=== PATIENT | female | born 1955 | race African-American/Black ===

== ENCOUNTER → 2016-11-26 | Emergency (ER) | payer MEDICARE, MEDICAID ==
[~2016-11-26] VITALS: Ht 154.9 cm; Wt 81.6 kg
[~2016-11-26] MED LIST: AMBIEN10 MG PO; AMLODIPINE BESY10 MG ORAL; BACTRIM DS TAB1 EAC1 ORAL; CARAFATE1 G1 ORAL; CIPRO500 MG PO; COLACE100 MG ORAL; CYCLOBENZAPRINE10 MG ORAL; DICYCLOMINE HCL10 MG PO; Dicyclomine HCl 10mg/5ml oral soln ORAL ONE; FAMOTIDINE20 MG ORAL; FLUOXETINE HCL20 M2 ORAL; FLUOXETINE HCL20 MG PO; FLUOXETINE HCL25 G1 PO; GABAPENTIN300 MG ORAL; HYDROCODON-ACE1 EA15 ORAL; KEFLEX500 MG ORAL; LEVAQUIN750 MG ORAL; LIDOCAINE VISCO20 ML PO; Lidocaine 2% Visc 15ml soln ORAL ONE; MAALOX MAXIMUM355 M1 PO; MIRALAX17 GM ORAL; Mylanta II UD 30ml ORAL ONE; NEXIUM40 MG ORAL; NORCO 10/3251 EA ORAL; NORCO 5-325 TA1 EACH ORAL; NORVASC10 MG PO; OMEPRAZOLE20 M3 PO; OMEPRAZOLE40 M1 ORAL; PEPCID40 MG PO; PERCOCET 5-3251 EACH ORAL; PROAIR HFA8.5 GM INH; RANITIDINE HCL150 MG ORAL; TRAMADOL HCL50 MG ORAL; TRAMADOL HCL50 MG PO; UNOBMED; VICODIN ES 7.51 EACH ORAL; ZANTAC150 MG ORAL; ZOFRAN ODT4 MG ORAL; ZOFRAN4 MG ORAL
[2016-11-26 12:15] LABS: APPEARANCE,URINE CLEAR; KETONES,URINE NEGATIVE (NEGATIVE); LEUKOCYTE ESTERASE ,URINE 1+ (NEGATIVE); NITRITE,URINE NEGATIVE (NEGATIVE); PH,URINE 7 (4.5-8.0); PROTEIN,URINE NEGATIVE (NEGATIVE); UROBILINOGEN,URINE NORMAL MG/DL (0.0-1.0)
[2016-11-26 12:21] VITALS: BP 149/90
[2016-11-26 12:31] LABS: BACTERIA,URINE FEW /HPF; RBC,URINE 0-2 /HPF (0 - 2); SQUAMOUS EPITHELIAL CELL,UR FEW /LPF (NONE/OCC)
[2016-11-26 12:48] LABS: EOSINOPHILS % (AUTO) 1.9 % (0.0-3.0); LYMPHOCYTES % (AUTO) 38.9 % (20.0-45.0); MEAN CORPUSCULAR HEMOGLOBIN 28.2 PG (27.0-31.0); MEAN CORPUSCULAR HGB CONC 31.4 G/DL (32.0-36.0); MEAN CORPUSCULAR VOLUME 90 FL (80-99); MEAN PLATELET VOLUME 6.4 FL (6.5-10.1); MONOCYTES % (AUTO) 5.3 % (1.0-10.0); NEUTROPHILS % (AUTO) 52.9 % (45.0-75.0); PLATELET COUNT 374 K/UL (150-450); RED BLOOD COUNT 4.25 M/UL (4.20-5.40); RED CELL DISTRIBUTION WIDTH 13.6 % (11.6-14.8); WHITE BLOOD COUNT 7.7 K/UL (4.8-10.8)
[2016-11-26 12:55] LABS: ALANINE AMINOTRANSFERASE 21 U/L (3-33); ALBUMIN/GLOBULIN RATIO 1.3 (1.0-2.7); ANION GAP 16 (5-15); ASPARTATE AMINO TRANSFERASE 26 U/L (5-40); CALCIUM 9.1 mg/dL (8.6-10.2); CARBON DIOXIDE 27 mEQ/L (20-30); CHLORIDE 98 mEQ/L (98-107); CREATININE 0.7 mg/dL (0.5-0.9); GLOMERULAR FILTRATION RATE > 60 mL/min (>60); HEMOLYSIS 8; LIPASE 15 U/L (< 60); POTASSIUM 3.7 mEQ/L (3.4-4.9); SODIUM 141 mEQ/L (135-145); TOTAL PROTEIN 7.4 g/dL (6.6-8.7)
[2016-11-26 14:22] VITALS: BP 141/84
[2016-11-26 14:34] VITALS: BP 141/84
--- NOTE | 2016-11-26 20:00 | Emergency Room Report ---
History of Present Illness General Chief Complaint: Abdominal Pain Source: Patient, Medical Record Present Illness HPI Patient presents with upper abdominal pain and vomiting. She states the pain is 8-9/10, burning pressure and constant. No vomit blood. She feels this is her ulcer that is acting up. Denies any melena or fever. She feels weak as she has been vomiting. She tried to get a GI cocktail over the counter but was unable to do so. She denies URI sy, chest pain, SOB, sore throat, headache, rash. extremity pain. This began when she coughed. She was admitted June last year for intractable abdominal pain. These are her discharge dx: 1. Possible cholecystitis. 2. Anemia. 3. Peptic ulcer disease. 4. Intractable abdominal pain. 5. Hiatal hernia. 6. Gastroesophageal reflux disease. 7. Diverticulitis. 8. Hepatitis C. Allergies: Coded Allergies: NO KNOWN DRUG ALLERGIES (Unverified Allergy, Unknown, 05/23/15) Uncoded Allergies: lactulose intolerance (Adverse Reaction, Intermediate, Itching, 08/16/13) upset stomach Patient History Past Medical History: see triage record Social History Narrative at home Reviewed Nursing Documentation: PMH: Agreed, PSxH: Agreed Nursing Documentation-PMH Past Medical History: No History, Except For Hx Cardiac Problems: No - Hiatal Hernia, Anemia, Osteoarthritis, Scoliosis Hx Hypertension: Yes Hx Asthma: Yes Hx Cancer: No Hx Gastrointestinal Problems: Yes - Diverticulitis, Hep C, Gastritis Hx Dialysis: No - Pyelonephritis Hx Neurological Problems: No - Rt hip replacement in 2011 Hx Cerebrovascular Accident: No - KNEE, HIP, SHOLDER SX Hx Weakness: Yes Hx Fatigue: Yes Review of Systems All Other Systems: negative except mentioned in HPI Physical Exam Vital Signs Date Time Temp Pulse Resp B/P Pulse Ox O2 Delivery O2 Flow Rate FiO2 11/26/16 11:17 98.4 100 16 149/90 95 Room Air Sp02 EP Interpretation: reviewed, normal General Appearance: well appearing, no apparent distress, GCS 15, obese Head: normocephalic, atraumatic Eyes: bilateral eye PERRL, bilateral eye normal inspection ENT: moist mucus membranes Neck: supple Respiratory: lungs clear, normal breath sounds Cardiovascular #1: regular rate, rhythm Cardiovascular #2: 2+ radial (R) Gastrointestinal: normal inspection, normal bowel sounds, no mass, non- distended, tenderness - LUQ, some muscle tenderness, overweight Musculoskeletal: back normal, gait/station normal, normal range of motion Neurologic: alert, oriented x3 Skin: normal inspection, warm/dry Medical Decision Making Diagnostic Impression: Primary Impression: Abdominal pain Qualified Codes: R10.12 - Left upper quadrant pain ER Course Patient presents with Dr. quadrant abdominal pain. Differential includes gastritis, GERD, peptic ulcer disease, diverticulitis, muscle strain, amongst others appeared she's on the plantar plate at the moment. Evaluation will be with labs. Will order for IV hydration and Zofran. The patient had a paucity of IV access sites. We elected to treat patient with sublingual Zofran. In addition she got GI cocktail as requested. Laboratory remarkable for normal white count and normal electrolytes. Patient improved and pain decreased. Tolerating PO well. She states she has tramadol at home. Patient stable for outpatient observation and treatment. Laboratory Tests Test 11/26/16 11:30 11/26/16 11:45 Urine Color Yellow Urine Appearance Clear Urine pH 7 (4.5-8.0) Urine Specific [place] 1.005 (1.005-1.035) Urine Protein Negative (NEGATIVE) Urine Glucose (UA) Negative (NEGATIVE) Urine Ketones Negative (NEGATIVE) Urine Occult Blood Negative (NEGATIVE) Urine Nitrite Negative (NEGATIVE) Urine Bilirubin Negative (NEGATIVE) Urine Urobilinogen Normal MG/DL (0.0-1.0) Urine Leukocyte Esterase 1+ (NEGATIVE) H Urine RBC 0-2 /HPF (0 - 2) Urine WBC 2-4 /HPF (0 - 2) Urine Squamous Epithelial Cells Few /LPF (NONE/OCC) Urine Bacteria Few /HPF (NONE) White Blood Count 7.7 K/UL (4.8-10.8) Red Blood Count 4.25 M/UL (4.20-5.40) Hemoglobin 12.0 G/DL (12.0-16.0) Hematocrit 38.1 % (37.0-47.0) Mean Corpuscular Volume 90 FL (80-99) Mean Corpuscular Hemoglobin 28.2 PG (27.0-31.0) Mean Corpuscular Hemoglobin Concent 31.4 G/DL (32.0-36.0) L Red Cell Distribution Width 13.6 % (11.6-14.8) Platelet Count 374 K/UL (150-450) Mean Platelet Volume 6.4 FL (6.5-10.1) L Neutrophils (%) (Auto) 52.9 % (45.0-75.0) Lymphocytes (%) (Auto) 38.9 % (20.0-45.0) Monocytes (%) (Auto) 5.3 % (1.0-10.0) Eosinophils (%) (Auto) 1.9 % (0.0-3.0) Basophils (%) (Auto) 1.0 % (0.0-2.0) Sodium Level 141 mEQ/L (135-145) Potassium Level 3.7 mEQ/L (3.4-4.9) Chloride Level 98 mEQ/L (98-107) Carbon Dioxide Level 27 mEQ/L (20-30) Anion Gap 16 (5-15) H Blood Urea Nitrogen 7 mg/dL (7-23) Creatinine 0.7 mg/dL (0.5-0.9) Estimate Glomerular Filtration Rate > 60 mL/min (>60) Glucose Level 84 mg/dL (74-106) Calcium Level 9.1 mg/dL (8.6-10.2) Total Bilirubin < 0.2 mg/dL (0.0-1.2) Aspartate Amino Transferase (AST) 26 U/L (5-40) Alanine Aminotransferase (ALT) 21 U/L (3-33) Alkaline Phosphatase 100 U/L (35-104) Total Protein 7.4 g/dL (6.6-8.7) Albumin 4.3 g/dL (3.5-5.2) Globulin 3.1 g/dL Albumin/Globulin Ratio 1.3 (1.0-2.7) Lipase 15 U/L (< 60) EKG Diagnostic Results Rate: normal Rhythm: NSR ST Segments: no acute changes Rhythm Strip Diag. Results EP Interpretation: yes Rhythm: NSR, no PVC's, no ectopy, other - from EKG Last Vital Signs Date Time Temp Pulse Resp B/P Pulse Ox O2 Delivery O2 Flow Rate FiO2 11/26/16 14:34 98.4 99 18 141/84 99 Room Air Status: improved Disposition: HOME, SELF-CARE Condition: Improved Scripts Lidocaine HCl (Lidocaine HCl Viscous) 100 Ml Solution 10 ML PO Q6HR Y for For Pain, #60 ML 1 Refill Prov: Yasir Ruff M.D. 11/26/16 Ondansetron Odt* (ZOFRAN ODT*) 4 Mg Tab.rapdis 4 MG ORAL Q8H Y for Nausea & Vomiting, #12 TAB 0 Refills Prov: Yasir Ruff M.D. 11/26/16 Mag Hydrox/Al Hydrox/Simeth (MAALOX MAXIMUM STRENGTH SUSP) 355 Ml Oral.susp 30 ML PO Q6HR Y for For Pain, #240 ML Prov: Yasir Ruff M.D. 11/26/16 Patient Instructions: Abdominal Pain, Adult Additional Instructions: No aspirin, advil, aleve, alkaselzer, peptobismol or alcohol. Tylenol and [place] OK. Your doctor needs to check you for H. pylori. Yasir Ruff M.D. Nov 26, 2016 20:00
--- NOTE | 2016-11-28 15:16 | Cardiology Report ---
APPROVED REPORT EKG Measurement Heart [id number] Normal sinus rhythm Septal infarct, age undetermined Abnormal ECG
== END | disposition home or self-care (01) ==
LOC: EMR 11:53
DX: R10.12 Left upper quadrant pain (principal); R11.10 Vomiting, unspecified; Z91.011 Allergy to milk products; I10 Essential (primary) hypertension; J45.909 Unspecified asthma, uncomplicated; Z96.641 Presence of right artificial hip joint; Z87.19 Personal history of other diseases of the digestive system; M19.90 Unspecified osteoarthritis, unspecified site; M41.9 Scoliosis, unspecified; Z87.11 Personal history of peptic ulcer disease
CPT/HCPCS: 36415; 80053; 81003; 83690; 85025; 93005; 99284; J2405

== ENCOUNTER 2016-12-28 10:52 | Emergency (ER) | payer MEDICARE, MEDICAID ==
[~2016-12-28] VITALS: Ht 154.9 cm; Wt 86.2 kg
[~2016-12-28 10:52] MED LIST changes: -Dicyclomine HCl 10mg/5ml oral soln ORAL ONE; -Lidocaine 2% Visc 15ml soln ORAL ONE; -Mylanta II UD 30ml ORAL ONE; -PEPCID40 MG PO
[2016-12-28 11:02] VITALS: BP 134/94
[2016-12-28] MEDS ORDERED: Morphine Sulfate 4mg/ml Inj IM ONE (11:15)
--- NOTE | 2016-12-28 11:24 | Emergency Room Report ---
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 Denies any vomiting but she felt nauseous patient was taking tramadol for this which was not helping And presents by paramedics Patient denies any diarrhea she feels that her duodenal ulcer could be acting up Denies any dysuria frequency denies any lower abdominal pain Denies any fevers chills Allergies: Coded Allergies: NO KNOWN DRUG ALLERGIES (Unverified Allergy, Unknown, 05/23/15) Uncoded Allergies: lactulose intolerance (Adverse Reaction, Intermediate, Itching, 08/16/13) upset stomach Patient History Past Medical History: see triage record Pertinent Family History: none Reviewed Nursing Documentation: PMH: Agreed, PSxH: Agreed Nursing Documentation-PMH Past Medical History: No History, Except For Hx Cardiac Problems: No - Hiatal Hernia, Anemia, Osteoarthritis, Scoliosis Hx Hypertension: Yes Hx Asthma: Yes Hx Cancer: No Hx Gastrointestinal Problems: Yes - Diverticulitis, Hep C, Gastritis Hx Dialysis: No - Pyelonephritis Hx Neurological Problems: No - Rt hip replacement in 2011 Hx Cerebrovascular Accident: No - KNEE, HIP, SHOLDER SX Hx Weakness: Yes Hx Fatigue: Yes Review of Systems All Other Systems: negative except mentioned in HPI Physical Exam Vital Signs Date Time Temp Pulse Resp B/P Pulse Ox O2 Delivery O2 Flow Rate FiO2 12/28/16 10:54 97.5 112 21 134/94 96 Room Air Sp02 EP Interpretation: reviewed, normal General Appearance: mild distress - Patient appears uncomfortable Head: normocephalic, atraumatic Eyes: bilateral eye EOMI, bilateral eye PERRL ENT: hearing grossly normal, normal pharynx, TMs + canals normal, uvula midline Neck: full range of motion, supple, no meningismus, no bony tend Respiratory: lungs clear, normal breath sounds, no rhonchi, no respiratory distress, no retraction, no accessory muscle use Cardiovascular #1: normal peripheral pulses, regular rate, rhythm, no edema, no gallop, no JVD, no murmur Gastrointestinal: normal bowel sounds, soft, no mass, no organomegaly, non- distended, no guarding, no hernia, no pulsatile mass, no rebound, tenderness - Patient subjectively holding her left upper abdomen, otherwise the exam is soft Genitourinary: no CVA tenderness Musculoskeletal: normal inspection Neurologic: oriented x3, responsive, mmi teacher III-XII nml as tested, motor strength/ tone normal, sensory intact Psychiatric: mood/affect normal Skin: normal color, no rash, warm/dry, palpation normal Lymphatic: normal inspection, no adenopathy Medical Decision Making Diagnostic Impression: Primary Impression: Abdominal pain ER Course With the history exam and presentation, multiple differentials considered, including but not limited to appendicitis, gastritis, cholecystitis, diverticulitis Patient has had multiple episodes of abdominal pain with multiple CAT scans in the system given the patient's abdomen is soft the did not want to expose her to further radiation patient's blood work is at baseline levels I recommended discussing with her physician if she has ulcers tramadol should be revisited and might not be the best medication Patient will have close outpatient followup and return with any changes Labs Test 12/28/16 11:25 12/28/16 12:05 Sodium Level 141 mEQ/L (135-145) Potassium Level 3.7 mEQ/L (3.4-4.9) Chloride Level 99 mEQ/L (98-107) Carbon Dioxide Level 23 mEQ/L (20-30) Anion Gap 19 (5-15) Blood Urea Nitrogen 7 mg/dL (7-23) Creatinine 0.6 mg/dL (0.5-0.9) Estimat Glomerular Filtration Rate > 60 mL/min (>60) Glucose Level 97 mg/dL (74-106) Calcium Level 9.6 mg/dL (8.6-10.2) Total Bilirubin 0.2 mg/dL (0.0-1.2) Aspartate Amino Transf (AST/SGOT) 22 U/L (5-40) Alanine Aminotransferase (ALT/SGPT) 17 U/L (3-33) Alkaline Phosphatase 106 U/L (35-104) Total Protein 7.5 g/dL (6.6-8.7) Albumin 4.1 g/dL (3.5-5.2) Globulin 3.4 g/dL Albumin/Globulin Ratio 1.2 (1.0-2.7) Lipase 18 U/L (< 60) White Blood Count 7.7 K/UL (4.8-10.8) Red Blood Count 4.16 M/UL (4.20-5.40) Hemoglobin 11.7 G/DL (12.0-16.0) Hematocrit 36.8 % (37.0-47.0) Mean Corpuscular Volume 88 FL (80-99) Mean Corpuscular Hemoglobin 28.1 PG (27.0-31.0) Mean Corpuscular Hemoglobin Concent 31.7 G/DL (32.0-36.0) Red Cell Distribution Width 13.9 % (11.6-14.8) Platelet Count 347 K/UL (150-450) Mean Platelet Volume 6.2 FL (6.5-10.1) Neutrophils (%) (Auto) 72.8 % (45.0-75.0) Lymphocytes (%) (Auto) 19.3 % (20.0-45.0) Monocytes (%) (Auto) 5.2 % (1.0-10.0) Eosinophils (%) (Auto) 1.8 % (0.0-3.0) Basophils (%) (Auto) 0.9 % (0.0-2.0) Rhythm Strip Diag. Results EP Interpretation: yes Rate: 77 Rhythm: NSR, no PVC's, no ectopy Last Vital Signs Date Time Temp Pulse Resp B/P Pulse Ox O2 Delivery O2 Flow Rate FiO2 12/28/16 11:02 97.5 107 21 134/94 96 Room Air Status: improved Disposition: HOME, SELF-CARE Condition: Improved Scripts Famotidine (PEPCID) 40 Mg Tablet 40 MG PO DAILY, #7 TAB 0 Refills Prov: BLAKE GARCIA D.O. 12/28/16 Referrals: NON PHYSICIAN (PCP) Additional Instructions: Patient is provided with the discharge instructions notified to follow up with primary doctor in the next 2-3 days otherwise return to the er with any worsening symptoms. Please note that this report is being documented using [employer] technology. This can lead to erroneous entry secondary to incorrect interpretation by the dictating instrument. BLAKE GARCIA D.O. Dec 28, 2016 11:23
[2016-12-28 11:52] LABS: ALANINE AMINOTRANSFERASE 17 U/L (3-33); ALBUMIN/GLOBULIN RATIO 1.2 (1.0-2.7); ANION GAP 19 (5-15); ASPARTATE AMINO TRANSFERASE 22 U/L (5-40); CALCIUM 9.6 mg/dL (8.6-10.2); CARBON DIOXIDE 23 mEQ/L (20-30); CHLORIDE 99 mEQ/L (98-107); CREATININE 0.6 mg/dL (0.5-0.9); GLOMERULAR FILTRATION RATE > 60 mL/min (>60); HEMOLYSIS 9; LIPASE 18 U/L (< 60); POTASSIUM 3.7 mEQ/L (3.4-4.9); SODIUM 141 mEQ/L (135-145); TOTAL PROTEIN 7.5 g/dL (6.6-8.7)
[2016-12-28 12:15] LABS: BASOPHILS % (AUTO) 0.9 % (0.0-2.0); EOSINOPHILS % (AUTO) 1.8 % (0.0-3.0); LYMPHOCYTES % (AUTO) 19.3 % (20.0-45.0); MEAN CORPUSCULAR HEMOGLOBIN 28.1 PG (27.0-31.0); MEAN CORPUSCULAR HGB CONC 31.7 G/DL (32.0-36.0); MEAN CORPUSCULAR VOLUME 88 FL (80-99); MEAN PLATELET VOLUME 6.2 FL (6.5-10.1); MONOCYTES % (AUTO) 5.2 % (1.0-10.0); NEUTROPHILS % (AUTO) 72.8 % (45.0-75.0); PLATELET COUNT 347 K/UL (150-450); RED BLOOD COUNT 4.16 M/UL (4.20-5.40); RED CELL DISTRIBUTION WIDTH 13.9 % (11.6-14.8); WHITE BLOOD COUNT 7.7 K/UL (4.8-10.8)
[2016-12-28] MEDS ORDERED: PEPCID40 MG PO (12:43)
[2016-12-28 13:10] VITALS: BP 141/81
[2016-12-28] MEDS ORDERED: Dicyclomine HCl 10mg/5ml oral soln ORAL ONE (13:15)
== END 2016-12-28 13:08 | disposition home or self-care (01) ==
LOC: EDBD 10:52 → EMR 11:11
DX: R10.12 Left upper quadrant pain (principal); E73.9 Lactose intolerance, unspecified; I10 Essential (primary) hypertension; J45.909 Unspecified asthma, uncomplicated; Z96.641 Presence of right artificial hip joint; M19.90 Unspecified osteoarthritis, unspecified site; M41.9 Scoliosis, unspecified
CPT/HCPCS: 36415; 80053; 83690; 85025; 96372; 99283; J2270

== ENCOUNTER 2017-02-08 10:47 | Emergency (ER) | payer MEDICARE, MEDICAID ==
[~2017-02-08] VITALS: Ht 154.9 cm; Wt 99.8 kg
[~2017-02-08 10:47] MED LIST changes: +ACETAMINOPHEN325 M1 ORAL; +AMLODIPINE BES2.5 MG ORAL; +DICLOFENAC SODI25 MG ORAL; +FLUOXETINE HCL10 MG ORAL; +PEPCID40 MG PO
[2017-02-08 10:50] VITALS: BP 154/91
[2017-02-08 11:00] VITALS: BP 137/94
[2017-02-08] MEDS ORDERED: HYDROmorphone 1 MG, DiphenhydrAMINE 25 MG in NS 55 ML IV ONE (11:00)
[2017-02-08 11:45] LABS: BASOPHILS % (AUTO) 1.1 % (0.0-2.0); EOSINOPHILS % (AUTO) 2.7 % (0.0-3.0); MEAN CORPUSCULAR HEMOGLOBIN 28.2 PG (27.0-31.0); MEAN CORPUSCULAR HGB CONC 31.2 G/DL (32.0-36.0); MEAN CORPUSCULAR VOLUME 90 FL (80-99); MEAN PLATELET VOLUME 6.3 FL (6.5-10.1); MONOCYTES % (AUTO) 5.1 % (1.0-10.0); PLATELET COUNT 332 K/UL (150-450); RED BLOOD COUNT 4.13 M/UL (4.20-5.40); RED CELL DISTRIBUTION WIDTH 14.2 % (11.6-14.8); WHITE BLOOD COUNT 6.5 K/UL (4.8-10.8)
[2017-02-08] MEDS ORDERED: Mylanta II UD 30ml ORAL ONE (11:45)
[2017-02-08] MEDS ORDERED: Lidocaine 2% Visc 15ml soln ORAL ONE (11:45)
[2017-02-08] MEDS ORDERED: Dicyclomine HCl 10mg/5ml oral soln ORAL ONE (11:45)
[2017-02-08 12:00] VITALS: BP 139/86
[2017-02-08 12:01] LABS: ALANINE AMINOTRANSFERASE 22 U/L (3-33); ALBUMIN/GLOBULIN RATIO 1.6 (1.0-2.7); ANION GAP 18 (5-15); ASPARTATE AMINO TRANSFERASE 30 U/L (5-40); CALCIUM 9.6 mg/dL (8.6-10.2); CARBON DIOXIDE 25 mEQ/L (20-30); CHLORIDE 100 mEQ/L (98-107); CREATININE 0.5 mg/dL (0.5-0.9); GLOMERULAR FILTRATION RATE > 60 mL/min (>60); HEMOLYSIS 26; LIPASE 14 U/L (< 60); POTASSIUM 3.8 mEQ/L (3.4-4.9); SODIUM 143 mEQ/L (135-145); TOTAL PROTEIN 6.7 g/dL (6.6-8.7)
[2017-02-08 13:20] VITALS: BP 129/87
[2017-02-08] MEDS ORDERED: MAALOX MAXIMUM355 M1 PO (13:27)
--- NOTE | 2017-02-09 09:27 | Emergency Room Report ---
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 and presents by paramedics Patient reports that she's not able to get the lidocaine aspect of the GI cocktail as an outpatient Which is what usually helps her pain Denies any fevers or chills denies any lower abdominal pain pain is a sharp and burning pain Allergies: Coded Allergies: NO KNOWN DRUG ALLERGIES (Unverified Allergy, Unknown, 05/23/15) Uncoded Allergies: lactulose intolerance (Adverse Reaction, Intermediate, Itching, 08/16/13) upset stomach Patient History Past Medical History: see triage record Pertinent Family History: none Reviewed Nursing Documentation: PMH: Agreed, PSxH: Agreed Nursing Documentation-PMH Hx Cardiac Problems: No - Hiatal Hernia, Anemia, Osteoarthritis, Scoliosis Hx Hypertension: Yes Hx Asthma: Yes Hx Cancer: No Hx Gastrointestinal Problems: Yes Hx Dialysis: No - Pyelonephritis Hx Neurological Problems: No - Rt hip replacement in 2011 Hx Weakness: Yes Hx Fatigue: Yes Review of Systems All Other Systems: negative except mentioned in HPI Physical Exam Vital Signs Date Time Temp Pulse Resp B/P Pulse Ox O2 Delivery O2 Flow Rate FiO2 02/08/17 10:33 98.6 106 20 114/86 97 Room Air Sp02 EP Interpretation: reviewed, normal General Appearance: mild distress - Appears in pain Head: normocephalic, atraumatic Eyes: bilateral eye EOMI, bilateral eye PERRL ENT: hearing grossly normal, normal pharynx, TMs + canals normal, uvula midline Neck: full range of motion, supple, no meningismus, no bony tend Respiratory: lungs clear, normal breath sounds, no rhonchi, no respiratory distress, no retraction, no accessory muscle use Cardiovascular #1: normal peripheral pulses, regular rate, rhythm, no edema, no gallop, no JVD, no murmur Gastrointestinal: normal bowel sounds, non tender, soft, no mass, no organomegaly, non-distended, no guarding, no hernia, no pulsatile mass, no rebound Genitourinary: no CVA tenderness Musculoskeletal: normal inspection Neurologic: oriented x3, responsive, mathematics academic chair III-XII nml as tested, motor strength/ tone normal, sensory intact Psychiatric: mood/affect normal Skin: normal color, no rash, warm/dry, palpation normal Lymphatic: normal inspection, no adenopathy Medical Decision Making Diagnostic Impression: Primary Impression: Abdominal pain ER Course With the history exam and presentation, multiple differentials considered, including but not limited to appendicitis, gastritis, cholecystitis, diverticulitis Patient's baseline blood work are appropriate including Lipase level Patient has had upper endoscopy and reports gastritis and duodenal ulcer Patient is encouraged to follow up closely with primary physician and will return with any changes Labs Test 02/08/17 11:25 White Blood Count 6.5 K/UL (4.8-10.8) Red Blood Count 4.13 M/UL (4.20-5.40) Hemoglobin 11.7 G/DL (12.0-16.0) Hematocrit 37.3 % (37.0-47.0) Mean Corpuscular Volume 90 FL (80-99) Mean Corpuscular Hemoglobin 28.2 PG (27.0-31.0) Mean Corpuscular Hemoglobin Concent 31.2 G/DL (32.0-36.0) Red Cell Distribution Width 14.2 % (11.6-14.8) Platelet Count 332 K/UL (150-450) Mean Platelet Volume 6.3 FL (6.5-10.1) Neutrophils (%) (Auto) 62.0 % (45.0-75.0) Lymphocytes (%) (Auto) 29.0 % (20.0-45.0) Monocytes (%) (Auto) 5.1 % (1.0-10.0) Eosinophils (%) (Auto) 2.7 % (0.0-3.0) Basophils (%) (Auto) 1.1 % (0.0-2.0) Sodium Level 143 mEQ/L (135-145) Potassium Level 3.8 mEQ/L (3.4-4.9) Chloride Level 100 mEQ/L (98-107) Carbon Dioxide Level 25 mEQ/L (20-30) Anion Gap 18 (5-15) Blood Urea Nitrogen 5 mg/dL (7-23) Creatinine 0.5 mg/dL (0.5-0.9) Estimat Glomerular Filtration Rate > 60 mL/min (>60) Glucose Level 105 mg/dL (74-106) Calcium Level 9.6 mg/dL (8.6-10.2) Total Bilirubin 0.2 mg/dL (0.0-1.2) Aspartate Amino Transf (AST/SGOT) 30 U/L (5-40) Alanine Aminotransferase (ALT/SGPT) 22 U/L (3-33) Alkaline Phosphatase 94 U/L (35-104) Total Protein 6.7 g/dL (6.6-8.7) Albumin 4.2 g/dL (3.5-5.2) Globulin 2.5 g/dL Albumin/Globulin Ratio 1.6 (1.0-2.7) Lipase 14 U/L (< 60) Rhythm Strip Diag. Results EP Interpretation: yes Rate: 67 Rhythm: NSR, no PVC's, no ectopy Last Vital Signs Date Time Temp Pulse Resp B/P Pulse Ox O2 Delivery O2 Flow Rate FiO2 02/08/17 13:20 96 16 129/87 99 Room Air 02/08/17 10:33 98.6 Status: improved Disposition: HOME, SELF-CARE Condition: Improved Scripts Mag Hydrox/Al Hydrox/Simeth (MAALOX MAXIMUM STRENGTH SUSP) 355 Ml Oral.susp 10 ML PO TID for 7 Days, ML Prov: BLAKE GARCIA D.O. 02/08/17 Referrals: NON PHYSICIAN (PCP) Patient Instructions: Abdominal Pain, Adult Additional Instructions: Patient is provided with the discharge instructions notified to follow up with primary doctor in the next 2-3 days otherwise return to the er with any worsening symptoms. Please note that this report is being documented using [employer] technology. This can lead to erroneous entry secondary to incorrect interpretation by the dictating instrument. BLAKE GARCIA D.O. February 09, 2017 09:27
--- NOTE | 2017-02-10 12:00 | Cardiology Report ---
APPROVED REPORT EKG Measurement Heart [id number] Sinus rhythm with occasional premature ventricular complexes Septal infarct, age undetermined Abnormal ECG
== END 2017-02-08 13:20 | disposition home or self-care (01) ==
LOC: EDBD 10:47 → EMR 11:30
DX: R10.10 Upper abdominal pain, unspecified (principal); I10 Essential (primary) hypertension; J45.909 Unspecified asthma, uncomplicated; Z96.641 Presence of right artificial hip joint; M19.90 Unspecified osteoarthritis, unspecified site; M41.9 Scoliosis, unspecified
CPT/HCPCS: 36415; 80053; 83690; 85025; 93005; 99283

== ENCOUNTER 2017-07-03 10:51 | Emergency (ER) | payer MEDICARE, MEDICAID ==
[~2017-07-03] VITALS: Ht 154.9 cm; Wt 79.4 kg
[2017-07-03 11:00] VITALS: BP 140/116
--- NOTE | 2017-07-03 11:03 | Emergency Room Report ---
History of Present Illness General Chief Complaint: Multiple Trauma/Fall Source: Patient Present Illness HPI The patient present with complaints of right hip pain Reports that she has had hip surgery there previously However her vertigo was acting up throughout the day today and last week patient stood up this morning to go to the restroom where she fell to her right side Pain is 7/10 worse with movement Denies any other chest pain or shortness of breath Denies any lightheadedness at this time Denies any abdominal pain Denies any recent fevers denies any focal weakness Allergies: Coded Allergies: NO KNOWN DRUG ALLERGIES (Unverified Allergy, Unknown, 05/23/15) Uncoded Allergies: lactulose intolerance (Adverse Reaction, Intermediate, Itching, 08/16/13) upset stomach Patient History Past Medical History: see triage record Pertinent Family History: none Reviewed Nursing Documentation: PMH: Agreed, PSxH: Agreed Nursing Documentation-PMH Past Medical History: No History, Except For Hx Hypertension: Yes Hx Asthma: Yes Hx Cancer: No Hx Dialysis: No - Pyelonephritis Hx Neurological Problems: No - Rt hip replacement in 2011 Hx Cerebrovascular Accident: No - KNEE, HIP, SHOLDER SX Hx Weakness: Yes Hx Fatigue: Yes Review of Systems All Other Systems: negative except mentioned in HPI Physical Exam Vital Signs Date Time Temp Pulse Resp B/P (MAP) Pulse Ox O2 Delivery O2 Flow Rate FiO2 07/03/17 10:38 97.7 88 16 125/84 98 Room Air Sp02 EP Interpretation: reviewed, normal General Appearance: mild distress - appears anxious Head: normocephalic, atraumatic Eyes: bilateral eye PERRL, bilateral eye EOMI ENT: hearing grossly normal, normal pharynx Neck: full range of motion, supple Respiratory: lungs clear Cardiovascular #1: regular rate, rhythm Gastrointestinal: non tender, soft Musculoskeletal: other - Patient is uncomfortable on palpation of the right anterior superior iliac crest patient was able to flex at the knee however have some mild discomfort at the right hip Neurologic: alert, oriented x3, responsive Skin: no rash Lymphatic: no adenopathy Medical Decision Making Diagnostic Impression: Primary Impression: Fall Additional Impression: Contusion of hip, right ER Course Given the patient's history and exam CAT scan imaging was obtained for further evaluation It is read as negative by radiology Patient has done better throughout her stay in stable for close outpatient follow CT/MRI/US Diagnostic Results CT/MRI/US Diagnostic Results : Impression CT pelvic:Impression: Postsurgical changes of the right hip. No unusual features or significant interim change since earlier study of 01/25/2016 Degenerative changes, as described Colonic diverticulosis Absence of the uterus, previously described, probably postsurgical Last Vital Signs Date Time Temp Pulse Resp B/P (MAP) Pulse Ox O2 Delivery O2 Flow Rate FiO2 07/03/17 10:38 97.7 88 16 125/84 98 Room Air Status: improved Disposition: HOME, SELF-CARE Condition: Improved Scripts Albuterol Sulfate* (ALBUTEROL SULFATE MDI*) 8.5 Gm Hfa.aer.ad 2 PUFF INH Q6H, #1 EA 0 Refills Prov: BLAKE GARCIA D.O. 07/03/17 Methocarbamol* (ROBAXIN-750*) 750 Mg Tablet 750 MG PO TID, #21 TAB 0 Refills Prov: BLAKE GARCIA D.O. 07/03/17 Additional Instructions: Patient is provided with the discharge instructions notified to follow up with primary doctor in the next 2-3 days otherwise return to the er with any worsening symptoms. Please note that this report is being documented using [employer] technology. This can lead to erroneous entry secondary to incorrect interpretation by the dictating instrument. BLAKE GARCIA D.O. Jul 03, 2017 11:03
[2017-07-03] MEDS ORDERED: Tylenol #3 tab (300mg/30mg) ORAL ONE (11:15)
[2017-07-03] MEDS ORDERED: Methocarbamol 750mg tab ORAL ONE (11:15)
[2017-07-03 12:00] VITALS: BP 136/84
--- NOTE | 2017-07-03 12:07 | Diagnostic Imaging Report ---
Indication: TRAUMA, right hip pain Technique: Noncontrast spiral acquisitions obtained through the pelvis. Multiplanar reconstructions generated. Total dose length product 753 mGycm. CTDIvol(s) 20 mGy. Dose reduction achieved using automated exposure control Comparison: Abdomen pelvis CT 01/25/2016 Findings: There is a right hip arthroplasty prosthesis in place. This is streak artifact from this which may obscure pathology. It appears to be well aligned. No evidence of acute fracture or dislocation. Chronic appearing changes of the pubic symphysis appear similar the earlier studies. The left hip appears intact. No evidence of acute pelvic fracture. Lucency through the anterolateral superior left sacral wing may reflect old injury, unchanged from prior study. No evidence of acute sacral or coccygeal fracture. There are degenerative changes of the bilateral sacroiliac joints and of the lumbosacral junction. The included pelvic viscera demonstrate colonic diverticulosis. No pelvic mass or adenopathy demonstrated. The uterus is absent, presumably postsurgically. No evidence of significant soft tissue contusion. No significant interim change Impression: Postsurgical changes of the right hip. No unusual features or significant interim change since earlier study of 01/25/2016 Degenerative changes, as described Colonic diverticulosis Absence of the uterus, previously described, probably postsurgical The CT scanner at [facility] is accredited by the [employer] and the scans are performed using protocols designed to limit radiation exposure to as low as reasonably achievable to attain images of sufficient resolution adequate for diagnostic evaluation.
[2017-07-03 13:00] VITALS: BP 138/82
[2017-07-03] MEDS ORDERED: ROBAXIN-750750 MG PO (13:34)
[2017-07-03] MEDS ORDERED: ALBUTEROL SULF8.5 GM INH (13:51)
[2017-07-03 14:00] VITALS: BP 151/82
== END 2017-07-03 14:00 | disposition home or self-care (01) ==
LOC: EDBD 10:51 → EMR 11:04
DX: M25.551 Pain in right hip (principal); W19.XXXA Unspecified fall, initial encounter; Y92.002 Bathroom of unspecified non-institutional (private) residence as the place of occurrence of the external cause; R42 Dizziness and giddiness; I10 Essential (primary) hypertension; J45.909 Unspecified asthma, uncomplicated
CPT/HCPCS: 72192; 99284

== ENCOUNTER 2017-08-19 17:59 | Inpatient (IN) | payer MEDICARE, MEDICAID ==
[~2017-08-19] VITALS: Ht 154.9 cm; Wt 74.8 kg
[~2017-08-19 17:59] MED LIST changes: +ALBUTEROL SULF8.5 GM INH; +ROBAXIN-750750 MG PO
[2017-08-19 18:03] VITALS: BP 174/93
--- NOTE | 2017-08-19 18:43 | Emergency Room Report ---
History of Present Illness General Chief Complaint: Abdominal Pain Source: Patient Present Illness HPI 62-year-old female history of hiatal hernia, duodenal ulcer, hypertension, one baby aspirin, p/w abdominal pain many months, 1 day of melanotic stool. Patient states pain startS gradually , localized to epigastric area, non radiating, burning in nature, intermittent. No relieving or exacerbating factors. Severity is 5/10. Complains of nausea no vomiting. No diarrhea States she had 4 black stools today, states that she does not currently take any iron Denies fever, chills. Last endoscopy was 2013 which showed a duodenal ulcer Allergies: Coded Allergies: NO KNOWN DRUG ALLERGIES (Unverified Allergy, Unknown, 05/23/15) Uncoded Allergies: lactulose intolerance (Adverse Reaction, Intermediate, Itching, 08/16/13) upset stomach Patient History Past Medical History: see triage record Past Surgical History: none Pertinent Family History: none Reviewed Nursing Documentation: PMH: Agreed, PSxH: Agreed Nursing Documentation-PMH Hx Hypertension: Yes Hx Asthma: Yes Hx Cancer: No Hx Dialysis: No - Pyelonephritis Hx Neurological Problems: No - Rt hip replacement in 2011 Hx Weakness: Yes Hx Fatigue: Yes Review of Systems All Other Systems: negative except mentioned in HPI Physical Exam Vital Signs Date Time Temp Pulse Resp B/P (MAP) Pulse Ox O2 Delivery O2 Flow Rate FiO2 08/19/17 18:03 98.2 105 20 174/93 100 Room Air Sp02 EP Interpretation: reviewed, normal General Appearance: alert, GCS 15, non-toxic, mild distress Head: normocephalic, atraumatic Eyes: bilateral eye normal inspection, bilateral eye PERRL, bilateral eye EOMI ENT: normal ENT inspection, normal pharynx, normal voice, moist mucus membranes Neck: normal inspection, full range of motion, supple Respiratory: normal inspection, lungs clear, normal breath sounds, no respiratory distress, no retraction, no wheezing, speaking full sentences, chest symmetrical Cardiovascular #1: normal inspection, regular rate, rhythm, no edema, normal capillary refill Cardiovascular #2: 2+ radial (R), 2+ radial (L) Gastrointestinal: soft, non-distended, no guarding, other - mild epigastric tenderness, no guarding or rebound Musculoskeletal: normal inspection, back normal, normal range of motion, non- tender Neurologic: normal inspection, alert, oriented x3, responsive, motor strength/ tone normal, sensory intact, normal gait, speech normal Psychiatric: normal inspection, judgement/insight normal, memory normal Skin: normal inspection, normal color, no rash, warm/dry, well hydrated, normal turgor Medical Decision Making Diagnostic Impression: Primary Impression: Abdominal pain Additional Impression: Duodenal ulcer disease ER Course 62-year-old female history of duodenal ulcer with abdominal pain and melanotic stool Differential Diagnosis: Upper GI bleed / ulcer disease versus Gastritis, gastroenteritis, cholecystitis , appendicitis, diverticulitis, UTI/pyelo At this time abdomen is soft nontender, will hold CT for now. Plan: Basic labs, ua, ekg Pepcid, Protonix, pain control, IVF ER course: Patient has been monitored during ED stay, HD stable given gi cocktail, protonix abd exam continues to be tender only in epigastric area Disposition: Patient is to be admitted to telemetry unit D/W hospitalist Dr Oliva Please note that this Emergency Department Report was dictated using [employer] technology software, occasionally this can lead to erroneous entry secondary to interpretation by the dictation equipment. EKG Diagnostic Results EP Interpretation: Yes Rate: normal Rhythm: NSR ST Segments: No acute changes ASA given to patient: No Rhythm Strip EP Interpretation: Yes Rate: 91 Rhythm: NSR, no PVCs, no ectopy Chest X-ray CXR: Ordered: Yes 1 view Indication: pain EP interpretation: Yes Interpretation: No consolidation, no effusion, no PTX, no acute cardiopulmonary disease, no free air Impression: No acute disease Electronically signed by Nathalie Garcia MD Laboratory Tests Test 08/19/17 19:15 White Blood Count 7.2 K/UL (4.8-10.8) Red Blood Count 3.48 M/UL (4.20-5.40) L Hemoglobin 9.5 G/DL (12.0-16.0) L Hematocrit 31.4 % (37.0-47.0) L Mean Corpuscular Volume 90 FL (80-99) Mean Corpuscular Hemoglobin 27.4 PG (27.0-31.0) Mean Corpuscular Hemoglobin Concent 30.4 G/DL (32.0-36.0) L Red Cell Distribution Width 14.5 % (11.6-14.8) Platelet Count 335 K/UL (150-450) Mean Platelet Volume 5.9 FL (6.5-10.1) L Neutrophils (%) (Auto) 55.5 % (45.0-75.0) Lymphocytes (%) (Auto) 35.6 % (20.0-45.0) Monocytes (%) (Auto) 6.6 % (1.0-10.0) Eosinophils (%) (Auto) 1.3 % (0.0-3.0) Basophils (%) (Auto) 1.0 % (0.0-2.0) Prothrombin Time 10.3 SEC (9.30-11.50) Prothrombin Time INR 1.0 (0.9-1.1) PTT 27 SEC (23-33) Sodium Level 142 MMOL/L (136-145) Potassium Level 3.0 MMOL/L (3.5-5.1) L Chloride Level 103 MMOL/L (98-107) Carbon Dioxide Level 32 MMOL/L (21-32) Anion Gap 7 mmol/L (5-15) Blood Urea Nitrogen 8 mg/dL (7-18) Creatinine 0.8 MG/DL (0.55-1.30) Estimate Glomerular Filtration Rate > 60 mL/min (>60) Glucose Level 107 MG/DL (74-106) H Calcium Level 9.2 MG/DL (8.5-10.1) Total Bilirubin 0.2 MG/DL (0.2-1.0) Aspartate Amino Transferase (AST) 25 U/L (15-37) Alanine Aminotransferase (ALT) 26 U/L (12-78) Alkaline Phosphatase 97 U/L (46-116) Total Protein 7.2 G/DL (6.4-8.2) Albumin 3.5 G/DL (3.4-5.0) Globulin 3.7 g/dL Albumin/Globulin Ratio 0.9 (1.0-2.7) L Lipase 81 U/L (73-393) Last Vital Signs Date Time Temp Pulse Resp B/P (MAP) Pulse Ox O2 Delivery O2 Flow Rate FiO2 08/19/17 18:03 98.2 105 20 174/93 100 Room Air Disposition: ADMITTED INPATIENT Condition: Serious Nathalie Garcia M.D. Aug 19, 2017 18:43
[2017-08-19] MEDS ORDERED: Pantoprazole Inj IVP ONE (19:30)
[2017-08-19] MEDS ORDERED: Lidocaine 2% Visc 15ml soln ORAL ONE (19:30)
[2017-08-19] MEDS ORDERED: Dicyclomine HCl 10mg/5ml oral soln ORAL ONE (19:30)
[2017-08-19] MEDS ORDERED: Mylanta II UD 30ml ORAL ONE (19:30)
[2017-08-19 19:44] LABS: EOSINOPHILS % (AUTO) 1.3 % (0.0-3.0); LYMPHOCYTES % (AUTO) 35.6 % (20.0-45.0); MEAN CORPUSCULAR HEMOGLOBIN 27.4 PG (27.0-31.0); MEAN CORPUSCULAR HGB CONC 30.4 G/DL (32.0-36.0); MEAN CORPUSCULAR VOLUME 90 FL (80-99); MEAN PLATELET VOLUME 5.9 FL (6.5-10.1); MONOCYTES % (AUTO) 6.6 % (1.0-10.0); NEUTROPHILS % (AUTO) 55.5 % (45.0-75.0); PLATELET COUNT 335 K/UL (150-450); RED BLOOD COUNT 3.48 M/UL (4.20-5.40); RED CELL DISTRIBUTION WIDTH 14.5 % (11.6-14.8); WHITE BLOOD COUNT 7.2 K/UL (4.8-10.8)
[2017-08-19] MEDS ORDERED: DICYCLOMINE HCL10 MG PO (19:47)
[2017-08-19 19:56] LABS: ANION GAP 7 mmol/L (5-15); CALCIUM 9.2 MG/DL (8.5-10.1); CARBON DIOXIDE 32 MMOL/L (21-32); CHLORIDE 103 MMOL/L (98-107); CREATININE 0.8 MG/DL (0.55-1.30); GLOMERULAR FILTRATION RATE > 60 mL/min (>60); PROTHROMBIN TIME 10.3 SEC (9.30-11.50); SODIUM 142 MMOL/L (136-145)
[2017-08-19 20:00] LABS: ALANINE AMINOTRANSFERASE 26 U/L (12-78); ALBUMIN/GLOBULIN RATIO 0.9 (1.0-2.7); ASPARTATE AMINO TRANSFERASE 25 U/L (15-37); LIPASE 81 U/L (73-393); TOTAL PROTEIN 7.2 G/DL (6.4-8.2)
[2017-08-19 20:03] VITALS: BP 147/101
[2017-08-19] MEDS ORDERED: TRAMADOL HCL50 MG ORAL (20:27)
[2017-08-19] MEDS ORDERED: LIDOCAINE VISC100 ML ORAL (20:29)
[2017-08-19] MEDS ORDERED: TYLENOL EXTRA500 MG ORAL (20:34)
[2017-08-19] MEDS ORDERED: ASPIRIN325 MG ORAL (20:35)
[2017-08-19] MEDS ORDERED: IBUPROFEN600 MG ORAL (20:37)
[2017-08-19] MEDS ORDERED: OMEPRAZOLE20 M2 ORAL (20:42)
[2017-08-19] MEDS ORDERED: MELATONIN1 MG PO (20:44)
[2017-08-19] MEDS ORDERED: Nitroglycerin Subl 0.4mg tab SL PRN (20:45)
[2017-08-19] MEDS ORDERED: Miralax 17gm pkt ORAL PRN (20:45)
[2017-08-19] MEDS ORDERED: Mylanta II UD 30ml ORAL PRN (20:45)
[2017-08-19] MEDS ORDERED: TUMS200 M1 PO (20:46)
[2017-08-19] MEDS ORDERED: VOLTAREN100 G1 TP (20:53)
[2017-08-19 21:24] LABS: APPEARANCE,URINE CLEAR; KETONES,URINE NEGATIVE (NEGATIVE); LEUKOCYTE ESTERASE ,URINE 1+ (NEGATIVE); NITRITE,URINE NEGATIVE (NEGATIVE); PH,URINE 8 (4.5-8.0); PROTEIN,URINE NEGATIVE (NEGATIVE); UROBILINOGEN,URINE NORMAL MG/DL (0.0-1.0)
[2017-08-19 21:47] LABS: BACTERIA,URINE FEW /HPF; RBC,URINE 0-2 /HPF (0 - 2); SQUAMOUS EPITHELIAL CELL,UR FEW /LPF (NONE/OCC)
[2017-08-19 22:03] VITALS: BP 122/91
[2017-08-19] MEDS: D5NS 1,000 ML IV SCH (23:42)
[2017-08-20] VITALS (10 sets, daily range): BP systolic 110–136; BP diastolic 71–88
[2017-08-20] MEDS ORDERED: Potassium Chloride 10 MEQ in NS 110 ML IVPB SCH (03:15)
[2017-08-20] MEDS: Morphine Sulfate 2mg/ml Inj IVP PRN ×4 (05:24→22:15)
[2017-08-20 06:37] LABS: BASOPHILS % (AUTO) 1.2 % (0.0-2.0); LYMPHOCYTES % (AUTO) 35.2 % (20.0-45.0); MEAN CORPUSCULAR HEMOGLOBIN 28.2 PG (27.0-31.0); MEAN CORPUSCULAR HGB CONC 31.8 G/DL (32.0-36.0); MEAN CORPUSCULAR VOLUME 89 FL (80-99); MEAN PLATELET VOLUME 6.3 FL (6.5-10.1); MONOCYTES % (AUTO) 8.5 % (1.0-10.0); NEUTROPHILS % (AUTO) 54.1 % (45.0-75.0); PLATELET COUNT 262 K/UL (150-450); RED BLOOD COUNT 3.51 M/UL (4.20-5.40); WHITE BLOOD COUNT 6.2 K/UL (4.8-10.8)
[2017-08-20 06:49] LABS: PROTHROMBIN TIME 10.1 SEC (9.30-11.50)
[2017-08-20] MEDS: D5NS 1,000 ML IV SCH ×3 (08:00→20:01)
[2017-08-20] MEDS: Cyclobenzaprine 10mg Tab ORAL SCH ×4 (08:09→20:00)
[2017-08-20 10:12] LABS: ALANINE AMINOTRANSFERASE 30 U/L (12-78); AMYLASE 68 U/L (25-115); ANION GAP 9 mmol/L (5-15); ASPARTATE AMINO TRANSFERASE 30 U/L (15-37); CALCIUM 8.7 MG/DL (8.5-10.1); CARBON DIOXIDE 31 MMOL/L (21-32); CHLORIDE 104 MMOL/L (98-107); CREATININE 0.6 MG/DL (0.55-1.30); GLOMERULAR FILTRATION RATE > 60 mL/min (>60); LIPASE 73 U/L (73-393); POTASSIUM 3.5 MMOL/L (3.5-5.1); SODIUM 144 MMOL/L (136-145)
--- NOTE | 2017-08-20 10:34 | Pre-Procedure Note/Attestation ---
Pre-Procedure Note/Attestation Complete Prior to Procedure Planned Procedure: not applicable Procedure Narrative: egd Indications for Procedure Pre-Operative Diagnosis: GIB Attestation I attest that I discussed the nature of the procedure; its benefits; risks and complications; and alternatives (and the risks and benefits of such alternatives ), prior to the procedure, with the patient (or the patient's legal security representative). I attest that, if there was a reasonable possibility of needing a blood transfusion, the patient (or the patient's legal security representative) was given the [facility] standardized written summary, pursuant to the Delbert Ivelisse Blood Safety Act ([place] Health and Safety Code # 1645, as amended). I attest that I re-evaluated the patient just prior to the surgery and that there has been no change in the patient's H&P, except as documented below: JOHNATHAN OMER Aug 20, 2017 10:34
--- NOTE | 2017-08-20 11:38 | Diagnostic Imaging Report ---
Indication: PAIN Technique: One view of the chest Comparison: 04/13/2015 Findings: Lungs and pleural spaces are clear. Heart size is normal. No significant change Impression: No acute process
--- NOTE | 2017-08-20 12:13 | Anethesia Preoperative Eval ---
Anesthesia Pre-op PMH/ROS General Date of Evaluation: Aug 20, 2017 Time of Evaluation: 12:10 Anesthesiologist: agatha ASA Score: ASA 4 Mallampati Score Class I : Soft palate, uvula, fauces, pillars visible Class II: Soft palate, uvula, fauces visible Class III: Soft palate, base of uvula visible Class IV: Only hard plate visible Mallampati Classification: Class II Surgeon: beata Diagnosis: gi bleed Surgical Procedure: egd Anesthesia History: none Social History: smoking - former smoker Family History: no anesthesia problems Allergies: Coded Allergies: NO KNOWN DRUG ALLERGIES (Unverified Allergy, Unknown, 05/23/15) Uncoded Allergies: lactulose intolerance (Adverse Reaction, Intermediate, Itching, 08/16/13) upset stomach Medications: see eMAR Past Medical History Cardiovascular: Reports: HTN, other - pacemaker Pulmonary: Reports: asthma, COPD Gastrointestinal/Genitourinary: Reports: GERD, ESRD - dialysis, other - uti, hep c, Neurologic/Psychiatric: Reports: CVA Hematology/Immune: Reports: anemia Musculoskeletal/Integumentary: Reports: OA Other: obesity Anesthesia Pre-op Phys. Exam Physician Exam Last Vital Signs Date Time Temp Pulse Resp B/P (MAP) Pulse Ox O2 Delivery O2 Flow Rate FiO2 08/20/17 11:35 98.2 83 18 125/75 98 Room Air Constitutional: NAD Neurologic: CN 2-12 intact Cardiovascular: RRR Respiratory: CTA Gastrointestinal: S/NT/ND Airway Exam Mallampati Score: Class II MO: full Neck: supple TMD: 2fb ROM: full Anesthesia Pre-op A/P Labs Hematology Test 08/19/17 19:15 08/20/17 04:55 White Blood Count 7.2 K/UL (4.8-10.8) 6.2 K/UL (4.8-10.8) Red Blood Count 3.48 M/UL (4.20-5.40) L 3.51 M/UL (4.20-5.40) L Hemoglobin 9.5 G/DL (12.0-16.0) L 9.9 G/DL (12.0-16.0) L Hematocrit 31.4 % (37.0-47.0) L 31.1 % (37.0-47.0) L Mean Corpuscular Volume 90 FL (80-99) 89 FL (80-99) Mean Corpuscular Hemoglobin 27.4 PG (27.0-31.0) 28.2 PG (27.0-31.0) Mean Corpuscular Hemoglobin Concent 30.4 G/DL (32.0-36.0) L 31.8 G/DL (32.0-36.0) L Red Cell Distribution Width 14.5 % (11.6-14.8) 15.0 % (11.6-14.8) H Platelet Count 335 K/UL (150-450) 262 K/UL (150-450) Mean Platelet Volume 5.9 FL (6.5-10.1) L 6.3 FL (6.5-10.1) L Neutrophils (%) (Auto) 55.5 % (45.0-75.0) 54.1 % (45.0-75.0) Lymphocytes (%) (Auto) 35.6 % (20.0-45.0) 35.2 % (20.0-45.0) Monocytes (%) (Auto) 6.6 % (1.0-10.0) 8.5 % (1.0-10.0) Eosinophils (%) (Auto) 1.3 % (0.0-3.0) 1.0 % (0.0-3.0) Basophils (%) (Auto) 1.0 % (0.0-2.0) 1.2 % (0.0-2.0) Coagulation Test 08/19/17 19:08/20/17 04:55 Prothrombin Time 10.3 SEC (9.30-11.50) 10.1 SEC (9.30-11.50) Prothromb Time International Ratio 1.0 (0.9-1.1) 1.0 (0.9-1.1) Activated Partial Thromboplast Time 27 SEC (23-33) 24 SEC (23-33) Chemistry Test 08/19/17 19:15 08/20/17 09:50 Sodium Level 142 MMOL/L (136-145) 144 MMOL/L (136-145) Potassium Level 3.0 MMOL/L (3.5-5.1) L 3.5 MMOL/L (3.5-5.1) Chloride Level 103 MMOL/L (98-107) 104 MMOL/L (98-107) Carbon Dioxide Level 32 MMOL/L (21-32) 31 MMOL/L (21-32) Anion Gap 7 mmol/L (5-15) 9 mmol/L (5-15) Blood Urea Nitrogen 8 mg/dL (7-18) 6 mg/dL (7-18) L Creatinine 0.8 MG/DL (0.55-1.30) 0.6 MG/DL (0.55-1.30) Estimat Glomerular Filtration Rate > 60 mL/min (>60) > 60 mL/min (>60) Glucose Level 107 MG/DL (74-106) H 97 MG/DL (74-106) Calcium Level 9.2 MG/DL (8.5-10.1) 8.7 MG/DL (8.5-10.1) Total Bilirubin 0.2 MG/DL (0.2-1.0) 0.3 MG/DL (0.2-1.0) Aspartate Amino Transf (AST/SGOT) 25 U/L (15-37) 30 U/L (15-37) Alanine Aminotransferase (ALT/SGPT) 26 U/L (12-78) 30 U/L (12-78) Alkaline Phosphatase 97 U/L (46-116) 91 U/L (46-116) Total Protein 7.2 G/DL (6.4-8.2) 7.0 G/DL (6.4-8.2) Albumin 3.5 G/DL (3.4-5.0) 3.5 G/DL (3.4-5.0) Globulin 3.7 g/dL 3.5 g/dL Albumin/Globulin Ratio 0.9 (1.0-2.7) L 1.0 (1.0-2.7) Lipase 81 U/L (73-393) 73 U/L (73-393) Amylase Level 68 U/L (25-115) Risk Assessment & Plan Assessment: [email or web address] Plan: mac Status Change Before Surgery: No Pre-Antibiotics Drug: CHALO Rosario Aug 20, 2017 12:13
[2017-08-20] MEDS ORDERED: Propofol 200mg/20ml IV ONE (12:30)
[2017-08-20] MEDS ORDERED: Lidocaine 1% MPF 10mg/ml 5ml ONE (12:30)
[2017-08-20] MEDS ORDERED: NS 500ML IV ONE (12:36)
--- NOTE | 2017-08-20 12:43 | Short Stay Surgery H&P ---
History of Present Illness History of Present Illness Chief Complaint GIB HPI Meche Gutierrez is a 62 year old female who was admitted on Aug 19, 2017 at 18: 51 for Gastrointestinal Bleed, Duodenal Ulcer Patient History Allergies: Coded Allergies: NO KNOWN DRUG ALLERGIES (Unverified Allergy, Unknown, 05/23/15) Uncoded Allergies: lactulose intolerance (Adverse Reaction, Intermediate, Itching, 08/16/13) upset stomach PAST MEDICAL HISTORY: (1) Hepatitis C (2) Gastritis (3) Diverticulitis (4) Duodenal ulcer disease (5) Abdominal pain Past Surgeries: Social History: Medication History Scheduled Albuterol Sulfate* (Albuterol Sulfate Mdi*), 2 PUFF INH Q6H Amlodipine Besylate* (Amlodipine Besylate*), 10 MG ORAL HS, (Reported) Cyclobenzaprine Hcl* (Flexeril*), 10 MG ORAL THREE TIMES A DAY, (Reported) Fluoxetine Hcl* (Fluoxetine Hcl*), 20 MG PO DAILY, (Reported) Lidocaine HCl 2% Viscous (Lidocaine HCl 2% Viscous), 10 ML ORAL Q8HR, (Reported) Omeprazole (Omeprazole), 20 MG ORAL DAILY, (Reported) Scheduled PRN Acetaminophen* (Tylenol Extra Strength*), 500 MG ORAL Q8H PRN for For Pain, ( Reported) Aspirin* (Aspirin*), 325 MG ORAL DAILY PRN for For Pain, (Reported) Calcium Carbonate (Tums), Unknown Dose PO for STOMACH PAIN , (Reported) Dicyclomine Hcl* (Dicyclomine Hcl*), 20 MG PO QID PRN for COLITIS, (Reported) Ibuprofen* (Motrin*), 200 MG ORAL DAILY PRN for For Pain, (Reported) Mag Hydrox/Al Hydrox/Simeth (Maalox Maximum Strength Susp), 30 ML PO Q6HR PRN for For Pain Melatonin (Melatonin), Unknown Dose PO BEDTIME PRN for Insomnia, (Reported) Tramadol Hcl* (Ultram*), 50 MG ORAL Q6H PRN for For Pain, (Reported) Miscellaneous Medications Diclofenac Sodium (Voltaren), Unknown Dose TP, (Reported) Discontinued Medications Acetaminophen* (Acetaminophen 325MG Tablet*), 325 MG ORAL Q6H PRN for For Pain, (Reported) Discontinued Reason: Medication dose changed Ciprofloxacin* (Cipro*), 500 MG PO BID Discontinued Reason: Therapy completed Dicyclomine Hcl* (Dicyclomine Hcl*), 20 MG PO DAILY, (Reported) Discontinued Reason: Medication dose changed Esomeprazole Magnesium (Nexium), 40 MG ORAL DAILY Discontinued Reason: Pt stopped taking med Famotidine (Pepcid), 40 MG PO DAILY Discontinued Reason: Pt stopped taking med Gabapentin* (Gabapentin*), 300 MG ORAL THREE TIMES A DAY, (Reported) Discontinued Reason: Pt stopped taking med Methocarbamol* (Robaxin-750*), 750 MG PO TID Discontinued Reason: Pt stopped taking med Omeprazole (Omeprazole), 40 MG ORAL DAILY, (Reported) Discontinued Reason: Medication dose changed Ondansetron Odt* (Zofran Odt*), 4 MG ORAL Q8H PRN for Nausea & Vomiting Discontinued Reason: Pt stopped taking med Tramadol Hcl* (Ultram*), 50 MG PO Q6H PRN, (Reported) Discontinued Reason: Medication dose changed Tramadol Hcl* (Ultram*), 50 MG ORAL Q6H PRN for For Pain, (Reported) Discontinued Reason: Medication dose changed Zolpidem Tartrate* (Ambien*), 10 MG PO HS PRN, (Reported) Discontinued Reason: Pt stopped taking med Review of Systems Cardiovascular: Reports: no symptoms Respiratory: Reports: no symptoms Skeletal: Reports: no symptoms Gastrointestinal: Reports: no symptoms Genitourinary: Reports: no symptoms Neurologic: Reports: no symptoms Endocrine: Reports: no symptoms Hematologic: Reports: no symptoms Physical Exam Vital Signs Last Vital Signs Date Time Temp Pulse Resp B/P (MAP) Pulse Ox O2 Delivery O2 Flow Rate FiO2 08/20/17 11:35 98.2 83 18 125/75 98 Room Air Labs Laboratory Tests Test 08/19/17 19:15 08/19/17 20:42 08/20/17 04:55 08/20/17 09:50 White Blood Count 7.2 K/UL (4.8-10.8) 6.2 K/UL (4.8-10.8) Red Blood Count 3.48 M/UL (4.20-5.40) L 3.51 M/UL (4.20-5.40) L Hemoglobin 9.5 G/DL (12.0-16.0) L 9.9 G/DL (12.0-16.0) L Hematocrit 31.4 % (37.0-47.0) L 31.1 % (37.0-47.0) L Mean Corpuscular Volume 90 FL (80-99) 89 FL (80-99) Mean Corpuscular Hemoglobin 27.4 PG (27.0-31.0) 28.2 PG (27.0-31.0) Mean Corpuscular Hemoglobin Concent 30.4 G/DL (32.0-36.0) L 31.8 G/DL (32.0-36.0) L Red Cell Distribution Width 14.5 % (11.6-14.8) 15.0 % (11.6-14.8) H Platelet Count 335 K/UL (150-450) 262 K/UL (150-450) Mean Platelet Volume 5.9 FL (6.5-10.1) L 6.3 FL (6.5-10.1) L Neutrophils (%) (Auto) 55.5 % (45.0-75.0) 54.1 % (45.0-75.0) Lymphocytes (%) (Auto) 35.6 % (20.0-45.0) 35.2 % (20.0-45.0) Monocytes (%) (Auto) 6.6 % (1.0-10.0) 8.5 % (1.0-10.0) Eosinophils (%) (Auto) 1.3 % (0.0-3.0) 1.0 % (0.0-3.0) Basophils (%) (Auto) 1.0 % (0.0-2.0) 1.2 % (0.0-2.0) Prothrombin Time 10.3 SEC (9.30-11.50) 10.1 SEC (9.30-11.50) Prothromb Time International Ratio 1.0 (0.9-1.1) 1.0 (0.9-1.1) Activated Partial Thromboplast Time 27 SEC (23-33) 24 SEC (23-33) Sodium Level 142 MMOL/L (136-145) 144 MMOL/L (136-145) Potassium Level 3.0 MMOL/L (3.5-5.1) L 3.5 MMOL/L (3.5-5.1) Chloride Level 103 MMOL/L (98-107) 104 MMOL/L (98-107) Carbon Dioxide Level 32 MMOL/L (21-32) 31 MMOL/L (21-32) Anion Gap 7 mmol/L (5-15) 9 mmol/L (5-15) Blood Urea Nitrogen 8 mg/dL (7-18) 6 mg/dL (7-18) L Creatinine 0.8 MG/DL (0.55-1.30) 0.6 MG/DL (0.55-1.30) Estimat Glomerular Filtration Rate > 60 mL/min (>60) > 60 mL/min (>60) Glucose Level 107 MG/DL (74-106) H 97 MG/DL (74-106) Calcium Level 9.2 MG/DL (8.5-10.1) 8.7 MG/DL (8.5-10.1) Total Bilirubin 0.2 MG/DL (0.2-1.0) 0.3 MG/DL (0.2-1.0) Aspartate Amino Transf (AST/SGOT) 25 U/L (15-37) 30 U/L (15-37) Alanine Aminotransferase (ALT/SGPT) 26 U/L (12-78) 30 U/L (12-78) Alkaline Phosphatase 97 U/L (46-116) 91 U/L (46-116) Total Protein 7.2 G/DL (6.4-8.2) 7.0 G/DL (6.4-8.2) Albumin 3.5 G/DL (3.4-5.0) 3.5 G/DL (3.4-5.0) Globulin 3.7 g/dL 3.5 g/dL Albumin/Globulin Ratio 0.9 (1.0-2.7) L 1.0 (1.0-2.7) Lipase 81 U/L (73-393) 73 U/L (73-393) Urine Color Pale yellow Urine Appearance Clear Urine pH 8 (4.5-8.0) Urine Specific [place] 1.015 (1.005-1.035) Urine Protein Negative (NEGATIVE) Urine Glucose (UA) Negative (NEGATIVE) Urine Ketones Negative (NEGATIVE) Urine Occult Blood Negative (NEGATIVE) Urine Nitrite Negative (NEGATIVE) Urine Bilirubin Negative (NEGATIVE) Urine Urobilinogen Normal MG/DL (0.0-1.0) Urine Leukocyte Esterase 1+ (NEGATIVE) H Urine RBC 0-2 /HPF (0 - 2) Urine WBC 2-4 /HPF (0 - 2) Urine Squamous Epithelial Cells Few /LPF (NONE/OCC) Urine Bacteria Few /HPF (NONE) Amylase Level 68 U/L (25-115) Skin: normal HENT: normal Heart: normal Lungs: normal Abdomen: normal Extremities: normal Plan Plan of Care egd Final Diagnosis: Attestation Are the patient's medical conditions optimized for surgery? Attestation Response: yes JOHNATHAN OMER Aug 20, 2017 12:43
[2017-08-20] MEDS ORDERED: Midazolam 2mg/2ml Inj IVP PRN (12:45)
[2017-08-20] MEDS ORDERED: DiphenhydrAMINE 50mg/ml Inj IVP PRN (12:45)
[2017-08-20] MEDS ORDERED: fentaNYL 100 mcg/2 mL IV PRN (12:45)
[2017-08-20] MEDS ORDERED: Atropine Inj 1mg/10ml Syr IV PRN (12:45)
--- NOTE | 2017-08-20 12:45 | Endoscopy Procedure Note ---
Endoscopy Procedure Note Indication for Procedure: gib Procedures Performed: EGD Operative Findings/Diagnosis: gastritis Specimen: yes Pt Tolerated Procedure Well: Yes Estimated Blood Loss: none Anesthesiologist: kodi Anesthesia: MAC Implant(s) used?: No 50 yrs or older w/o bx or poly: Not Applicable 10yrs. F/U not recommended: Not Applicable JOHNATHAN OMER Aug 20, 2017 12:45
--- NOTE | 2017-08-20 13:12 | Immediate Post-Op Evaluation ---
Immediate Post-Op Evalulation Immediate Post-Op Evalulation Procedure: egd Date of Evaluation: Aug 20, 2017 Time of Evaluation: 13:11 IV Fluids: 150ml 0.9ns Blood Products: none Estimated Blood Loss: negligible Blood Pressure Systolic: 110 Blood Pressure Diastolic: 86 Pulse Rate: 83 Respiratory Rate: 18 O2 Sat by Pulse Oximetry: 100 Temperature (Fahrenheit): 97.0 Pain Score (1-10): 0 Nausea: No Vomiting: No Complications none Patient Status: awake, reacts, patent Hydration Status: adequate Drug: CHALO Rosario Aug 20, 2017 13:12
--- NOTE | 2017-08-20 13:14 | 48 Hour Post Anesthesia Eval ---
Post Anesthesia Evaluation Procedure: egd Date of Evaluation: Aug 20, 2017 Time of Evaluation: 13:13 Blood Pressure Systolic: 133 0: 79 Pulse Rate: 80 Respiratory Rate: 18 Temperature (Fahrenheit): 97.0 O2 Sat by Pulse Oximetry: 99 Airway: patent Nausea: No Vomiting: No Pain Intensity: 0 Hydration Status: adequate Cardiopulmonary Status: stable Mental Status/LOC: patient returned to baseline Post-Anesthesia Complications: none Follow-up care needed: N/A CHALO CHIRINOS Aug 20, 2017 13:14
[2017-08-20] MEDS ORDERED: Haloperidol Decanoate 50mg Inj IM ONE (14:30)
--- NOTE | 2017-08-20 15:01 | Consultation ---
History of Present Illness General Date patient seen: Aug 19, 2017 Chief Complaint: Abdominal Pain Present Illness HPI 62-year-old female with PMHx of history of hiatal hernia, duodenal ulcer, hypertension presented to ER with CC of abdominal pain for many months, 1 day of melanotic stool. Pain is localized to epigastric area, non radiating, burning in nature, intermittent. Complains of nausea no vomiting. No diarrhea States she had 4 black stools today, Denies fever, chills. She is admitted for acute GI bleeding Allergies: Coded Allergies: NO KNOWN DRUG ALLERGIES (Unverified Allergy, Unknown, 05/23/15) Uncoded Allergies: lactulose intolerance (Adverse Reaction, Intermediate, Itching, 08/16/13) upset stomach Medication History Scheduled Albuterol Sulfate* (Albuterol Sulfate Mdi*), 2 PUFF INH Q6H Amlodipine Besylate* (Amlodipine Besylate*), 10 MG ORAL HS, (Reported) Cyclobenzaprine Hcl* (Flexeril*), 10 MG ORAL THREE TIMES A DAY, (Reported) Fluoxetine Hcl* (Fluoxetine Hcl*), 20 MG PO DAILY, (Reported) Lidocaine HCl 2% Viscous (Lidocaine HCl 2% Viscous), 10 ML ORAL Q8HR, (Reported) Omeprazole (Omeprazole), 20 MG ORAL DAILY, (Reported) Scheduled PRN Acetaminophen* (Tylenol Extra Strength*), 500 MG ORAL Q8H PRN for For Pain, ( Reported) Aspirin* (Aspirin*), 325 MG ORAL DAILY PRN for For Pain, (Reported) Calcium Carbonate (Tums), Unknown Dose PO for STOMACH PAIN , (Reported) Dicyclomine Hcl* (Dicyclomine Hcl*), 20 MG PO QID PRN for COLITIS, (Reported) Ibuprofen* (Motrin*), 200 MG ORAL DAILY PRN for For Pain, (Reported) Mag Hydrox/Al Hydrox/Simeth (Maalox Maximum Strength Susp), 30 ML PO Q6HR PRN for For Pain Melatonin (Melatonin), Unknown Dose PO BEDTIME PRN for Insomnia, (Reported) Tramadol Hcl* (Ultram*), 50 MG ORAL Q6H PRN for For Pain, (Reported) Miscellaneous Medications Diclofenac Sodium (Voltaren), Unknown Dose TP, (Reported) Discontinued Medications Acetaminophen* (Acetaminophen 325MG Tablet*), 325 MG ORAL Q6H PRN for For Pain, (Reported) Discontinued Reason: Medication dose changed Ciprofloxacin* (Cipro*), 500 MG PO BID Discontinued Reason: Therapy completed Dicyclomine Hcl* (Dicyclomine Hcl*), 20 MG PO DAILY, (Reported) Discontinued Reason: Medication dose changed Esomeprazole Magnesium (Nexium), 40 MG ORAL DAILY Discontinued Reason: Pt stopped taking med Famotidine (Pepcid), 40 MG PO DAILY Discontinued Reason: Pt stopped taking med Gabapentin* (Gabapentin*), 300 MG ORAL THREE TIMES A DAY, (Reported) Discontinued Reason: Pt stopped taking med Methocarbamol* (Robaxin-750*), 750 MG PO TID Discontinued Reason: Pt stopped taking med Omeprazole (Omeprazole), 40 MG ORAL DAILY, (Reported) Discontinued Reason: Medication dose changed Ondansetron Odt* (Zofran Odt*), 4 MG ORAL Q8H PRN for Nausea & Vomiting Discontinued Reason: Pt stopped taking med Tramadol Hcl* (Ultram*), 50 MG PO Q6H PRN, (Reported) Discontinued Reason: Medication dose changed Tramadol Hcl* (Ultram*), 50 MG ORAL Q6H PRN for For Pain, (Reported) Discontinued Reason: Medication dose changed Zolpidem Tartrate* (Ambien*), 10 MG PO HS PRN, (Reported) Discontinued Reason: Pt stopped taking med Patient History Healthcare decision maker Resuscitation status Full Code Advanced Directive on File Past Medical/Surgical History Past Medical/Surgical History: (1) gastritis (2) Opioid dependence with withdrawal (3) Hiatal hernia with GERD (4) Hepatitis C (5) Duodenal ulcer disease Review of Systems Gastrointestinal: Reports: abdominal pain, melena Physical Exam General Appearance: WD/WN Lines, tubes and drains: peripheral HEENT: normocephalic, atraumatic Neck: non-tender, normal alignment Respiratory/Chest: chest wall non-tender, normal breath sounds Cardiovascular/Chest: normal peripheral pulses, normal rate, no JVD Abdomen: non tender Genitourinary/Rectal: normal genital exam, heme negative stool Extremities: normal range of motion, non-tender Neurologic: 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 grossly normal, no motor/sensory deficits Last 24 Hour Vital Signs Date Time Temp Pulse Resp B/P (MAP) Pulse Ox O2 Delivery O2 Flow Rate FiO2 08/20/17 13:18 97.0 69 20 125/84 99 Room Air 08/20/17 13:14 80 18 99 08/20/17 13:12 83 18 100 08/20/17 13:10 75 20 133/79 99 Room Air 08/20/17 13:05 78 20 125/86 99 Nasal Cannula 2.0 08/20/17 12:59 97.0 81 20 110/86 99 Nasal Cannula 2.0 08/20/17 12:00 70 08/20/17 11:35 98.2 83 18 125/75 98 Room Air 08/20/17 08:19 97.0 75 18 126/88 100 Room Air 08/20/17 08:10 75 126/88 08/20/17 08:00 74 08/20/17 04:43 97.6 74 18 119/73 97 Room Air 08/20/17 04:00 83 08/20/17 00:37 98.2 79 18 136/83 93 Room Air 08/20/17 00:00 73 08/19/17 22:55 98.2 90 21 122/91 100 Room Air 08/19/17 22:03 98.2 90 21 122/91 100 Room Air 08/19/17 20:03 98.2 80 19 147/101 97 Room Air 08/19/17 18:03 98.2 105 20 174/93 100 Room Air 08/19/17 18:03 98.2 105 20 174/93 100 Room Air Intake and Output 08/20/17 08/21/17 19:00 07:00 Intake Total 350 ml Balance 350 ml IV Total 350 ml # Bowel Movements 1 Laboratory Tests Test 08/19/17 19:15 08/19/17 20:42 08/20/17 04:55 08/20/17 09:50 White Blood Count 7.2 K/UL (4.8-10.8) 6.2 K/UL (4.8-10.8) Red Blood Count 3.48 M/UL (4.20-5.40) L 3.51 M/UL (4.20-5.40) L Hemoglobin 9.5 G/DL (12.0-16.0) L 9.9 G/DL (12.0-16.0) L Hematocrit 31.4 % (37.0-47.0) L 31.1 % (37.0-47.0) L Mean Corpuscular Volume 90 FL (80-99) 89 FL (80-99) Mean Corpuscular Hemoglobin 27.4 PG (27.0-31.0) 28.2 PG (27.0-31.0) Mean Corpuscular Hemoglobin Concent 30.4 G/DL (32.0-36.0) L 31.8 G/DL (32.0-36.0) L Red Cell Distribution Width 14.5 % (11.6-14.8) 15.0 % (11.6-14.8) H Platelet Count 335 K/UL (150-450) 262 K/UL (150-450) Mean Platelet Volume 5.9 FL (6.5-10.1) L 6.3 FL (6.5-10.1) L Neutrophils (%) (Auto) 55.5 % (45.0-75.0) 54.1 % (45.0-75.0) Lymphocytes (%) (Auto) 35.6 % (20.0-45.0) 35.2 % (20.0-45.0) Monocytes (%) (Auto) 6.6 % (1.0-10.0) 8.5 % (1.0-10.0) Eosinophils (%) (Auto) 1.3 % (0.0-3.0) 1.0 % (0.0-3.0) Basophils (%) (Auto) 1.0 % (0.0-2.0) 1.2 % (0.0-2.0) Prothrombin Time 10.3 SEC (9.30-11.50) 10.1 SEC (9.30-11.50) Prothromb Time International Ratio 1.0 (0.9-1.1) 1.0 (0.9-1.1) Activated Partial Thromboplast Time 27 SEC (23-33) 24 SEC (23-33) Sodium Level 142 MMOL/L (136-145) 144 MMOL/L (136-145) Potassium Level 3.0 MMOL/L (3.5-5.1) L 3.5 MMOL/L (3.5-5.1) Chloride Level 103 MMOL/L (98-107) 104 MMOL/L (98-107) Carbon Dioxide Level 32 MMOL/L (21-32) 31 MMOL/L (21-32) Anion Gap 7 mmol/L (5-15) 9 mmol/L (5-15) Blood Urea Nitrogen 8 mg/dL (7-18) 6 mg/dL (7-18) L Creatinine 0.8 MG/DL (0.55-1.30) 0.6 MG/DL (0.55-1.30) Estimat Glomerular Filtration Rate > 60 mL/min (>60) > 60 mL/min (>60) Glucose Level 107 MG/DL (74-106) H 97 MG/DL (74-106) Calcium Level 9.2 MG/DL (8.5-10.1) 8.7 MG/DL (8.5-10.1) Total Bilirubin 0.2 MG/DL (0.2-1.0) 0.3 MG/DL (0.2-1.0) Aspartate Amino Transf (AST/SGOT) 25 U/L (15-37) 30 U/L (15-37) Alanine Aminotransferase (ALT/SGPT) 26 U/L (12-78) 30 U/L (12-78) Alkaline Phosphatase 97 U/L (46-116) 91 U/L (46-116) Total Protein 7.2 G/DL (6.4-8.2) 7.0 G/DL (6.4-8.2) Albumin 3.5 G/DL (3.4-5.0) 3.5 G/DL (3.4-5.0) Globulin 3.7 g/dL 3.5 g/dL Albumin/Globulin Ratio 0.9 (1.0-2.7) L 1.0 (1.0-2.7) Lipase 81 U/L (73-393) 73 U/L (73-393) Urine Color Pale yellow Urine Appearance Clear Urine pH 8 (4.5-8.0) Urine Specific [place] 1.015 (1.005-1.035) Urine Protein Negative (NEGATIVE) Urine Glucose (UA) Negative (NEGATIVE) Urine Ketones Negative (NEGATIVE) Urine Occult Blood Negative (NEGATIVE) Urine Nitrite Negative (NEGATIVE) Urine Bilirubin Negative (NEGATIVE) Urine Urobilinogen Normal MG/DL (0.0-1.0) Urine Leukocyte Esterase 1+ (NEGATIVE) H Urine RBC 0-2 /HPF (0 - 2) Urine WBC 2-4 /HPF (0 - 2) Urine Squamous Epithelial Cells Few /LPF (NONE/OCC) Urine Bacteria Few /HPF (NONE) Amylase Level 68 U/L (25-115) Height (Feet): 5 Height (Inches): 1.00 Weight (Pounds): 165 Medications Current Medications Medications (Trade) Dose Ordered Sig/Primo Route PRN Reason Start Time Stop Time Status Last Admin Dose Admin Acetaminophen (Tylenol) 650 mg Q4H PRN ORAL fever 08/19/17 20:45 09/18/17 20:44 Al Hydroxide/Mg Hydroxide (Mylanta II) 30 ml Q6H PRN ORAL dyspepsia 08/19/17 20:45 09/18/17 20:44 Al Hydroxide/Mg Hydroxide (Mylanta) 15 ml Q1H PRN ORAL gi upset 08/20/17 12:45 08/20/17 17:00 Amlodipine Besylate (Norvasc) 10 mg DAILY ORAL 08/20/17 09:00 09/19/17 08:59 08/20/17 08:10 Atropine Sulfate (Atropine) 0.5 mg Q5M PRN IV bpm less than45 08/20/17 12:45 08/20/17 17:00 Cyclobenzaprine HCl (Flexeril) 10 mg THREE TIMES A DAY ORAL 08/20/17 09:00 09/19/17 08:59 08/20/17 14:12 Dextrose (Dextrose 50%) STAT PRN IV Hypoglycemia 08/19/17 20:45 09/18/17 20:44 Dextrose/Sodium Chloride 1,000 ml @ 100 mls/hr Q10H IV 08/19/17 22:00 09/18/17 21:59 08/19/17 23:42 Diphenhydramine HCl (Benadryl) 25 mg Q15M PRN IVP Itching 08/20/17 12:45 08/20/17 17:00 Diphenhydramine HCl (Benadryl) 25 mg Q6H PRN ORAL Itching/Pruritis 08/19/17 20:45 09/18/17 20:44 Fentanyl Citrate (Sublimaze 100 mcg/2 mL) 25 mcg Q10M PRN IV Moderate Pain (Pain Scale 4-6) 08/20/17 12:45 08/20/17 17:00 Hydralazine HCl (Apresoline) 5 mg Q30M PRN IV SBP>160 OR___/DBP>90 OR___ 08/20/17 12:45 08/20/17 17:00 Midazolam HCl (Versed 2mg/2ml vial) 1 mg Q15M PRN IVP For Anxiety 08/20/17 12:45 08/20/17 17:00 Morphine Sulfate (Morphine Sulfate) 2 mg Q4H PRN IVP Severe Pain (Pain Scale 7-10) 08/19/17 20:45 08/26/17 20:44 08/20/17 11:22 Nitroglycerin (Ntg) 0.4 mg Q5M X 3 DOSES PRN SL Prn Chest Pain 08/19/17 20:45 09/18/17 20:44 Ondansetron HCl (Zofran) 4 mg Q1H PRN IVP Nausea & Vomiting 08/20/17 12:45 08/20/17 17:00 Ondansetron HCl (Zofran) 4 mg Q6H PRN IVP Nausea & Vomiting 08/19/17 20:45 09/18/17 20:44 Polyethylene Glycol (Miralax) 17 gm HSPRN PRN ORAL Constipation 08/19/17 20:45 09/18/17 20:44 Temazepam (Restoril) 15 mg HSPRN PRN ORAL Insomnia 08/19/17 20:45 08/26/17 20:44 Assessment/Plan Problem List: (1) Lower GI bleed ICD Codes: K92.2 - Gastrointestinal hemorrhage, unspecified SNOMED: 70757938 (2) Duodenal ulcer disease ICD Codes: K26.9 - Duodenal ulcer, unsp as acute or chronic, w/o hemor or perf SNOMED: 50827963 (3) Hiatal hernia with GERD ICD Codes: K21.9 - Gastro-esophageal reflux disease without esophagitis; K44.9 - Diaphragmatic hernia without obstruction or gangrene SNOMED: 641276108 (4) PUD (peptic ulcer disease) ICD Codes: K27.9 - Peptic ulcer, site unspecified, unspecified as acute or chronic, without hemorrhage or perforation SNOMED: 66832770 (5) Anemia ICD Codes: D64.9 - Anemia, unspecified SNOMED: 626073724 (6) Hepatitis C ICD Codes: B19.20 - Unspecified viral hepatitis C without hepatic coma SNOMED: 92842016 Assessment/Plan NPO GI consult called possible endoscopy transfuse PRBC prn H2 blockers symptomatic treatment. CHIDI CATHERINE Aug 20, 2017 15:01
--- NOTE | 2017-08-20 15:03 | Pulmonology Progress Note ---
Assessment/Plan Problems: (1) Lower GI bleed (2) Duodenal ulcer disease (3) Hiatal hernia with GERD (4) PUD (peptic ulcer disease) (5) Anemia (6) Hepatitis C Assessment/Plan EGD showed gastritis advance diet as tolerated symptomatic treatment GI f/u check h/h med/surg. Subjective ROS Limited/Unobtainable: No Interval Events: EGD done Allergies: Coded Allergies: NO KNOWN DRUG ALLERGIES (Unverified Allergy, Unknown, 05/23/15) Uncoded Allergies: lactulose intolerance (Adverse Reaction, Intermediate, Itching, 08/16/13) upset stomach Objective Last 24 Hour Vital Signs Date Time Temp Pulse Resp B/P (MAP) Pulse Ox O2 Delivery O2 Flow Rate FiO2 08/20/17 13:18 97.0 69 20 125/84 99 Room Air 08/20/17 13:14 80 18 99 08/20/17 13:12 83 18 100 08/20/17 13:10 75 20 133/79 99 Room Air 08/20/17 13:05 78 20 125/86 99 Nasal Cannula 2.0 08/20/17 12:59 97.0 81 20 110/86 99 Nasal Cannula 2.0 08/20/17 12:00 70 08/20/17 11:35 98.2 83 18 125/75 98 Room Air 08/20/17 08:19 97.0 75 18 126/88 100 Room Air 08/20/17 08:10 75 126/88 08/20/17 08:00 74 08/20/17 04:43 97.6 74 18 119/73 97 Room Air 08/20/17 04:00 83 08/20/17 00:37 98.2 79 18 136/83 93 Room Air 08/20/17 00:00 73 08/19/17 22:55 98.2 90 21 122/91 100 Room Air 08/19/17 22:03 98.2 90 21 122/91 100 Room Air 08/19/17 20:03 98.2 80 19 147/101 97 Room Air 08/19/17 18:03 98.2 105 20 174/93 100 Room Air 08/19/17 18:03 98.2 105 20 174/93 100 Room Air Intake and Output 08/20/17 08/21/17 19:00 07:00 Intake Total 350 ml Balance 350 ml IV Total 350 ml # Bowel Movements 1 General Appearance: WD/WN HEENT: normocephalic, anicteric Respiratory/Chest: chest wall non-tender, lungs clear Breasts: no masses Cardiovascular: normal rate Abdomen: normal bowel sounds, soft, non tender Genitourinary: normal external genitalia Extremities: no cyanosis, no clubbing Skin: no rash Neurologic/Psychiatric: diet clerk II-XII grossly normal Laboratory Tests 08/19/17 19:15: White Blood Count 7.2, Red Blood Count 3.48L, Hemoglobin 9.5L, Hematocrit 31.4L , Mean Corpuscular Volume 90, Mean Corpuscular Hemoglobin 27.4, Mean Corpuscular Hemoglobin Concent 30.4L, Red Cell Distribution Width 14.5, Platelet Count 335, Mean Platelet Volume 5.9L, Neutrophils (%) (Auto) 55.5, Lymphocytes (%) (Auto) 35.6, Monocytes (%) (Auto) 6.6, Eosinophils (%) (Auto) 1.3, Basophils (%) (Auto) 1.0, Prothrombin Time 10.3, Prothromb Time International Ratio 1.0, Activated Partial Thromboplast Time 27, Sodium Level 142, Potassium Level 3.0L, Chloride Level 103, Carbon Dioxide Level 32, Anion Gap 7, Blood Urea Nitrogen 8, Creatinine 0.8, Estimat Glomerular Filtration Rate > 60, Glucose Level 107H, Calcium Level 9.2, Total Bilirubin 0.2, Aspartate Amino Transf (AST/SGOT) 25, Alanine Aminotransferase (ALT/SGPT) 26, Alkaline Phosphatase 97, Total Protein 7.2, Albumin 3.5, Globulin 3.7, Albumin/ Globulin Ratio 0.9L, Lipase 81 08/19/17 20:42: Urine Color Pale yellow, Urine Appearance Clear, Urine pH 8, Urine Specific [place] 1.015, Urine Protein Negative, Urine Glucose (UA) Negative, Urine Ketones Negative, Urine Occult Blood Negative, Urine Nitrite Negative, Urine Bilirubin Negative, Urine Urobilinogen Normal, Urine Leukocyte Esterase 1+H, Urine RBC 0-2, Urine WBC 2-4, Urine Squamous Epithelial Cells Few, Urine Bacteria Few 08/20/17 04:55: White Blood Count 6.2, Red Blood Count 3.51L, Hemoglobin 9.9L, Hematocrit 31.1L , Mean Corpuscular Volume 89, Mean Corpuscular Hemoglobin 28.2, Mean Corpuscular Hemoglobin Concent 31.8L, Red Cell Distribution Width 15.0H, Platelet Count 262, Mean Platelet Volume 6.3L, Neutrophils (%) (Auto) 54.1, Lymphocytes (%) (Auto) 35.2, Monocytes (%) (Auto) 8.5, Eosinophils (%) (Auto) 1.0, Basophils (%) (Auto) 1.2, Prothrombin Time 10.1, Prothromb Time International Ratio 1.0, Activated Partial Thromboplast Time 24 08/20/17 09:50: Sodium Level 144, Potassium Level 3.5, Chloride Level 104, Carbon Dioxide Level 31, Anion Gap 9, Blood Urea Nitrogen 6L, Creatinine 0.6, Estimat Glomerular Filtration Rate > 60, Glucose Level 97, Calcium Level 8.7, Total Bilirubin 0.3, Aspartate Amino Transf (AST/SGOT) 30, Alanine Aminotransferase (ALT/SGPT) 30, Alkaline Phosphatase 91, Total Protein 7.0, Albumin 3.5, Globulin 3.5, Albumin/ Globulin Ratio 1.0, Lipase 73, Amylase Level 68 Current Medications Medications (Trade) Dose Ordered Sig/Primo Route PRN Reason Start Time Stop Time Status Last Admin Dose Admin Acetaminophen (Tylenol) 650 mg Q4H PRN ORAL fever 08/19/17 20:45 09/18/17 20:44 Al Hydroxide/Mg Hydroxide (Mylanta II) 30 ml Q6H PRN ORAL dyspepsia 08/19/17 20:45 09/18/17 20:44 Al Hydroxide/Mg Hydroxide (Mylanta) 15 ml Q1H PRN ORAL gi upset 08/20/17 12:45 08/20/17 17:00 Amlodipine Besylate (Norvasc) 10 mg DAILY ORAL 08/20/17 09:00 09/19/17 08:59 08/20/17 08:10 Atropine Sulfate (Atropine) 0.5 mg Q5M PRN IV bpm less than45 08/20/17 12:45 08/20/17 17:00 Cyclobenzaprine HCl (Flexeril) 10 mg THREE TIMES A DAY ORAL 08/20/17 09:00 09/19/17 08:59 08/20/17 14:12 Dextrose (Dextrose 50%) STAT PRN IV Hypoglycemia 08/19/17 20:45 09/18/17 20:44 Dextrose/Sodium Chloride 1,000 ml @ 100 mls/hr Q10H IV 08/19/17 22:00 09/18/17 21:59 08/19/17 23:42 Diphenhydramine HCl (Benadryl) 25 mg Q15M PRN IVP Itching 08/20/17 12:45 08/20/17 17:00 Diphenhydramine HCl (Benadryl) 25 mg Q6H PRN ORAL Itching/Pruritis 08/19/17 20:45 09/18/17 20:44 Fentanyl Citrate (Sublimaze 100 mcg/2 mL) 25 mcg Q10M PRN IV Moderate Pain (Pain Scale 4-6) 08/20/17 12:45 08/20/17 17:00 Hydralazine HCl (Apresoline) 5 mg Q30M PRN IV SBP>160 OR___/DBP>90 OR___ 08/20/17 12:45 08/20/17 17:00 Midazolam HCl (Versed 2mg/2ml vial) 1 mg Q15M PRN IVP For Anxiety 08/20/17 12:45 08/20/17 17:00 Morphine Sulfate (Morphine Sulfate) 2 mg Q4H PRN IVP Severe Pain (Pain Scale 7-10) 08/19/17 20:45 08/26/17 20:44 08/20/17 11:22 Nitroglycerin (Ntg) 0.4 mg Q5M X 3 DOSES PRN SL Prn Chest Pain 08/19/17 20:45 09/18/17 20:44 Ondansetron HCl (Zofran) 4 mg Q1H PRN IVP Nausea & Vomiting 08/20/17 12:45 08/20/17 17:00 Ondansetron HCl (Zofran) 4 mg Q6H PRN IVP Nausea & Vomiting 08/19/17 20:45 09/18/17 20:44 Polyethylene Glycol (Miralax) 17 gm HSPRN PRN ORAL Constipation 08/19/17 20:45 09/18/17 20:44 Temazepam (Restoril) 15 mg HSPRN PRN ORAL Insomnia 08/19/17 20:45 08/26/17 20:44 CHIDI CATHERINE Aug 20, 2017 15:03
--- NOTE | 2017-08-20 16:26 | Cardiology Report ---
APPROVED REPORT EKG Measurement Heart [id number] Normal sinus rhythm Normal ECG
[2017-08-20] MEDS ORDERED: Nitroglycerin Subl 0.4mg tab SL PRN (18:00)
[2017-08-20] MEDS ORDERED: Miralax 17gm pkt ORAL PRN (18:30)
[2017-08-20] MEDS ORDERED: Mylanta II UD 30ml ORAL PRN (18:30)
[2017-08-21] VITALS: BP 120/70
--- NOTE | 2017-08-21 00:45 | Procedure Note ---
DATE OF PROCEDURE: 08/20/2017 SURGEON: Darrin Mcgraw M.D. REFERRING PHYSICIAN: Srikanth Oliva D.O. PROCEDURE: Upper endoscopy with biopsy. ANESTHESIA: Per Dr. Peterson. INSTRUMENTS: Olympus adult flexible upper endoscope. INDICATION: History of duodenal ulcer and present with upper GI bleeding. The procedure, risks, benefits, and possible consequences, including hemorrhage, aspiration, perforation and infection, and alternative treatments, were explained to the patient/legal guardian by Dr. Darrin Mcgraw and the patient/legal guardian understood and accepted these risks. DESCRIPTION OF PROCEDURE: After informed consent was obtained and the patient was adequately sedated, Olympus upper endoscope was advanced from mouth into the second portion of the duodenum and retroflexion was performed in the stomach. The patient has evidence of minimum peeling off of the mucosa at the GE junction, maybe suggesting resolving esophagitis. In the stomach, there was diffuse gastritis. Random biopsies from antrum and body was obtained to rule out H. pylori infection. In the second portion of the duodenum was 1 small AVM not actively bleeding. The patient tolerated the procedure very well without complication. SUMMARY FINDINGS: 1. Peeling off of the mucosa at the GE junction suggestive of healing esophagitis. 2. Gastritis, status post biopsy. 3. One small duodenal AVM. RECOMMENDATIONS: Follow up biopsy results and treat accordingly. Advance diet. Follow labs. I want to thank Dr. Srikanth Oliva for this kind referral. Darrin Mcgraw M.D. DR: JOSE LUIS JOB#: [id number] CC: Srikanth Oliva D.O.
--- NOTE | 2017-08-21 01:45 | Consultation ---
DATE OF CONSULTATION: 08/20/2017 ORTHOPEDIC CONSULTATION CONSULTING PHYSICIAN: Domenic Gimenez M.D. REQUESTING PHYSICIAN: Srikanth Oliva D.O. CHIEF COMPLAINT: Bilateral shoulder and right hip and right knee pain. HISTORY OF PRESENT ILLNESS: The patient has a somewhat complicated orthopedic history. 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 She also had right knee arthritis, for which she underwent total knee arthroplasty, ultimately requiring a revision total knee arthroplasty. She had done well after the revision of right total knee arthroplasty as well as the right hip replacement, but she is having bilateral shoulder pain. She was diagnosed with possible left shoulder rotator cuff tear, which has been symptomatic even prior to her hip issues since 2009. Recently, she has a grandchild, whom she has been caring and has been noticing more right shoulder pain. Orthopedic consultation obtained for further care and recommendation. PAST MEDICAL HISTORY: Reviewed from the intake chart. PAST SURGICAL HISTORY: Reviewed from the intake chart. MEDICATIONS: Reviewed from the intake chart. PHYSICAL EXAMINATION: GENERAL: The patient is alert and oriented. She is resting comfortably in bed. She is relatively comfortable in bed, but she has a BMI of over 35. EXTREMITIES: Right shoulder examination shows mild pain along the anterolateral aspect of the acromion, pain with forward elevation as well as abduction. There is pain with supraspinatus testing, mild crepitus. Left shoulder examination showed moderate crepitus and weakness on supraspinatus testing. Right hip incision is clean, dry, and intact. Right knee incision is clean, dry, and intact. ASSESSMENT: 1. 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 2. Status post revision right total knee arthroplasty. 3. Left shoulder chronic rotator cuff tear, possible rotator cuff arthropathy. 4. Right shoulder overuse syndrome, possible rotator cuff tear. DISCUSSION: At this point, in terms of her left shoulder, I discussed with her that she has had a chronic rotator cuff tear, then ultimately if there is evidence of a high-riding humeral head, she will require shoulder replacement. In terms of right shoulder, she is probably overusing it and may have some inflammation. She reportedly had an MRI as an outpatient; however, she is not sure what the findings were. At this point, she is clearly admitted for GI bleed issues, which need to be medically managed first. What I recommend is for her to follow up with her orthopedic surgeon as an outpatient for further care and recommendation including the possibility of cortisone injection when she has gotten medically stable. Domenic Gimenez M.D. DR: SHANIA JOB#: [id number] CC:
--- NOTE | 2017-08-21 02:46 | History and Physical Report ---
DATE OF ADMISSION: 08/19/2017 TIME SEEN: 3 p.m. CONSULTANTS: 1. Darrin Mcgraw M.D. 2. Sharron Belle M.D. 3. Dr. Gimenez. 4. Saroj Fernandez M.D. 5. Dr. Gamboa. 6. Jose G Jose M.D. 7. Preet Wallace M.D. CHIEF COMPLAINT: Abdominal pain, duodenal ulcer, shoulder pain, anxiety, low back pain, and hepatitis C. BRIEF HISTORY: This is a 62-year-old female from my office presented with above-mentioned diagnoses and admitted for further care status post EGD. Currently, slightly anxious in bed, oriented x3. PAST MEDICAL HISTORY: Abdominal pain, low back pain, bilateral shoulder pain, anxiety, GERD, PUD, obesity, COPD, and hepatitis C. PAST SURGICAL HISTORY: Knee, hip and hernia. MEDICATIONS: Sublimaze, , Zofran, Apresoline, Mylanta, Benadryl, Atropine, Norvasc, Flexeril, morphine, Tylenol, MiraLAX, and nitroglycerin. ALLERGIES: Denies. SOCIAL HISTORY: No smoking. No alcohol. No intravenous drug use. FAMILY HISTORY: Noncontributory. PHYSICAL EXAMINATION: GENERAL: Slightly anxious in bed, oriented x3. No acute distress. VITAL SIGNS: Temperature is 97 degrees, pulse 59, respiratory rate 20, and blood pressure 125/84. CARDIOVASCULAR: No murmur. LUNGS: Distant and clear. ABDOMEN: Bowel sounds are positive. Nontender and nondistended. EXTREMITIES: No cyanosis, clubbing, or edema. NEUROLOGIC: The patient moves all extremities, slightly weak. LABORATORY AND DIAGNOSTIC DATA: Hemoglobin 9.9, otherwise CBC is normal. BMP is normal. INR is 1.0 and PTT is 24. Urinalysis 1+ leukocyte esterase. ASSESSMENT: 1. Duodenal ulcer. 2. Melena. 3. Anemia. 4. Abdominal pain. 5. Low back pain. 6. Urinary tract infection. 7. Hypertension. 8. Bilateral shoulder pain. 9. Anxiety. 10. Gastroesophageal reflux disease. 11. Peptic ulcer disease. 12. Obesity. 13. Chronic obstructive pulmonary disease. 14. Hepatitis C. PLAN: Continue pre-medications. Pain control. Blood pressure control. Anxiolytic. OT/PT. Dietary evaluation. CBC and BMP in the morning. Dr. Mcgraw, Dr. Belle, Dr. Gimenez, Dr. Fernandez, Dr. Gamboa, Dr. Jose and Dr. Wallace to consult. Srikanth Oliva D.O. DR: ADITYA JOB#: [id number] CC:
[2017-08-21 04:00] VITALS: BP 122/75
[2017-08-21] MEDS: Morphine Sulfate 2mg/ml Inj IVP PRN ×2 (04:16→11:05)
[2017-08-21] MEDS: D5NS 1,000 ML IV SCH (04:45)
[2017-08-21 07:44] LABS: BASOPHILS % (AUTO) 0.9 % (0.0-2.0); EOSINOPHILS % (AUTO) 1.4 % (0.0-3.0); LYMPHOCYTES % (AUTO) 43.5 % (20.0-45.0); MEAN CORPUSCULAR HEMOGLOBIN 28.7 PG (27.0-31.0); MEAN CORPUSCULAR VOLUME 90 FL (80-99); MEAN PLATELET VOLUME 6.3 FL (6.5-10.1); MONOCYTES % (AUTO) 6.1 % (1.0-10.0); NEUTROPHILS % (AUTO) 48.2 % (45.0-75.0); PLATELET COUNT 314 K/UL (150-450); RED BLOOD COUNT 3.51 M/UL (4.20-5.40); WHITE BLOOD COUNT 5.9 K/UL (4.8-10.8)
[2017-08-21 08:02] LABS: INR 0.9 (0.9-1.1); PROTHROMBIN TIME 9.9 SEC (9.30-11.50)
[2017-08-21 08:15] VITALS: BP 103/72
[2017-08-21 08:22] LABS: ALANINE AMINOTRANSFERASE 31 U/L (12-78); ALBUMIN/GLOBULIN RATIO 0.9 (1.0-2.7); ANION GAP 9 mmol/L (5-15); ASPARTATE AMINO TRANSFERASE 28 U/L (15-37); CALCIUM 8.6 MG/DL (8.5-10.1); CARBON DIOXIDE 27 MMOL/L (21-32); CHLORIDE 106 MMOL/L (98-107); CREATININE 0.7 MG/DL (0.55-1.30); GLOMERULAR FILTRATION RATE > 60 mL/min (>60); POTASSIUM 3.5 MMOL/L (3.5-5.1); SODIUM 142 MMOL/L (136-145); TOTAL PROTEIN 6.9 G/DL (6.4-8.2)
--- NOTE | 2017-08-21 08:37 | Consultation ---
History of Present Illness General Date patient seen: Aug 21, 2017 Chief Complaint: Abdominal Pain Present Illness Allergies: Coded Allergies: NO KNOWN DRUG ALLERGIES (Unverified Allergy, Unknown, 05/23/15) Uncoded Allergies: lactulose intolerance (Adverse Reaction, Intermediate, Itching, 08/16/13) upset stomach Medication History Scheduled Albuterol Sulfate* (Albuterol Sulfate Mdi*), 2 PUFF INH Q6H Amlodipine Besylate* (Amlodipine Besylate*), 10 MG ORAL HS, (Reported) Cyclobenzaprine Hcl* (Flexeril*), 10 MG ORAL THREE TIMES A DAY, (Reported) Fluoxetine Hcl* (Fluoxetine Hcl*), 20 MG PO DAILY, (Reported) Lidocaine HCl 2% Viscous (Lidocaine HCl 2% Viscous), 10 ML ORAL Q8HR, (Reported) Omeprazole (Omeprazole), 20 MG ORAL DAILY, (Reported) Scheduled PRN Acetaminophen* (Tylenol Extra Strength*), 500 MG ORAL Q8H PRN for For Pain, ( Reported) Aspirin* (Aspirin*), 325 MG ORAL DAILY PRN for For Pain, (Reported) Calcium Carbonate (Tums), Unknown Dose PO for STOMACH PAIN , (Reported) Dicyclomine Hcl* (Dicyclomine Hcl*), 20 MG PO QID PRN for COLITIS, (Reported) Ibuprofen* (Motrin*), 200 MG ORAL DAILY PRN for For Pain, (Reported) Mag Hydrox/Al Hydrox/Simeth (Maalox Maximum Strength Susp), 30 ML PO Q6HR PRN for For Pain Melatonin (Melatonin), Unknown Dose PO BEDTIME PRN for Insomnia, (Reported) Tramadol Hcl* (Ultram*), 50 MG ORAL Q6H PRN for For Pain, (Reported) Miscellaneous Medications Diclofenac Sodium (Voltaren), Unknown Dose TP, (Reported) Discontinued Medications Acetaminophen* (Acetaminophen 325MG Tablet*), 325 MG ORAL Q6H PRN for For Pain, (Reported) Discontinued Reason: Medication dose changed Ciprofloxacin* (Cipro*), 500 MG PO BID Discontinued Reason: Therapy completed Dicyclomine Hcl* (Dicyclomine Hcl*), 20 MG PO DAILY, (Reported) Discontinued Reason: Medication dose changed Esomeprazole Magnesium (Nexium), 40 MG ORAL DAILY Discontinued Reason: Pt stopped taking med Famotidine (Pepcid), 40 MG PO DAILY Discontinued Reason: Pt stopped taking med Gabapentin* (Gabapentin*), 300 MG ORAL THREE TIMES A DAY, (Reported) Discontinued Reason: Pt stopped taking med Methocarbamol* (Robaxin-750*), 750 MG PO TID Discontinued Reason: Pt stopped taking med Omeprazole (Omeprazole), 40 MG ORAL DAILY, (Reported) Discontinued Reason: Medication dose changed Ondansetron Odt* (Zofran Odt*), 4 MG ORAL Q8H PRN for Nausea & Vomiting Discontinued Reason: Pt stopped taking med Tramadol Hcl* (Ultram*), 50 MG PO Q6H PRN, (Reported) Discontinued Reason: Medication dose changed Tramadol Hcl* (Ultram*), 50 MG ORAL Q6H PRN for For Pain, (Reported) Discontinued Reason: Medication dose changed Zolpidem Tartrate* (Ambien*), 10 MG PO HS PRN, (Reported) Discontinued Reason: Pt stopped taking med Patient History Healthcare decision maker Resuscitation status Full Code Advanced Directive on File Physical Exam Last 24 Hour Vital Signs Date Time Temp Pulse Resp B/P (MAP) Pulse Ox O2 Delivery O2 Flow Rate FiO2 08/21/17 08:15 98.2 90 22 103/72 97 Room Air 08/21/17 04:00 97.5 88 18 122/75 95 Room Air 08/21/17 00:00 97.2 80 18 120/70 98 Room Air 08/20/17 20:24 96.3 85 19 111/71 100 Room Air 08/20/17 16:00 75 08/20/17 15:50 97.7 76 18 136/81 96 Room Air 08/20/17 13:18 97.0 69 20 125/84 99 Room Air 08/20/17 13:14 80 18 99 08/20/17 13:12 83 18 100 08/20/17 13:10 75 20 133/79 99 Room Air 08/20/17 13:05 78 20 125/86 99 Nasal Cannula 2.0 08/20/17 12:59 97.0 81 20 110/86 99 Nasal Cannula 2.0 08/20/17 12:00 70 08/20/17 11:35 98.2 83 18 125/75 98 Room Air Laboratory Tests Test 08/20/17 09:50 08/21/17 07:20 Sodium Level 144 MMOL/L (136-145) 142 MMOL/L (136-145) Potassium Level 3.5 MMOL/L (3.5-5.1) 3.5 MMOL/L (3.5-5.1) Chloride Level 104 MMOL/L (98-107) 106 MMOL/L (98-107) Carbon Dioxide Level 31 MMOL/L (21-32) 27 MMOL/L (21-32) Anion Gap 9 mmol/L (5-15) 9 mmol/L (5-15) Blood Urea Nitrogen 6 mg/dL (7-18) L 9 mg/dL (7-18) Creatinine 0.6 MG/DL (0.55-1.30) 0.7 MG/DL (0.55-1.30) Estimat Glomerular Filtration Rate > 60 mL/min (>60) > 60 mL/min (>60) Glucose Level 97 MG/DL (74-106) 131 MG/DL (74-106) H Calcium Level 8.7 MG/DL (8.5-10.1) 8.6 MG/DL (8.5-10.1) Total Bilirubin 0.3 MG/DL (0.2-1.0) 0.2 MG/DL (0.2-1.0) Aspartate Amino Transf (AST/SGOT) 30 U/L (15-37) 28 U/L (15-37) Alanine Aminotransferase (ALT/SGPT) 30 U/L (12-78) 31 U/L (12-78) Alkaline Phosphatase 91 U/L (46-116) 92 U/L (46-116) Total Protein 7.0 G/DL (6.4-8.2) 6.9 G/DL (6.4-8.2) Albumin 3.5 G/DL (3.4-5.0) 3.3 G/DL (3.4-5.0) L Globulin 3.5 g/dL 3.6 g/dL Albumin/Globulin Ratio 1.0 (1.0-2.7) 0.9 (1.0-2.7) L Amylase Level 68 U/L (25-115) Lipase 73 U/L (73-393) White Blood Count 5.9 K/UL (4.8-10.8) Red Blood Count 3.51 M/UL (4.20-5.40) L Hemoglobin 10.1 G/DL (12.0-16.0) L Hematocrit 31.5 % (37.0-47.0) L Mean Corpuscular Volume 90 FL (80-99) Mean Corpuscular Hemoglobin 28.7 PG (27.0-31.0) Mean Corpuscular Hemoglobin Concent 32.0 G/DL (32.0-36.0) Red Cell Distribution Width 15.0 % (11.6-14.8) H Platelet Count 314 K/UL (150-450) Mean Platelet Volume 6.3 FL (6.5-10.1) L Neutrophils (%) (Auto) 48.2 % (45.0-75.0) Lymphocytes (%) (Auto) 43.5 % (20.0-45.0) Monocytes (%) (Auto) 6.1 % (1.0-10.0) Eosinophils (%) (Auto) 1.4 % (0.0-3.0) Basophils (%) (Auto) 0.9 % (0.0-2.0) Prothrombin Time 9.9 SEC (9.30-11.50) Prothromb Time International Ratio 0.9 (0.9-1.1) Activated Partial Thromboplast Time 28 SEC (23-33) Phosphorus Level Pending Magnesium Level Pending Helicobacter pylori IgG Antibody Pending Height (Feet): 5 Height (Inches): 1.00 Weight (Pounds): 165 Medications Current Medications Medications (Trade) Dose Ordered Sig/Primo Route PRN Reason Start Time Stop Time Status Last Admin Dose Admin Acetaminophen (Tylenol) 650 mg Q4H PRN ORAL fever 08/20/17 18:30 09/18/17 18:29 Al Hydroxide/Mg Hydroxide (Mylanta II) 30 ml Q6H PRN ORAL dyspepsia 08/20/17 18:30 09/18/17 18:29 Amlodipine Besylate (Norvasc) 10 mg DAILY ORAL 08/21/17 09:00 09/19/17 08:59 Cyclobenzaprine HCl (Flexeril) 10 mg THREE TIMES A DAY ORAL 08/20/17 18:30 09/19/17 18:29 08/20/17 20:00 Dextrose (Dextrose 50%) STAT PRN IV Hypoglycemia 08/20/17 18:30 12/14/17 18:29 Dextrose/Sodium Chloride 1,000 ml @ 100 mls/hr Q10H IV 08/20/17 18:30 09/18/17 18:29 08/21/17 04:45 Diphenhydramine HCl (Benadryl) 25 mg Q6H PRN ORAL Itching/Pruritis 08/20/17 18:30 09/18/17 18:29 Morphine Sulfate (Morphine Sulfate) 2 mg Q4H PRN IVP Severe Pain (Pain Scale 7-10) 08/20/17 20:45 08/26/17 20:44 08/21/17 04:16 Nitroglycerin (Ntg) 0.4 mg Q5M X 3 DOSES PRN SL Prn Chest Pain 08/20/17 18:00 09/18/17 20:44 Ondansetron HCl (Zofran) 4 mg Q6H PRN IVP Nausea & Vomiting 08/20/17 18:30 09/18/17 18:29 Polyethylene Glycol (Miralax) 17 gm HSPRN PRN ORAL Constipation 08/20/17 18:30 09/18/17 18:29 Temazepam (Restoril) 15 mg HSPRN PRN ORAL Insomnia 08/20/17 18:30 08/26/17 18:29 08/20/17 23:07 Assessment/Plan Assessment/Plan (1) Abdominal pain (2) Duodenal ulcer (3) Lumbar radiculopathy (4) Lumbar DDD (5) Lumbar spondylosis Seen dictated NELLY LUCERO Aug 21, 2017 08:37
[2017-08-21] MEDS: Cyclobenzaprine 10mg Tab ORAL SCH ×2 (08:43→13:01)
[2017-08-21 09:27] LABS: PHOSPHORUS 3.3 MG/DL (2.5-4.9)
--- NOTE | 2017-08-21 11:09 | GI Progress Note ---
Assessment/Plan Problems: (1) Lower GI bleed ICD Codes: K92.2 - Gastrointestinal hemorrhage, unspecified SNOMED: 18760446 (2) Anemia ICD Codes: D64.9 - Anemia, unspecified SNOMED: 348502239 (3) gastritis (4) Hepatitis C ICD Codes: B19.20 - Unspecified viral hepatitis C without hepatic coma SNOMED: 85708664 (5) Hiatal hernia with GERD ICD Codes: K21.9 - Gastro-esophageal reflux disease without esophagitis; K44.9 - Diaphragmatic hernia without obstruction or gangrene SNOMED: 161508540 (6) Abdominal pain ICD Codes: R10.9 - Unspecified abdominal pain SNOMED: 64381143 Status: stable Status Narrative Discussed with Dr. Mcgraw. Assessment/Plan SUMMARY FINDINGS: 1. Peeling off of the mucosa at the GE junction suggestive of healing esophagitis. 2. Gastritis, status post biopsy. 3. One small duodenal AVM. RECOMMENDATIONS: resume diet ppi prn transfusions pain mgmt fu labs outpatient follow up for colonoscopy and Hep C treatment Subjective Gastrointestinal/Abdominal: Reports: abdominal pain Objective Last 24 Hour Vital Signs Date Time Temp Pulse Resp B/P (MAP) Pulse Ox O2 Delivery O2 Flow Rate FiO2 08/21/17 09:42 98.2 08/21/17 09:00 90 103/72 08/21/17 08:15 98.2 90 22 103/72 97 Room Air 08/21/17 04:00 97.5 88 18 122/75 95 Room Air 08/21/17 00:00 97.2 80 18 120/70 98 Room Air 08/20/17 20:24 96.3 85 19 111/71 100 Room Air 08/20/17 16:00 75 08/20/17 15:50 97.7 76 18 136/81 96 Room Air 08/20/17 13:18 97.0 69 20 125/84 99 Room Air 08/20/17 13:14 80 18 99 08/20/17 13:12 83 18 100 08/20/17 13:10 75 20 133/79 99 Room Air 08/20/17 13:05 78 20 125/86 99 Nasal Cannula 2.0 08/20/17 12:59 97.0 81 20 110/86 99 Nasal Cannula 2.0 08/20/17 12:00 70 08/20/17 11:35 98.2 83 18 125/75 98 Room Air Intake and Output 08/21/17 08/22/17 19:00 07:00 Intake Total 240 ml Balance 240 ml Intake Oral 240 ml Laboratory Tests Test 08/21/17 07:20 White Blood Count 5.9 K/UL (4.8-10.8) Red Blood Count 3.51 M/UL (4.20-5.40) L Hemoglobin 10.1 G/DL (12.0-16.0) L Hematocrit 31.5 % (37.0-47.0) L Mean Corpuscular Volume 90 FL (80-99) Mean Corpuscular Hemoglobin 28.7 PG (27.0-31.0) Mean Corpuscular Hemoglobin Concent 32.0 G/DL (32.0-36.0) Red Cell Distribution Width 15.0 % (11.6-14.8) H Platelet Count 314 K/UL (150-450) Mean Platelet Volume 6.3 FL (6.5-10.1) L Neutrophils (%) (Auto) 48.2 % (45.0-75.0) Lymphocytes (%) (Auto) 43.5 % (20.0-45.0) Monocytes (%) (Auto) 6.1 % (1.0-10.0) Eosinophils (%) (Auto) 1.4 % (0.0-3.0) Basophils (%) (Auto) 0.9 % (0.0-2.0) Prothrombin Time 9.9 SEC (9.30-11.50) Prothromb Time International Ratio 0.9 (0.9-1.1) Activated Partial Thromboplast Time 28 SEC (23-33) Sodium Level 142 MMOL/L (136-145) Potassium Level 3.5 MMOL/L (3.5-5.1) Chloride Level 106 MMOL/L (98-107) Carbon Dioxide Level 27 MMOL/L (21-32) Anion Gap 9 mmol/L (5-15) Blood Urea Nitrogen 9 mg/dL (7-18) Creatinine 0.7 MG/DL (0.55-1.30) Estimat Glomerular Filtration Rate > 60 mL/min (>60) Glucose Level 131 MG/DL (74-106) H Calcium Level 8.6 MG/DL (8.5-10.1) Phosphorus Level 3.3 MG/DL (2.5-4.9) Magnesium Level 2.0 MG/DL (1.8-2.4) Total Bilirubin 0.2 MG/DL (0.2-1.0) Aspartate Amino Transf (AST/SGOT) 28 U/L (15-37) Alanine Aminotransferase (ALT/SGPT) 31 U/L (12-78) Alkaline Phosphatase 92 U/L (46-116) Total Protein 6.9 G/DL (6.4-8.2) Albumin 3.3 G/DL (3.4-5.0) L Globulin 3.6 g/dL Albumin/Globulin Ratio 0.9 (1.0-2.7) L Helicobacter pylori IgG Antibody Pending Height (Feet): 5 Height (Inches): 1.00 Weight (Pounds): 165 General Appearance: WD/WN, no apparent distress, alert, obese Cardiovascular: normal rate Respiratory/Chest: normal breath sounds, no respiratory distress Abdominal Exam: normal bowel sounds, non tender, soft Extremities: non-tender, other - generalized weakness Fiorella Sheppard N.PSamuel Aug 21, 2017 11:09
--- NOTE | 2017-08-21 11:36 | Diagnostic Imaging Report ---
Indication: PAIN lower back pain Technique: 4 views of the lumbar spine Comparison: None Findings: There is grade 1 spondylolisthesis of L5 on S1. It is unclear on the oblique views whether there are pars defects or not. There is mild secondary degenerative change of the L5-S1 disc. There is minimal anterior offset of L4 on L5. There is minimal degenerative disc narrowing at L4-5. The remainder of the bony alignment is normal. The vertebral body heights are preserved. The remaining disc spaces are preserved. There is a right hip hemiarthroplasty prosthesis. The surrounding soft tissues are unremarkable except for numerous buttock injection granulomata and some pravin calcifications Impression: No acute bony trauma L5 on S1 spondylolisthesis. It is uncertain whether there is spondylolysis on either side. L5-S1 mild disc degeneration, presumed related to the above Other findings as noted
[2017-08-21 12:15] VITALS: BP 126/78
--- NOTE | 2017-08-21 14:14 | General Progress Note ---
Assessment/Plan Problem List: (1) Shoulder pain ICD Codes: M25.519 - Pain in unspecified shoulder SNOMED: 97327124 (2) GERD (gastroesophageal reflux disease) ICD Codes: K21.9 - Gastro-esophageal reflux disease without esophagitis SNOMED: 732057384 (3) COPD (chronic obstructive pulmonary disease) ICD Codes: J44.9 - Chronic obstructive pulmonary disease, unspecified SNOMED: 01925383 (4) Acute abdominal pain ICD Codes: R10.0 - Acute abdomen SNOMED: 001731636 (5) Duodenal ulcer disease ICD Codes: K26.9 - Duodenal ulcer, unsp as acute or chronic, w/o hemor or perf SNOMED: 06322880 (6) Anemia ICD Codes: D64.9 - Anemia SNOMED: 948681970 (7) UTI (urinary tract infection) ICD Codes: N39.0 - Urinary tract infection, site not specified SNOMED: 63090187 (8) Hepatitis C ICD Codes: B19.20 - Hepatitis C SNOMED: 42415253 (9) PUD (peptic ulcer disease) ICD Codes: K27.9 - Peptic ulcer, site unspecified, unspecified as acute or chronic, without hemorrhage or perforation SNOMED: 35051683 Status: stable, progressing, tolerating diet Assessment/Plan ot pt diet pain control abx cbc bmp am dc plan Subjective Constitutional: Reports: weakness Allergies: Coded Allergies: NO KNOWN DRUG ALLERGIES (Unverified Allergy, Unknown, 05/23/15) Uncoded Allergies: lactulose intolerance (Adverse Reaction, Intermediate, Itching, 08/16/13) upset stomach All Systems: reviewed and negative except above Subjective sl anxious Objective Last 24 Hour Vital Signs Date Time Temp Pulse Resp B/P (MAP) Pulse Ox O2 Delivery O2 Flow Rate FiO2 08/21/17 12:15 97.5 88 20 126/78 95 Room Air 08/21/17 11:35 98.2 08/21/17 09:42 98.2 08/21/17 09:00 90 103/72 08/21/17 08:15 98.2 90 22 103/72 97 Room Air 08/21/17 04:00 97.5 88 18 122/75 95 Room Air 08/21/17 00:00 97.2 80 18 120/70 98 Room Air 08/20/17 20:24 96.3 85 19 111/71 100 Room Air 08/20/17 16:00 75 08/20/17 15:50 97.7 76 18 136/81 96 Room Air Intake and Output 08/21/17 08/22/17 19:00 07:00 Intake Total 240 ml Balance 240 ml Intake Oral 240 ml Laboratory Tests 08/21/17 07:20: White Blood Count 5.9, Red Blood Count 3.51L, Hemoglobin 10.1L, Hematocrit 31.5L , Mean Corpuscular Volume 90, Mean Corpuscular Hemoglobin 28.7, Mean Corpuscular Hemoglobin Concent 32.0, Red Cell Distribution Width 15.0H, Platelet Count 314, Mean Platelet Volume 6.3L, Neutrophils (%) (Auto) 48.2, Lymphocytes (%) (Auto) 43.5, Monocytes (%) (Auto) 6.1, Eosinophils (%) (Auto) 1.4, Basophils (%) (Auto) 0.9, Prothrombin Time 9.9, Prothromb Time International Ratio 0.9, Activated Partial Thromboplast Time 28, Sodium Level 142, Potassium Level 3.5, Chloride Level 106, Carbon Dioxide Level 27, Anion Gap 9, Blood Urea Nitrogen 9, Creatinine 0.7, Estimat Glomerular Filtration Rate > 60, Glucose Level 131H, Calcium Level 8.6, Phosphorus Level 3.3, Magnesium Level 2.0, Total Bilirubin 0.2, Aspartate Amino Transf (AST/SGOT) 28, Alanine Aminotransferase (ALT/SGPT) 31, Alkaline Phosphatase 92, Total Protein 6.9, Albumin 3.3L, Globulin 3.6, Albumin/Globulin Ratio 0.9L, Helicobacter pylori IgG Antibody [Pending] Height (Feet): 5 Height (Inches): 1.00 Weight (Pounds): 165 General Appearance: alert EENT: normal ENT inspection Neck: normal alignment Cardiovascular: normal peripheral pulses, normal rate, regular rhythm Respiratory/Chest: chest wall non-tender, lungs clear, normal breath sounds Abdomen: normal bowel sounds, non tender, soft Extremities: normal inspection Edema: no edema noted Arm (L), no edema noted Arm (R), no edema noted Leg (L), no edema noted Leg (R), no edema noted Pedal (L), no edema noted Pedal (R), no edema noted Generalized Neurologic: responsive, motor weakness Skin: normal pigmentation, warm/dry TREVOR OBANDO Aug 21, 2017 14:14
--- NOTE | 2017-08-21 14:16 | Neurology Progress Note ---
Interim History Interim History ROS Limited/Unobtainable: No Objective Physical Exam Last Vital Signs Date Time Temp Pulse Resp B/P (MAP) Pulse Ox O2 Delivery O2 Flow Rate FiO2 08/21/17 12:15 97.5 88 20 126/78 95 Room Air 08/20/17 13:05 2.0 Laboratory Tests Test 08/21/17 07:20 White Blood Count 5.9 K/UL (4.8-10.8) Red Blood Count 3.51 M/UL (4.20-5.40) L Hemoglobin 10.1 G/DL (12.0-16.0) L Hematocrit 31.5 % (37.0-47.0) L Mean Corpuscular Volume 90 FL (80-99) Mean Corpuscular Hemoglobin 28.7 PG (27.0-31.0) Mean Corpuscular Hemoglobin Concent 32.0 G/DL (32.0-36.0) Red Cell Distribution Width 15.0 % (11.6-14.8) H Platelet Count 314 K/UL (150-450) Mean Platelet Volume 6.3 FL (6.5-10.1) L Neutrophils (%) (Auto) 48.2 % (45.0-75.0) Lymphocytes (%) (Auto) 43.5 % (20.0-45.0) Monocytes (%) (Auto) 6.1 % (1.0-10.0) Eosinophils (%) (Auto) 1.4 % (0.0-3.0) Basophils (%) (Auto) 0.9 % (0.0-2.0) Prothrombin Time 9.9 SEC (9.30-11.50) Prothromb Time International Ratio 0.9 (0.9-1.1) Activated Partial Thromboplast Time 28 SEC (23-33) Sodium Level 142 MMOL/L (136-145) Potassium Level 3.5 MMOL/L (3.5-5.1) Chloride Level 106 MMOL/L (98-107) Carbon Dioxide Level 27 MMOL/L (21-32) Anion Gap 9 mmol/L (5-15) Blood Urea Nitrogen 9 mg/dL (7-18) Creatinine 0.7 MG/DL (0.55-1.30) Estimat Glomerular Filtration Rate > 60 mL/min (>60) Glucose Level 131 MG/DL (74-106) H Calcium Level 8.6 MG/DL (8.5-10.1) Phosphorus Level 3.3 MG/DL (2.5-4.9) Magnesium Level 2.0 MG/DL (1.8-2.4) Total Bilirubin 0.2 MG/DL (0.2-1.0) Aspartate Amino Transf (AST/SGOT) 28 U/L (15-37) Alanine Aminotransferase (ALT/SGPT) 31 U/L (12-78) Alkaline Phosphatase 92 U/L (46-116) Total Protein 6.9 G/DL (6.4-8.2) Albumin 3.3 G/DL (3.4-5.0) L Globulin 3.6 g/dL Albumin/Globulin Ratio 0.9 (1.0-2.7) L Helicobacter pylori IgG Antibody Pending Impression/Recommendations Status: stable, progressing, tolerating diet Recommendations # [id number] LEENA RBOWNE Aug 21, 2017 14:16
--- NOTE | 2017-08-21 15:15 | Consultation ---
DATE OF CONSULTATION: 08/21/2017 PAIN MANAGEMENT CONSULTATION CONSULTING PHYSICIAN: Jose G Jose M.D. PHYSICIAN HOME CHILD CARE PROVIDER: Ozzie Ibarra REFERRING PHYSICIAN: Srikanth Oliva D.O. CHIEF COMPLAINT: Abdominal pain and low back pain. HISTORY OF PRESENT ILLNESS: This is 62-year-old female, who is being seen on the Med/Surg floor of [facility] [place] for initial comprehensive pain management consultation. The patient is reporting that she has been having abdominal pain and is status post EGD complaining of abdominal pain, found to have a duodenal ulcer. The patient also have low back pain, which she says is sharp, aching, and throbbing radiating down into her bilateral lower extremities, increased with movement and nothing helping to relieve the pain. Reporting that she had an MRI in the past which is showing herniated disk. At this time, the patient is on morphine 2 mg IV every four hours as needed for severe pain, which has been helping to tolerate her pain reducing the pain from 8 to a 6/10. As an outpatient, the patient receives tramadol 50 mg tablet four times a day. PAST MEDICAL HISTORY: Abdominal pain, low back pain, bilateral shoulder pain, anxiety, GERD, PUD, obesity, COPD, and hepatitis C. PAST SURGICAL HISTORY: Knee, hip, and hernia. ALLERGIES: No known drug allergies. MEDICATIONS: Sublimaze, Zofran, Apresoline, Mylanta, Benadryl, Atropine, Norvasc, Flexeril, morphine, Tylenol, MiraLAX, nitroglycerin, and tramadol. SOCIAL HISTORY: Denies smoking tobacco, drinking alcohol, or IV drug abuse. REVIEW OF SYSTEMS: Denies rash, fever, chills, sweating, dizziness, drowsiness, blurred vision, sore throat, or change in weight. No shortness of breath or chest pain. No nausea, vomiting, diarrhea, or blood in the stool or urine. No bowel or bladder incontinence. No dysuria. She is complaining of abdominal pain. PHYSICAL EXAMINATION: GENERAL: Alert, awake, and oriented x3. VITAL SIGNS: Blood pressure 103/72, oxygen saturation is 97%, respiratory rate 22, temperature 98.2 degrees Fahrenheit. HEENT: PERRLA. NECK: Range of motion is full in all directions. No tenderness to paracervical muscles. No adenopathy. LUNGS: Decreased breath sounds bilaterally. HEART: Regular. ABDOMEN: Tenderness to palpation. BACK: Range of motion is decreased in flexion and extension with tenderness to paraspinal muscles, trapezius, and rhomboid muscles. EXTREMITIES: Upper extremity range of motion reduced due to the patient's pain and condition. Motor is intact. No cyanosis. No clubbing. No edema. Sensory is intact. Reflexes are unobtainable. No adenopathy. Lower extremity range of motion is reduced due to the patient's pain and condition. Motor is intact. No cyanosis. No clubbing. No edema. Sensory is intact. Reflexes are unobtainable. No adenopathy. ASSESSMENT AND PLAN: This is a 62-year-old female with lumbar degenerative disease, lumbar spondylosis, lumbar radiculopathy, abdominal pain, and duodenal ulcer. The patient will be continued on morphine at 2 mg IV every four hours as needed for severe pain. Order an x-ray of lumbar spine at this time to further assess for pathology in the lower back. The patient was discussed with Dr. Jose and Dr. Jose concurred. We will follow the patient. Thank you very much for the courtesy of this consultation. Jose G Jose M.D. CRYSTAL Ibarra DR: PASQUALE JOB#: [id number] CC: MARIANA
--- NOTE | 2017-08-21 15:21 | Pulmonology Progress Note ---
Assessment/Plan Problems: (1) Lower GI bleed (2) Duodenal ulcer disease (3) Hiatal hernia with GERD (4) PUD (peptic ulcer disease) (5) Anemia (6) Hepatitis C Assessment/Plan EGD showed gastritis advance diet as tolerated symptomatic treatment GI f/u appreciated needs outpatient f/u for Hep C treatment, referred to Dr. frank dc home with Subjective ROS Limited/Unobtainable: No Constitutional: Reports: no symptoms HEENT: Repors: no symptoms Respiratory: Reports: no symptoms Allergies: Coded Allergies: NO KNOWN DRUG ALLERGIES (Unverified Allergy, Unknown, 05/23/15) Uncoded Allergies: lactulose intolerance (Adverse Reaction, Intermediate, Itching, 08/16/13) upset stomach Objective Last 24 Hour Vital Signs Date Time Temp Pulse Resp B/P (MAP) Pulse Ox O2 Delivery O2 Flow Rate FiO2 08/21/17 14:26 97.5 08/21/17 12:15 97.5 88 20 126/78 95 Room Air 08/21/17 11:35 98.2 08/21/17 09:00 90 103/72 08/21/17 08:15 98.2 90 22 103/72 97 Room Air 08/21/17 04:00 97.5 88 18 122/75 95 Room Air 08/21/17 00:00 97.2 80 18 120/70 98 Room Air 08/20/17 20:24 96.3 85 19 111/71 100 Room Air 08/20/17 16:00 75 08/20/17 15:50 97.7 76 18 136/81 96 Room Air Intake and Output 08/21/17 08/22/17 19:00 07:00 Intake Total 240 ml Balance 240 ml Intake Oral 240 ml General Appearance: WD/WN Respiratory/Chest: chest wall non-tender, lungs clear Cardiovascular: normal peripheral pulses, normal rate Abdomen: normal bowel sounds, soft, non tender Genitourinary: normal external genitalia Extremities: no clubbing Skin: no lesions Neurologic/Psychiatric: 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 grossly normal Lymphatic: no neck adenopathy Laboratory Tests 08/21/17 07:20: White Blood Count 5.9, Red Blood Count 3.51L, Hemoglobin 10.1L, Hematocrit 31.5L , Mean Corpuscular Volume 90, Mean Corpuscular Hemoglobin 28.7, Mean Corpuscular Hemoglobin Concent 32.0, Red Cell Distribution Width 15.0H, Platelet Count 314, Mean Platelet Volume 6.3L, Neutrophils (%) (Auto) 48.2, Lymphocytes (%) (Auto) 43.5, Monocytes (%) (Auto) 6.1, Eosinophils (%) (Auto) 1.4, Basophils (%) (Auto) 0.9, Prothrombin Time 9.9, Prothromb Time International Ratio 0.9, Activated Partial Thromboplast Time 28, Sodium Level 142, Potassium Level 3.5, Chloride Level 106, Carbon Dioxide Level 27, Anion Gap 9, Blood Urea Nitrogen 9, Creatinine 0.7, Estimat Glomerular Filtration Rate > 60, Glucose Level 131H, Calcium Level 8.6, Phosphorus Level 3.3, Magnesium Level 2.0, Total Bilirubin 0.2, Aspartate Amino Transf (AST/SGOT) 28, Alanine Aminotransferase (ALT/SGPT) 31, Alkaline Phosphatase 92, Total Protein 6.9, Albumin 3.3L, Globulin 3.6, Albumin/Globulin Ratio 0.9L, Helicobacter pylori IgG Antibody [Pending] Current Medications Medications (Trade) Dose Ordered Sig/Primo Route PRN Reason Start Time Stop Time Status Last Admin Dose Admin Acetaminophen (Tylenol) 650 mg Q4H PRN ORAL fever 08/20/17 18:30 09/18/17 18:29 Al Hydroxide/Mg Hydroxide (Mylanta II) 30 ml Q6H PRN ORAL dyspepsia 08/20/17 18:30 09/18/17 18:29 Amlodipine Besylate (Norvasc) 10 mg DAILY ORAL 08/21/17 09:00 09/19/17 08:59 Cyclobenzaprine HCl (Flexeril) 10 mg THREE TIMES A DAY ORAL 08/20/17 18:30 09/19/17 18:29 08/21/17 13:01 Dextrose (Dextrose 50%) STAT PRN IV Hypoglycemia 08/20/17 18:30 09/18/17 18:29 Dextrose/Sodium Chloride 1,000 ml @ 100 mls/hr Q10H IV 08/20/17 18:30 09/18/17 18:29 08/21/17 04:45 Diphenhydramine HCl (Benadryl) 25 mg Q6H PRN ORAL Itching/Pruritis 08/20/17 18:30 09/18/17 18:29 Morphine Sulfate (Morphine Sulfate) 2 mg Q4H PRN IVP Severe Pain (Pain Scale 7-10) 08/20/17 20:45 08/26/17 20:44 08/21/17 11:05 Nitroglycerin (Ntg) 0.4 mg Q5M X 3 DOSES PRN SL Prn Chest Pain 08/20/17 18:00 09/18/17 20:44 Ondansetron HCl (Zofran) 4 mg Q6H PRN IVP Nausea & Vomiting 08/20/17 18:30 09/18/17 18:29 Pantoprazole (Protonix) 40 mg ACBREAKFAST ORAL 08/21/17 11:00 09/20/17 10:59 08/21/17 11:05 Polyethylene Glycol (Miralax) 17 gm HSPRN PRN ORAL Constipation 08/20/17 18:30 09/18/17 18:29 Temazepam (Restoril) 15 mg HSPRN PRN ORAL Insomnia 08/20/17 18:30 08/26/17 18:29 08/20/17 23:07 CHIDI CATHERINE Aug 21, 2017 15:21
--- NOTE | 2017-08-21 16:48 | Diagnostic Imaging Report ---
APPROVED REPORT CPT Code: 87325 Present Symptoms Comments: R/O DVT RIGHT LEG: Venous imaging reveals a patent deep venous system. There is no evidence of thrombus within the femoral, popliteal or tibial segments. The greater saphenous vein is also within normal limits. Doppler indicates normal spontaneous flow within these segments. LEFT LEG: Venous imaging reveals a patent deep venous system. There is no evidence of thrombus within the femoral, popliteal or tibial segments. The greater saphenous vein is also within normal limits. Doppler indicates normal spontaneous flow within these segments.
[2017-08-21] MEDS ORDERED: D5NS 1000ml IV ONE ×2 (17:02)
[2017-08-21] MEDS ORDERED: Tubing IV Secondary IV ONE (17:02)
--- NOTE | 2017-08-21 21:00 | Consultation ---
DATE OF CONSULTATION: 08/21/2017 NEUROLOGICAL CONSULTATION. CONSULTING PHYSICIAN: Preet Wallace M.D. REQUESTING PHYSICIAN: Srikanth Oliva D.O. HISTORY OF PRESENT ILLNESS: This is a 62-year-old female, seen in neurological consultation, presenting with the multiple site pain, but admitted for abdominal pain. The patient is now complaining of intermittent vertigo, unsteady gait, causing her falls. She continued to have pain in her both shoulders right hip and both knees, severe pain in her low back region. The patient indicates that since 2006 to 2011 she had orthopedic surgeries, at younger age, she underwent seven C-sections. Following current admission, gastrointestinal workup was obtained, this include upper gastrointestinal assessment revealing a healing esophagitis, gastritis, and small AVM. Laboratory work included mild anemia, hemoglobin 9.5 and hematocrit 31.4. Chemistry panel with potassium 3.0, glucose 107 otherwise normal study. Normal coagulation panel. Urinalysis 1+ leukocyte esterase. X-ray of lumbar spine was obtained, this revealed L5-S1 spondylolisthesis, L5-S1 mild degeneration, right hip prosthesis, but no evidence of acute bony trauma. Her chest x-ray with no acute process. Venous duplex of both lower extremities, no DVT noted. Since admission till present, there was no further changes in her status. PAST MEDICAL HISTORY: History of bronchial asthma, hepatitis C, hiatal hernia, gastritis, partial hysterectomy, multiple orthopedic surgeries including ligament reconstruction, arthroscopic surgery of right knee, as well as joint replacement in the right hip, left rotator cuff tear surgery, suspected right shoulder rotator cuff tear. MEDICATIONS: Treatment prior to admission included Tylenol, albuterol, amlodipine, aspirin, Flexeril, diclofenac gel, dicyclomine, fluoxetine 20 mg, ibuprofen, melatonin, tramadol 50 mg q.6 h. as needed, and omeprazole. ALLERGIES: None reported. SOCIAL HISTORY: Lives with her daughter, who is a caregiver. No alcohol. No drug abuse. Nonsmoker. FAMILY HISTORY: Noncontributory. Daughter suffered from seizure disorder. REVIEW OF SYMPTOMS: Include pain in the left shoulder, right shoulder, right hip, both knee and lumbar spine, intermittent vertigo sensation, several falls in the last few months, shortness of breath, bronchial asthma, left epigastric and upper gastrointestinal pain lasting few months. No urine or bowel incontinence. Ambulating with cane or walker and has electrical wheelchair. PHYSICAL EXAMINATION: GENERAL: This is a well-developed, morbidly obese female, not in acute distress, lying comfortably in bed. VITAL SIGNS: Stable. Blood pressure 126/78 and temperature 97.5 degrees. HEENT: Head, normocephalic. There is no evidence of trauma. Eyes, ears, and throat are clear. There is a slight left eye esotropia. MOTOR EXAMINATION: Revealed tenderness on palpation in both shoulders. Limited range of motion left shoulder. Postoperative scarring and tenderness on palpation in right hip region as well as right knee region. Peripheral pulses 1+ symmetric. MENTAL STATUS EXAMINATION: She is full alert and oriented x3 with no evidence of aphasia or apraxia. Cognitive function normal. CRANIAL NERVE II: Pupils both responding to light and accommodation. Extraocular movements full range. CRANIAL NERVE V: Normal corneal responses. CRANIAL NERVE VII: No facial asymmetry. CRANIAL NERVE VIII: Normal hearing. CRANIAL NERVES IX THROUGH XII: Within normal limits. MOTOR EXAMINATION: Revealed normal muscle tone and strength in all extremities. No involuntary movement. Deep reflexes 1+, but symmetric. SENSORY EXAMINATION: Normal to pinprick and light touch. Gait is slow. Slightly limping to the right. IMPRESSION: 1. Chronic pain syndrome. 2. Intermittent vertigo, rule out labyrinthitis, rule out orthostatic hypotension. 3. Hypertension. 4. Status post multiple orthopedic procedures. 5. History of hepatitis C. DISCUSSION: The patient has no evidence of focal or lateralizing neurological deficit. She has a history of lumbar diskogenic disease with chronic pain, but no evidence of nerve root abnormalities. Vertigo episodes are intermittent, currently with no evidence of imbalance or positional dizziness or nystagmus. The patient will continue her current treatment. May use meclizine as necessary for episodes of dizziness. Pain management include tramadol 50 mg t.i.d. as necessary. Continue with antidepressants. The patient will continue with pain management as well. She will need treatment for hepatitis C. Thank you for allowing me to see this interesting patient in neurological consultation. Preet Wallace M.D. DR: Sarai JOB#: [id number] CC:
--- NOTE | 2017-08-22 08:14 | Discharge Summary ---
Discharge Summary Hospital Course Date of Admission Aug 19, 2017 at 18:51 Date of Discharge Aug 21, 2017 at 17:03 Admitting Diagnosis GI BLEED, DUODENAL ULCER HPI Meche Gutierrez is a 62 year old female who was admitted on Aug 19, 2017 at 18: 51 for Gastrointestinal Bleed, Duodenal Ulcer Hospital Course [id number] Discharge Discharge Disposition Patient was discharged to Home with Home Health(06) Discharge Diagnoses: Tavia Bain NP Aug 22, 2017 08:14
--- NOTE | 2017-08-23 00:02 | Discharge Summary 2 SIG ---
DATE OF ADMISSION: 08/19/2017 DATE OF DISCHARGE: 08/21/2017 CONSULTANTS: 1. Darrin Mcgraw M.D. 2. Domenic Gimenez M.D. 3. Jose G Jose M.D. 4. Sharron Belle M.D. 5. Preet Wallace M.D. BRIEF HOSPITAL COURSE: The patient is a 62-year-old female, who resides at home, presented to ED complaining of abdominal pain. She has a history of hiatal hernia, duodenal ulcer, and hypertension, and she presented with one day episode of melanotic stools. She had abdominal pain localized to the epigastric area described to be nonradiating and burning in nature, severity 5/10. She has nausea, however, no vomiting. She had four episodes of black stools and denies any iron intake. She did take one baby aspirin. She had a prior endoscopy in 2013 that showed duodenal ulcer. On evaluation at ED, she was slightly tachycardic. Hemoglobin was 9.5 and hematocrit was 31. She had an EKG that showed normal sinus rhythm and a chest x-ray with no consolidation, effusion, or no pneumothorax. There was no cardiopulmonary disease. She was admitted to telemetry for evaluation of lower gastrointestinal bleed. She was initially placed on NPO and was started on IV hydration. She was given Protonix. On 08/20/2017, she underwent esophagogastroduodenoscopy by Dr. Mcgraw with findings of peeling of the mucosa at the gastroesophageal junction suggestive of healing esophagitis. There was gastritis and one small duodenal arteriovenous malformation. Hemoglobin was monitored. She was eventually started on a diet. Potassium was 3.0 and was given KCl supplement intravenous. She complained of bilateral shoulder, right hip, and right knee pain. She was seen by orthopedic surgeon. 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 She also had a right knee arthritis for which she underwent total knee arthroplasty ultimately requiring a revision total knee arthroplasty. She had done well after the revision of right total knee arthroplasty as well as right hip replacement, but was complaining of bilateral shoulder pain. She was diagnosed with possible left shoulder rotator cuff tear and recently, she had a grandchild whom she has been caring for and noticing more pain on the right shoulder. The patient was advised right shoulder pain probably from overuse and may have some inflammation. She was recommended to follow up with her orthopedic surgeon as outpatient for possibility of cortisone injection. Pain management consult was done. She was given morphine 2 mg IV every four hours for severe pain. She also underwent neurological evaluation. The patient was complaining of intermittent vertigo and unsteady gait causing her to fall. On neuro exam, there was no evidence of focal or lateralizing neurological deficits. She has a history of lumbar discogenic disease with chronic pain, but no evidence of nerve root abnormalities. Lumbar x-ray showed no acute bony trauma with the findings of spondylolisthesis. Vertigo episodes were intermittent and there was no evidence of imbalance or positional dizziness or nystagmus. She was recommended the use of meclizine p.r.n. She was tolerating diet well. Hemoglobin and hematocrit were stable. She was discharged home with home health. FINAL DIAGNOSES: 1. Lower gastrointestinal bleed. 2. Duodenal ulcer. 3. Peptic ulcer disease. 4. Gastritis. 5. Esophagitis. 6. Hepatitis C. 7. Hiatal hernia with gastroesophageal reflux disease. 8. Intermittent vertigo. 9. Hypertension. 10. Lumbar spondylosis. 11. 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 12. Status post revision right total knee arthroplasty. 13. Left shoulder chronic rotator cuff tear, possible rotator cuff arthropathy. 14. Right shoulder overuse syndrome, possible rotator cuff tear. DISPOSITION: The patient was discharged home with home health. DISCHARGE MEDICATIONS: Refer to medication list. FOLLOWUP: The patient was advised would need outpatient colonoscopy and hepatitis C treatment. Also advised to follow up with orthopedic surgeon for possible cortisone injection. Srikanth Oliva D.O. I have been assigned to dictate discharge summary on this account and I was not involved in the patient's management. Tavia Bain N.P. DR: YARI JOB#: [id number] CC: MARIANA
--- NOTE | 2017-09-02 01:41 | Physician Query ---
PLEASE COMPLETE FORM BEFORE SIGNING Dear Dr. 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 Questions asked do not imply particular answer is desired or expected. We greatly appreciate your clarification on this issue. Clinical Documentation States: She was admitted to telemetry for evaluation of lower gastrointestinal bleed. Anemia, unspecified in the setting of GI hemorrhage. She presented with one day episode of melanotic stools. 08/20/2017, she underwent esophagogastroduodenoscopy by Dr. Mcgraw with findings of peeling of the mucosa at the gastroesophageal junction suggestive of healing esophagitis. There was gastritis and one small duodenal arteriovenous malformation. Clinical Findings Show: In ED - Hemoglobin was 9.5 and hematocrit was 31. Please clarify the specific type of anemia below: Acuity: []Acute []Acute on Chronic []Chronic Etiology: [] Blood loss [] ESRD [] Neoplastic disease [] Iron deficiency [] GI Bleed from [] Anemia of chronic disease, [] Unable to determine [] Other: Condition Present on Admission: [] Yes [] No [ ] Clinically Undeterminable Please also document in your Progress Notes and/or Discharge Summary and indicate if the condition was present on admission. Ida Patel
--- NOTE | 2017-09-02 01:49 | Physician Query ---
PLEASE COMPLETE DOCUMENT BEFORE SIGNING Dear Dr. 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 Questions asked do not imply a particular answer is desired or expected. We greatly appreciate your clarification on this issue. CLINICAL DOCUMENTATION STATES: She was admitted to telemetry for evaluation of lower gastrointestinal bleed. Anemia, unspecified in the setting of GI hemorrhage. She had abdominal pain localized to the epigastric area described to be nonradiating and burning in nature, severity 5/10. She has nausea, however, no vomiting. She had four episodes of black stools and denies any iron intake. She did take one baby aspirin. She had a prior endoscopy in 2013 that showed duodenal ulcer. She presented with one day episode of melanotic stools. 08/20/2017, she underwent esophagogastroduodenoscopy by Dr. Mcgraw with findings of peeling of the mucosa at the gastroesophageal junction suggestive of healing esophagitis. There was gastritis and one small duodenal arteriovenous malformation. FINAL DIAGNOSES: 1. Lower gastrointestinal bleed. 2. Duodenal ulcer. 3. Peptic ulcer disease. 4. Gastritis. 5. Esophagitis. 6. Hepatitis C. 7. Hiatal hernia with gastroesophageal reflux disease. 8. Intermittent vertigo. 9. Hypertension. 10. Lumbar spondylosis. Please respond to the following question: Is there a diagnosis specific to the origin of the GI hemorrhage? If so please state below. PHYSICIAN RESPONSE: Please also document in your Progress Notes and/or Discharge Summary and indicate if the condition was present on admission. Srikanth Oliva D.O. Date & Time [facility]
== END 2017-08-21 17:03 | disposition home health service (06) | DRG 392 ==
LOC: EDBEDREQ 18:36 → EMR 18:47 → 2E 18:51 → EDBEDREQ 20:38 → 2E 08-20 08:48 → 4E 08-20 17:58
PROC: 0DD68ZX Extraction of Stomach, Via Natural or Artificial Opening Endoscopic, Diagnostic (ICD-10-PCS; principal; 2017-08-20 12:46)
DX: K20.9 Esophagitis, unspecified (principal); K26.9 Duodenal ulcer, unspecified as acute or chronic, without hemorrhage or perforation; K22.8 Other specified diseases of esophagus; N39.0 Urinary tract infection, site not specified; D62 Acute posthemorrhagic anemia; I10 Essential (primary) hypertension; K31.819 Angiodysplasia of stomach and duodenum without bleeding; R42 Dizziness and giddiness; B19.20 Unspecified viral hepatitis C without hepatic coma; K21.9 Gastro-esophageal reflux disease without esophagitis; K44.9 Diaphragmatic hernia without obstruction or gangrene; E66.9 Obesity, unspecified; M70.811 Other soft tissue disorders related to use, overuse and pressure, right shoulder; F41.9 Anxiety disorder, unspecified; M75.102 Unspecified rotator cuff tear or rupture of left shoulder, not specified as traumatic; J44.9 Chronic obstructive pulmonary disease, unspecified; M51.16 Intervertebral disc disorders with radiculopathy, lumbar region; K29.70 Gastritis, unspecified, without bleeding; G89.4 Chronic pain syndrome; R26.81 Unsteadiness on feet; Z96.641 Presence of right artificial hip joint; Z96.651 Presence of right artificial knee joint; Z68.31 Body mass index [BMI] 31.0-31.9, adult
CPT/HCPCS: 36415; 71010; 72110; 80053; 81003; 82150; 82962; 83690; 83735; 84100; 85025; 85610; 85730; 86677; 86850; 86900; 86901; 93005; 93970; 94003; 94150; 97803; 99285; J2405

== ENCOUNTER 2017-11-16 08:50 | Emergency (ER) | payer MEDICARE, MEDICAID ==
[~2017-11-16] VITALS: Ht 154.9 cm; Wt 76.2 kg
[~2017-11-16 08:50] MED LIST changes: +ASPIRIN325 MG ORAL; +IBUPROFEN600 MG ORAL; +LIDOCAINE VISC100 ML ORAL; +MELATONIN1 MG PO; +OMEPRAZOLE20 M2 ORAL; +TUMS200 M1 PO; +TYLENOL EXTRA500 MG ORAL; +VOLTAREN100 G1 TP
[2017-11-16 09:14] VITALS: BP 101/80
[2017-11-16] MEDS ORDERED: POTASSIUM20 MEQ/15 PO (10:01)
[2017-11-16] MEDS ORDERED: ACETAMINOPHEN-1 EAC1 ORAL (10:01)
[2017-11-16] MEDS ORDERED: VENTOLIN HFA18 GM INH (10:01)
[2017-11-16] MEDS ORDERED: AMLODIPINE BESY10 MG ORAL (10:01)
[2017-11-16] MEDS ORDERED: ALBUTEROL SULF8.5 GM INH (10:10)
[2017-11-16] MEDS ORDERED: ROBITUSSIN COU237 M1 PO (10:10)
--- NOTE | 2017-11-16 10:23 | Diagnostic Imaging Report ---
Indication: Shortness of Technique: XRAY Chest 1v Comparison: 08/19/2017 Findings: Borderline cardiomegaly.. Mediastinal contours are sharp. Linear opacities in the bilateral lower lungs, right greater than left. No pleural effusion. No pneumothorax. No acute osseous abnormality seen. Impression: Linear opacity in the bilateral lower lungs is likely related to subsegmental atelectasis. Clinical correlation recommended. Borderline cardiomegaly.
[2017-11-16 10:24] VITALS: BP 121/77
--- NOTE | 2017-11-16 13:36 | Emergency Room Report ---
History of Present Illness General Chief Complaint: Upper Respiratory Illness Source: Patient Present Illness HPI Patient present with complaints of cough she reports that she was recently in the hospital and had done better However again past to 3 days she began having a mild cough Denies any vomiting denies any diarrhea denies any fevers or chills denies any chest pain or shortness of breath Patient reports that she has a birthday constitution party to go to today and want to make sure she was okay Allergies: Coded Allergies: NO KNOWN DRUG ALLERGIES (Unverified Allergy, Unknown, 05/23/15) Uncoded Allergies: lactulose intolerance (Adverse Reaction, Intermediate, Itching, 08/16/13) upset stomach Patient History Past Medical History: see triage record Pertinent Family History: none Reviewed Nursing Documentation: PMH: Agreed, PSxH: Agreed Nursing Documentation-PMH Hx Cardiac Problems: Yes Hx Hypertension: Yes Hx Asthma: Yes Hx COPD: Yes - Pnuemonia Hx Cancer: No Hx Gastrointestinal Problems: Yes - Diverticulosis Hx Dialysis: No - Pyelonephritis Hx Neurological Problems: No Hx Weakness: Yes Hx Fatigue: Yes Review of Systems All Other Systems: negative except mentioned in HPI Physical Exam Vital Signs Date Time Temp Pulse Resp B/P (MAP) Pulse Ox O2 Delivery O2 Flow Rate FiO2 11/16/17 08:54 98.2 99 18 128/83 99 Room Air Sp02 EP Interpretation: reviewed, normal General Appearance: well appearing, no apparent distress Head: normocephalic, atraumatic Eyes: bilateral eye PERRL, bilateral eye EOMI ENT: hearing grossly normal, normal pharynx, TMs + canals normal, uvula midline Neck: full range of motion, supple, no meningismus, no bony tend Respiratory: lungs clear, normal breath sounds, no rhonchi, no respiratory distress, no retraction, no accessory muscle use Cardiovascular #1: normal peripheral pulses, regular rate, rhythm, no edema, no gallop, no JVD, no murmur Gastrointestinal: normal bowel sounds, non tender, soft, no mass, no organomegaly, non-distended, no guarding, no hernia, no pulsatile mass, no rebound Genitourinary: no CVA tenderness Musculoskeletal: normal inspection Neurologic: oriented x3, responsive, 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 nml as tested, motor strength/ tone normal, sensory intact Psychiatric: mood/affect normal Skin: normal color, no rash, warm/dry, palpation normal Lymphatic: normal inspection, no adenopathy Medical Decision Making Diagnostic Impression: Primary Impression: Upper respiratory infection ER Course Patient had x-ray imaging obtained no obvious acute disease I saw the patient's primary physician he does report that the patient was at [facility] with bronchitis recently At this time patient remains hemodynamically stable She did asking several times regarding safety going to a birthday constitution party I did explain to her that she has symptoms of a cold/flu that it is contagious Patient had a difficult time understanding my explanation. i did try my best however after several attempts patient reports that she was still unclear and will have close follow up with her primary physician Chest X-Ray Diagnostic Results Chest X-Ray Diagnostic Results : Chest X-Ray Ordered: Yes # of Views/Limited/Complete: 1 View Indication: Shortness of Breath EP Interpretation: Yes Interpretation: no consolidation, no effusion, no pneumothorax, no acute cardiopulmonary disease Impression: No acute disease Electronically Signed by: Kadie Garcia DO Last Vital Signs Date Time Temp Pulse Resp B/P (MAP) Pulse Ox O2 Delivery O2 Flow Rate FiO2 11/16/17 10:24 80 20 121/77 100 Room Air 11/16/17 09:14 99.4 Status: improved Disposition: HOME, SELF-CARE Condition: Stable Scripts Albuterol Sulfate* (ALBUTEROL SULFATE MDI*) 8.5 Gm Hfa.aer.ad 2 PUFF INH Q6H, #1 EA 0 Refills Prov: KADIE GARCIA D.O. 11/16/17 Guaifenesin/Dextromethorphan (ROBITUSSIN COUGH-CHEST DM LIQ) 237 Ml Liquid 10 ML PO QHS for 5 Days, ML Prov: KADIE GARCIA D.O. 11/16/17 Referrals: TREVOR OBANDO (PCP) Patient Instructions: Upper Respiratory Infection, Adult Additional Instructions: Patient is provided with the discharge instructions notified to follow up with primary doctor in the next 2-3 days otherwise return to the er with any worsening symptoms. Please note that this report is being documented using [employer] technology. This can lead to erroneous entry secondary to incorrect interpretation by the dictating instrument. KADIE GARCIA D.O. Nov 16, 2017 13:36
== END 2017-11-16 10:27 | disposition home or self-care (01) ==
LOC: EMR 09:30
DX: J06.9 Acute upper respiratory infection, unspecified (principal); I10 Essential (primary) hypertension; J44.9 Chronic obstructive pulmonary disease, unspecified
CPT/HCPCS: 71045; 99283

== ENCOUNTER 2018-04-21 09:47 | Outpatient (CLI) | payer MEDICARE, MEDICAID ==
[~2018-04-21 09:47] MED LIST changes: +ACETAMINOPHEN-1 EAC1 ORAL; +POTASSIUM20 MEQ/15 PO; +ROBITUSSIN COU237 M1 PO; +VENTOLIN HFA18 GM INH
--- NOTE | 2018-04-21 10:54 | GI Progress Note ---
Assessment/Plan Problems: (1) Hepatitis C ICD Codes: B19.20 - Hepatitis C SNOMED: 16024137 (2) Opioid dependence with withdrawal ICD Codes: F11.23 - Opioid dependence with withdrawal SNOMED: 78100073 (3) Acute abdominal pain ICD Codes: R10.0 - Acute abdomen SNOMED: 239119065 (4) Anemia ICD Codes: D64.9 - Anemia SNOMED: 482837927 (5) Duodenal ulcer disease ICD Codes: K26.9 - Duodenal ulcer, unsp as acute or chronic, w/o hemor or perf SNOMED: 24226365 (6) Anemia ICD Codes: D64.9 - Anemia, unspecified SNOMED: 530114341 (7) gastritis Status: stable Status Narrative Seen with Dr. Mcgraw. Assessment/Plan 2012 EGD/colonoscopy >> duodenal AVMs 2014 EGD >> DU Hx of Hep C without treatment >> genotype 1b on lomotil per pain MD EGD/colonoscopy scheduled for 04/29/18. - CLD & (Nulytely/Suprep/Movi-Prep) prep instructions given and acknowledged by patient. - NPO @ [place] day prior procedure explained. Begin Tx for Hep C, will contact patient regarding PA for harvoni. The patient was seen and examined at bedside and all new and available data was reviewed in the patients chart. I agree with the above findings, impression and plan. (Patient seen earlier today. Signature stamp does not reflect patient encounter time.). - Darrin Mcgraw MD Subjective Subjective LUQ abdominal pain diarrhea x 10 days rectal bleeding has pain mgmt service Objective T 98.3 BP 124/78 P 81 97 RA Weight (Pounds): 157 General Appearance: WD/WN, no apparent distress, alert Cardiovascular: normal rate Respiratory/Chest: normal breath sounds, no respiratory distress Abdominal Exam: normal bowel sounds, non tender, soft Extremities: normal range of motion, non-tender Ciara Sheppard BUSINESS CONTINUITY SPECIALIST Apr 21, 2018 10:54
[2018-04-21 13:37] VITALS: BP 124/78
== END 2018-04-21 10:22 | disposition home or self-care (01) ==
LOC: PAN 09:47
DX: R10.9 Unspecified abdominal pain (principal); B19.20 Unspecified viral hepatitis C without hepatic coma; F11.23 Opioid dependence with withdrawal; D64.9 Anemia, unspecified; K26.9 Duodenal ulcer, unspecified as acute or chronic, without hemorrhage or perforation; K29.70 Gastritis, unspecified, without bleeding
CPT/HCPCS: 99212

== ENCOUNTER 2018-04-29 07:02 | Day surgery (SDC) | payer MEDICARE, MEDICAID ==
[~2018-04-29] VITALS: Ht 154.9 cm; Wt 68.0 kg
[2018-04-29] VITALS (8 sets, daily range): BP systolic 104–140; BP diastolic 65–82
--- NOTE | 2018-04-29 06:54 | Anethesia Preoperative Eval ---
Anesthesia Pre-op PMH/ROS General Date of Evaluation: Apr 29, 2018 Time of Evaluation: 06:49 Anesthesiologist: agatha ASA Score: ASA 4 Mallampati Score Class I : Soft palate, uvula, fauces, pillars visible Class II: Soft palate, uvula, fauces visible Class III: Soft palate, base of uvula visible Class IV: Only hard plate visible Mallampati Classification: Class II Surgeon: beata Diagnosis: anemis, abdominal pain Surgical Procedure: egd/colonoscopy Anesthesia History: none Social History: smoking - fromer smoker Family History: no anesthesia problems Allergies: Coded Allergies: No Known Allergies (Unverified , 04/29/18) Medications: see eMAR Past Medical History Cardiovascular: Reports: HTN, other - pacemaker Pulmonary: Reports: COPD, other - pneumonia Gastrointestinal/Genitourinary: Reports: GERD, ESRD, other - dialysis, partial hysterectomy, pyelonephritis, hiatal hernia, abdominal pain, hemmorhoids, dysuria, uti, diverticulosis, cholecystitis, pud, hep c Neurologic/Psychiatric: Reports: CVA, depression/anxiety Hematology/Immune: Reports: anemia Musculoskeletal/Integumentary: Reports: OA Other: obesity Anesthesia Pre-op Phys. Exam Physician Exam Last Vital Signs Date Time Temp Pulse Resp B/P (MAP) Pulse Ox O2 Delivery O2 Flow Rate FiO2 04/29/18 07:37 Room Air 04/29/18 07:37 97.1 81 18 126/82 (97) 99 97.1 Constitutional: NAD Neurologic: CN 2-12 intact Cardiovascular: RRR Respiratory: CTA Gastrointestinal: S/NT/ND Airway Exam Mallampati Score: Class II MO: limited Neck: short TMD: 2fb ROM: limited Anesthesia Pre-op A/P Studies Pre-op Studies: EKG - nsr, cannot r/o anterior infarct Risk Assessment & Plan Assessment: asa4 Plan: mac Status Change Before Surgery: No Pre-Antibiotics Drug: Samantha Dey MD Apr 29, 2018 06:53
[~2018-04-29 07:02] MED LIST changes: +Atropine Inj 1mg/10ml Syr IV PRN; +DiphenhydrAMINE 50mg/ml Inj IVP PRN; +Labetalol 5mg/ml 20ml vial IV PRN; +Midazolam 2mg/2ml Inj IVP PRN; +fentaNYL 100 mcg/2 mL IV PRN
[2018-04-29] MEDS ORDERED: Lidocaine 1% MPF 10mg/ml 5ml ONE (08:00)
[2018-04-29] MEDS ORDERED: Propofol 200mg/20ml IV ONE (08:00)
--- NOTE | 2018-04-29 08:32 | Pre-Procedure Note/Attestation ---
Pre-Procedure Note/Attestation Complete Prior to Procedure Planned Procedure: not applicable Procedure Narrative: esophagogastroduodenoscopy and colonoscopy Indications for Procedure Pre-Operative Diagnosis: screening colon, GERD Attestation I attest that I discussed the nature of the procedure; its benefits; risks and complications; and alternatives (and the risks and benefits of such alternatives ), prior to the procedure, with the patient (or the patient's legal b2b sales representative). I attest that, if there was a reasonable possibility of needing a blood transfusion, the patient (or the patient's legal b2b sales representative) was given the [facility] standardized written summary, pursuant to the [place] Blood Safety Act ([place] Health and Safety Code # 1645, as amended). I attest that I re-evaluated the patient just prior to the surgery and that there has been no change in the patient's H&P, except as documented below: Darrin Mcgraw MD Apr 29, 2018 08:32
--- NOTE | 2018-04-29 08:32 | Short Stay Surgery H&P ---
History of Present Illness History of Present Illness Chief Complaint see recent office note HPI Meche Gutierrez is a 62 year old female who was admitted on for Anemia, Abdominal Pain Patient History Allergies: Coded Allergies: No Known Allergies (Unverified , 04/29/18) Medication History Scheduled Albuterol Sulfate* (Albuterol Sulfate Mdi*), 2 PUFF INH Q6H Amlodipine Besylate* (Amlodipine Besylate*), 10 MG ORAL HS, (Reported) Fluoxetine Hcl* (Fluoxetine Hcl*), 20 MG PO DAILY, (Reported) Omeprazole (Omeprazole), 20 MG ORAL DAILY, (Reported) Potassium Chloride (Potassium Chloride), 20 MEQ PO DAILY, (Reported) Scheduled PRN Acetaminophen* (Tylenol Extra Strength*), 500 MG ORAL Q8H PRN for For Pain, ( Reported) Aspirin* (Aspirin*), 81 MG ORAL DAILY PRN for For Pain, (Reported) Calcium Carbonate (Tums), Unknown Dose PO for STOMACH PAIN , (Reported) Dicyclomine Hcl* (Dicyclomine Hcl*), 20 MG PO QID PRN for COLITIS, (Reported) Lidocaine HCl 2% Viscous (Lidocaine HCl 2% Viscous), 10 ML ORAL Q8HR PRN for Abdominal cramps, (Reported) Mag Hydrox/Al Hydrox/Simeth (Maalox Maximum Strength Susp), 30 ML PO Q6HR PRN for For Pain Tramadol Hcl* (Ultram*), 50 MG ORAL Q6H PRN for For Pain, (Reported) Miscellaneous Medications Diclofenac Sodium (Voltaren), Unknown Dose TP, (Reported) Discontinued Medications Acetaminophen With Codeine (T#3) (Tylenol #3 Tab*), 1 TAB ORAL Q4H PRN for For Pain, (Reported) Discontinued Reason: Pt stopped taking med Cyclobenzaprine Hcl* (Flexeril*), 10 MG ORAL THREE TIMES A DAY, (Reported) Discontinued Reason: Pt stopped taking med Guaifenesin/Dextromethorphan (Robitussin Cough-Chest Dm Liq), 10 ML PO QHS Discontinued Reason: Pt stopped taking med Ibuprofen* (Motrin*), 200 MG ORAL DAILY PRN for For Pain, (Reported) Discontinued Reason: Pt stopped taking med Melatonin (Melatonin), Unknown Dose PO BEDTIME PRN for Insomnia, (Reported) Discontinued Reason: Pt stopped taking med Physical Exam Vital Signs Last Vital Signs Date Time Temp Pulse Resp B/P (MAP) Pulse Ox O2 Delivery O2 Flow Rate FiO2 04/29/18 07:37 Room Air 04/29/18 07:37 97.1 81 18 126/82 (97) 99 97.1 Plan Attestation Are the patient's medical conditions optimized for surgery? Darrin Mcgraw MD Apr 29, 2018 08:32
--- NOTE | 2018-04-29 09:02 | Endoscopy Procedure Note ---
Endoscopy Procedure Note General Indication for Procedure: screening colon, GERD Procedures Performed: EGD, colonoscopy Operative Findings/Diagnosis: diverticulosis Specimen: yes Pt Tolerated Procedure Well: Yes Estimated Blood Loss: none Anesthesia Anesthesiologist: kodi Anesthesia: MAC Inserted Devices Implant(s) used?: No Quality Quality of Bowel Preparation: Fair Did scope reach the cecum?: Yes Was there any complications?: No GI Core Measures 50 yrs or older w/o bx or poly: No 10yrs. F/U not recommended: Yes If not recommended, why?: Above average risk 10 yrs. F/U needed: Yes 18 years or older w/prev. colo: Yes <3yrs. since last colonoscopy: No Darrin Mcgraw MD Apr 29, 2018 09:02
--- NOTE | 2018-04-29 09:51 | 48 Hour Post Anesthesia Eval ---
Post Anesthesia Evaluation Procedure: egd/colonoscopy/bx Date of Evaluation: Apr 29, 2018 Time of Evaluation: 09:16 Blood Pressure Systolic: 114 0: 65 Pulse Rate: 69 Respiratory Rate: 18 Temperature (Fahrenheit): 98.0 O2 Sat by Pulse Oximetry: 100 Airway: patent Nausea: No Vomiting: No Pain Intensity: 0 Hydration Status: adequate Cardiopulmonary Status: stable Mental Status/LOC: patient returned to baseline Post-Anesthesia Complications: none Follow-up care needed: N/A Samantha Perez MD Apr 29, 2018 09:52
--- NOTE | 2018-04-29 09:51 | Immediate Post-Op Evaluation ---
Immediate Post-Op Evalulation Immediate Post-Op Evalulation Procedure: egd/colonoscopy/bx Date of Evaluation: Apr 29, 2018 Time of Evaluation: 09:14 IV Fluids: 375ml 0.9ns Blood Products: none Estimated Blood Loss: negligible Blood Pressure Systolic: 104 Blood Pressure Diastolic: 75 Pulse Rate: 84 Respiratory Rate: 18 O2 Sat by Pulse Oximetry: 100 Temperature (Fahrenheit): 98.0 Pain Score (1-10): 0 Nausea: No Vomiting: No Complications none Patient Status: awake, reacts, patent Hydration Status: adequate Drug: none Samantha Perez MD Apr 29, 2018 09:51
[2018-04-29 10:15] LABS: BASOPHILS % (AUTO) 1.3 % (0.0-2.0); EOSINOPHILS % (AUTO) 1.4 % (0.0-3.0); HEMATOCRIT 31.7 % (37.0-47.0); HEMOGLOBIN 9.7 G/DL (12.0-16.0); LYMPHOCYTES % (AUTO) 36.8 % (20.0-45.0); MEAN CORPUSCULAR VOLUME 79 FL (80-99); MONOCYTES % (AUTO) 6.2 % (1.0-10.0); NEUTROPHILS % (AUTO) 54.3 % (45.0-75.0); PLATELET COUNT 377 K/UL (150-450); RED CELL DISTRIBUTION WIDTH 16.7 % (11.6-14.8); WHITE BLOOD COUNT 6.7 K/UL (4.8-10.8)
[2018-04-29 10:40] LABS: ALANINE AMINOTRANSFERASE 49 U/L (12-78); ALBUMIN 3.7 G/DL (3.4-5.0); ALKALINE PHOSPHATASE 66 U/L (46-116); ANION GAP 12 mmol/L (5-15); ASPARTATE AMINO TRANSFERASE 40 U/L (15-37); BILIRUBIN,TOTAL 0.3 MG/DL (0.2-1.0); BLOOD UREA NITROGEN 6 mg/dL (7-18); CALCIUM 8.7 MG/DL (8.5-10.1); CARBON DIOXIDE 24 MMOL/L (21-32); CHLORIDE 106 MMOL/L (98-107); CREATININE 0.5 MG/DL (0.55-1.30); POTASSIUM 3.4 MMOL/L (3.5-5.1); SODIUM 142 MMOL/L (136-145)
--- NOTE | 2018-04-29 11:00 | Procedure Note ---
DATE OF PROCEDURE: 04/29/2018 SURGEON: Darrin Mcgraw M.D. ANESTHESIOLOGIST: Dr. Peterson. PROCEDURE: Upper endoscopy with biopsy and colonoscopy. ANESTHESIA: Per Dr. Peterson. INSTRUMENT: Olympus adult flexible upper endoscope and colonoscope. INDICATION: History of peptic ulcer disease, screening colonoscopy evaluation. The procedure, risks, benefits, and possible consequences, including hemorrhage, aspiration, perforation and infection, and alternative treatments, were explained to the patient/legal guardian by Dr. Darrin Mcgraw and the patient/legal guardian understood and accepted these risks. DESCRIPTION OF PROCEDURE: After informed consent was obtained and the patient was adequately sedated, Olympus upper endoscope was advanced from the mouth into the second portion of the duodenum and retroflexion was performed in the stomach. She had diffuse gastritis. Random biopsy from antrum was obtained to rule out H. pylori infection. Otherwise, the rest of upper endoscopic examination was grossly within normal limit. No ulcer was seen in this examination. At this time, the upper endoscope was retrieved. The patient was turned over for colonoscopy. First, rectal exam was performed which showed positive for large external hemorrhoids. Then, the scope was advanced from the rectum into the cecum. Quality of prep was good except for the cecum. We could not see the appendiceal orifice nor ileocecal valve. It was covered with solid stool. There was no obvious mass or polyp that was seen in this colonoscopy examination. The patient had scattered diverticulosis on the right and some more prominent diverticula in the left colon. Retroflexion of rectum showed evidence of no large internal hemorrhoid. SUMMARY OF FINDINGS: 1. Gastritis, status post biopsy. 2. Diverticulosis. 3. Large external hemorrhoids. RECOMMENDATIONS: 1. Follow up biopsy results. 2. The patient would need to be treated for hepatitis C. Workup in progress. 3. The patient has large external hemorrhoids that need to be most probably treated surgically given the size of these hemorrhoids. We will discuss with the patient and refer her accordingly. Darrin Mcgraw M.D. DR: Gabriel JOB#: [id number] CC:
--- NOTE | 2018-05-15 13:53 | Cardiology Report ---
APPROVED REPORT EKG Measurement Heart [id number] [id number] Normal sinus rhythm Cannot rule out Anterior infarct, age undetermined Abnormal ECG
== END 2018-04-29 10:40 | disposition home or self-care (01) ==
LOC: GAS 07:02
DX: Z12.11 Encounter for screening for malignant neoplasm of colon (principal); K64.4 Residual hemorrhoidal skin tags; K57.30 Diverticulosis of large intestine without perforation or abscess without bleeding; K29.70 Gastritis, unspecified, without bleeding; Z87.11 Personal history of peptic ulcer disease; K21.9 Gastro-esophageal reflux disease without esophagitis; I12.0 Hypertensive chronic kidney disease with stage 5 chronic kidney disease or end stage renal disease; N18.6 End stage renal disease; Z99.2 Dependence on renal dialysis; J44.9 Chronic obstructive pulmonary disease, unspecified; M19.90 Unspecified osteoarthritis, unspecified site; F32.9 Major depressive disorder, single episode, unspecified; F41.9 Anxiety disorder, unspecified; E66.9 Obesity, unspecified; Z95.0 Presence of cardiac pacemaker; Z90.49 Acquired absence of other specified parts of digestive tract; Z86.73 Personal history of transient ischemic attack (TIA), and cerebral infarction without residual deficits; Z79.82 Long term (current) use of aspirin
CPT/HCPCS: 36415; 43239; 80053; 85025; 86703; 86704; 86705; 87340; 87517; 87522; 87902; 93005; G0121; J2704; 94003; 94150

== ENCOUNTER 2018-05-03 10:04 | Emergency (ER) | payer MEDICARE, MEDICAID ==
[~2018-05-03] VITALS: Ht 152.4 cm; Wt 68.0 kg
[~2018-05-03 10:04] MED LIST changes: -Atropine Inj 1mg/10ml Syr IV PRN; -DiphenhydrAMINE 50mg/ml Inj IVP PRN; -Labetalol 5mg/ml 20ml vial IV PRN; -Midazolam 2mg/2ml Inj IVP PRN; -fentaNYL 100 mcg/2 mL IV PRN
[2018-05-03 10:12] VITALS: BP 167/98
[2018-05-03] MEDS ORDERED: Pantoprazole Inj IVP ONE (10:15)
[2018-05-03] MEDS ORDERED: Lidocaine 2% Visc 15ml soln ORAL ONE (10:30)
[2018-05-03] MEDS ORDERED: Pantoprazole Inj ONE (10:39)
[2018-05-03 10:41] LABS: BASOPHILS % (AUTO) 1.3 % (0.0-2.0); HEMATOCRIT 32.4 % (37.0-47.0); LYMPHOCYTES % (AUTO) 32.3 % (20.0-45.0); MEAN CORPUSCULAR VOLUME 78 FL (80-99); NEUTROPHILS % (AUTO) 57.4 % (45.0-75.0); PLATELET COUNT 324 K/UL (150-450); RED BLOOD COUNT 4.16 M/UL (4.20-5.40); RED CELL DISTRIBUTION WIDTH 16.9 % (11.6-14.8); WHITE BLOOD COUNT 6.3 K/UL (4.8-10.8)
[2018-05-03] MEDS: LR 1000ml 1,000 ML IV SCH ×2 (10:41→15:01)
[2018-05-03 10:53] LABS: APPEARANCE,URINE CLEAR; BILIRUBIN, URINE NEGATIVE (NEGATIVE); GLUCOSE, URINE (UA) NEGATIVE (NEGATIVE); KETONES,URINE NEGATIVE (NEGATIVE); LEUKOCYTE ESTERASE ,URINE NEGATIVE (NEGATIVE); NITRITE,URINE NEGATIVE (NEGATIVE); PH,URINE 8 (4.5-8.0); PROTEIN,URINE NEGATIVE (NEGATIVE); UROBILINOGEN,URINE NORMAL MG/DL (0.0-1.0)
[2018-05-03 11:04] LABS: COLOR,URINE YELLOW
[2018-05-03 11:12] LABS: ALANINE AMINOTRANSFERASE 40 U/L (12-78); ALBUMIN 3.9 G/DL (3.4-5.0); ALKALINE PHOSPHATASE 70 U/L (46-116); ANION GAP 12 mmol/L (5-15); ASPARTATE AMINO TRANSFERASE 41 U/L (15-37); BILIRUBIN,TOTAL 0.3 MG/DL (0.2-1.0); BLOOD UREA NITROGEN 5 mg/dL (7-18); CALCIUM 9.4 MG/DL (8.5-10.1); CARBON DIOXIDE 23 MMOL/L (21-32); CHLORIDE 104 MMOL/L (98-107); CREATININE 0.5 MG/DL (0.55-1.30); POTASSIUM 3.8 MMOL/L (3.5-5.1); SODIUM 139 MMOL/L (136-145)
[2018-05-03 11:17] VITALS: BP 148/92
[2018-05-03 13:22] VITALS: BP 144/92
[2018-05-03] MEDS ORDERED: OMEPRAZOLE20 M2 ORAL (13:31)
--- NOTE | 2018-05-03 13:51 | Emergency Room Report ---
History of Present Illness General Chief Complaint: Dizziness Source: Patient, EMS Present Illness HPI Patient is a 62-year-old female who presented after increased generalized abdominal discomfort. The patient was having recent endoscopy. She states that she had so had a lower GI performed. Patient prior history of ulcer disease. She is chronically wheelchair-bound. Patient has history of chronic pain. The patient denies any hematemesis or bloody stools. She reports feeling generalized weakness. Allergies: Coded Allergies: No Known Allergies (Unverified , 04/29/18) Patient History Past Medical History: see triage record Past Surgical History: other - egd Now: No Reviewed Nursing Documentation: PMH: Agreed; PSxH: Agreed Nursing Documentation-PMH Past Medical History: No History, Except For Hx Hypertension: Yes Hx Asthma: Yes Hx COPD: Yes - Pnuemonia Hx Cancer: No Hx Gastrointestinal Problems: Yes - Diverticulitis, Colitis Hx Dialysis: No - Pyelonephritis Hx Neurological Problems: No Hx Weakness: Yes Hx Fatigue: Yes Review of Systems All Other Systems: negative except mentioned in HPI Physical Exam Vital Signs Date Time Temp Pulse Resp B/P (MAP) Pulse Ox O2 Delivery O2 Flow Rate FiO2 05/03/18 09:58 98.8 98 18 145/90 98 Room Air 98.8 Sp02 EP Interpretation: reviewed, normal General Appearance: normal inspection, well appearing, no apparent distress, alert, GCS 15 Head: atraumatic ENT: normal ENT inspection, hearing grossly normal, normal voice Neck: normal inspection, full range of motion, supple, no bony tend Respiratory: normal inspection, lungs clear, normal breath sounds, no respiratory distress, no retraction, no wheezing Cardiovascular #1: regular rate, rhythm, no edema Gastrointestinal: normal inspection, normal bowel sounds, non tender, soft, no guarding, no hernia Genitourinary: no CVA tenderness Musculoskeletal: normal inspection, back normal, normal range of motion Neurologic: normal inspection, alert, responsive, speech normal Psychiatric: normal inspection, judgement/insight normal, mood/affect normal Skin: normal inspection, normal color, no rash Medical Decision Making Diagnostic Impression: Primary Impression: Abdominal pain Additional Impression: Gastritis ER Course Patient presented for abdominal pain. Differential diagnoses included ischemic bowel, appendicitis, perforated viscus, abdominal aortic aneurysm, inferior myocardial infarction, viral gastroenteritis Because of complexity of patient's case laboratory testing and imaging studies were ordered.The laboratory testing was unremarkable. The patient was given the medications for pain. The patient is advised to follow-up with Dr. Mcgraw. The patient was discharged home with a basic ambulance to the patient's chronically being bed and wheelchair bound. Labs Test 05/03/18 10:20 05/03/18 10:30 White Blood Count 6.3 K/UL (4.8-10.8) Red Blood Count 4.16 M/UL (4.20-5.40) Hemoglobin 10.0 G/DL (12.0-16.0) Hematocrit 32.4 % (37.0-47.0) Mean Corpuscular Volume 78 FL (80-99) Mean Corpuscular Hemoglobin 24.1 PG (27.0-31.0) Mean Corpuscular Hemoglobin Concent 30.9 G/DL (32.0-36.0) Red Cell Distribution Width 16.9 % (11.6-14.8) Platelet Count 324 K/UL (150-450) Mean Platelet Volume 6.0 FL (6.5-10.1) Neutrophils (%) (Auto) 57.4 % (45.0-75.0) Lymphocytes (%) (Auto) 32.3 % (20.0-45.0) Monocytes (%) (Auto) 7.0 % (1.0-10.0) Eosinophils (%) (Auto) 2.0 % (0.0-3.0) Basophils (%) (Auto) 1.3 % (0.0-2.0) Prothrombin Time 10.7 SEC (9.30-11.50) Prothromb Time International Ratio 1.0 (0.9-1.1) Activated Partial Thromboplast Time 28 SEC (23-33) Sodium Level 139 MMOL/L (136-145) Potassium Level 3.8 MMOL/L (3.5-5.1) Chloride Level 104 MMOL/L (98-107) Carbon Dioxide Level 23 MMOL/L (21-32) Anion Gap 12 mmol/L (5-15) Blood Urea Nitrogen 5 mg/dL (7-18) Creatinine 0.5 MG/DL (0.55-1.30) Estimat Glomerular Filtration Rate > 60 mL/min (>60) Glucose Level 110 MG/DL (74-106) Calcium Level 9.4 MG/DL (8.5-10.1) Total Bilirubin 0.3 MG/DL (0.2-1.0) Aspartate Amino Transf (AST/SGOT) 41 U/L (15-37) Alanine Aminotransferase (ALT/SGPT) 40 U/L (12-78) Alkaline Phosphatase 70 U/L (46-116) Troponin I 0.000 ng/mL (0.000-0.056) Total Protein 7.8 G/DL (6.4-8.2) Albumin 3.9 G/DL (3.4-5.0) Globulin 3.9 g/dL Albumin/Globulin Ratio 1.0 (1.0-2.7) Lipase 135 U/L (73-393) Urine Color Yellow Urine Appearance Clear Urine pH 8 (4.5-8.0) Urine Specific Conifer 1.010 (1.005-1.035) Urine Protein Negative (NEGATIVE) Urine Glucose (UA) Negative (NEGATIVE) Urine Ketones Negative (NEGATIVE) Urine Occult Blood 3+ (NEGATIVE) Urine Nitrite Negative (NEGATIVE) Urine Bilirubin Negative (NEGATIVE) Urine Urobilinogen Normal MG/DL (0.0-1.0) Urine Leukocyte Esterase Negative (NEGATIVE) Urine RBC 2-4 /HPF (0 - 2) Urine WBC 0-2 /HPF (0 - 2) Urine Squamous Epithelial Cells Occasional /LPF Urine Bacteria Occasional /HPF (NONE) Last Vital Signs Date Time Temp Pulse Resp B/P (MAP) Pulse Ox O2 Delivery O2 Flow Rate FiO2 05/03/18 13:22 98.8 74 16 144/92 99 Room Air 98.8 Status: improved Disposition: HOME, SELF-CARE Condition: Stable Scripts Omeprazole (OMEPRAZOLE) 20 Mg Capsule. 20 MG ORAL DAILY, #30 CAP Prov: Cameron Llanos MD 05/03/18 Referrals: NON PHYSICIAN (PCP) NOT CHOSEN IPA/MD,REFERRING Patient Instructions: Abdominal Pain, Adult Cameron Llanos MD May 03, 2018 13:51
[2018-05-03 15:00] VITALS: BP 138/84
[2018-05-03 15:04] VITALS: BP 138/84
--- NOTE | 2018-05-04 19:33 | Cardiology Report ---
APPROVED REPORT EKG Measurement Heart [id number] Normal sinus rhythm Normal ECG
== END 2018-05-03 15:05 | disposition home or self-care (01) ==
LOC: EDBD 10:04 → EMR 10:35
DX: K29.70 Gastritis, unspecified, without bleeding (principal); J45.909 Unspecified asthma, uncomplicated; I10 Essential (primary) hypertension
CPT/HCPCS: 36415; 80053; 81003; 83690; 84484; 85025; 85610; 85730; 93005; 96374; 99284; C9113; J7120

== ENCOUNTER 2018-05-30 08:02 | Emergency (ER) | payer MEDICARE, MEDICAID ==
[~2018-05-30] VITALS: Ht 154.9 cm; Wt 68.0 kg
[2018-05-30 08:27] VITALS: BP 144/93
--- NOTE | 2018-05-30 08:42 | Emergency Room Report ---
History of Present Illness General Chief Complaint: Neck Pain Source: Patient Present Illness HPI Patient present with complaints of paraspinal neck pain Patient reports that she is seeing a computer system specialist She has been reported to have two 'blown' disks Denies any focal weakness in the upper extremities denies any shooting or radiculopathy type pain Denies any chest pain or shortness of breath Denies any fall or trauma Patient reports that her Tylenol PM did not control the pain very well and presents for follow-up Allergies: Coded Allergies: No Known Allergies (Unverified , 04/29/18) Patient History Past Medical History: see triage record Pertinent Family History: none Reviewed Nursing Documentation: PMH: Agreed; PSxH: Agreed Nursing Documentation-PMH Past Medical History: No History, Except For Hx Cardiac Problems: Yes Hx Hypertension: Yes Hx Asthma: Yes Hx COPD: Yes - Pnuemonia Hx Cancer: No Hx Gastrointestinal Problems: Yes - Diverticulosis, gastritis Hx Dialysis: No - Pyelonephritis Hx Neurological Problems: No Hx Weakness: Yes Hx Fatigue: Yes Review of Systems All Other Systems: negative except mentioned in HPI Physical Exam Vital Signs Date Time Temp Pulse Resp B/P (MAP) Pulse Ox O2 Delivery O2 Flow Rate FiO2 05/30/18 08:15 98.5 77 18 144/93 100 Room Air 98.4 Sp02 EP Interpretation: reviewed, normal General Appearance: well appearing Head: normocephalic, atraumatic Eyes: bilateral eye PERRL, bilateral eye EOMI ENT: normal ENT inspection, hearing grossly normal Neck: supple - There is mild discomfort on palpation C3-4 paraspinal, no midline step-off or tenderness Respiratory: lungs clear Cardiovascular #1: regular rate, rhythm Gastrointestinal: non tender, soft Musculoskeletal: back normal - No focal finding, sensory intact, 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 Neurologic: alert, oriented x3, responsive Skin: no rash Lymphatic: no adenopathy Medical Decision Making Diagnostic Impression: Primary Impression: Neck pain ER Course Patient has acute discomfort on a fairly chronic pathology No obvious focal weakness in the upper extremity patient has done better with acute intervention and pain control And requires close outpatient follow-up Multiple differentials were considered patient again has a benign neurological exam acutely and stable for follow-up Last Vital Signs Date Time Temp Pulse Resp B/P (MAP) Pulse Ox O2 Delivery O2 Flow Rate FiO2 05/30/18 08:27 98.4 18 144/93 100 Room Air 98.4 05/30/18 08:15 77 Status: improved Disposition: HOME, SELF-CARE Condition: Improved Scripts Prednisone* (PREDNISONE*) 20 Mg Tablet 20 MG ORAL DAILY, #3 TAB Prov: Kadie Gallegos DO 05/30/18 Methocarbamol* (ROBAXIN-750*) 750 Mg Tablet 750 MG PO TID, #21 TAB 0 Refills Prov: Kadie Gallegos DO 05/30/18 Referrals: NON PHYSICIAN (PCP) Additional Instructions: Patient is provided with the discharge instructions notified to follow up with primary doctor in the next 2-3 days otherwise return to the er with any worsening symptoms. Please note that this report is being documented using [employer] technology. This can lead to erroneous entry secondary to incorrect interpretation by the dictating instrument. Kadie Gallegos DO May 30, 2018 08:42
[2018-05-30] MEDS ORDERED: Ketorolac 60mg Inj IM ONE (08:45)
[2018-05-30] MEDS ORDERED: Methocarbamol 750mg tab ORAL ONE (08:45)
[2018-05-30] MEDS ORDERED: HYDROcodone/Acetamin 10/325 tab ORAL ONE (08:45)
[2018-05-30] MEDS ORDERED: ROBAXIN-750750 MG PO (09:03)
[2018-05-30] MEDS ORDERED: PREDNISONE20 MG ORAL (09:03)
[2018-05-30 09:25] VITALS: BP 138/88
== END 2018-05-30 09:32 | disposition home or self-care (01) ==
LOC: EMR 08:20
DX: M54.2 Cervicalgia (principal); I10 Essential (primary) hypertension; J44.9 Chronic obstructive pulmonary disease, unspecified; Z87.01 Personal history of pneumonia (recurrent)
CPT/HCPCS: 96372; 99283

== ENCOUNTER 2018-07-27 11:29 | Inpatient (IN) | payer MEDICARE, MEDICAID ==
[~2018-07-27] VITALS: Ht 154.9 cm; Wt 79.4 kg
[~2018-07-27 11:29] MED LIST changes: +PREDNISONE20 MG ORAL
--- NOTE | 2018-07-27 12:20 | Diagnostic Imaging Report ---
Indication: Headache. Epistaxis Technique: Contiguous 5 mm thick transaxial imaging of the head obtained in a Siemens Sensation [address] scanner. Soft tissue and bone windows generated. Automatic Exposure Control was utilized. Total Dose length Product (DLP): 1368.[address] Dose Index Volume (CTDIvol): 70.38 mGy Comparison: 08/02/2010 Findings: Small cystic foci are again demonstrated in the right putamen unchanged from last examination. These are probably old lacunar infarcts. Minimal, nonspecific, white matter hypoattenuation is noted throughout the brain consistent with chronic small vessel disease. There is no midline shift, edema, acute hemorrhage, mass effect, or abnormal extra-axial fluid collections. Bones and extra osseous soft tissues are unremarkable. Impression: No acute intracranial bleed, mass effect or edema. Old lacunar infarcts suspected in the right basal ganglia region unchanged from 2009. Minimal white matter hypoattenuation probably due to chronic small vessel disease. The CT scanner at [facility] is accredited by the [employer] [place] [employer] and the scans are performed using dose optimization techniques as appropriate to a performed exam including Automatic Exposure control.
[2018-07-27 14:02] VITALS: BP 130/84
[2018-07-27 14:25] LABS: HEMATOCRIT 25.2 % (37.0-47.0); HEMOGLOBIN 7.7 G/DL (12.0-16.0); MEAN CORPUSCULAR VOLUME 80 FL (80-99); PLATELET COUNT 382 K/UL (150-450); RED BLOOD COUNT 3.16 M/UL (4.20-5.40); RED CELL DISTRIBUTION WIDTH 15.6 % (11.6-14.8); WHITE BLOOD COUNT 8.2 K/UL (4.8-10.8)
[2018-07-27 14:33] LABS: ANION GAP 12 mmol/L (5-15); BLOOD UREA NITROGEN 13 mg/dL (7-18); CALCIUM 8.9 MG/DL (8.5-10.1); CARBON DIOXIDE 26 MMOL/L (21-32); CHLORIDE 104 MMOL/L (98-107); CREATININE 0.6 MG/DL (0.55-1.30); INR 1.1 (0.9-1.1); POTASSIUM 3.3 MMOL/L (3.5-5.1); SODIUM 142 MMOL/L (136-145)
[2018-07-27 14:38] LABS: ALANINE AMINOTRANSFERASE 18 U/L (12-78); ALBUMIN 3.5 G/DL (3.4-5.0); ALBUMIN/GLOBULIN RATIO 0.9 (1.0-2.7); ALKALINE PHOSPHATASE 72 U/L (46-116); ASPARTATE AMINO TRANSFERASE 15 U/L (15-37); BILIRUBIN,TOTAL 0.2 MG/DL (0.2-1.0)
[2018-07-27] MEDS ORDERED: Pantoprazole 80 MG in NS 250 ML IV ONE (15:00)
[2018-07-27] MEDS ORDERED: Pantoprazole Inj IVP ONE (15:00)
[2018-07-27] MEDS ORDERED: NORCO 10-325 T1 EACH ORAL (15:45)
[2018-07-27] MEDS ORDERED: Lidocaine 1% Plain 30 ml INJ ONE (15:45)
[2018-07-27] MEDS ORDERED: OXTELLAR XR300 MG ORAL (15:45)
[2018-07-27] MEDS ORDERED: ZOLPIDEM TARTRA10 MG ORAL (15:45)
[2018-07-27] MEDS ORDERED: Heparin 2000 units/Ns 1000ml INJ ONE (15:45)
[2018-07-27] MEDS ORDERED: TIZANIDINE HCL4 MG ORAL (15:45)
[2018-07-27 15:52] VITALS: BP 157/97
--- NOTE | 2018-07-27 16:09 | Emergency Room Report ---
History of Present Illness General Chief Complaint: General Complaint Source: Patient, Family Member Present Illness Allergies: Coded Allergies: No Known Allergies (Unverified , 07/27/18) Nursing Documentation-[facility] Past Medical History: No History, Except For Hx Hypertension: Yes Hx Asthma: Yes Hx COPD: Yes - Pnuemonia Hx Cancer: No Hx Gastrointestinal Problems: Yes - Diverticulitis, Colitis Hx Dialysis: No - Pyelonephritis Hx Neurological Problems: Yes - ruptured disk Hx Weakness: Yes Hx Fatigue: Yes Physical Exam Vital Signs Date Time Temp Pulse Resp B/P (MAP) Pulse Ox O2 Delivery O2 Flow Rate FiO2 07/27/18 11:39 99.5 93 15 128/83 95 Room Air 99.5 Medical Decision Making Diagnostic Impression: Primary Impression: Anemia Additional Impression: Recurrent epistaxis Laboratory Tests Test 07/27/18 14:00 White Blood Count 8.2 K/UL (4.8-10.8) Red Blood Count 3.16 M/UL (4.20-5.40) L Hemoglobin 7.7 G/DL (12.0-16.0) L Hematocrit 25.2 % (37.0-47.0) L Mean Corpuscular Volume 80 FL (80-99) Mean Corpuscular Hemoglobin 24.5 PG (27.0-31.0) L Mean Corpuscular Hemoglobin Concent 30.7 G/DL (32.0-36.0) L Red Cell Distribution Width 15.6 % (11.6-14.8) H Platelet Count 382 K/UL (150-450) Mean Platelet Volume 5.7 FL (6.5-10.1) L Neutrophils (%) (Auto) % (45.0-75.0) Lymphocytes (%) (Auto) % (20.0-45.0) Monocytes (%) (Auto) % (1.0-10.0) Eosinophils (%) (Auto) % (0.0-3.0) Basophils (%) (Auto) % (0.0-2.0) Differential Total Cells Counted 100 Neutrophils % (Manual) 58 % (45-75) Lymphocytes % (Manual) 36 % (20-45) Monocytes % (Manual) 3 % (1-10) Eosinophils % (Manual) 3 % (0-3) Basophils % (Manual) 0 % (0-2) Band Neutrophils 0 % (0-8) Platelet Estimate Adequate Platelet Morphology Normal Hypochromasia 3+ Anisocytosis 1+ Prothrombin Time 11.4 SEC (9.30-11.50) Prothrombin Time INR 1.1 (0.9-1.1) PTT 31 SEC (23-33) Sodium Level 142 MMOL/L (136-145) Potassium Level 3.3 MMOL/L (3.5-5.1) L Chloride Level 104 MMOL/L (98-107) Carbon Dioxide Level 26 MMOL/L (21-32) Anion Gap 12 mmol/L (5-15) Blood Urea Nitrogen 13 mg/dL (7-18) Creatinine 0.6 MG/DL (0.55-1.30) Estimate Glomerular Filtration Rate > 60 mL/min (>60) Glucose Level 85 MG/DL (74-106) Calcium Level 8.9 MG/DL (8.5-10.1) Total Bilirubin 0.2 MG/DL (0.2-1.0) Aspartate Amino Transferase (AST) 15 U/L (15-37) Alanine Aminotransferase (ALT) 18 U/L (12-78) Alkaline Phosphatase 72 U/L (46-116) Total Protein 7.4 G/DL (6.4-8.2) Albumin 3.5 G/DL (3.4-5.0) Globulin 3.9 g/dL Albumin/Globulin Ratio 0.9 (1.0-2.7) L Last Vital Signs Date Time Temp Pulse Resp B/P (MAP) Pulse Ox O2 Delivery O2 Flow Rate FiO2 07/27/18 15:52 80 20 157/97 95 Room Air 07/27/18 14:02 99.5 99.5 Referrals: NON PHYSICIAN (PCP) Anai Dawson DO Jul 27, 2018 16:09
[2018-07-27] MEDS ORDERED: Mylanta II UD 30ml ORAL PRN (17:28)
[2018-07-27] MEDS ORDERED: LORazepam Inj 2mg/ml 1ml IV PRN (17:28)
[2018-07-27 17:30] VITALS: BP 117/77
[2018-07-27] MEDS ORDERED: traMADol 50mg tab ORAL PRN (17:31)
[2018-07-27] MEDS: HYDROcodone/Acetamin 10/325 tab ORAL PRN (18:58)
[2018-07-27 20:00] VITALS: BP 116/82
[2018-07-27] MEDS ORDERED: Miralax 17gm pkt ORAL PRN (21:00)
[2018-07-27] MEDS: Dyna-Hex 2% Top Sol 2oz TOPIC SCH (21:13)
[2018-07-27] MEDS: Zolpidem 5mg tab ORAL PRN (22:56)
[2018-07-28] VITALS: BP 121/74
[2018-07-28 04:00] VITALS: BP 117/73
[2018-07-28] MEDS: HYDROcodone/Acetamin 10/325 tab ORAL PRN ×2 (04:53→11:12)
[2018-07-28 07:34] LABS: HEMATOCRIT 24.2 % (37.0-47.0); HEMOGLOBIN 7.6 G/DL (12.0-16.0); MEAN CORPUSCULAR VOLUME 80 FL (80-99); PLATELET COUNT 369 K/UL (150-450); RED BLOOD COUNT 3.03 M/UL (4.20-5.40); RED CELL DISTRIBUTION WIDTH 15.4 % (11.6-14.8); WHITE BLOOD COUNT 6.7 K/UL (4.8-10.8)
[2018-07-28 08:00] VITALS: BP 125/85
[2018-07-28 08:06] LABS: ALANINE AMINOTRANSFERASE 12 U/L (12-78); ALBUMIN 3.3 G/DL (3.4-5.0); ALBUMIN/GLOBULIN RATIO 0.8 (1.0-2.7); ALKALINE PHOSPHATASE 70 U/L (46-116); ANION GAP 11 mmol/L (5-15); ASPARTATE AMINO TRANSFERASE 13 U/L (15-37); BILIRUBIN,TOTAL 0.2 MG/DL (0.2-1.0); BLOOD UREA NITROGEN 7 mg/dL (7-18); CARBON DIOXIDE 25 MMOL/L (21-32); CHLORIDE 104 MMOL/L (98-107); CHOLESTEROL 171 MG/DL (< 200); CREATININE 0.7 MG/DL (0.55-1.30); HDL CHOLESTEROL 59 MG/DL (40-60); POTASSIUM 4.1 MMOL/L (3.5-5.1); SODIUM 140 MMOL/L (136-145); TRIGLYCERIDES 77 MG/DL (30-150)
[2018-07-28] MEDS ORDERED: Lidocaine 1% Plain 30 ml INJ PRN (09:45)
[2018-07-28] MEDS ORDERED: Heparin 2000 units/Ns 1000ml IV PRN (09:45)
--- NOTE | 2018-07-28 10:43 | Consultation ---
History of Present Illness General Date patient seen: Jul 28, 2018 Chief Complaint: General Complaint Present Illness HPI 63-year-old female with PMHx of Hep C, COPD, history of hiatal hernia, duodenal ulcer, hypertension presented to ER with CC of nose bleeding. She was found to be severely anemic and admitted for further work up. Allergies: Coded Allergies: No Known Allergies (Unverified , 07/27/18) Medication History Scheduled Albuterol Sulfate* (Albuterol Sulfate Mdi*), 2 PUFF INH Q6H Amlodipine Besylate* (Amlodipine Besylate*), 10 MG ORAL HS, (Reported) Fluoxetine Hcl* (Fluoxetine Hcl*), 20 MG PO DAILY, (Reported) Methocarbamol* (Robaxin-750*), 750 MG PO TID Omeprazole (Omeprazole), 20 MG ORAL DAILY, (Reported) Omeprazole (Omeprazole), 20 MG ORAL DAILY Oxcarbazepine (Oxtellar Xr), 300 MG ORAL DAILY, (Reported) Potassium Chloride (Potassium Chloride), 20 MEQ PO DAILY, (Reported) Prednisone* (Prednisone*), 20 MG ORAL DAILY Tizanidine Hcl* (Zanaflex*), 4 MG ORAL THREE TIMES A DAY, (Reported) Scheduled PRN Acetaminophen* (Tylenol Extra Strength*), 500 MG ORAL Q8H PRN for For Pain, ( Reported) Aspirin* (Aspirin*), 81 MG ORAL DAILY PRN for For Pain, (Reported) Calcium Carbonate (Tums), Unknown Dose PO for STOMACH PAIN , (Reported) Dicyclomine Hcl* (Dicyclomine Hcl*), 20 MG PO QID PRN for COLITIS, (Reported) Hydrocodone Bit/Acetaminophen 10-325* ([place]anna 10-325*), 1 TAB ORAL Q6H PRN for For Pain, (Reported) Lidocaine HCl 2% Viscous (Lidocaine HCl 2% Viscous), 10 ML ORAL Q8HR PRN for Abdominal cramps, (Reported) Mag Hydrox/Al Hydrox/Simeth (Maalox Maximum Strength Susp), 30 ML PO Q6HR PRN for For Pain Tramadol Hcl* (Ultram*), 50 MG ORAL Q6H PRN for For Pain, (Reported) Zolpidem Tartrate* (Zolpidem Tartrate*), 10 MG ORAL BEDTIME PRN for Insomnia, ( Reported) Miscellaneous Medications Diclofenac Sodium (Voltaren), Unknown Dose TP, (Reported) Patient History Healthcare decision maker Resuscitation status Full Code Advanced Directive on File Review of Systems All Other Systems: negative except mentioned in HPI Physical Exam General Appearance: WD/WN Lines, tubes and drains: peripheral HEENT: normocephalic, atraumatic Neck: non-tender, normal alignment Respiratory/Chest: chest wall non-tender, lungs clear Cardiovascular/Chest: normal peripheral pulses, normal rate Abdomen: normal bowel sounds, non tender Genitourinary/Rectal: normal genital exam, normal rectal exam Extremities: normal range of motion, non-tender Skin Exam: normal pigmentation 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 Last 24 Hour Vital Signs Date Time Temp Pulse Resp B/P (MAP) Pulse Ox O2 Delivery O2 Flow Rate FiO2 07/28/18 08:35 79 128/85 07/28/18 08:15 Room Air 07/28/18 08:00 98.3 79 20 125/85 (98) 98 98.3 07/28/18 04:00 98.2 90 20 117/73 (88) 100 98.2 07/28/18 00:00 98.1 87 18 121/74 (90) 99 98.1 07/27/18 21:00 Room Air 07/27/18 20:00 98.3 87 20 116/82 (93) 99 98.3 07/27/18 18:58 97.7 07/27/18 18:31 Room Air 07/27/18 17:30 97.7 73 21 117/77 (90) 96 97.7 07/27/18 17:29 99.5 80 20 157/97 95 Room Air 99.5 07/27/18 15:52 80 20 157/97 95 Room Air 07/27/18 14:02 99.5 76 15 130/84 95 Room Air 99.5 07/27/18 11:39 99.5 93 15 128/83 95 Room Air 99.5 Intake and Output 07/27/18 07/28/18 19:00 07:00 # Voids 1 2 # Bowel Movements 1 Laboratory Tests Test 07/27/18 14:00 07/28/18 06:45 White Blood Count 8.2 K/UL (4.8-10.8) 6.7 K/UL (4.8-10.8) Red Blood Count 3.16 M/UL (4.20-5.40) L 3.03 M/UL (4.20-5.40) L Hemoglobin 7.7 G/DL (12.0-16.0) L 7.6 G/DL (12.0-16.0) L Hematocrit 25.2 % (37.0-47.0) L 24.2 % (37.0-47.0) L Mean Corpuscular Volume 80 FL (80-99) 80 FL (80-99) Mean Corpuscular Hemoglobin 24.5 PG (27.0-31.0) L 25.1 PG (27.0-31.0) L Mean Corpuscular Hemoglobin Concent 30.7 G/DL (32.0-36.0) L 31.5 G/DL (32.0-36.0) L Red Cell Distribution Width 15.6 % (11.6-14.8) H 15.4 % (11.6-14.8) H Platelet Count 382 K/UL (150-450) 369 K/UL (150-450) Mean Platelet Volume 5.7 FL (6.5-10.1) L 5.6 FL (6.5-10.1) L Neutrophils (%) (Auto) % (45.0-75.0) % (45.0-75.0) Lymphocytes (%) (Auto) % (20.0-45.0) % (20.0-45.0) Monocytes (%) (Auto) % (1.0-10.0) % (1.0-10.0) Eosinophils (%) (Auto) % (0.0-3.0) % (0.0-3.0) Basophils (%) (Auto) % (0.0-2.0) % (0.0-2.0) Differential Total Cells Counted 100 100 Neutrophils % (Manual) 58 % (45-75) 52 % (45-75) Lymphocytes % (Manual) 36 % (20-45) 41 % (20-45) Monocytes % (Manual) 3 % (1-10) 6 % (1-10) Eosinophils % (Manual) 3 % (0-3) 1 % (0-3) Basophils % (Manual) 0 % (0-2) 0 % (0-2) Band Neutrophils 0 % (0-8) 0 % (0-8) Platelet Estimate Adequate Adequate Platelet Morphology Normal Normal Hypochromasia 3+ 3+ Anisocytosis 1+ 1+ Prothrombin Time 11.4 SEC (9.30-11.50) Prothromb Time International Ratio 1.1 (0.9-1.1) Activated Partial Thromboplast Time 31 SEC (23-33) Sodium Level 142 MMOL/L (136-145) 140 MMOL/L (136-145) Potassium Level 3.3 MMOL/L (3.5-5.1) L 4.1 MMOL/L (3.5-5.1) Chloride Level 104 MMOL/L (98-107) 104 MMOL/L (98-107) Carbon Dioxide Level 26 MMOL/L (21-32) 25 MMOL/L (21-32) Anion Gap 12 mmol/L (5-15) 11 mmol/L (5-15) Blood Urea Nitrogen 13 mg/dL (7-18) 7 mg/dL (7-18) Creatinine 0.6 MG/DL (0.55-1.30) 0.7 MG/DL (0.55-1.30) Estimat Glomerular Filtration Rate > 60 mL/min (>60) > 60 mL/min (>60) Glucose Level 85 MG/DL (74-106) 94 MG/DL (74-106) Calcium Level 8.9 MG/DL (8.5-10.1) 9.0 MG/DL (8.5-10.1) Total Bilirubin 0.2 MG/DL (0.2-1.0) 0.2 MG/DL (0.2-1.0) Aspartate Amino Transf (AST/SGOT) 15 U/L (15-37) 13 U/L (15-37) L Alanine Aminotransferase (ALT/SGPT) 18 U/L (12-78) 12 U/L (12-78) Alkaline Phosphatase 72 U/L (46-116) 70 U/L (46-116) Total Protein 7.4 G/DL (6.4-8.2) 7.2 G/DL (6.4-8.2) Albumin 3.5 G/DL (3.4-5.0) 3.3 G/DL (3.4-5.0) L Globulin 3.9 g/dL 3.9 g/dL Albumin/Globulin Ratio 0.9 (1.0-2.7) L 0.8 (1.0-2.7) L Triglycerides Level 77 MG/DL (30-150) Cholesterol Level 171 MG/DL (< 200) LDL Cholesterol 95 mg/dL (<100) HDL Cholesterol 59 MG/DL (40-60) Cholesterol/HDL Ratio 2.9 (3.3-4.4) L Thyroid Stimulating Hormone (TSH) 0.601 uiU/mL (0.358-3.740) Height (Feet): 5 Height (Inches): 1.00 Weight (Pounds): 150 Medications Current Medications Medications (Trade) Dose Ordered Sig/Primo Route PRN Reason Start Time Stop Time Status Last Admin Dose Admin Acetaminophen (Tylenol) 650 mg Q4H PRN ORAL fever 07/27/18 17:25 08/26/18 17:24 Acetaminophen/ Hydrocodone Bitart (Hanna 10) 1 tab Q6H PRN ORAL For Moderate Pain (4-6) 07/27/18 17:31 08/03/18 17:30 07/28/18 04:53 Al Hydroxide/Mg Hydroxide (Mylanta II) 30 ml Q6H PRN ORAL dyspepsia 07/27/18 17:28 08/26/18 17:27 Amlodipine Besylate (Norvasc) 10 mg DAILY ORAL 07/28/18 09:00 08/27/18 08:59 07/28/18 08:35 Chlorhexidine Gluconate (Lorraine-Hex 2%) 1 applic DAILY@2000 TOPIC 07/27/18 20:00 08/26/18 19:59 07/27/18 21:13 Dextrose (Dextrose 50%) 25 ml Q30M PRN IV Hypoglycemia 07/27/18 17:30 08/26/18 17:15 Dextrose (Dextrose 50%) 50 ml Q30M PRN IV hypoglycemia 07/27/18 17:30 08/26/18 17:29 Fluoxetine HCl (PROzac) 20 mg DAILY ORAL 07/28/18 09:00 08/27/18 08:59 07/28/18 08:35 Heparin Sodium/ Sodium Chloride (Heparin 2000 units/Ns 1000ml premix) 2,000 unit ONCE PRN IV picc line placement 07/28/18 09:45 07/29/18 09:44 Lidocaine HCl (Xylocaine 1% 30ml) 30 ml ONCE PRN INJ picc line placement 07/28/18 09:45 07/29/18 09:44 Lorazepam (Ativan 2mg/ml 1ml) 0.5 mg Q4H PRN IV For Anxiety 07/27/18 17:28 08/03/18 17:27 Morphine Sulfate (Morphine Sulfate) 1 mg Q4H PRN IVP For Severe Pain(7-10) 07/27/18 17:30 08/03/18 17:29 Ondansetron HCl (Zofran) 4 mg Q6H PRN IVP Nausea & Vomiting 07/27/18 17:28 08/26/18 17:27 Polyethylene Glycol (Miralax) 17 gm HSPRN PRN ORAL Constipation 07/27/18 21:00 08/26/18 20:59 Tramadol HCl (Ultram) 50 mg Q6H PRN ORAL For Mild Pain(1-3) 07/27/18 17:31 08/03/18 17:30 Zolpidem Tartrate (Ambien) 5 mg HSPRN PRN ORAL Insomnia 07/27/18 21:00 08/03/18 20:59 07/27/18 22:56 Assessment/Plan Problem List: (1) Recurrent epistaxis ICD Codes: R04.0 - Epistaxis SNOMED: 563899008 (2) Anemia ICD Codes: D64.9 - Anemia SNOMED: 273560688 (3) COPD (chronic obstructive pulmonary disease) ICD Codes: J44.9 - Chronic obstructive pulmonary disease, unspecified SNOMED: 51266524 (4) Hepatitis C ICD Codes: B19.20 - Hepatitis C SNOMED: 06391556 (5) Hiatal hernia with GERD ICD Codes: K21.9 - Gastro-esophageal reflux disease without esophagitis; K44.9 - Diaphragmatic hernia without obstruction or gangrene SNOMED: 643322280 (6) Back pain ICD Codes: M54.9 - Dorsalgia, unspecified SNOMED: 322685073 Assessment/Plan anemia w/u iron studies, stool for OB symptomatic treatment respiratory treatment check electrolytes dvt prophylaxis hold Aspirin Sharron Belle MD Jul 28, 2018 10:43
[2018-07-28 12:00] VITALS: BP 142/88
--- NOTE | 2018-07-28 13:06 | GI Initial Consult Note ---
History of Present Illness General Date patient seen: Jul 28, 2018 Time patient seen: 14:42 Reason for Hospitalization: General Complaint Referring physician: TREVOR OBANDO Reason for Consultation: ANEMIA Present Illness HPI 63 year old female patient presents for evaluation of possible GI bleed. She presents with anemia, low Hgb of 7.6. She had recent EGD/colonoscopy performed earlier this year noted to have gastritis, diverticulosis and large external hemorrhoids. She current is on Harvoni, approximately 2 months into her treatment for Hepatitis C. Patient also has history of duodenal AVMs and DU. PAST MEDICAL HISTORY: Abdominal pain, low back pain, bilateral shoulder pain, anxiety, GERD, PUD, obesity, COPD, and hepatitis C, currently on Harvoni treatment. PAST SURGICAL HISTORY: Knee, hip and hernia. Home Meds Active Scripts Prednisone* (PREDNISONE*) 20 Mg Tablet, 20 MG ORAL DAILY, #3 TAB Prov:Kadie Gallegos DO 05/30/18 Methocarbamol* (ROBAXIN-750*) 750 Mg Tablet, 750 MG PO TID, #21 TAB 0 Refills Prov:Kadie Gallegos DO 05/30/18 Omeprazole (OMEPRAZOLE) 20 Mg Capsule.dr, 20 MG ORAL DAILY, #30 CAP Prov:Cameron Llanos MD 05/03/18 Albuterol Sulfate* (ALBUTEROL SULFATE MDI*) 8.5 Gm Hfa.aer.ad, 2 PUFF INH Q6H, # 1 EA 0 Refills Prov:Kadie Gallegos DO 07/03/17 Mag Hydrox/Al Hydrox/Simeth (MAALOX MAXIMUM STRENGTH SUSP) 355 Ml Oral.susp, 30 ML PO Q6HR PRN for For Pain, #240 ML Prov:Yasir Ruff MD 11/26/16 Reported Medications Hydrocodone Bit/Acetaminophen 10-325* (NORCO 10-325*) 1 Each Tablet, 1 TAB ORAL Q6H PRN for For Pain, #10 TAB 0 Refills PRN PAIN 07/27/18 Zolpidem Tartrate* (ZOLPIDEM TARTRATE*) 10 Mg Tablet, 10 MG ORAL BEDTIME PRN for Insomnia, TAB 0 Refills 07/27/18 Tizanidine Hcl* (ZANAFLEX*) 4 Mg Tablet, 4 MG ORAL THREE TIMES A DAY, #90 TAB 0 Refills 07/27/18 Oxcarbazepine (OXTELLAR XR) 300 Mg Tab.er.24h, 300 MG ORAL DAILY, TAB 07/27/18 Potassium Chloride (Potassium Chloride) 20 Meq/15 Ml Liquid, 20 MEQ PO DAILY, ML 11/16/17 Diclofenac Sodium (VOLTAREN) Unknown Strength Gel..gram., TP, GM 08/19/17 Calcium Carbonate (TUMS) Unknown Strength Tab.chew, PO PRN for STOMACH PAIN , TAB 08/19/17 Omeprazole (OMEPRAZOLE) 20 Mg Capsule.dr, 20 MG ORAL DAILY, CAP 08/19/17 Aspirin* (ASPIRIN*) 325 Mg Tablet, 81 MG ORAL DAILY PRN for For Pain, TAB 08/19/17 Acetaminophen* (TYLENOL EXTRA STRENGTH*) 500 Mg Tablet, 500 MG ORAL Q8H PRN for For Pain, #30 TAB 0 Refills 08/19/17 Lidocaine HCl 2% Viscous (Lidocaine HCl 2% Viscous) 100 Ml Solution, 10 ML ORAL Q8HR PRN for Abdominal cramps, ML 08/19/17 Tramadol Hcl* (ULTRAM*) 50 Mg Tablet, 50 MG ORAL Q6H PRN for For Pain, #30 TAB 0 Refills 08/19/17 Dicyclomine Hcl* (DICYCLOMINE HCL*) 10 Mg Capsule, 20 MG PO QID PRN for COLITIS , CAP 08/19/17 Amlodipine Besylate* (AMLODIPINE BESYLATE*) 10 Mg Tablet, 10 MG ORAL HS, TAB 08/23/15 Fluoxetine Hcl* (FLUOXETINE HCL*) 20 Mg Capsule, 20 MG PO DAILY 12/28/12 Med list reviewed/reconciled: Yes Allergies: Coded Allergies: No Known Allergies (Unverified , 07/27/18) Patient History History Provided By: Patient, Medical Record Social History: Denies: smoking, alcohol use, drug use, other Review of Systems All Other Systems: negative except mentioned in HPI Physical Exam Vital Signs Date Time Temp Pulse Resp B/P (MAP) Pulse Ox O2 Delivery O2 Flow Rate FiO2 07/27/18 11:39 99.5 93 15 128/83 95 Room Air 99.5 Sp02 EP Interpretation: reviewed, normal Labs Laboratory Tests Test 07/27/18 14:00 07/28/18 06:45 White Blood Count 8.2 K/UL (4.8-10.8) 6.7 K/UL (4.8-10.8) Red Blood Count 3.16 M/UL (4.20-5.40) L 3.03 M/UL (4.20-5.40) L Hemoglobin 7.7 G/DL (12.0-16.0) L 7.6 G/DL (12.0-16.0) L Hematocrit 25.2 % (37.0-47.0) L 24.2 % (37.0-47.0) L Mean Corpuscular Volume 80 FL (80-99) 80 FL (80-99) Mean Corpuscular Hemoglobin 24.5 PG (27.0-31.0) L 25.1 PG (27.0-31.0) L Mean Corpuscular Hemoglobin Concent 30.7 G/DL (32.0-36.0) L 31.5 G/DL (32.0-36.0) L Red Cell Distribution Width 15.6 % (11.6-14.8) H 15.4 % (11.6-14.8) H Platelet Count 382 K/UL (150-450) 369 K/UL (150-450) Mean Platelet Volume 5.7 FL (6.5-10.1) L 5.6 FL (6.5-10.1) L Neutrophils (%) (Auto) % (45.0-75.0) % (45.0-75.0) Lymphocytes (%) (Auto) % (20.0-45.0) % (20.0-45.0) Monocytes (%) (Auto) % (1.0-10.0) % (1.0-10.0) Eosinophils (%) (Auto) % (0.0-3.0) % (0.0-3.0) Basophils (%) (Auto) % (0.0-2.0) % (0.0-2.0) Differential Total Cells Counted 100 100 Neutrophils % (Manual) 58 % (45-75) 52 % (45-75) Lymphocytes % (Manual) 36 % (20-45) 41 % (20-45) Monocytes % (Manual) 3 % (1-10) 6 % (1-10) Eosinophils % (Manual) 3 % (0-3) 1 % (0-3) Basophils % (Manual) 0 % (0-2) 0 % (0-2) Band Neutrophils 0 % (0-8) 0 % (0-8) Platelet Estimate Adequate Adequate Platelet Morphology Normal Normal Hypochromasia 3+ 3+ Anisocytosis 1+ 1+ Prothrombin Time 11.4 SEC (9.30-11.50) Prothromb Time International Ratio 1.1 (0.9-1.1) Activated Partial Thromboplast Time 31 SEC (23-33) Sodium Level 142 MMOL/L (136-145) 140 MMOL/L (136-145) Potassium Level 3.3 MMOL/L (3.5-5.1) L 4.1 MMOL/L (3.5-5.1) Chloride Level 104 MMOL/L (98-107) 104 MMOL/L (98-107) Carbon Dioxide Level 26 MMOL/L (21-32) 25 MMOL/L (21-32) Anion Gap 12 mmol/L (5-15) 11 mmol/L (5-15) Blood Urea Nitrogen 13 mg/dL (7-18) 7 mg/dL (7-18) Creatinine 0.6 MG/DL (0.55-1.30) 0.7 MG/DL (0.55-1.30) Estimat Glomerular Filtration Rate > 60 mL/min (>60) > 60 mL/min (>60) Glucose Level 85 MG/DL (74-106) 94 MG/DL (74-106) Calcium Level 8.9 MG/DL (8.5-10.1) 9.0 MG/DL (8.5-10.1) Total Bilirubin 0.2 MG/DL (0.2-1.0) 0.2 MG/DL (0.2-1.0) Aspartate Amino Transf (AST/SGOT) 15 U/L (15-37) 13 U/L (15-37) L Alanine Aminotransferase (ALT/SGPT) 18 U/L (12-78) 12 U/L (12-78) Alkaline Phosphatase 72 U/L (46-116) 70 U/L (46-116) Total Protein 7.4 G/DL (6.4-8.2) 7.2 G/DL (6.4-8.2) Albumin 3.5 G/DL (3.4-5.0) 3.3 G/DL (3.4-5.0) L Globulin 3.9 g/dL 3.9 g/dL Albumin/Globulin Ratio 0.9 (1.0-2.7) L 0.8 (1.0-2.7) L Triglycerides Level 77 MG/DL (30-150) Cholesterol Level 171 MG/DL (< 200) LDL Cholesterol 95 mg/dL (<100) HDL Cholesterol 59 MG/DL (40-60) Cholesterol/HDL Ratio 2.9 (3.3-4.4) L Thyroid Stimulating Hormone (TSH) 0.601 uiU/mL (0.358-3.740) General Appearance: well appearing, no apparent distress, alert Head: normocephalic EENT: PERRL/EOMI, normal ENT inspection Neck: supple Respiratory: normal breath sounds, no respiratory distress Cardiovascular: normal rate Gastrointestinal: normal inspection, non tender, soft, normal bowel sounds, non -distended Rectal: deferred Genitourinary: no CVA tenderness Musculoskeletal: normal inspection, back normal Neurologic: normal inspection, alert, oriented x3, responsive Psychiatric: normal inspection, judgement/insight normal, memory normal Skin: normal inspection, normal color, no rash, warm/dry, palpation normal, well hydrated Lymphatic: normal inspection, no adenopathy Current Medications Current Medications Medications (Trade) Dose Ordered Sig/Primo Route PRN Reason Start Time Stop Time Status Last Admin Dose Admin Acetaminophen (Tylenol) 650 mg Q4H PRN ORAL fever 07/27/18 17:25 08/26/18 17:24 Acetaminophen/ Hydrocodone Bitart ([place] 10/325) 1 tab Q6H PRN ORAL For Moderate Pain (4-6) 07/27/18 17:31 08/03/18 17:30 07/28/18 11:12 Al Hydroxide/Mg Hydroxide (Mylanta II) 30 ml Q6H PRN ORAL dyspepsia 07/27/18 17:28 08/26/18 17:27 Amlodipine Besylate (Norvasc) 10 mg DAILY ORAL 07/28/18 09:00 08/27/18 08:59 07/28/18 08:35 Chlorhexidine Gluconate (Lorraine-Hex 2%) 1 applic DAILY@2000 TOPIC 07/27/18 20:00 08/26/18 19:59 07/27/18 21:13 Dextrose (Dextrose 50%) 25 ml Q30M PRN IV Hypoglycemia 07/27/18 17:30 08/26/18 17:15 Dextrose (Dextrose 50%) 50 ml Q30M PRN IV hypoglycemia 07/27/18 17:30 08/26/18 17:29 Fluoxetine HCl (PROzac) 20 mg DAILY ORAL 07/28/18 09:00 08/27/18 08:59 07/28/18 08:35 Heparin Sodium/ Sodium Chloride (Heparin 2000 units/Ns 1000ml premix) 2,000 unit ONCE PRN IV picc line placement 07/28/18 09:45 07/29/18 09:44 Lidocaine HCl (Xylocaine 1% 30ml) 30 ml ONCE PRN INJ picc line placement 07/28/18 09:45 07/29/18 09:44 Lorazepam (Ativan 2mg/ml 1ml) 0.5 mg Q4H PRN IV For Anxiety 07/27/18 17:28 08/03/18 17:27 Morphine Sulfate (Morphine Sulfate) 1 mg Q4H PRN IVP For Severe Pain(7-10) 07/27/18 17:30 08/03/18 17:29 Ondansetron HCl (Zofran) 4 mg Q6H PRN IVP Nausea & Vomiting 07/27/18 17:28 08/26/18 17:27 Polyethylene Glycol (Miralax) 17 gm HSPRN PRN ORAL Constipation 07/27/18 21:00 08/26/18 20:59 Tramadol HCl (Ultram) 50 mg Q6H PRN ORAL For Mild Pain(1-3) 07/27/18 17:31 08/03/18 17:30 Zolpidem Tartrate (Ambien) 5 mg HSPRN PRN ORAL Insomnia 07/27/18 21:00 08/03/18 20:59 07/27/18 22:56 GI: Plan Problems: (1) Bleeding hemorrhoid (2) Lower GI bleed (3) Hiatal hernia with GERD (4) Hepatitis C (5) Bleeding external hemorrhoids Plan 2012 EGD/colonoscopy >> duodenal AVMs 2014 EGD >> DU s/p EGD/colonoscopy 04/29/2018 SUMMARY OF FINDINGS: 1. Gastritis, status post biopsy. 2. Diverticulosis. 3. Large external hemorrhoids. Currently on Harvoni for Hep C treatment Anemia most likely hemorrhoidal. start patient on Anusol HC BID anemia work up OB stool r/o GI bleed monitor H&H, prn transfusions bowel regime ppi fu labs simethicone prn Discussed with Dr. Mcgraw. Thank you for this patient referral, we will follow. The patient was seen and examined at bedside and all new and available data was reviewed in the patients chart. I agree with the above findings, impression and plan. (Patient seen earlier today. Signature stamp does not reflect patient encounter time.). - MD [facility] Jul 28, 2018 13:06
[2018-07-28] MEDS ORDERED: Simethicone 80mg tab ORAL PRN (14:53)
--- NOTE | 2018-07-28 15:40 | Diagnostic Imaging Report ---
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 The left upper extremity was prepped with alcohol. All elements of maximal sterile barrier technique were followed including usage of a cap, mask, sterile gown, sterile gloves, hand hygiene and a large sterile sheet. Sonographic evaluation of the upper extremity was performed demonstrating a patent and compressible brachial vein. Access was obtained under real-time ultrasound guidance (with utilization of sterile gel and sterile probe cover) and digital image was saved and archived. An .018 wire was introduced. Needle exchanged for a 5 [place] peel-away sheath. Measurements were obtained. A 5 [place] dual-lumen Power PICC line catheter was cut to 10 cm and introduced over the wire. Peel-away sheath and wire were removed.Catheter was secured to the skin using 2-0 Prolene suture. Both ports aspirate and flush easily. Fluoroscopic images show distal tip in the proximal brachial vein. Multiple attempts at placing the PICC line more centrally were unsuccessful in different veins such as the basilic and another brachial vein. 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 Total fluoroscopic time 1.2 minutes Impression: Unsuccessful placement of an upper extremity PICC line catheter. A 10 cm catheter was placed for peripheral use.
[2018-07-28 16:00] VITALS: BP 119/77
--- NOTE | 2018-07-28 16:33 | Consultation ---
Consult Note Consult Note HEMATOLOGY-ONCOLOGY CONSULTATION REFERRING PHYSICIAN: Srikanth Oliva DATE OF CONSULTATION: 07/28/2018 REASON FOR CONSULTATION: Evaluation of anemia Present Illness HPI 63 year old female patient presents for evaluation of possible GI bleed. She presents with anemia, low Hgb of 7.6. She had recent EGD/colonoscopy performed earlier this year noted to have gastritis, diverticulosis and large external hemorrhoids. She is currently on Harvoni, approximately 2 months into her treatment for Hepatitis C. Patient also has history of duodenal AVMs and DU. Anemia w/u has been ordered. PAST MEDICAL HISTORY: Abdominal pain, low back pain, bilateral shoulder pain, anxiety, GERD, PUD, obesity, COPD, and hepatitis C, currently on Harvoni treatment. PAST SURGICAL HISTORY: Knee, hip and hernia. Home Meds Active Scripts Prednisone* (PREDNISONE*) 20 Mg Tablet, 20 MG ORAL DAILY, #3 TAB Prov:Kadie Gallegos DO 05/30/18 Methocarbamol* (ROBAXIN-750*) 750 Mg Tablet, 750 MG PO TID, #21 TAB 0 Refills Prov:Kadie Gallegos DO 05/30/18 Omeprazole (OMEPRAZOLE) 20 Mg Capsule.dr, 20 MG ORAL DAILY, #30 CAP Prov:Cameron Llanos MD 05/03/18 Albuterol Sulfate* (ALBUTEROL SULFATE MDI*) 8.5 Gm Hfa.aer.ad, 2 PUFF INH Q6H, # 1 EA 0 Refills Prov:Kadie Gallegos DO 07/03/17 Mag Hydrox/Al Hydrox/Simeth (MAALOX MAXIMUM STRENGTH SUSP) 355 Ml Oral.susp, 30 ML PO Q6HR PRN for For Pain, #240 ML Prov:Yasir Ruff MD 11/26/16 Reported Medications Hydrocodone Bit/Acetaminophen 10-325* (NORCO 10-325*) 1 Each Tablet, 1 TAB ORAL Q6H PRN for For Pain, #10 TAB 0 Refills PRN PAIN 07/27/18 Zolpidem Tartrate* (ZOLPIDEM TARTRATE*) 10 Mg Tablet, 10 MG ORAL BEDTIME PRN for Insomnia, TAB 0 Refills 07/27/18 Tizanidine Hcl* (ZANAFLEX*) 4 Mg Tablet, 4 MG ORAL THREE TIMES A DAY, #90 TAB 0 Refills 07/27/18 Oxcarbazepine (OXTELLAR XR) 300 Mg Tab.er.24h, 300 MG ORAL DAILY, TAB 07/27/18 Potassium Chloride (Potassium Chloride) 20 Meq/15 Ml Liquid, 20 MEQ PO DAILY, ML 11/16/17 Diclofenac Sodium (VOLTAREN) Unknown Strength Gel..gram., TP, GM 08/19/17 Calcium Carbonate (TUMS) Unknown Strength Tab.chew, PO PRN for STOMACH PAIN , TAB 08/19/17 Omeprazole (OMEPRAZOLE) 20 Mg Capsule.dr, 20 MG ORAL DAILY, CAP 08/19/17 Aspirin* (ASPIRIN*) 325 Mg Tablet, 81 MG ORAL DAILY PRN for For Pain, TAB 08/19/17 Acetaminophen* (TYLENOL EXTRA STRENGTH*) 500 Mg Tablet, 500 MG ORAL Q8H PRN for For Pain, #30 TAB 0 Refills 08/19/17 Lidocaine HCl 2% Viscous (Lidocaine HCl 2% Viscous) 100 Ml Solution, 10 ML ORAL Q8HR PRN for Abdominal cramps, ML 08/19/17 Tramadol Hcl* (ULTRAM*) 50 Mg Tablet, 50 MG ORAL Q6H PRN for For Pain, #30 TAB 0 Refills 08/19/17 Dicyclomine Hcl* (DICYCLOMINE HCL*) 10 Mg Capsule, 20 MG PO QID PRN for COLITIS , CAP 08/19/17 Amlodipine Besylate* (AMLODIPINE BESYLATE*) 10 Mg Tablet, 10 MG ORAL HS, TAB 08/23/15 Fluoxetine Hcl* (FLUOXETINE HCL*) 20 Mg Capsule, 20 MG PO DAILY 12/28/12 Med list reviewed/reconciled: Yes Allergies: Coded Allergies: No Known Allergies (Unverified , 07/27/18) Patient History History Provided By: Patient, Medical Record Social History: Denies: smoking, alcohol use, drug use, other GI ROS Review of Systems All Other Systems: negative except mentioned in HPI GI Physical Exam Physical Exam Vital Signs Date Time Temp Pulse Resp B/P (MAP) Pulse Ox O2 Delivery O2 Flow Rate FiO2 07/27/18 11:39 99.5 93 15 128/83 95 Room Air 99.5 Sp02 EP Interpretation: reviewed, normal Labs Laboratory Tests Test 07/27/18 14:00 07/28/18 06:45 White Blood Count 8.2 K/UL (4.8-10.8) 6.7 K/UL (4.8-10.8) Red Blood Count 3.16 M/UL (4.20-5.40) L 3.03 M/UL (4.20-5.40) L Hemoglobin 7.7 G/DL (12.0-16.0) L 7.6 G/DL (12.0-16.0) L Hematocrit 25.2 % (37.0-47.0) L 24.2 % (37.0-47.0) L Mean Corpuscular Volume 80 FL (80-99) 80 FL (80-99) Mean Corpuscular Hemoglobin 24.5 PG (27.0-31.0) L 25.1 PG (27.0-31.0) L Mean Corpuscular Hemoglobin Concent 30.7 G/DL (32.0-36.0) L 31.5 G/DL (32.0-36.0) L Red Cell Distribution Width 15.6 % (11.6-14.8) H 15.4 % (11.6-14.8) H Platelet Count 382 K/UL (150-450) 369 K/UL (150-450) Mean Platelet Volume 5.7 FL (6.5-10.1) L 5.6 FL (6.5-10.1) L Neutrophils (%) (Auto) % (45.0-75.0) % (45.0-75.0) Lymphocytes (%) (Auto) % (20.0-45.0) % (20.0-45.0) Monocytes (%) (Auto) % (1.0-10.0) % (1.0-10.0) Eosinophils (%) (Auto) % (0.0-3.0) % (0.0-3.0) Basophils (%) (Auto) % (0.0-2.0) % (0.0-2.0) Differential Total Cells Counted 100 100 Neutrophils % (Manual) 58 % (45-75) 52 % (45-75) Lymphocytes % (Manual) 36 % (20-45) 41 % (20-45) Monocytes % (Manual) 3 % (1-10) 6 % (1-10) Eosinophils % (Manual) 3 % (0-3) 1 % (0-3) Basophils % (Manual) 0 % (0-2) 0 % (0-2) Band Neutrophils 0 % (0-8) 0 % (0-8) Platelet Estimate Adequate Adequate Platelet Morphology Normal Normal Hypochromasia 3+ 3+ Anisocytosis 1+ 1+ Prothrombin Time 11.4 SEC (9.30-11.50) Prothromb Time International Ratio 1.1 (0.9-1.1) Activated Partial Thromboplast Time 31 SEC (23-33) Sodium Level 142 MMOL/L (136-145) 140 MMOL/L (136-145) Potassium Level 3.3 MMOL/L (3.5-5.1) L 4.1 MMOL/L (3.5-5.1) Chloride Level 104 MMOL/L (98-107) 104 MMOL/L (98-107) Carbon Dioxide Level 26 MMOL/L (21-32) 25 MMOL/L (21-32) Anion Gap 12 mmol/L (5-15) 11 mmol/L (5-15) Blood Urea Nitrogen 13 mg/dL (7-18) 7 mg/dL (7-18) Creatinine 0.6 MG/DL (0.55-1.30) 0.7 MG/DL (0.55-1.30) Estimat Glomerular Filtration Rate > 60 mL/min (>60) > 60 mL/min (>60) Glucose Level 85 MG/DL (74-106) 94 MG/DL (74-106) Calcium Level 8.9 MG/DL (8.5-10.1) 9.0 MG/DL (8.5-10.1) Total Bilirubin 0.2 MG/DL (0.2-1.0) 0.2 MG/DL (0.2-1.0) Aspartate Amino Transf (AST/SGOT) 15 U/L (15-37) 13 U/L (15-37) L Alanine Aminotransferase (ALT/SGPT) 18 U/L (12-78) 12 U/L (12-78) Alkaline Phosphatase 72 U/L (46-116) 70 U/L (46-116) Total Protein 7.4 G/DL (6.4-8.2) 7.2 G/DL (6.4-8.2) Albumin 3.5 G/DL (3.4-5.0) 3.3 G/DL (3.4-5.0) L Globulin 3.9 g/dL 3.9 g/dL Albumin/Globulin Ratio 0.9 (1.0-2.7) L 0.8 (1.0-2.7) L Triglycerides Level 77 MG/DL (30-150) Cholesterol Level 171 MG/DL (< 200) LDL Cholesterol 95 mg/dL (<100) HDL Cholesterol 59 MG/DL (40-60) Cholesterol/HDL Ratio 2.9 (3.3-4.4) L Thyroid Stimulating Hormone (TSH) 0.601 uiU/mL (0.358-3.740) General Appearance: well appearing, no apparent distress, alert Head: normocephalic EENT: PERRL/EOMI, normal ENT inspection Neck: supple Respiratory: normal breath sounds, no respiratory distress Cardiovascular: normal rate Gastrointestinal: normal inspection, non tender, soft, normal bowel sounds, non -distended Rectal: deferred Genitourinary: no CVA tenderness Musculoskeletal: normal inspection, back normal Neurologic: normal inspection, alert, oriented x3, responsive Psychiatric: normal inspection, judgement/insight normal, memory normal Skin: normal inspection, normal color, no rash, warm/dry, palpation normal, well hydrated Lymphatic: normal inspection, no adenopathy Current Medications Current Medications Medications (Trade) Dose Ordered Sig/Primo Route PRN Reason Start Time Stop Time Status Last Admin Dose Admin Acetaminophen (Tylenol) 650 mg Q4H PRN ORAL fever 07/27/18 17:25 08/26/18 17:24 Acetaminophen/ Hydrocodone Bitart ([place] 10/325) 1 tab Q6H PRN ORAL For Moderate Pain (4-6) 07/27/18 17:31 08/03/18 17:30 07/28/18 11:12 Al Hydroxide/Mg Hydroxide (Mylanta II) 30 ml Q6H PRN ORAL dyspepsia 07/27/18 17:28 08/26/18 17:27 Amlodipine Besylate (Norvasc) 10 mg DAILY ORAL 07/28/18 09:00 08/27/18 08:59 07/28/18 08:35 Chlorhexidine Gluconate ([place]-Hex 2%) 1 applic DAILY@1999 TOPIC 07/27/18 20:00 08/26/18 19:59 07/27/18 21:13 Dextrose (Dextrose 50%) 25 ml Q30M PRN IV Hypoglycemia 07/27/18 17:30 08/26/18 17:15 Dextrose (Dextrose 50%) 50 ml Q30M PRN IV hypoglycemia 07/27/18 17:30 08/26/18 17:29 Fluoxetine HCl (PROzac) 20 mg DAILY ORAL 07/28/18 09:00 08/27/18 08:59 07/28/18 08:35 Heparin Sodium/ Sodium Chloride (Heparin 2000 units/Ns 1000ml premix) 2,000 unit ONCE PRN IV picc line placement 07/28/18 09:45 07/29/18 09:44 Lidocaine HCl (Xylocaine 1% 30ml) 30 ml ONCE PRN INJ picc line placement 07/28/18 09:45 07/29/18 09:44 Lorazepam (Ativan 2mg/ml 1ml) 0.5 mg Q4H PRN IV For Anxiety 07/27/18 17:28 08/03/18 17:27 Morphine Sulfate (Morphine Sulfate) 1 mg Q4H PRN IVP For Severe Pain(7-10) 07/27/18 17:30 08/03/18 17:29 Ondansetron HCl (Zofran) 4 mg Q6H PRN IVP Nausea & Vomiting 07/27/18 17:28 08/26/18 17:27 Polyethylene Glycol (Miralax) 17 gm HSPRN PRN ORAL Constipation 07/27/18 21:00 08/26/18 20:59 Tramadol HCl (Ultram) 50 mg Q6H PRN ORAL For Mild Pain(1-3) 07/27/18 17:31 08/03/18 17:30 Zolpidem Tartrate (Ambien) 5 mg HSPRN PRN ORAL Insomnia 07/27/18 21:00 08/03/18 20:59 07/27/18 22:56 ASSESSMENT AND RECOMMENDATIONS # Anemia of iron deficiency. Ferritin 8! potentially related to GI bleed. recent EGD/colonoscopy performed earlier this year noted to have gastritis, diverticulosis and large external hemorrhoids. --> Anemia w/u has been ordered. --> Peripheral smear has been reviewed, no evidence of hemolysis --> Hgb goal >7. Transfuse prn basis --> iron x 5 days IV has been ordered --> hemorrhoidal treatment outpatient # Hep C. Needs to be evaluated by coding compliance specialist. --> Viral load of Hep C has been ordered. --> US Abd has been ordered. --> Transfuse to plt goal > 20k if febrile, >10k if afebrile --> Currently on Harvoni for Hep C treatment # Lower GI bleed. GI is following, appreciate recs. --> OB stool r/o GI bleed --> simethicone prn # Bleeding hemorrhoid. --> patient on Anusol HC BID --> bowel regime GREATLY APPRECIATE CONSULTATION. Sarath Golden MD Jul 28, 2018 16:33
[2018-07-28] MEDS ORDERED: HydrOXYzine tab 25mg tab ORAL PRN (17:15)
[2018-07-28] MEDS: Morphine Sulfate 2mg/ml Inj IVP PRN ×2 (19:47→23:45)
[2018-07-28 20:00] VITALS: BP 124/68
[2018-07-28] MEDS: Dyna-Hex 2% Top Sol 2oz TOPIC SCH (20:02)
--- NOTE | 2018-07-28 21:30 | History and Physical Report ---
DATE OF ADMISSION: 07/27/2018 CONSULTANTS: 1. Darrin Mcgraw M.D. 2. Sharron Belle M.D. 3. Vignesh Peralta M.D. 4. Saroj Fernandez M.D. CHIEF COMPLAINT: GI bleed versus nosebleed, anemia, weakness, and history of depression and anxiety. BRIEF HISTORY: This is a 63-year-old female, who comes to my office and lives at home, presented to [facility] last night with history of possible gastrointestinal bleed with nosebleed. She had a few nosebleeds and started coughing up blood, diagnosed with the above, and admitted to medical floor for further treatment. Currently, slightly anxious in bed, slight nosebleed. No complaint. PAST MEDICAL HISTORY: Anemia, nosebleed, hemorrhoids, hypertension, depression, and anxiety. PAST SURGICAL HISTORY: , right knee, right hip, and hernia. MEDICATIONS: Iinclude Anusol, Xylocaine, heparin, Norvasc, Prozac, MiraLAX, Ambien, [place], morphine, Ativan, Mylanta, and Tylenol. ALLERGIES: Denies. SOCIAL HISTORY: No smoking. No alcohol. No intravenous drug use. FAMILY HISTORY: Noncontributory. REVIEW OF SYSTEMS: No chest pain. No shortness of breath. No nausea, vomiting, or diarrhea. The patient has slight dizziness and weakness, but no loss of consciousness. PHYSICAL EXAMINATION: GENERAL: Slightly anxious in bed, oriented x3, and in no acute distress. VITAL SIGNS: Temperature 98 degrees, pulse 86, respirations 19, and blood pressure 142/88. CARDIOVASCULAR: No murmurs. LUNGS: Distant and clear. ABDOMEN: Bowel sounds positive. Nontender, nondistended. EXTREMITIES: Showed no cyanosis, clubbing, or edema. NEUROLOGIC: The patient moves all extremities. Slightly weak. LABORATORY AND DIAGNOSTIC DATA: Labs, at this time, show hemoglobin 7.6, otherwise CBC is normal. BMP show AST 13, albumin 3.3, otherwise normal. INR is 1.1. PTT is 31. ASSESSMENT: Gastrointestinal bleed versus nosebleed, anemia, slight weakness, and dizziness. No loss of consciousness. Hypertension, depression, and anxiety. PLAN: 1. GI followup. 2. Transfuse p.r.n. 3. OT, PT, and dietary evaluation. 4. CBC and BMP in the morning. 5. We will Dr. Golden, Hematology evaluation. 6. ENT evaluation. Srikanth Oliva D.O. DR: CANDELARIO JOB#: [id number] CC:
[2018-07-28] MEDS: Iron Sucrose 100 MG in NS 55 ML IV SCH (21:43)
[2018-07-29] VITALS: BP 98/57
--- NOTE | 2018-07-29 02:15 | Consultation ---
DATE OF CONSULTATION: 07/28/2018 CONSULTING PHYSICIAN: Saroj Fernandez M.D. HISTORY OF PRESENT ILLNESS: The patient is a 63-year-old female patient with anemia. The patient has some confusion and disorganized thought process, but basically this is a female patient who was admitted to the hospital secondary to anemia and possible GI bleed, but she says that she has been having some problems with nose bleeding as well and she says she has been struggling with anxiety and lot of mood lability due to life stressors, so she is on Prozac 20 mg a day, which did not seem to be helping her stabilize her anxiety and that is the main problem that she is undergoing right now as far as her psychiatric condition. That is why her attending has requested daily psychiatric consultation for this patient. MEDICAL HISTORY: The patient has a history of anemia and possible GI bleed. The patient also has a number of other medical problems, chronic pain as well and she also has COPD, acute abdominal pain, status post duodenal ulcer, cholecystitis, chronic renal disease, and right hip pain. ALLERGIES: She has no known drug allergies. PSYCHOTROPIC MEDICATIONS: On admission, she is on Prozac 20 mg daily. SUBSTANCE ABUSE HISTORY: Denies drug or alcohol use. FAMILY PSYCHIATRIC HISTORY: Denies. PAIN ASSESSMENT: 12/13 pain. DEVELOPMENTAL PROBLEMS: Denies. SOCIAL HISTORY: She lives in a private residence in financially supported by [employer] and Medicare. PSYCHIATRIC HISTORY: Major depression, seen by outpatient physician. She states she has seen a psychiatrist at [facility]. MENTAL STATUS EXAMINATION: This is a 63-year-old female. Appearance is disheveled. Attitude, irritable and agitated. Affect, guarded and restricted. Intellect poor. Mood depressed and anxious. Motor activity, psychomotor agitation. Affect is labile. Intellect poor because she does not know last four presidents or current events. Attention span is poor because she cannot spell world backwards or do serial 7's. Orientation x2. As far as her speech, it is low volume and slurred. Thought process is slightly disorganized. Thought content, denies auditory or visual hallucinations or delusions. Insight is poor. She has no current events. She does not recognize her psychiatric mood disorder. Judgment is fair. She is able to make good life decisions overall. As far as her short-term memory, 3/3 word recall after 5 minutes delay with good short-term memory. Long-term memory is intact based on the knowledge of long-term events in her life such as high school that she went to. DIAGNOSES: Major depressive disorder, mild, recurrent without psychotic features. Medical, hypertension, bleeding hemorrhoids, possible GI bleeding, diverticulitis, hepatitis C, hiatal hernia with GERD, renal disease. Psychosocial stressors, financial. PLAN: My plan for this patient, I am going to continue her on Prozac; however, going to titrate up on this patient's Prozac to a dose of 40 mg p.o. daily to help treat her depression and anxiety and I am also going to treat this patient with Neurontin at a dose of 300 mg three times a day and I am also going to treat her with a medication regimen of Neurontin and then I am also going to treat her with a medication regimen of Vistaril at a dose of 25 mg p.o. q.6 h. p.r.n. anxiety. I encouraged to interact appropriately with staff and other patients and she will continue to be followed by Psychiatry throughout the hospital course. Twenty minutes of cognitive behavior therapy was provided. During that 20 minutes of cognitive behavior therapy session, I helped the patient identify automatic negative thoughts and helped to convert her automatic negative thoughts to more positive thinking in order to reduce depression and anxiety and mood lability. Chart reviewed and discussed with staff. 20 minutes of cognitive behavior therapy provided. Chart reviewed and discussed. The patient seen and assessed in her room. Saroj Fernandez M.D. DR: DEVIKA JOB#: [id number] CC:
[2018-07-29 04:00] VITALS: BP 102/66
[2018-07-29] MEDS: Morphine Sulfate 2mg/ml Inj IVP PRN ×3 (04:27→20:50)
[2018-07-29 06:41] LABS: HEMOGLOBIN 7.2 G/DL (12.0-16.0); MEAN CORPUSCULAR VOLUME 80 FL (80-99); PLATELET COUNT 335 K/UL (150-450); RED BLOOD COUNT 2.87 M/UL (4.20-5.40); RED CELL DISTRIBUTION WIDTH 15.6 % (11.6-14.8); WHITE BLOOD COUNT 5.6 K/UL (4.8-10.8)
[2018-07-29 07:11] LABS: ANION GAP 9 mmol/L (5-15); BLOOD UREA NITROGEN 12 mg/dL (7-18); CALCIUM 8.8 MG/DL (8.5-10.1); CARBON DIOXIDE 27 MMOL/L (21-32); CHLORIDE 106 MMOL/L (98-107); CREATININE 0.6 MG/DL (0.55-1.30); POTASSIUM 3.8 MMOL/L (3.5-5.1); SODIUM 142 MMOL/L (136-145)
[2018-07-29 07:34] LABS: % IRON SATURATION 39 % (15-50); IRON 171 ug/dL (50-175); TOTAL IRON BINDING CAPACITY 441 ug/dL (250-450)
[2018-07-29 07:51] LABS: LACTATE DEHYDROGENASE 152 U/L (81-234)
[2018-07-29 08:00] VITALS: BP 90/67
--- NOTE | 2018-07-29 10:54 | GI Progress Note ---
Assessment/Plan Problems: (1) Hepatitis C ICD Codes: B19.20 - Hepatitis C SNOMED: 55053783 (2) Duodenal ulcer disease ICD Codes: K26.9 - Duodenal ulcer, unsp as acute or chronic, w/o hemor or perf SNOMED: 95670209 (3) Anemia ICD Codes: D64.9 - Anemia SNOMED: 415574090 (4) Acute abdominal pain ICD Codes: R10.0 - Acute abdomen SNOMED: 041007485 (5) Lower GI bleed ICD Codes: K92.2 - Gastrointestinal hemorrhage, unspecified SNOMED: 09869312 (6) Hepatitis C ICD Codes: B19.20 - Unspecified viral hepatitis C without hepatic coma SNOMED: 12378235 (7) Bleeding hemorrhoid ICD Codes: K64.9 - Unspecified hemorrhoids SNOMED: 72211974 Status: stable Status Narrative Discussed with Dr. Mcgraw. Assessment/Plan 2012 EGD/colonoscopy >> duodenal AVMs 2014 EGD >> DU s/p EGD/colonoscopy 04/29/2018 SUMMARY OF FINDINGS: 1. Gastritis, status post biopsy. 2. Diverticulosis. 3. Large external hemorrhoids. Currently on Harvoni for Hep C treatment OB stool r/o GI bleed, positive >> will send for additional Anemia most likely hemorrhoidal. Anusol HC BID monitor H&H, prn transfusions bowel regime ppi fu labs simethicone prn The patient was seen and examined at bedside and all new and available data was reviewed in the patients chart. I agree with the above findings, impression and plan. (Patient seen earlier today. Signature stamp does not reflect patient encounter time.). - Darrin Mcgraw MD Subjective Gastrointestinal/Abdominal: Reports: no symptoms Objective Last 24 Hour Vital Signs Date Time Temp Pulse Resp B/P (MAP) Pulse Ox O2 Delivery O2 Flow Rate FiO2 07/29/18 09:00 80 90/67 07/29/18 08:00 99.4 80 20 90/67 (75) 100 99.4 07/29/18 04:00 98.5 73 18 102/66 (78) 100 98.5 07/29/18 00:00 99.0 70 18 98/57 (71) 100 99.0 07/28/18 21:00 Room Air 07/28/18 20:00 98.4 65 20 124/68 (86) 94 98.4 07/28/18 16:00 83 20 119/77 (91) 99 07/28/18 12:00 98.4 86 19 142/88 (106) 100 98.4 07/28/18 11:42 98.3 07/28/18 11:12 98.3 Intake and Output 07/28/18 07/29/18 19:00 07:00 Intake Total 1080 ml 300 ml Balance 1080 ml 300 ml Intake Oral 1080 ml 240 ml IV Total 60 ml # Voids 1 # Bowel Movements 1 Laboratory Tests Test 07/29/18 03:42 07/29/18 05:40 Stool Occult Blood Positive (NEGATIVE) White Blood Count 5.6 K/UL (4.8-10.8) Red Blood Count 2.87 M/UL (4.20-5.40) L Hemoglobin 7.2 G/DL (12.0-16.0) L Hematocrit 23.0 % (37.0-47.0) L Mean Corpuscular Volume 80 FL (80-99) Mean Corpuscular Hemoglobin 25.1 PG (27.0-31.0) L Mean Corpuscular Hemoglobin Concent 31.4 G/DL (32.0-36.0) L Red Cell Distribution Width 15.6 % (11.6-14.8) H Platelet Count 335 K/UL (150-450) Mean Platelet Volume 5.8 FL (6.5-10.1) L Neutrophils (%) (Auto) % (45.0-75.0) Lymphocytes (%) (Auto) % (20.0-45.0) Monocytes (%) (Auto) % (1.0-10.0) Eosinophils (%) (Auto) % (0.0-3.0) Basophils (%) (Auto) % (0.0-2.0) Differential Total Cells Counted 100 Neutrophils % (Manual) 65 % (45-75) Lymphocytes % (Manual) 28 % (20-45) Monocytes % (Manual) 5 % (1-10) Eosinophils % (Manual) 1 % (0-3) Basophils % (Manual) 1 % (0-2) Band Neutrophils 0 % (0-8) Nucleated Red Blood Cells 1 /100 WBC Platelet Estimate Adequate Platelet Morphology Normal Hypochromasia 3+ Anisocytosis 1+ Erythrocyte Sedimentation Rate 75 MM/HR (0-30) H Reticulocyte Count 2.0 % (0.0-2.0) Prothrombin Time 10.7 SEC (9.30-11.50) Prothromb Time International Ratio 1.0 (0.9-1.1) Activated Partial Thromboplast Time 28 SEC (23-33) Sodium Level 142 MMOL/L (136-145) Potassium Level 3.8 MMOL/L (3.5-5.1) Chloride Level 106 MMOL/L (98-107) Carbon Dioxide Level 27 MMOL/L (21-32) Anion Gap 9 mmol/L (5-15) Blood Urea Nitrogen 12 mg/dL (7-18) Creatinine 0.6 MG/DL (0.55-1.30) Estimat Glomerular Filtration Rate > 60 mL/min (>60) Glucose Level 80 MG/DL (74-106) Calcium Level 8.8 MG/DL (8.5-10.1) Iron Level 171 ug/dL (50-175) Total Iron Binding Capacity 441 ug/dL (250-450) Percent Iron Saturation 39 % (15-50) Unsaturated Iron Binding 270 ug/dL (112-346) Lactate Dehydrogenase 152 U/L (81-234) Carcinoembryonic Antigen Pending Vitamin B12 Level 555 PG/ML (193-986) Folate 16.5 NG/ML (8.6-58.9) Height (Feet): 5 Height (Inches): 1.00 Weight (Pounds): 156 General Appearance: WD/WN, no apparent distress, alert Cardiovascular: normal rate Respiratory/Chest: normal breath sounds, no respiratory distress Abdominal Exam: normal bowel sounds, non tender, soft Extremities: normal range of motion, non-tender Ciara Sheppard NP Jul 29, 2018 10:54
[2018-07-29 12:00] VITALS: BP 132/83
--- NOTE | 2018-07-29 12:39 | Pulmonology Progress Note ---
Assessment/Plan Problems: (1) Recurrent epistaxis (2) Anemia (3) COPD (chronic obstructive pulmonary disease) (4) Hepatitis C (5) Hiatal hernia with GERD (6) Back pain Assessment/Plan doing better awaiting ENT anemia w/u in progress symptomatic treatment on IV venofer dvt prophylaxis. Subjective ROS Limited/Unobtainable: No Constitutional: Reports: no symptoms HEENT: Repors: no symptoms Allergies: Coded Allergies: No Known Allergies (Unverified , 07/27/18) Objective Last 24 Hour Vital Signs Date Time Temp Pulse Resp B/P (MAP) Pulse Ox O2 Delivery O2 Flow Rate FiO2 07/29/18 09:00 Room Air 07/29/18 09:00 80 90/67 07/29/18 08:00 99.4 80 20 90/67 (75) 100 99.4 07/29/18 04:00 98.5 73 18 102/66 (78) 100 98.5 07/29/18 00:00 99.0 70 18 98/57 (71) 100 99.0 07/28/18 21:00 Room Air 07/28/18 20:00 98.4 65 20 124/68 (86) 94 98.4 07/28/18 16:00 83 20 119/77 (91) 99 Intake and Output 07/28/18 07/29/18 19:00 07:00 Intake Total 1080 ml 300 ml Balance 1080 ml 300 ml Intake Oral 1080 ml 240 ml IV Total 60 ml # Voids 1 # Bowel Movements 1 General Appearance: WD/WN HEENT: normocephalic, atraumatic Respiratory/Chest: chest wall non-tender, normal breath sounds Breasts: no masses Cardiovascular: normal peripheral pulses, normal rate Abdomen: normal bowel sounds, soft, non tender Genitourinary: normal external genitalia Extremities: no clubbing Skin: no rash Laboratory Tests 07/29/18 03:42: Stool Occult Blood Positive 07/29/18 05:40: White Blood Count 5.6, Red Blood Count 2.87L, Hemoglobin 7.2L, Hematocrit 23.0L , Mean Corpuscular Volume 80, Mean Corpuscular Hemoglobin 25.1L, Mean Corpuscular Hemoglobin Concent 31.4L, Red Cell Distribution Width 15.6H, Platelet Count 335, Mean Platelet Volume 5.8L, Neutrophils (%) (Auto) , Lymphocytes (%) (Auto) , Monocytes (%) (Auto) , Eosinophils (%) (Auto) , Basophils (%) (Auto) , Differential Total Cells Counted 100, Neutrophils % ( Manual) 65, Lymphocytes % (Manual) 28, Monocytes % (Manual) 5, Eosinophils % ( Manual) 1, Basophils % (Manual) 1, Band Neutrophils 0, Nucleated Red Blood Cells 1, Platelet Estimate Adequate, Platelet Morphology Normal, Hypochromasia 3 +, Anisocytosis 1+, Erythrocyte Sedimentation Rate 75H, Reticulocyte Count 2.0, Prothrombin Time 10.7, Prothromb Time International Ratio 1.0, Activated Partial Thromboplast Time 28, Sodium Level 142, Potassium Level 3.8, Chloride Level 106, Carbon Dioxide Level 27, Anion Gap 9, Blood Urea Nitrogen 12, Creatinine 0.6, Estimat Glomerular Filtration Rate > 60, Glucose Level 80, Calcium Level 8.8, Iron Level 171, Total Iron Binding Capacity 441, Percent Iron Saturation 39, Unsaturated Iron Binding 270, Lactate Dehydrogenase 152, Carcinoembryonic Antigen [Pending], Vitamin B12 Level 555, Folate 16.5 Current Medications Medications (Trade) Dose Ordered Sig/Primo Route PRN Reason Start Time Stop Time Status Last Admin Dose Admin Acetaminophen (Tylenol) 650 mg Q4H PRN ORAL fever 07/27/18 17:25 08/26/18 17:24 Acetaminophen/ Hydrocodone Bitart ([place] 10/325) 1 tab Q6H PRN ORAL For Moderate Pain (4-6) 07/27/18 17:31 08/03/18 17:30 07/28/18 11:12 Al Hydroxide/Mg Hydroxide (Mylanta II) 30 ml Q6H PRN ORAL dyspepsia 07/27/18 17:28 08/26/18 17:27 Amlodipine Besylate (Norvasc) 10 mg DAILY ORAL 07/28/18 09:00 08/27/18 08:59 07/28/18 08:35 Chlorhexidine Gluconate (Lorraine-Hex 2%) 1 applic DAILY@1999 TOPIC 07/27/18 20:00 08/26/18 19:59 07/28/18 20:02 Dextrose (Dextrose 50%) 25 ml Q30M PRN IV Hypoglycemia 07/27/18 17:30 08/26/18 17:15 Dextrose (Dextrose 50%) 50 ml Q30M PRN IV hypoglycemia 07/27/18 17:30 08/26/18 17:29 Fluoxetine HCl (PROzac) 40 mg DAILY ORAL 07/29/18 09:00 08/27/18 08:59 07/29/18 08:42 Gabapentin (Neurontin) 300 mg THREE TIMES A DAY ORAL 07/28/18 18:00 08/27/18 17:59 07/29/18 08:42 Hydrocortisone (Anusol HC) 1 applic TWICE A DAY RECTAL 07/28/18 18:00 08/27/18 17:59 Hydroxyzine HCl (Atarax) 25 mg Q6H PRN ORAL For Anxiety 07/28/18 17:15 08/27/18 17:14 Iron Sucrose 100 mg/Sodium Chloride 60 ml @ 240 mls/hr BEDTIME IV 07/28/18 21:00 08/01/18 21:14 07/28/18 21:43 Lorazepam (Ativan 2mg/ml 1ml) 0.5 mg Q4H PRN IV For Anxiety 07/28/18 17:13 08/03/18 17:27 Morphine Sulfate (Morphine Sulfate) 1 mg Q4H PRN IVP For Severe Pain(7-10) 07/27/18 17:30 08/03/18 17:29 07/29/18 08:41 Ondansetron HCl (Zofran) 4 mg Q6H PRN IVP Nausea & Vomiting 07/27/18 17:28 08/26/18 17:27 Patient Own Medication (Patient's Own Med) 1 ea DAILY ORAL 07/29/18 09:15 08/28/18 09:14 UNV Polyethylene Glycol (Miralax) 17 gm HSPRN PRN ORAL Constipation 07/27/18 21:00 08/26/18 20:59 Simethicone (Mylicon) 80 mg QIDPRN PRN ORAL GAS PAIN 07/28/18 14:53 08/27/18 14:52 Tramadol HCl (Ultram) 50 mg Q6H PRN ORAL For Mild Pain(1-3) 07/27/18 17:31 08/03/18 17:30 Zolpidem Tartrate (Ambien) 5 mg HSPRN PRN ORAL Insomnia 07/27/18 21:00 08/03/18 20:59 07/27/18 22:56 Sharron Belle MD Jul 29, 2018 12:39
--- NOTE | 2018-07-29 13:33 | General Progress Note ---
Assessment/Plan Problem List: (1) Epistaxis ICD Codes: R04.0 - Epistaxis SNOMED: 822110340 (2) Dizzy ICD Codes: R42 - Dizziness and giddiness SNOMED: 028134307, 130368072 (3) HTN (hypertension) ICD Codes: I10 - Essential (primary) hypertension SNOMED: 71579713 (4) Anxiety ICD Codes: F41.9 - Anxiety disorder, unspecified SNOMED: 89850355 (5) Bleeding hemorrhoid ICD Codes: K64.9 - Unspecified hemorrhoids SNOMED: 95942978 (6) Anemia ICD Codes: D64.9 - Anemia SNOMED: 608353718 Status: unchanged Assessment/Plan ot pt diet eval gi heme f/u transfuse cbc bmp am Subjective Constitutional: Reports: weakness Allergies: Coded Allergies: No Known Allergies (Unverified , 07/27/18) All Systems: reviewed and negative except above Subjective sl anxious in bed Objective Last 24 Hour Vital Signs Date Time Temp Pulse Resp B/P (MAP) Pulse Ox O2 Delivery O2 Flow Rate FiO2 07/29/18 12:00 99.1 91 18 132/83 (99) 99 99.1 07/29/18 09:00 Room Air 07/29/18 09:00 80 90/67 07/29/18 08:00 99.4 80 20 90/67 (75) 100 99.4 07/29/18 04:00 98.5 73 18 102/66 (78) 100 98.5 07/29/18 00:00 99.0 70 18 98/57 (71) 100 99.0 07/28/18 21:00 Room Air 07/28/18 20:00 98.4 65 20 124/68 (86) 94 98.4 07/28/18 16:00 83 20 119/77 (91) 99 Intake and Output 07/28/18 07/29/18 19:00 07:00 Intake Total 1080 ml 300 ml Balance 1080 ml 300 ml Intake Oral 1080 ml 240 ml IV Total 60 ml # Voids 1 # Bowel Movements 1 Laboratory Tests 07/29/18 03:42: Stool Occult Blood Positive 07/29/18 05:40: White Blood Count 5.6, Red Blood Count 2.87L, Hemoglobin 7.2L, Hematocrit 23.0L , Mean Corpuscular Volume 80, Mean Corpuscular Hemoglobin 25.1L, Mean Corpuscular Hemoglobin Concent 31.4L, Red Cell Distribution Width 15.6H, Platelet Count 335, Mean Platelet Volume 5.8L, Neutrophils (%) (Auto) , Lymphocytes (%) (Auto) , Monocytes (%) (Auto) , Eosinophils (%) (Auto) , Basophils (%) (Auto) , Differential Total Cells Counted 100, Neutrophils % ( Manual) 65, Lymphocytes % (Manual) 28, Monocytes % (Manual) 5, Eosinophils % ( Manual) 1, Basophils % (Manual) 1, Band Neutrophils 0, Nucleated Red Blood Cells 1, Platelet Estimate Adequate, Platelet Morphology Normal, Hypochromasia 3 +, Anisocytosis 1+, Erythrocyte Sedimentation Rate 75H, Reticulocyte Count 2.0, Prothrombin Time 10.7, Prothromb Time International Ratio 1.0, Activated Partial Thromboplast Time 28, Sodium Level 142, Potassium Level 3.8, Chloride Level 106, Carbon Dioxide Level 27, Anion Gap 9, Blood Urea Nitrogen 12, Creatinine 0.6, Estimat Glomerular Filtration Rate > 60, Glucose Level 80, Calcium Level 8.8, Iron Level 171, Total Iron Binding Capacity 441, Percent Iron Saturation 39, Unsaturated Iron Binding 270, Lactate Dehydrogenase 152, Carcinoembryonic Antigen [Pending], Vitamin B12 Level 555, Folate 16.5 Height (Feet): 5 Height (Inches): 1.00 Weight (Pounds): 156 General Appearance: lethargic EENT: normal ENT inspection Neck: normal alignment Cardiovascular: normal peripheral pulses, normal rate, regular rhythm Respiratory/Chest: chest wall non-tender, lungs clear, normal breath sounds Abdomen: normal bowel sounds, non tender, soft Extremities: normal inspection Edema: no edema noted Arm (L), no edema noted Arm (R), no edema noted Leg (L), no edema noted Leg (R), no edema noted Pedal (L), no edema noted Pedal (R), no edema noted Generalized Neurologic: responsive, motor weakness Skin: normal pigmentation, warm/dry Srikanth Oliva DO Jul 29, 2018 13:33
[2018-07-29] MEDS ORDERED: Tubing IV Secondary IV ONE (13:37)
[2018-07-29] MEDS ORDERED: NS 275ml ONE (13:37)
--- NOTE | 2018-07-29 14:55 | General Progress Note ---
Assessment/Plan Problem List: (1) Epistaxis ICD Codes: R04.0 - Epistaxis SNOMED: 574614266 (2) Chronic renal disease ICD Codes: N18.9 - Chronic kidney disease, unspecified SNOMED: 539826984 (3) Hepatitis C ICD Codes: B19.20 - Unspecified viral hepatitis C without hepatic coma SNOMED: 98358577 (4) Anemia ICD Codes: D64.9 - Anemia SNOMED: 048686557 Status: stable Subjective Date patient seen: Jul 29, 2018 Time patient seen: 14:30 ROS Limited/Unobtainable: No Constitutional: Reports: other - pt sttes nose bleeds prior to comming to ER 2 days ago. No nosebleeds since then per pt. HEENT: Reports: other - Epistatxis by history and anemia Hematologic/Lymphatic: Reports: anemia, easy bleeding; Denies: other Allergies: Coded Allergies: No Known Allergies (Unverified , 07/27/18) Subjective ENT-Initial Consult Epistaxis and anemia per history. Objective Last 24 Hour Vital Signs Date Time Temp Pulse Resp B/P (MAP) Pulse Ox O2 Delivery O2 Flow Rate FiO2 07/29/18 12:00 99.1 91 18 132/83 (99) 99 99.1 07/29/18 09:00 Room Air 07/29/18 09:00 80 90/67 07/29/18 08:00 99.4 80 20 90/67 (75) 100 99.4 07/29/18 04:00 98.5 73 18 102/66 (78) 100 98.5 07/29/18 00:00 99.0 70 18 98/57 (71) 100 99.0 07/28/18 21:00 Room Air 07/28/18 20:00 98.4 65 20 124/68 (86) 94 98.4 07/28/18 16:00 83 20 119/77 (91) 99 Intake and Output 07/28/18 07/29/18 19:00 07:00 Intake Total 1080 ml 300 ml Balance 1080 ml 300 ml Intake Oral 1080 ml 240 ml IV Total 60 ml # Voids 1 # Bowel Movements 1 Laboratory Tests 07/29/18 03:42: Stool Occult Blood Positive 07/29/18 05:40: White Blood Count 5.6, Red Blood Count 2.87L, Hemoglobin 7.2L, Hematocrit 23.0L , Mean Corpuscular Volume 80, Mean Corpuscular Hemoglobin 25.1L, Mean Corpuscular Hemoglobin Concent 31.4L, Red Cell Distribution Width 15.6H, Platelet Count 335, Mean Platelet Volume 5.8L, Neutrophils (%) (Auto) , Lymphocytes (%) (Auto) , Monocytes (%) (Auto) , Eosinophils (%) (Auto) , Basophils (%) (Auto) , Differential Total Cells Counted 100, Neutrophils % ( Manual) 65, Lymphocytes % (Manual) 28, Monocytes % (Manual) 5, Eosinophils % ( Manual) 1, Basophils % (Manual) 1, Band Neutrophils 0, Nucleated Red Blood Cells 1, Platelet Estimate Adequate, Platelet Morphology Normal, Hypochromasia 3 +, Anisocytosis 1+, Erythrocyte Sedimentation Rate 75H, Reticulocyte Count 2.0, Prothrombin Time 10.7, Prothromb Time International Ratio 1.0, Activated Partial Thromboplast Time 28, Sodium Level 142, Potassium Level 3.8, Chloride Level 106, Carbon Dioxide Level 27, Anion Gap 9, Blood Urea Nitrogen 12, Creatinine 0.6, Estimat Glomerular Filtration Rate > 60, Glucose Level 80, Calcium Level 8.8, Iron Level 171, Total Iron Binding Capacity 441, Percent Iron Saturation 39, Unsaturated Iron Binding 270, Lactate Dehydrogenase 152, Carcinoembryonic Antigen [Pending], Vitamin B12 Level 555, Folate 16.5 Height (Feet): 5 Height (Inches): 1.00 Weight (Pounds): 156 General Appearance: WD/WN, mild distress EENT: normal ENT inspection Neck: non-tender, normal alignment, supple, normal inspection Edema: no edema noted Arm (L), no edema noted Arm (R) 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 Vignesh Peralta MD Jul 29, 2018 14:55
[2018-07-29 16:00] VITALS: BP 145/82
[2018-07-29] MEDS: HARVONI ORAL SCH (16:46)
[2018-07-29 20:00] VITALS: BP 137/73
[2018-07-29] MEDS: Dyna-Hex 2% Top Sol 2oz TOPIC SCH (20:17)
--- NOTE | 2018-07-29 20:45 | Progress Note ---
DATE: 07/29/2018 SUBJECTIVE: This is a 63-year-old female with anemia. She has increased mood lability, confusion, disorganized, and anxiety. That is why, she does require daily psychiatric consultation. MENTAL STATUS EXAMINATION: A 63-year-old female. Appearance is disheveled. Attitude, irritable and agitated. Affect, guarded and restricted. depressed and confused. Denies suicidal or homicidal ideation. Insight and judgment is poor. DIAGNOSIS: Major depressive disorder, mild, recurrent without psychotic features. PLAN: Treat her with Prozac 40 mg a day, Ativan 0.5 mg q.6 hours. 20 minutes of cognitive behavioral therapy to help this patient identify automatic negative thoughts and help her to convert the automatic negative thoughts to more positive thoughts to reduce depression, agitation, and suicidality. Saroj Fernandez M.D. DR: RUBÉN JOB#: [id number] CC:
[2018-07-29] MEDS: Iron Sucrose 100 MG in NS 55 ML IV SCH (20:58)
[2018-07-30] VITALS (10 sets, daily range): BP systolic 107–144; BP diastolic 70–86
[2018-07-30] MEDS: Zolpidem 5mg tab ORAL PRN (00:02)
[2018-07-30] MEDS: Morphine Sulfate 2mg/ml Inj IVP PRN ×3 (04:28→20:42)
[2018-07-30 06:38] LABS: BASOPHILS % (AUTO) 0.5 % (0.0-2.0); HEMATOCRIT 28.6 % (37.0-47.0); LYMPHOCYTES % (AUTO) 28.3 % (20.0-45.0); MEAN CORPUSCULAR VOLUME 81 FL (80-99); MONOCYTES % (AUTO) 7.8 % (1.0-10.0); NEUTROPHILS % (AUTO) 61.4 % (45.0-75.0); PLATELET COUNT 350 K/UL (150-450); RED BLOOD COUNT 3.52 M/UL (4.20-5.40); RED CELL DISTRIBUTION WIDTH 15.3 % (11.6-14.8); WHITE BLOOD COUNT 7.1 K/UL (4.8-10.8)
[2018-07-30 06:41] LABS: ANION GAP 9 mmol/L (5-15); BLOOD UREA NITROGEN 11 mg/dL (7-18); CALCIUM 9.2 MG/DL (8.5-10.1); CARBON DIOXIDE 28 MMOL/L (21-32); CHLORIDE 106 MMOL/L (98-107); CREATININE 0.7 MG/DL (0.55-1.30); POTASSIUM 3.9 MMOL/L (3.5-5.1); SODIUM 143 MMOL/L (136-145)
[2018-07-30 06:56] LABS: HEMOGLOBIN 9.2 G/DL (12.0-16.0)
[2018-07-30] MEDS: HARVONI ORAL SCH (09:16)
--- NOTE | 2018-07-30 11:19 | GI Progress Note ---
Assessment/Plan Problems: (1) Hepatitis C ICD Codes: B19.20 - Hepatitis C SNOMED: 32117821 (2) Duodenal ulcer disease ICD Codes: K26.9 - Duodenal ulcer, unsp as acute or chronic, w/o hemor or perf SNOMED: 48819083 (3) Anemia ICD Codes: D64.9 - Anemia SNOMED: 271195732 (4) Acute abdominal pain ICD Codes: R10.0 - Acute abdomen SNOMED: 625924371 (5) Lower GI bleed ICD Codes: K92.2 - Gastrointestinal hemorrhage, unspecified SNOMED: 40840874 (6) Hepatitis C ICD Codes: B19.20 - Unspecified viral hepatitis C without hepatic coma SNOMED: 84100888 (7) Bleeding hemorrhoid ICD Codes: K64.9 - Unspecified hemorrhoids SNOMED: 07353634 Status: stable Status Narrative Discussed with Dr. Mcgraw. Assessment/Plan 2012 EGD/colonoscopy >> duodenal AVMs 2014 EGD >> DU s/p EGD/colonoscopy 04/29/2018 SUMMARY OF FINDINGS: 1. Gastritis, status post biopsy. 2. Diverticulosis. 3. Large external hemorrhoids. Currently on Harvoni for Hep C treatment OB stool r/o GI bleed, positive Anusol HC BID monitor H&H, prn transfusions bowel regime ppi fu labs simethicone prn dc planning The patient was seen and examined at bedside and all new and available data was reviewed in the patients chart. I agree with the above findings, impression and plan. (Patient seen earlier today. Signature stamp does not reflect patient encounter time.). - Darrin Mcgraw MD Subjective Gastrointestinal/Abdominal: Reports: no symptoms Objective Last 24 Hour Vital Signs Date Time Temp Pulse Resp B/P (MAP) Pulse Ox O2 Delivery O2 Flow Rate FiO2 07/30/18 09:15 84 127/70 07/30/18 09:00 Room Air 07/30/18 08:00 98.4 80 18 127/70 (89) 97 07/30/18 04:00 98.2 84 20 137/86 (103) 97 07/30/18 00:00 97.7 70 17 128/71 (90) 97 07/29/18 21:00 Room Air 07/29/18 20:00 98.4 65 18 137/73 (94) 99 07/29/18 17:15 98.8 07/29/18 16:00 100.1 91 18 145/82 (103) 100 07/29/18 12:00 99.1 91 18 132/83 (99) 99 99.1 Intake and Output 07/29/18 07/30/18 19:00 07:00 Intake Total 350 ml 690 ml Balance 350 ml 690 ml Intake Oral 350 ml 440 ml Blood Product 250 ml # Voids 3 1 Laboratory Tests Test 07/30/18 05:55 White Blood Count 7.1 K/UL (4.8-10.8) Red Blood Count 3.52 M/UL (4.20-5.40) L Hemoglobin 9.2 G/DL (12.0-16.0) L Hematocrit 28.6 % (37.0-47.0) L Mean Corpuscular Volume 81 FL (80-99) Mean Corpuscular Hemoglobin 26.3 PG (27.0-31.0) L Mean Corpuscular Hemoglobin Concent 32.3 G/DL (32.0-36.0) Red Cell Distribution Width 15.3 % (11.6-14.8) H Platelet Count 350 K/UL (150-450) Mean Platelet Volume 5.5 FL (6.5-10.1) L Neutrophils (%) (Auto) 61.4 % (45.0-75.0) Lymphocytes (%) (Auto) 28.3 % (20.0-45.0) Monocytes (%) (Auto) 7.8 % (1.0-10.0) Eosinophils (%) (Auto) 2.0 % (0.0-3.0) Basophils (%) (Auto) 0.5 % (0.0-2.0) Sodium Level 143 MMOL/L (136-145) Potassium Level 3.9 MMOL/L (3.5-5.1) Chloride Level 106 MMOL/L (98-107) Carbon Dioxide Level 28 MMOL/L (21-32) Anion Gap 9 mmol/L (5-15) Blood Urea Nitrogen 11 mg/dL (7-18) Creatinine 0.7 MG/DL (0.55-1.30) Estimat Glomerular Filtration Rate > 60 mL/min (>60) Glucose Level 90 MG/DL (74-106) Calcium Level 9.2 MG/DL (8.5-10.1) Height (Feet): 5 Height (Inches): 1.00 Weight (Pounds): 156 General Appearance: WD/WN, no apparent distress, alert Cardiovascular: normal rate Respiratory/Chest: normal breath sounds, no respiratory distress Abdominal Exam: normal bowel sounds, non tender, soft Extremities: non-tender Ciara Sheppard NP Jul 30, 2018 11:19
[2018-07-30] MEDS: LORazepam Inj 2mg/ml 1ml IV PRN (12:39)
--- NOTE | 2018-07-30 12:52 | Pulmonology Progress Note ---
Assessment/Plan Problems: (1) Recurrent epistaxis (2) Anemia (3) COPD (chronic obstructive pulmonary disease) (4) Hepatitis C (5) Hiatal hernia with GERD (6) Back pain Assessment/Plan doing better ENT appreciated anemia w/u in progress symptomatic treatment on IV venofer dvt prophylaxis. Subjective ROS Limited/Unobtainable: No Interval Events: had one episode of nose bleeding again Constitutional: Reports: no symptoms Allergies: Coded Allergies: No Known Allergies (Unverified , 07/27/18) Objective Last 24 Hour Vital Signs Date Time Temp Pulse Resp B/P (MAP) Pulse Ox O2 Delivery O2 Flow Rate FiO2 07/30/18 09:15 84 127/70 07/30/18 09:00 Room Air 07/30/18 08:00 98.4 80 18 127/70 (89) 97 07/30/18 04:00 98.2 84 20 137/86 (103) 97 07/30/18 00:00 97.7 70 17 128/71 (90) 97 07/29/18 21:00 Room Air 07/29/18 20:00 98.4 65 18 137/73 (94) 99 07/29/18 17:15 98.8 07/29/18 16:00 100.1 91 18 145/82 (103) 100 Intake and Output 07/29/18 07/30/18 19:00 07:00 Intake Total 350 ml 690 ml Balance 350 ml 690 ml Intake Oral 350 ml 440 ml Blood Product 250 ml # Voids 3 1 General Appearance: WD/WN HEENT: normocephalic, atraumatic Respiratory/Chest: chest wall non-tender, lungs clear Breasts: no masses Cardiovascular: normal peripheral pulses, normal rate Abdomen: normal bowel sounds, soft, non tender Genitourinary: normal external genitalia Extremities: no cyanosis Skin: no rash 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, normal mood/affect Lymphatic: no neck adenopathy Musculoskeletal: normal muscle bulk Laboratory Tests 07/30/18 05:55: White Blood Count 7.1, Red Blood Count 3.52L, Hemoglobin 9.2L, Hematocrit 28.6L , Mean Corpuscular Volume 81, Mean Corpuscular Hemoglobin 26.3L, Mean Corpuscular Hemoglobin Concent 32.3, Red Cell Distribution Width 15.3H, Platelet Count 350, Mean Platelet Volume 5.5L, Neutrophils (%) (Auto) 61.4, Lymphocytes (%) (Auto) 28.3, Monocytes (%) (Auto) 7.8, Eosinophils (%) (Auto) 2.0, Basophils (%) (Auto) 0.5, Sodium Level 143, Potassium Level 3.9, Chloride Level 106, Carbon Dioxide Level 28, Anion Gap 9, Blood Urea Nitrogen 11, Creatinine 0.7, Estimat Glomerular Filtration Rate > 60, Glucose Level 90, Calcium Level 9.2 Current Medications Medications (Trade) Dose Ordered Sig/Primo Route PRN Reason Start Time Stop Time Status Last Admin Dose Admin Acetaminophen (Tylenol) 650 mg Q4H PRN ORAL fever 07/27/18 17:25 08/26/18 17:24 07/29/18 16:45 Acetaminophen/ Hydrocodone Bitart ([place] ) 1 tab Q6H PRN ORAL For Moderate Pain (4-6) 07/27/18 17:31 08/03/18 17:30 07/28/18 11:12 Al Hydroxide/Mg Hydroxide (Mylanta II) 30 ml Q6H PRN ORAL dyspepsia 07/27/18 17:28 08/26/18 17:27 Amlodipine Besylate (Norvasc) 10 mg DAILY ORAL 07/28/18 09:00 08/27/18 08:59 07/30/18 09:15 Chlorhexidine Gluconate (Lorraine-Hex 2%) 1 applic DAILY@1999 TOPIC 07/27/18 20:00 08/26/18 19:59 07/29/18 20:17 Dextrose (Dextrose 50%) 25 ml Q30M PRN IV Hypoglycemia 07/27/18 17:30 08/26/18 17:15 Dextrose (Dextrose 50%) 50 ml Q30M PRN IV hypoglycemia 07/27/18 17:30 08/26/18 17:29 Fluoxetine HCl (PROzac) 40 mg DAILY ORAL 07/29/18 09:00 08/27/18 08:59 07/30/18 09:14 Gabapentin (Neurontin) 300 mg THREE TIMES A DAY ORAL 07/28/18 18:00 08/27/18 17:59 07/30/18 12:39 Hydrocortisone (Anusol HC) 1 applic TWICE A DAY RECTAL 07/28/18 18:00 08/27/18 17:59 07/30/18 09:15 Hydroxyzine HCl (Atarax) 25 mg Q6H PRN ORAL For Anxiety 07/28/18 17:15 08/27/18 17:14 Iron Sucrose 100 mg/Sodium Chloride 60 ml @ 240 mls/hr BEDTIME IV 07/28/18 21:00 08/01/18 21:14 07/28/18 21:43 Lorazepam (Ativan 2mg/ml 1ml) 0.5 mg Q4H PRN IV For Anxiety 07/28/18 17:13 08/03/18 17:27 07/30/18 12:39 Morphine Sulfate (Morphine Sulfate) 1 mg Q4H PRN IVP For Severe Pain(7-10) 07/27/18 17:30 08/03/18 17:29 07/30/18 11:27 Ondansetron HCl (Zofran) 4 mg Q6H PRN IVP Nausea & Vomiting 07/27/18 17:28 08/26/18 17:27 Patient Own Medication (Patient's Own Med) 1 ea DAILY ORAL 07/29/18 16:00 08/28/18 15:59 07/30/18 09:16 Polyethylene Glycol (Miralax) 17 gm HSPRN PRN ORAL Constipation 07/27/18 21:00 08/26/18 20:59 Simethicone (Mylicon) 80 mg QIDPRN PRN ORAL GAS PAIN 07/28/18 14:53 08/27/18 14:52 Tramadol HCl (Ultram) 50 mg Q6H PRN ORAL For Mild Pain(1-3) 07/27/18 17:31 08/03/18 17:30 Zolpidem Tartrate (Ambien) 5 mg HSPRN PRN ORAL Insomnia 07/27/18 21:00 08/03/18 20:59 07/30/18 00:02 Sharron Belle MD Jul 30, 2018 12:52
[2018-07-30] MEDS ORDERED: Cyclobenzaprine 10mg Tab ORAL PRN (13:00)
--- NOTE | 2018-07-30 13:01 | General Progress Note ---
Assessment/Plan Problem List: (1) Epistaxis ICD Codes: R04.0 - Epistaxis SNOMED: 136963430 (2) Dizzy ICD Codes: R42 - Dizziness and giddiness SNOMED: 407208961, 709736765 (3) HTN (hypertension) ICD Codes: I10 - Essential (primary) hypertension SNOMED: 28791211 (4) Anxiety ICD Codes: F41.9 - Anxiety disorder, unspecified SNOMED: 35001585 (5) Bleeding hemorrhoid ICD Codes: K64.9 - Unspecified hemorrhoids SNOMED: 25310760 (6) Anemia ICD Codes: D64.9 - Anemia SNOMED: 456459664 Status: unchanged Assessment/Plan ot pt diet eval gi heme ent cardio f/u cbc bmp am Subjective Constitutional: Reports: weakness Allergies: Coded Allergies: No Known Allergies (Unverified , 07/27/18) All Systems: reviewed and negative except above Subjective sl anxious in bed had nose bleed again Objective Last 24 Hour Vital Signs Date Time Temp Pulse Resp B/P (MAP) Pulse Ox O2 Delivery O2 Flow Rate FiO2 07/30/18 09:15 84 127/70 07/30/18 09:00 Room Air 07/30/18 08:00 98.4 80 18 127/70 (89) 97 07/30/18 04:00 98.2 84 20 137/86 (103) 97 07/30/18 00:00 97.7 70 17 128/71 (90) 97 07/29/18 21:00 Room Air 07/29/18 20:00 98.4 65 18 137/73 (94) 99 07/29/18 17:15 98.8 07/29/18 16:00 100.1 91 18 145/82 (103) 100 Intake and Output 07/29/18 07/30/18 19:00 07:00 Intake Total 350 ml 690 ml Balance 350 ml 690 ml Intake Oral 350 ml 440 ml Blood Product 250 ml # Voids 3 1 Laboratory Tests 07/30/18 05:55: White Blood Count 7.1, Red Blood Count 3.52L, Hemoglobin 9.2L, Hematocrit 28.6L , Mean Corpuscular Volume 81, Mean Corpuscular Hemoglobin 26.3L, Mean Corpuscular Hemoglobin Concent 32.3, Red Cell Distribution Width 15.3H, Platelet Count 350, Mean Platelet Volume 5.5L, Neutrophils (%) (Auto) 61.4, Lymphocytes (%) (Auto) 28.3, Monocytes (%) (Auto) 7.8, Eosinophils (%) (Auto) 2.0, Basophils (%) (Auto) 0.5, Sodium Level 143, Potassium Level 3.9, Chloride Level 106, Carbon Dioxide Level 28, Anion Gap 9, Blood Urea Nitrogen 11, Creatinine 0.7, Estimat Glomerular Filtration Rate > 60, Glucose Level 90, Calcium Level 9.2 Height (Feet): 5 Height (Inches): 1.00 Weight (Pounds): 156 General Appearance: alert EENT: normal ENT inspection Neck: normal alignment Cardiovascular: normal peripheral pulses, normal rate, regular rhythm Respiratory/Chest: chest wall non-tender, lungs clear, normal breath sounds Abdomen: normal bowel sounds, non tender, soft Extremities: normal inspection Edema: no edema noted Arm (L), no edema noted Arm (R), no edema noted Leg (L), no edema noted Leg (R), no edema noted Pedal (L), no edema noted Pedal (R), no edema noted Generalized Neurologic: responsive, motor weakness Skin: normal pigmentation, warm/dry Srikanth Oliva DO Jul 30, 2018 13:01
--- NOTE | 2018-07-30 13:07 | General Progress Note ---
Assessment/Plan Status: unchanged Assessment/Plan # Anemia of iron deficiency. Ferritin 8! potentially related to GI bleed. recent EGD/colonoscopy performed earlier this year noted to have gastritis, diverticulosis and large external hemorrhoids. --> Anemia w/u has been reviewed. Will trend CBC daily. --> Peripheral smear has been reviewed, no evidence of hemolysis --> Hgb goal >7. Transfuse prn basis --> 07/28: IV iron x5 days has been started --> hemorrhoidal treatment outpatient --> Blood tx: 07/29, # Hep C. Needs to be evaluated by shipping and receiving specialist. --> Viral load of Hep C has been ordered. --> US Abd has been ordered. - Pending --> Transfuse to plt goal > 20k if febrile, >10k if afebrile --> Currently on Harvoni for Hep C treatment # Lower GI bleed. GI is following, appreciate recs. --> OB stool r/o GI bleed --> simethicone prn # Bleeding hemorrhoid. --> patient on Anusol HC BID --> bowel regime GREATLY APPRECIATE CONSULTATION. Subjective Date patient seen: Jul 29, 2018 ROS Limited/Unobtainable: Yes Hematologic/Lymphatic: Reports: anemia Allergies: Coded Allergies: No Known Allergies (Unverified , 07/27/18) Subjective Hgb at 7.2, blood tx ordered. Objective Last 24 Hour Vital Signs Date Time Temp Pulse Resp B/P (MAP) Pulse Ox O2 Delivery O2 Flow Rate FiO2 07/30/18 09:15 84 127/70 07/30/18 09:00 Room Air 07/30/18 08:00 98.4 80 18 127/70 (89) 97 07/30/18 04:00 98.2 84 20 137/86 (103) 97 07/30/18 00:00 97.7 70 17 128/71 (90) 97 07/29/18 21:00 Room Air 07/29/18 20:00 98.4 65 18 137/73 (94) 99 07/29/18 17:15 98.8 07/29/18 16:00 100.1 91 18 145/82 (103) 100 Intake and Output 07/29/18 07/30/18 19:00 07:00 Intake Total 350 ml 690 ml Balance 350 ml 690 ml Intake Oral 350 ml 440 ml Blood Product 250 ml # Voids 3 1 Laboratory Tests 07/30/18 05:55: White Blood Count 7.1, Red Blood Count 3.52L, Hemoglobin 9.2L, Hematocrit 28.6L , Mean Corpuscular Volume 81, Mean Corpuscular Hemoglobin 26.3L, Mean Corpuscular Hemoglobin Concent 32.3, Red Cell Distribution Width 15.3H, Platelet Count 350, Mean Platelet Volume 5.5L, Neutrophils (%) (Auto) 61.4, Lymphocytes (%) (Auto) 28.3, Monocytes (%) (Auto) 7.8, Eosinophils (%) (Auto) 2.0, Basophils (%) (Auto) 0.5, Sodium Level 143, Potassium Level 3.9, Chloride Level 106, Carbon Dioxide Level 28, Anion Gap 9, Blood Urea Nitrogen 11, Creatinine 0.7, Estimat Glomerular Filtration Rate > 60, Glucose Level 90, Calcium Level 9.2 Height (Feet): 5 Height (Inches): 1.00 Weight (Pounds): 156 General Appearance: no apparent distress EENT: PERRL/EOMI Neck: normal alignment Cardiovascular: normal peripheral pulses Respiratory/Chest: no respiratory distress Abdomen: soft Sarath Golden MD Jul 30, 2018 13:07
--- NOTE | 2018-07-30 14:02 | Diagnostic Imaging Report ---
Indication:Abdominal pain Technique: Grayscale and duplex Doppler imaging of the abdomen performed. Comparison: None Findings: The liver is unremarkable. No liver micronodularity is identified. The gallbladder is noted. The demonstrated part of the pancreas, aorta and IVC show no abnormalities. Both kidneys appear unremarkable. The spleen is normal in size. There is no biliary ductal dilatation identified. Doppler evaluation of the main portal vein shows patency. There is no ascites. No hydronephrosis seen. Impression: No acute findings.
--- NOTE | 2018-07-30 16:25 | General Progress Note ---
Assessment/Plan Status: stable Assessment/Plan # Anemia of iron deficiency. Ferritin 8! potentially related to GI bleed. recent EGD/colonoscopy performed earlier this year noted to have gastritis, diverticulosis and large external hemorrhoids. --> Anemia w/u has been reviewed. Will trend CBC daily. --> Peripheral smear has been reviewed, no evidence of hemolysis --> Hgb goal >7. Transfuse prn basis --> 07/28: IV iron x5 days has been started --> hemorrhoidal treatment outpatient --> Blood tx: 07/29, # Hep C. Needs to be evaluated by vice president for instruction. --> Viral load of Hep C has been ordered. --> US Abd: No acute findings. --> Transfuse to plt goal > 20k if febrile, >10k if afebrile --> Currently on Harvoni for Hep C treatment # Lower GI bleed. GI is following, appreciate recs. --> No active bleeding. --> OB stool r/o GI bleed --> simethicone prn # Bleeding hemorrhoid. --> patient on Anusol HC BID --> bowel regime GREATLY APPRECIATE CONSULTATION. Subjective Date patient seen: Jul 30, 2018 ROS Limited/Unobtainable: Yes Hematologic/Lymphatic: Reports: anemia Allergies: Coded Allergies: No Known Allergies (Unverified , 07/27/18) Subjective S/P blood tx, hgb improved to 9.2. Bleeding has stopped. US abd shows no acute findings. Objective Last 24 Hour Vital Signs Date Time Temp Pulse Resp B/P (MAP) Pulse Ox O2 Delivery O2 Flow Rate FiO2 07/30/18 13:40 108/70 07/30/18 13:00 98.6 88 18 108/83 (91) 97 07/30/18 12:30 98.6 114 18 125/77 (93) 97 07/30/18 12:00 98.8 123 18 144/85 (104) 97 07/30/18 11:57 98.6 07/30/18 11:57 98.6 07/30/18 09:15 84 127/70 07/30/18 09:00 Room Air 07/30/18 08:00 98.4 80 18 127/70 (89) 97 07/30/18 04:00 98.2 84 20 137/86 (103) 97 07/30/18 00:00 97.7 70 17 128/71 (90) 97 07/29/18 21:00 Room Air 07/29/18 20:00 98.4 65 18 137/73 (94) 99 07/29/18 17:15 98.8 Intake and Output 07/29/18 07/30/18 19:00 07:00 Intake Total 350 ml 690 ml Balance 350 ml 690 ml Intake Oral 350 ml 440 ml Blood Product 250 ml # Voids 3 1 Laboratory Tests 07/30/18 05:55: White Blood Count 7.1, Red Blood Count 3.52L, Hemoglobin 9.2L, Hematocrit 28.6L , Mean Corpuscular Volume 81, Mean Corpuscular Hemoglobin 26.3L, Mean Corpuscular Hemoglobin Concent 32.3, Red Cell Distribution Width 15.3H, Platelet Count 350, Mean Platelet Volume 5.5L, Neutrophils (%) (Auto) 61.4, Lymphocytes (%) (Auto) 28.3, Monocytes (%) (Auto) 7.8, Eosinophils (%) (Auto) 2.0, Basophils (%) (Auto) 0.5, Sodium Level 143, Potassium Level 3.9, Chloride Level 106, Carbon Dioxide Level 28, Anion Gap 9, Blood Urea Nitrogen 11, Creatinine 0.7, Estimat Glomerular Filtration Rate > 60, Glucose Level 90, Calcium Level 9.2 Height (Feet): 5 Height (Inches): 1.00 Weight (Pounds): 156 General Appearance: no apparent distress EENT: PERRL/EOMI Neck: normal alignment Cardiovascular: normal peripheral pulses Respiratory/Chest: no respiratory distress Abdomen: soft Sarath Golden MD Jul 30, 2018 16:25
--- NOTE | 2018-07-30 17:30 | Progress Note ---
DATE: 07/30/2018 SUBJECTIVE: The patient is a 63-year-old female patient with anemia, possible GI bleed, but the patient continues to have some anxiety and altered mental status worsened by stress of her medical illness. That is why, her attending physician has requested daily psychiatric consultation for this patient. MENTAL STATUS EXAMINATION: This patient is a 63-year-old female patient. Appearance is disheveled. Attitude, irritable and agitated. Affect, guarded and restricted. Intellect poor. Mood is depressed and anxious. Motor activity, psychomotor agitation. Attention span is poor. Orientation x2. Speech is low volume and slurred. Thought content, auditory hallucinations and paranoid delusions. Insight and judgment is poor. DIAGNOSIS: Major depressive disorder, mild, recurrent, without psychotic features. PLAN: Continue on Prozac 40 mg daily, Neurontin 300 mg three times a day, Ativan 0.5 mg anxiety and agitation. She still complaining of anxiety due to stressful things, states she has had thoughts about her dying not that she wants to kill herself, but she is worried about dying and this is causing a lot of anxiety for some. Continue her on high doses of Prozac. Also provided 20 minutes of cognitive behavioral therapy to help her identify automatic negative thoughts and help to convert those automatic negative thoughts more positive thinking to reduce depression, anxiety, and suicidality. A 20 minutes of cognitive behavioral therapy provided. Chart reviewed. Discussed with staff. Seen and assessed at bedside. Saroj Fernandez M.D. DR: STEPHANIE JOB#: [id number] CC:
--- NOTE | 2018-07-30 18:45 | Consultation ---
DATE OF CONSULTATION: 07/29/2018 PSYCHOTHERAPY CONSULTATION PROGRESS NOTE CONSULTING PHYSICIAN: Poncho Morelos PsyD. TREATING ATTENDING PHYSICIAN: Srikanth Oliva D.O. HISTORY OF PRESENT ILLNESS: This patient is a 63-year-old female patient who lives with her daughter and she comes to the hospital due to possible GI bleeding and states that she has been having no sleep. The patient states that she does have history of depression and that she has been feeling to perform tasks. She has history of weakness as well. For these reasons, she was referred for psychotherapeutic services. This clinician assessed this patient. The patient felt family history of depression. She states that she has attempted suicide about 18 years ago, however, at this time, denies suicidal or homicidal thoughts of ideation. Denies any auditory or visual hallucinations. She states that she does feel , however, the clinician has . PAST MEDICAL HISTORY: Includes history of , right knee pain, right hip pain, and hernia. ALLERGIES: The patient has no known drug allergies. SUBSTANCE ABUSE HISTORY: The patient denies history of alcohol use or illicit drug abuse. PSYCHIATRIC HISTORY: The patient states that she has history of depression and anxiety, notes that she had medications in the past. SOCIAL HISTORY: The patient is a 63-year-old female patient. The patient lives with her daughter . Financially sustained by [employer]. MENTAL STATUS EXAMINATION: The patient is alert and oriented to person, place, and time. Her mood is dysphoric. Affect blunted. Thought process, disorganized. Thought content, concentration. Fair insight, judgment and impulse control. DIAGNOSIS: Major depressive disorder, recurrent, moderate, without psychotic features. I assessed this patient. Provided the patient with cognitive behavioral intervention and supportive psychotherapy. anxiety. Continue . Poncho Morelos PsyD. DR: Rayne JOB#: [id number] CC:
--- NOTE | 2018-07-30 19:06 | Neurology Progress Note ---
Interim History Interim History Interim History NEUROLOGY CONSULTATION: Full note dictated #[id number] 63 y/o, RH, BF with PH of HTN, Hep C, depression and anxiety, and back injury in 2000 with 2 herniated discs with radicular pain that starts in the low back radiates into the left buttock, the back of the thigh and the back and front of the leg with severe hamstring spasms. She goes to a pain doctor who gives her Zanaflex, narcotics, and injections in her back every 2 weeks. She was hospitalized for a nose bleed and questionable GI bleed associated with anemia. ON EXAM: Mild problems with memory. Left > right LE give way weakness. Globally diminished DTRs. IMPRESSION: Left L5-S1 radicular symptoms with hamstring spasms. History of LS spine pathology. REC: Flexeril 10 mg q 12 hours. Re-image LS spine with MRI. Observe Yassine Mixon M.D., M.S.P.H. Objective Physical Exam Last Vital Signs Date Time Temp Pulse Resp B/P (MAP) Pulse Ox O2 Delivery O2 Flow Rate FiO2 07/30/18 16:58 123/89 07/30/18 16:00 98.2 101 18 100 07/30/18 09:00 Room Air Laboratory Tests Test 07/30/18 05:55 White Blood Count 7.1 K/UL (4.8-10.8) Red Blood Count 3.52 M/UL (4.20-5.40) L Hemoglobin 9.2 G/DL (12.0-16.0) L Hematocrit 28.6 % (37.0-47.0) L Mean Corpuscular Volume 81 FL (80-99) Mean Corpuscular Hemoglobin 26.3 PG (27.0-31.0) L Mean Corpuscular Hemoglobin Concent 32.3 G/DL (32.0-36.0) Red Cell Distribution Width 15.3 % (11.6-14.8) H Platelet Count 350 K/UL (150-450) Mean Platelet Volume 5.5 FL (6.5-10.1) L Neutrophils (%) (Auto) 61.4 % (45.0-75.0) Lymphocytes (%) (Auto) 28.3 % (20.0-45.0) Monocytes (%) (Auto) 7.8 % (1.0-10.0) Eosinophils (%) (Auto) 2.0 % (0.0-3.0) Basophils (%) (Auto) 0.5 % (0.0-2.0) Sodium Level 143 MMOL/L (136-145) Potassium Level 3.9 MMOL/L (3.5-5.1) Chloride Level 106 MMOL/L (98-107) Carbon Dioxide Level 28 MMOL/L (21-32) Anion Gap 9 mmol/L (5-15) Blood Urea Nitrogen 11 mg/dL (7-18) Creatinine 0.7 MG/DL (0.55-1.30) Estimat Glomerular Filtration Rate > 60 mL/min (>60) Glucose Level 90 MG/DL (74-106) Calcium Level 9.2 MG/DL (8.5-10.1) Impression/Recommendations Status: stable YASSINE MIXON Jul 30, 2018 19:06
--- NOTE | 2018-07-30 19:42 | Cardiology Progress Note ---
Assessment/Plan Assessment/Plan The patient is seen and examined, full consult note will be dictated shortly. Objective Last 24 Hour Vital Signs Date Time Temp Pulse Resp B/P (MAP) Pulse Ox O2 Delivery O2 Flow Rate FiO2 07/30/18 16:58 123/89 07/30/18 16:00 98.2 101 18 110/72 (85) 100 07/30/18 13:40 108/70 07/30/18 13:00 98.6 88 18 108/83 (91) 97 07/30/18 12:30 98.6 114 18 125/77 (93) 97 07/30/18 12:00 98.8 123 18 144/85 (104) 97 07/30/18 11:57 98.6 07/30/18 11:57 98.6 07/30/18 09:15 84 127/70 07/30/18 09:00 Room Air 07/30/18 08:00 98.4 80 18 127/70 (89) 97 07/30/18 04:00 98.2 84 20 137/86 (103) 97 07/30/18 00:00 97.7 70 17 128/71 (90) 97 07/29/18 21:00 Room Air 07/29/18 20:00 98.4 65 18 137/73 (94) 99 Intake and Output 07/29/18 07/30/18 19:00 07:00 Intake Total 350 ml 690 ml Balance 350 ml 690 ml Intake Oral 350 ml 440 ml Blood Product 250 ml # Voids 3 1 Laboratory Tests Test 07/30/18 05:55 White Blood Count 7.1 K/UL (4.8-10.8) Red Blood Count 3.52 M/UL (4.20-5.40) L Hemoglobin 9.2 G/DL (12.0-16.0) L Hematocrit 28.6 % (37.0-47.0) L Mean Corpuscular Volume 81 FL (80-99) Mean Corpuscular Hemoglobin 26.3 PG (27.0-31.0) L Mean Corpuscular Hemoglobin Concent 32.3 G/DL (32.0-36.0) Red Cell Distribution Width 15.3 % (11.6-14.8) H Platelet Count 350 K/UL (150-450) Mean Platelet Volume 5.5 FL (6.5-10.1) L Neutrophils (%) (Auto) 61.4 % (45.0-75.0) Lymphocytes (%) (Auto) 28.3 % (20.0-45.0) Monocytes (%) (Auto) 7.8 % (1.0-10.0) Eosinophils (%) (Auto) 2.0 % (0.0-3.0) Basophils (%) (Auto) 0.5 % (0.0-2.0) Sodium Level 143 MMOL/L (136-145) Potassium Level 3.9 MMOL/L (3.5-5.1) Chloride Level 106 MMOL/L (98-107) Carbon Dioxide Level 28 MMOL/L (21-32) Anion Gap 9 mmol/L (5-15) Blood Urea Nitrogen 11 mg/dL (7-18) Creatinine 0.7 MG/DL (0.55-1.30) Estimat Glomerular Filtration Rate > 60 mL/min (>60) Glucose Level 90 MG/DL (74-106) Calcium Level 9.2 MG/DL (8.5-10.1) Damian Kolb MD Jul 30, 2018 19:42
[2018-07-30] MEDS ORDERED: Sodium Chloride 500ML 500 ML IV ONE (20:06)
[2018-07-30] MEDS: Dyna-Hex 2% Top Sol 2oz TOPIC SCH (20:40)
[2018-07-30] MEDS: Cyclobenzaprine 10mg Tab ORAL SCH (20:41)
--- NOTE | 2018-07-30 21:30 | Consultation ---
DATE OF CONSULTATION: 07/30/2018 NEUROLOGY CONSULTATION CONSULTING PHYSICIAN: Eric Mixon M.D. REQUESTING PHYSICIAN: Srikanth Oliva D.O. HISTORY: Ms. Meche Gutierrez is a 63-year-old, right-handed, black lady, who does have a past history of hypertension, hepatitis C, depression and anxiety, and a back injury in 2000 with two herniated discs and radicular pain that starts in the low back and radiates into the left buttock, the back of the thigh, and the back and front of the leg with severe hamstring spasms. She goes to a pain doctor, who gives her Zanaflex, narcotics, and injections in her back every 2 weeks. In spite of that, she is completely disabled and has to move around in motorized scooter and is quite debilitated. She was hospitalized recently for a nosebleed and questionable gastrointestinal bleed associated with anemia. This consultation was requested to evaluate the patient for left thigh spasms and low back pain radiating into her left leg. At this point in time, the patient is having sharp shooting pain starting in the back and radiating into her left lower extremity. She notices this when she changes her position and bends in one way or the other. She also feels that the legs are severely weak especially the left leg. PAST MEDICAL HISTORY: Significant for hypertension, hepatitis C, depression and anxiety, back injury with chronic pain, and gastrointestinal problems. FAMILY HISTORY: Nothing significant. PERSONAL HISTORY: Home: She lives at home with her daughter. Work: She has been disabled for numerous years. Habits: She denies use of alcohol, tobacco, or illicit drugs. PRESENT MEDICATIONS: Flexeril 10 mg 3 times a day p.r.n., clonidine, Prozac, gabapentin 300 mg 3 times a day, Atarax, lorazepam, simethicone, amlodipine, MiraLAX, Ambien, [place], Ultram, morphine, Zofran, Mylanta, and Tylenol. PHYSICAL EXAMINATION: GENERAL: She is a well-developed, well-nourished, pleasant, but anxious black lady, lying in bed, in no acute distress. VITAL SIGNS: Pulse 101/minute, blood pressure 110/72 mmHg, respirations 18/minute, and temperature 98.2 degrees Fahrenheit. HEAD: Normocephalic and atraumatic. EENT: Examination benign. NECK: No neck rigidity was observed. NEUROLOGIC EXAMINATION: MENTAL STATUS EXAMINATION: She was awake and alert. She was oriented to person, place, and time. She was able to recall 3/3 words immediately, but could only remember 2/3 words in 1 minute and 3 minutes. She was able to remember Presidents, Trump and Obama, but could not remember Presidents prior to that. Her mathematical skills were minimally impaired. Her visuospatial function was also minimally impaired. SPEECH: She had no dysarthria. LANGUAGE: She had no aphasia. CRANIAL NERVE EXAMINATION: II: The visual lin were intact on confrontation testing. III, IV & : The external ocular movements were full and the pupils 3 mm in diameter, equal, round, regular, and reactive to light. V: She has normal facial sensations, and the temporales, masseters, and pterygoids functioned normally. VII: She had normal facial expressions and no facial asymmetry. VIII: She was able to hear well bilaterally and had no nystagmus. IX: The palate moved symmetrically on phonation. X: She had no hoarseness of voice. XI: The sternocleidomastoids and trapezii functioned normally. XII: The tongue was in the midline without any fasciculations or atrophy. MOTOR SYSTEM: The tone was normal in all four extremities. Examination of muscle mass revealed no focal wasting. Examination of power was exceedingly difficult to perform because of significant give-way weakness in all four extremities. The give-way weakness was significantly more marked in the lower extremities than in the upper extremities and the left lower extremity than the right lower extremity. She did have some true weakness in left ankle dorsiflexors and toe extensors. SENSORY EXAMINATION: She had intact sensations to pinprick and light touch. Other sensory modalities could not be tested accurately. REFLEXES: Trace+ and bilaterally symmetrical at the biceps, triceps, brachioradialis, and knees, 0 at both ankles. The plantar responses were flexor bilaterally. COORDINATION: She performed well on [id number] testing. She was unable to perform [id number] testing. STANCE & GAIT: Could not be tested. DIAGNOSTIC IMPRESSION: 1. Ms. Meche Gutierrez is a 63-year-old, right-handed, black lady, who does have a past history of hypertension, hepatitis C, depression and anxiety, a low back injury in 2000 which has completely disabled her, and recently a nasal versus gastrointestinal bleed. Since she has been to the hospital, she has been complaining of significant low back pain radiating to the left lower extremity and in addition, left hamstring spasms. 2. On neurological examination, at this time, she does have mild problems with memory, visuospatial function, and higher cognitive function. She also exhibits some generalized weakness most marked in the lower extremities more so on the left than on the right and predominantly in the left ankle dorsiflexors and toe extensors. She also has globally diminished reflexes with loss of ankle jerks. 3. The patient's history and neurological examination are most compatible with left L5-S1 radiculopathy with ongoing hamstring spasms. She does give me a history of lumbosacral spinal pathology, the exact details of which are unknown to us. RECOMMENDATIONS: 1. Agree with management thus far. 2. The patient should be started on Flexeril 10 mg q.12 hours around the clock rather than p.r.n. 3. She should be reimaged with an MRI scan of the lumbosacral spine. 4. She will be observed closely and depending on how she fares, further recommendations will be given. Thank you for entrusting me with the care of Ms. Gutierrez. I shall follow her with you. Eric Mixon M.D., M.S.P.H. DR: DION JOB#: [id number] MARIANA
[2018-07-30] MEDS: Iron Sucrose 100 MG in NS 55 ML IV SCH (22:30)
--- NOTE | 2018-07-30 23:15 | Consultation ---
DATE OF CONSULTATION: 07/30/2018 CARDIOLOGY CONSULTATION CONSULTING PHYSICIAN: Damian Kolb M.D. REFERRING PHYSICIAN: Srikanth Oliva D.O. REASON FOR CONSULTATION: Management of hypotension. HISTORY OF PRESENT ILLNESS: The patient is a very unfortunate 63-year-old female, who presents to the hospital with possibility of gastrointestinal bleed. The patient initially started with epistaxis and started to have coughing up some bloody material. Apparently, had an EGD early this year, which had showed gastritis. At the time of arrival to the hospital, hemoglobin level was 7.6. The patient also has history of duodenal AVMs and duodenal ulceration as well as hepatitis C virus infection status post Harvoni treatment. The patient was admitted to Med/Surg for further evaluation and management of GI bleed as well as addressing epistaxis. In the course of stay in the med/surg unit, she had one episode of hypotension. Cardiology consultation was made at the request of Dr. Oliva for assessment and management of hypotension. Apparently, hypotension happened after a large bowel movement. The patient had associated diaphoresis and some altered level of consciousness. PAST MEDICAL HISTORY: GERD, peptic ulcer disease, hepatitis C virus infection, status post treatment, COPD, obesity, anxiety disorder, and history of low back pain. PAST SURGICAL HISTORY: The patient has history of knee and hip as well as hernia surgery. MEDICATIONS: List of medications at home includes acetaminophen 500 mg q.8 hours p.r.n. pain, albuterol 2 puffs inhaler q.6 hours, amlodipine 10 mg p.o. at bedtime, aspirin 325 mg one tablet p.r.n. pain, Tums one tablet p.r.n. stomach ache, Voltaren gel to be applied for arthritis, dicyclomine 20 mg p.o. q.i.d. p.r.n. colitis, fluoxetine 20 mg p.o. daily, Arrey 10/325 one tablet q.6 hours p.r.n. pain, lidocaine viscous 10 mL oral q.8 hours p.r.n. abdominal cramps, Maalox maximum strength suspension 30 mL p.o. q.6 hours p.r.n. pain, Robaxin 750 one tablet t.i.d., omeprazole 20 mg daily, Oxtellar XR 300 mg daily, potassium chloride 20 mEq p.o. daily, prednisone 20 mg p.o. daily, Zanaflex 4 mg three times a day, tramadol 50 mg q.6 h. p.r.n. pain, and zolpidem 10 mg p.o. at bedtime p.r.n. insomnia. ALLERGIES: No known drug allergies. FAMILY HISTORY: No premature coronary artery disease or arrhythmogenic in the first-degree relatives. SOCIAL HISTORY: Denies any tobacco, alcohol, or illicit drug use. REVIEW OF SYSTEM: HEENT: Some headache, blurred vision, and diaphoresis. CONSTITUTIONAL: No fever, chills, night sweats, or weight loss. CARDIOVASCULAR: Denies any chest pain, shortness of breath, PND, orthopnea, or leg swelling. PULMONARY: Denies any cough, hemoptysis, or wheezing. GASTROINTESTINAL: Some epistaxis with some possible hematemesis. Positive for constipation. GENITOURINARY: Denies any hematuria, dysuria, or incontinence. NEUROLOGY: Denies any motor dysfunction, sensory deficit, or altered speech. PHYSICAL EXAMINATION: VITAL SIGNS: Blood pressure currently is 75/45, heart rate is 114, respiration is 22, temperature 98.2 degrees Fahrenheit, and O2 saturation 100%. GENERAL: The patient is a very unfortunate 63-year-old female, who in somewhat distress, slightly altered, but communicating. HEENT: Atraumatic and normocephalic. Anicteric. Pupils are equal, round, and reactive to light and accommodation. NECK: JVP less than 5 cm. No carotid bruits. CVS: Normal S1, S2. Regular rate and rhythm. Tachycardic. No murmurs, gallops, or rubs. LUNGS: Clear to auscultation bilaterally. ABDOMEN: Soft, nontender, and nondistended. No hepatosplenomegaly. Positive bowel sounds. EXTREMITIES: No evidence of edema, clubbing, or cyanosis. LABORATORY FINDINGS: Today, WBC of 7.1, hemoglobin of 9.2, hematocrit of 28.6, and platelet count is 350,000. Sodium of 142, potassium 3.9, chloride 106, bicarbonate 28, BUN of 11, creatinine 0.7, and glucose is 90. Calcium is 9.2. INR is 1.0. ASSESSMENT AND PLAN: This is a very unfortunate 63-year-old female seen in Cardiology consultation. 1. Hypotension, systolic blood pressures running around 75 mmHg following the large bowel movement. This could be defecation syncope. We would like to give the patient 500 mL of IV normal saline. Check for I's and O's. The patient will probably benefit from transferring to the telemetry. We will check the blood pressure in just about an hour and may require another dose. We will continue rechecking BUN and creatinine in the a.m. A 2D echocardiography will be done to assess LV systolic and diastolic function. We will obtain also 12-lead electrocardiogram. 2. History of possible gastrointestinal bleed. 3. History of anemia. Hematology/Oncology to continue following. I would like to thank, Dr. Oliva, for allowing me to participate in the care of this patient. Damian Kolb M.D. DR: PINO JOB#: [id number] CC:
[2018-07-31] VITALS: BP 128/74
[2018-07-31 04:00] VITALS: BP 128/78
[2018-07-31] MEDS: Morphine Sulfate 2mg/ml Inj IVP PRN ×2 (05:03→16:09)
[2018-07-31 06:30] LABS: BASOPHILS % (AUTO) 0.5 % (0.0-2.0); EOSINOPHILS % (AUTO) 1.6 % (0.0-3.0); HEMATOCRIT 26.7 % (37.0-47.0); HEMOGLOBIN 8.9 G/DL (12.0-16.0); LYMPHOCYTES % (AUTO) 19.9 % (20.0-45.0); MEAN CORPUSCULAR VOLUME 82 FL (80-99); PLATELET COUNT 334 K/UL (150-450); RED BLOOD COUNT 3.26 M/UL (4.20-5.40); RED CELL DISTRIBUTION WIDTH 15.8 % (11.6-14.8); WHITE BLOOD COUNT 10.2 K/UL (4.8-10.8)
[2018-07-31 06:55] LABS: ANION GAP 9 mmol/L (5-15); BLOOD UREA NITROGEN 13 mg/dL (7-18); CALCIUM 9.2 MG/DL (8.5-10.1); CARBON DIOXIDE 26 MMOL/L (21-32); CHLORIDE 107 MMOL/L (98-107); CREATININE 0.6 MG/DL (0.55-1.30); POTASSIUM 4.1 MMOL/L (3.5-5.1); SODIUM 142 MMOL/L (136-145)
[2018-07-31 08:00] VITALS: BP 111/75
--- NOTE | 2018-07-31 09:11 | Consultation ---
History of Present Illness General Date patient seen: Jul 31, 2018 Present Illness Allergies: Coded Allergies: No Known Allergies (Unverified , 07/27/18) Medication History Scheduled Albuterol Sulfate* (Albuterol Sulfate Mdi*), 2 PUFF INH Q6H Amlodipine Besylate* (Amlodipine Besylate*), 10 MG ORAL HS, (Reported) Fluoxetine Hcl* (Fluoxetine Hcl*), 20 MG PO DAILY, (Reported) Methocarbamol* (Robaxin-750*), 750 MG PO TID Omeprazole (Omeprazole), 20 MG ORAL DAILY, (Reported) Omeprazole (Omeprazole), 20 MG ORAL DAILY Oxcarbazepine (Oxtellar Xr), 300 MG ORAL DAILY, (Reported) Potassium Chloride (Potassium Chloride), 20 MEQ PO DAILY, (Reported) Prednisone* (Prednisone*), 20 MG ORAL DAILY Tizanidine Hcl* (Zanaflex*), 4 MG ORAL THREE TIMES A DAY, (Reported) Scheduled PRN Acetaminophen* (Tylenol Extra Strength*), 500 MG ORAL Q8H PRN for For Pain, ( Reported) Aspirin* (Aspirin*), 81 MG ORAL DAILY PRN for For Pain, (Reported) Calcium Carbonate (Tums), Unknown Dose PO for STOMACH PAIN , (Reported) Dicyclomine Hcl* (Dicyclomine Hcl*), 20 MG PO QID PRN for COLITIS, (Reported) Hydrocodone Bit/Acetaminophen 10-325* ([place] 10-325*), 1 TAB ORAL Q6H PRN for For Pain, (Reported) Lidocaine HCl 2% Viscous (Lidocaine HCl 2% Viscous), 10 ML ORAL Q8HR PRN for Abdominal cramps, (Reported) Mag Hydrox/Al Hydrox/Simeth (Maalox Maximum Strength Susp), 30 ML PO Q6HR PRN for For Pain Tramadol Hcl* (Ultram*), 50 MG ORAL Q6H PRN for For Pain, (Reported) Zolpidem Tartrate* (Zolpidem Tartrate*), 10 MG ORAL BEDTIME PRN for Insomnia, ( Reported) Miscellaneous Medications Diclofenac Sodium (Voltaren), Unknown Dose TP, (Reported) Patient History Healthcare decision maker Resuscitation status Full Code Advanced Directive on File Physical Exam Last 24 Hour Vital Signs Date Time Temp Pulse Resp B/P (MAP) Pulse Ox O2 Delivery O2 Flow Rate FiO2 07/31/18 08:00 97.2 90 18 111/75 (87) 97 07/31/18 04:00 97.5 99 21 128/78 (95) 100 07/31/18 04:00 88 07/31/18 00:00 98 07/31/18 00:00 97.5 99 20 128/74 (92) 97 07/30/18 22:43 120/74 (89) 94 07/30/18 22:37 99 07/30/18 21:00 Room Air 07/30/18 20:54 85 113/78 (90) 07/30/18 20:00 97.7 99 18 107/74 (85) 100 07/30/18 16:58 123/89 07/30/18 16:00 98.2 101 18 110/72 (85) 100 07/30/18 13:40 108/70 07/30/18 13:00 98.6 88 18 108/83 (91) 97 07/30/18 12:30 98.6 114 18 125/77 (93) 97 07/30/18 12:00 98.8 123 18 144/85 (104) 97 07/30/18 11:57 98.6 07/30/18 11:57 98.6 07/30/18 09:15 84 127/70 Intake and Output 07/30/18 07/31/18 18:59 06:59 Intake Total 994 ml Balance 994 ml Intake Oral 994 ml # Voids 5 1 Laboratory Tests Test 07/30/18 20:00 07/31/18 05:05 Stool Occult Blood Pending White Blood Count 10.2 K/UL (4.8-10.8) Red Blood Count 3.26 M/UL (4.20-5.40) L Hemoglobin 8.9 G/DL (12.0-16.0) L Hematocrit 26.7 % (37.0-47.0) L Mean Corpuscular Volume 82 FL (80-99) Mean Corpuscular Hemoglobin 27.2 PG (27.0-31.0) Mean Corpuscular Hemoglobin Concent 33.3 G/DL (32.0-36.0) Red Cell Distribution Width 15.8 % (11.6-14.8) H Platelet Count 334 K/UL (150-450) Mean Platelet Volume 5.4 FL (6.5-10.1) L Neutrophils (%) (Auto) 73.0 % (45.0-75.0) Lymphocytes (%) (Auto) 19.9 % (20.0-45.0) L Monocytes (%) (Auto) 5.0 % (1.0-10.0) Eosinophils (%) (Auto) 1.6 % (0.0-3.0) Basophils (%) (Auto) 0.5 % (0.0-2.0) Sodium Level 142 MMOL/L (136-145) Potassium Level 4.1 MMOL/L (3.5-5.1) Chloride Level 107 MMOL/L (98-107) Carbon Dioxide Level 26 MMOL/L (21-32) Anion Gap 9 mmol/L (5-15) Blood Urea Nitrogen 13 mg/dL (7-18) Creatinine 0.6 MG/DL (0.55-1.30) Estimat Glomerular Filtration Rate > 60 mL/min (>60) Glucose Level 100 MG/DL (74-106) Calcium Level 9.2 MG/DL (8.5-10.1) Height (Feet): 5 Height (Inches): 1.00 Weight (Pounds): 156 Medications Current Medications Medications (Trade) Dose Ordered Sig/Primo Route PRN Reason Start Time Stop Time Status Last Admin Dose Admin Acetaminophen (Tylenol) 650 mg Q4H PRN ORAL fever 07/27/18 17:25 08/26/18 17:24 07/29/18 16:45 Acetaminophen/ Hydrocodone Bitart ([place] ) 1 tab Q6H PRN ORAL For Moderate Pain (4-6) 07/27/18 17:31 08/03/18 17:30 07/28/18 11:12 Al Hydroxide/Mg Hydroxide (Mylanta II) 30 ml Q6H PRN ORAL dyspepsia 07/27/18 17:28 08/26/18 17:27 Amlodipine Besylate (Norvasc) 10 mg DAILY ORAL 07/28/18 09:00 08/27/18 08:59 07/30/18 09:15 Chlorhexidine Gluconate ([place]-Hex 2%) 1 applic DAILY@1999 TOPIC 07/27/18 20:00 08/26/18 19:59 07/30/18 20:40 Clonidine HCl (Catapres Tab) 0.1 mg EVERY 6 HOURS ORAL 07/30/18 13:00 08/29/18 12:59 07/30/18 16:58 Cyclobenzaprine HCl (Flexeril) 10 mg EVERY 12 HOURS ORAL 07/30/18 21:00 08/29/18 20:59 07/30/18 20:41 Cyclobenzaprine HCl (Flexeril) 10 mg TIDPRN PRN ORAL Muscle Spasm 07/30/18 13:00 08/29/18 12:59 07/30/18 13:34 Dextrose (Dextrose 50%) 25 ml Q30M PRN IV Hypoglycemia 07/27/18 17:30 08/26/18 17:15 Dextrose (Dextrose 50%) 50 ml Q30M PRN IV hypoglycemia 07/27/18 17:30 08/26/18 17:29 Fluoxetine HCl (PROzac) 40 mg DAILY ORAL 07/29/18 09:00 08/27/18 08:59 07/30/18 09:14 Gabapentin (Neurontin) 300 mg THREE TIMES A DAY ORAL 07/28/18 18:00 08/27/18 17:59 07/30/18 16:58 Hydrocortisone (Anusol HC) 1 applic TWICE A DAY RECTAL 07/28/18 18:00 08/27/18 17:59 07/30/18 09:15 Hydroxyzine HCl (Atarax) 25 mg Q6H PRN ORAL For Anxiety 07/28/18 17:15 08/27/18 17:14 Iron Sucrose 100 mg/Sodium Chloride 60 ml @ 240 mls/hr BEDTIME IV 07/28/18 21:00 08/01/18 21:14 07/30/18 22:30 Lorazepam (Ativan 2mg/ml 1ml) 0.5 mg Q4H PRN IV For Anxiety 07/28/18 17:13 08/03/18 17:27 07/30/18 12:39 Morphine Sulfate (Morphine Sulfate) 1 mg Q4H PRN IVP For Severe Pain(7-10) 07/27/18 17:30 08/03/18 17:29 07/31/18 05:03 Ondansetron HCl (Zofran) 4 mg Q6H PRN IVP Nausea & Vomiting 07/27/18 17:28 08/26/18 17:27 07/30/18 19:57 Patient Own Medication (Patient's Own Med) 1 ea DAILY ORAL 07/29/18 16:00 07/31/18 23:59 07/30/18 09:16 Patient Own Medication (Patient's Own Med) 1 ea DAILY ORAL 08/01/18 09:00 08/31/18 08:59 Polyethylene Glycol (Miralax) 17 gm HSPRN PRN ORAL Constipation 07/27/18 21:00 08/26/18 20:59 Simethicone (Mylicon) 80 mg QIDPRN PRN ORAL GAS PAIN 07/28/18 14:53 08/27/18 14:52 Tramadol HCl (Ultram) 50 mg Q6H PRN ORAL For Mild Pain(1-3) 07/27/18 17:31 08/03/18 17:30 Zolpidem Tartrate (Ambien) 5 mg HSPRN PRN ORAL Insomnia 07/27/18 21:00 08/03/18 20:59 07/30/18 00:02 Assessment/Plan Assessment/Plan (1) Lumbar DDD (2) Lumbar Herniated disc (3) Lumbar Radiculopathy (4) Lumbar Spondylosis seen dictated. Rico Avery Jul 31, 2018 09:11
[2018-07-31] MEDS: HARVONI ORAL SCH (10:05)
[2018-07-31] MEDS: Cyclobenzaprine 10mg Tab ORAL SCH ×2 (10:06→20:40)
--- NOTE | 2018-07-31 10:39 | General Progress Note ---
Assessment/Plan Status: stable Assessment/Plan # Anemia of iron deficiency. Ferritin 8! potentially related to GI bleed. recent EGD/colonoscopy performed earlier this year noted to have gastritis, diverticulosis and large external hemorrhoids. --> Anemia w/u has been reviewed. Will trend CBC daily. --> Peripheral smear has been reviewed, no evidence of hemolysis --> Hgb goal >7. Transfuse prn basis --> 07/28: IV iron x5 days has been started --> hemorrhoidal treatment outpatient --> Blood tx: 07/29, # Hep C. 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 --> Viral load of Hep C has been ordered. --> US Abd: No acute findings. --> Transfuse to plt goal > 20k if febrile, >10k if afebrile --> Currently on Harvoni for Hep C treatment # Lower GI bleed. GI is following, appreciate recs. --> No active bleeding. --> OB stool r/o GI bleed --> simethicone prn # Bleeding hemorrhoid. --> patient on Anusol HC BID --> bowel regime GREATLY APPRECIATE CONSULTATION. Subjective Date patient seen: Jul 31, 2018 ROS Limited/Unobtainable: Yes Hematologic/Lymphatic: Reports: anemia Allergies: Coded Allergies: No Known Allergies (Unverified , 07/27/18) Subjective No acute events. H/H stable. Afebrile. Objective Last 24 Hour Vital Signs Date Time Temp Pulse Resp B/P (MAP) Pulse Ox O2 Delivery O2 Flow Rate FiO2 07/31/18 09:00 90 111/75 07/31/18 08:00 97.2 90 18 111/75 (87) 97 07/31/18 04:00 97.5 99 21 128/78 (95) 100 07/31/18 04:00 88 07/31/18 00:00 98 07/31/18 00:00 97.5 99 20 128/74 (92) 97 07/30/18 22:43 120/74 (89) 94 07/30/18 22:37 99 07/30/18 21:00 Room Air 07/30/18 20:54 85 113/78 (90) 07/30/18 20:00 97.7 99 18 107/74 (85) 100 07/30/18 16:58 123/89 10/25/18 16:00 98.2 101 18 110/72 (85) 100 07/30/18 13:40 108/70 07/30/18 13:00 98.6 88 18 108/83 (91) 97 07/30/18 12:30 98.6 114 18 125/77 (93) 97 07/30/18 12:00 98.8 123 18 144/85 (104) 97 07/30/18 11:57 98.6 07/30/18 11:57 98.6 Intake and Output 07/30/18 07/31/18 18:59 06:59 Intake Total 994 ml Balance 994 ml Intake Oral 994 ml # Voids 5 1 Laboratory Tests 07/30/18 20:00: Stool Occult Blood [Pending] 07/31/18 05:05: White Blood Count 10.2, Red Blood Count 3.26L, Hemoglobin 8.9L, Hematocrit 26.7L , Mean Corpuscular Volume 82, Mean Corpuscular Hemoglobin 27.2, Mean Corpuscular Hemoglobin Concent 33.3, Red Cell Distribution Width 15.8H, Platelet Count 334, Mean Platelet Volume 5.4L, Neutrophils (%) (Auto) 73.0, Lymphocytes (%) (Auto) 19.9L, Monocytes (%) (Auto) 5.0, Eosinophils (%) (Auto) 1.6, Basophils (%) (Auto) 0.5, Sodium Level 142, Potassium Level 4.1, Chloride Level 107, Carbon Dioxide Level 26, Anion Gap 9, Blood Urea Nitrogen 13, Creatinine 0.6, Estimat Glomerular Filtration Rate > 60, Glucose Level 100, Calcium Level 9.2 Height (Feet): 5 Height (Inches): 1.00 Weight (Pounds): 156 General Appearance: no apparent distress EENT: PERRL/EOMI Neck: normal alignment Cardiovascular: normal peripheral pulses Respiratory/Chest: no respiratory distress Abdomen: soft Sarath Golden MD Jul 31, 2018 10:39
[2018-07-31] MEDS: LORazepam Inj 2mg/ml 1ml IV PRN (11:00)
--- NOTE | 2018-07-31 11:21 | GI Progress Note ---
Assessment/Plan Problems: (1) Duodenal ulcer disease ICD Codes: K26.9 - Duodenal ulcer, unsp as acute or chronic, w/o hemor or perf SNOMED: 32538715 (2) Anemia ICD Codes: D64.9 - Anemia SNOMED: 304627257 (3) Acute abdominal pain ICD Codes: R10.0 - Acute abdomen SNOMED: 840891260 (4) Lower GI bleed ICD Codes: K92.2 - Gastrointestinal hemorrhage, unspecified SNOMED: 33651660 (5) Hepatitis C ICD Codes: B19.20 - Unspecified viral hepatitis C without hepatic coma SNOMED: 63710748 (6) Bleeding hemorrhoid ICD Codes: K64.9 - Unspecified hemorrhoids SNOMED: 63519630 Status: unchanged Status Narrative Discussed with Dr. Mcgraw. Assessment/Plan 2012 EGD/colonoscopy >> duodenal AVMs 2014 EGD >> DU s/p EGD/colonoscopy 04/29/2018 SUMMARY OF FINDINGS: 1. Gastritis, status post biopsy. 2. Diverticulosis. 3. Large external hemorrhoids. Currently on Harvoni for Hep C treatment OB stool r/o GI bleed, positive transferred to [facility], had episode of severe epistaxis Anusol HC BID monitor H&H, prn transfusions bowel regime ppi fu labs simethicone prn The patient was seen and examined at bedside and all new and available data was reviewed in the patients chart. I agree with the above findings, impression and plan. (Patient seen earlier today. Signature stamp does not reflect patient encounter time.). - Darrin Mcgraw MD Subjective Gastrointestinal/Abdominal: Reports: no symptoms Objective Last 24 Hour Vital Signs Date Time Temp Pulse Resp B/P (MAP) Pulse Ox O2 Delivery O2 Flow Rate FiO2 07/31/18 09:00 90 111/75 07/31/18 09:00 Room Air 07/31/18 08:00 87 07/31/18 08:00 97.2 90 18 111/75 (87) 97 07/31/18 04:00 97.5 99 21 128/78 (95) 100 07/31/18 04:00 88 07/31/18 00:00 98 07/31/18 00:00 97.5 99 20 128/74 (92) 97 07/30/18 22:43 120/74 (89) 94 07/30/18 22:37 99 07/30/18 21:00 Room Air 07/30/18 20:54 85 113/78 (90) 07/30/18 20:00 97.7 99 18 107/74 (85) 100 07/30/18 16:58 123/89 07/30/18 16:00 98.2 101 18 110/72 (85) 100 07/30/18 13:40 108/70 07/30/18 13:00 98.6 88 18 108/83 (91) 97 07/30/18 12:30 98.6 114 18 125/77 (93) 97 07/30/18 12:00 98.8 123 18 144/85 (104) 97 07/30/18 11:57 98.6 07/30/18 11:57 98.6 Intake and Output 07/30/18 07/31/18 18:59 06:59 Intake Total 994 ml Balance 994 ml Intake Oral 994 ml # Voids 5 1 Laboratory Tests Test 07/30/18 20:00 07/31/18 05:05 Stool Occult Blood Pending White Blood Count 10.2 K/UL (4.8-10.8) Red Blood Count 3.26 M/UL (4.20-5.40) L Hemoglobin 8.9 G/DL (12.0-16.0) L Hematocrit 26.7 % (37.0-47.0) L Mean Corpuscular Volume 82 FL (80-99) Mean Corpuscular Hemoglobin 27.2 PG (27.0-31.0) Mean Corpuscular Hemoglobin Concent 33.3 G/DL (32.0-36.0) Red Cell Distribution Width 15.8 % (11.6-14.8) H Platelet Count 334 K/UL (150-450) Mean Platelet Volume 5.4 FL (6.5-10.1) L Neutrophils (%) (Auto) 73.0 % (45.0-75.0) Lymphocytes (%) (Auto) 19.9 % (20.0-45.0) L Monocytes (%) (Auto) 5.0 % (1.0-10.0) Eosinophils (%) (Auto) 1.6 % (0.0-3.0) Basophils (%) (Auto) 0.5 % (0.0-2.0) Sodium Level 142 MMOL/L (136-145) Potassium Level 4.1 MMOL/L (3.5-5.1) Chloride Level 107 MMOL/L (98-107) Carbon Dioxide Level 26 MMOL/L (21-32) Anion Gap 9 mmol/L (5-15) Blood Urea Nitrogen 13 mg/dL (7-18) Creatinine 0.6 MG/DL (0.55-1.30) Estimat Glomerular Filtration Rate > 60 mL/min (>60) Glucose Level 100 MG/DL (74-106) Calcium Level 9.2 MG/DL (8.5-10.1) Height (Feet): 5 Height (Inches): 1.00 Weight (Pounds): 156 General Appearance: WD/WN, no apparent distress, alert Cardiovascular: normal rate Respiratory/Chest: normal breath sounds, no respiratory distress Abdominal Exam: normal bowel sounds, non tender, soft Extremities: normal range of motion, non-tender Ciara Sheppard NP Jul 31, 2018 11:21
--- NOTE | 2018-07-31 11:41 | Diagnostic Imaging Report ---
Indication: Chronic low back pain and weakness Technique: Sagittal T1 and T2 fast spin echo, sagittal STIR, axial T1 and T2 fast spin-echo images of the lumbar spine Comparison: 08/17/2013, also lumbar radiograph 08/21/2017 Findings: There is anterior offset of L5 on S1. This is not evident on prior MRI, is to some extent evident on a CT scan of 01/25/2016, and is also evident on a lumbar spine radiograph of 10/21/2016. Prior and current studies demonstrate no evidence of L5 spondylolysis. There is mild degenerative disc narrowing at this level, also a new finding since the previous MRI. There is circumferential annular bulge at this level. This plus the alignment abnormality results in mild narrowing of the spinal canal at this level. The neural foramina are preserved. There is proliferative facet arthrosis at this level. This was also evident previously but has probably progressed There is slight anterior offset of L4 on L5, which has progressed slightly from the previous MRI, is similar to the prior plain radiograph. There is degenerative disc narrowing at this level which is also progressed slightly, with some high T2 signal within the disc. There is central posterior disc protrusion with a high intensity zone which appears similar to the previous exam. This may slightly compromises the right lateral recess. It does not significantly narrow the spinal canal. The neural foramina are preserved. There is progressive facet arthrosis at this level At the remaining disc levels, no significant disc bulge or protrusion, spinal stenosis, neural foraminal stenosis, or disc space narrowing. The remaining bony alignment is normal. The vertebral body heights are preserved. The vertebral body marrow signal is normal and unchanged on the T2-weighted and STIR images, is slightly decreased on the T1 weighted images compared to prior exam, likely indicating hematopoietic reconversion of the bone marrow the conus medullaris terminates at the L1 level. The included extraspinal soft tissues are unremarkable. Impression: Evidence of progressive degenerative change of the L5-S1 disc and bilateral facets. There is progressive anterior offset of L5 on S1, presumably related to the disc or facet degeneration. There is mild spinal stenosis at this level but no definite significant neural compromise Evidence of progressive degenerative change of the L4-5 disc and progressive bilateral facet arthrosis. Central disc protrusion with high intensity zone is stable, may result in mild optimize of the right lateral recess Other findings as noted
--- NOTE | 2018-07-31 11:46 | General Progress Note ---
Assessment/Plan Problem List: (1) Epistaxis ICD Codes: R04.0 - Epistaxis SNOMED: 046919583 (2) Dizzy ICD Codes: R42 - Dizziness and giddiness SNOMED: 144795517, 570525416 (3) HTN (hypertension) ICD Codes: I10 - Essential (primary) hypertension SNOMED: 13907794 (4) Anxiety ICD Codes: F41.9 - Anxiety disorder, unspecified SNOMED: 39985632 (5) Bleeding hemorrhoid ICD Codes: K64.9 - Unspecified hemorrhoids SNOMED: 06464068 (6) Anemia ICD Codes: D64.9 - Anemia SNOMED: 800234854 Status: unchanged Assessment/Plan ot pt diet eval gi heme ent cardio f/u cbc bmp am Subjective Constitutional: Reports: weakness Allergies: Coded Allergies: No Known Allergies (Unverified , 07/27/18) All Systems: reviewed and negative except above Subjective sl anxious in bed had nose bleed again Objective Last 24 Hour Vital Signs Date Time Temp Pulse Resp B/P (MAP) Pulse Ox O2 Delivery O2 Flow Rate FiO2 07/31/18 09:00 90 111/75 07/31/18 09:00 Room Air 07/31/18 08:00 87 07/31/18 08:00 97.2 90 18 111/75 (87) 97 07/31/18 04:00 97.5 99 21 128/78 (95) 100 07/31/18 04:00 88 07/31/18 00:00 98 07/31/18 00:00 97.5 99 20 128/74 (92) 97 07/30/18 22:43 120/74 (89) 94 07/30/18 22:37 99 07/30/18 21:00 Room Air 07/30/18 20:54 85 113/78 (90) 07/30/18 20:00 97.7 99 18 107/74 (85) 100 07/30/18 16:58 123/89 07/30/18 16:00 98.2 101 18 110/72 (85) 100 07/30/18 13:40 108/70 07/30/18 13:00 98.6 88 18 108/83 (91) 97 07/30/18 12:30 98.6 114 18 125/77 (93) 97 07/30/18 12:00 98.8 123 18 144/85 (104) 97 07/30/18 11:57 98.6 07/30/18 11:57 98.6 Intake and Output 07/30/18 07/31/18 18:59 06:59 Intake Total 994 ml Balance 994 ml Intake Oral 994 ml # Voids 5 1 Laboratory Tests 07/30/18 20:00: Stool Occult Blood [Pending] 07/31/18 05:05: White Blood Count 10.2, Red Blood Count 3.26L, Hemoglobin 8.9L, Hematocrit 26.7L , Mean Corpuscular Volume 82, Mean Corpuscular Hemoglobin 27.2, Mean Corpuscular Hemoglobin Concent 33.3, Red Cell Distribution Width 15.8H, Platelet Count 334, Mean Platelet Volume 5.4L, Neutrophils (%) (Auto) 73.0, Lymphocytes (%) (Auto) 19.9L, Monocytes (%) (Auto) 5.0, Eosinophils (%) (Auto) 1.6, Basophils (%) (Auto) 0.5, Sodium Level 142, Potassium Level 4.1, Chloride Level 107, Carbon Dioxide Level 26, Anion Gap 9, Blood Urea Nitrogen 13, Creatinine 0.6, Estimat Glomerular Filtration Rate > 60, Glucose Level 100, Calcium Level 9.2 Height (Feet): 5 Height (Inches): 1.00 Weight (Pounds): 156 General Appearance: alert EENT: normal ENT inspection Neck: normal alignment Cardiovascular: normal peripheral pulses, normal rate, regular rhythm Respiratory/Chest: chest wall non-tender, lungs clear, normal breath sounds Abdomen: normal bowel sounds, non tender, soft Extremities: normal inspection Edema: no edema noted Arm (L), no edema noted Arm (R), no edema noted Leg (L), no edema noted Leg (R), no edema noted Pedal (L), no edema noted Pedal (R), no edema noted Generalized Neurologic: responsive, motor weakness Skin: normal pigmentation, warm/dry Srikanth Oliva DO Jul 31, 2018 11:45
[2018-07-31 12:00] VITALS: BP 110/82
[2018-07-31] MEDS ORDERED: Simethicone 80mg tab ORAL PRN (12:00)
[2018-07-31] MEDS ORDERED: Mylanta II UD 30ml ORAL PRN (12:00)
[2018-07-31] MEDS ORDERED: traMADol 50mg tab ORAL PRN (12:00)
--- NOTE | 2018-07-31 12:58 | Pulmonology Progress Note ---
Assessment/Plan Problems: (1) Recurrent epistaxis (2) Anemia (3) COPD (chronic obstructive pulmonary disease) (4) Hepatitis C (5) Hiatal hernia with GERD (6) Back pain Assessment/Plan no new events ENT appreciated anemia w/u in progress symptomatic treatment dvt prophylaxis. dc planing Subjective ROS Limited/Unobtainable: No Constitutional: Reports: no symptoms HEENT: Repors: no symptoms Respiratory: Reports: no symptoms Allergies: Coded Allergies: No Known Allergies (Unverified , 07/27/18) Objective Last 24 Hour Vital Signs Date Time Temp Pulse Resp B/P (MAP) Pulse Ox O2 Delivery O2 Flow Rate FiO2 07/31/18 12:00 97.5 93 18 110/82 (91) 96 07/31/18 12:00 110/82 07/31/18 10:36 97.2 07/31/18 09:00 90 111/75 07/31/18 09:00 Room Air 07/31/18 08:00 87 07/31/18 08:00 97.2 90 18 111/75 (87) 97 07/31/18 04:00 97.5 99 21 128/78 (95) 100 07/31/18 04:00 88 07/31/18 00:00 98 07/31/18 00:00 97.5 99 20 128/74 (92) 97 07/30/18 22:43 120/74 (89) 94 07/30/18 22:37 99 07/30/18 21:00 Room Air 07/30/18 20:54 85 113/78 (90) 07/30/18 20:00 97.7 99 18 107/74 (85) 100 07/30/18 16:58 123/89 07/30/18 16:00 98.2 101 18 110/72 (85) 100 07/30/18 13:40 108/70 07/30/18 13:00 98.6 88 18 108/83 (91) 97 Intake and Output 07/30/18 07/31/18 18:59 06:59 Intake Total 994 ml Balance 994 ml Intake Oral 994 ml # Voids 5 1 General Appearance: WD/WN HEENT: normocephalic Respiratory/Chest: chest wall non-tender, lungs clear Cardiovascular: normal peripheral pulses, normal rate Abdomen: normal bowel sounds, soft, non tender Genitourinary: normal external genitalia Extremities: no cyanosis 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, oriented x 3 Lymphatic: no groin adenopathy Laboratory Tests 07/30/18 20:00: Stool Occult Blood Positive 07/31/18 05:05: White Blood Count 10.2, Red Blood Count 3.26L, Hemoglobin 8.9L, Hematocrit 26.7L , Mean Corpuscular Volume 82, Mean Corpuscular Hemoglobin 27.2, Mean Corpuscular Hemoglobin Concent 33.3, Red Cell Distribution Width 15.8H, Platelet Count 334, Mean Platelet Volume 5.4L, Neutrophils (%) (Auto) 73.0, Lymphocytes (%) (Auto) 19.9L, Monocytes (%) (Auto) 5.0, Eosinophils (%) (Auto) 1.6, Basophils (%) (Auto) 0.5, Sodium Level 142, Potassium Level 4.1, Chloride Level 107, Carbon Dioxide Level 26, Anion Gap 9, Blood Urea Nitrogen 13, Creatinine 0.6, Estimat Glomerular Filtration Rate > 60, Glucose Level 100, Calcium Level 9.2 Current Medications Medications (Trade) Dose Ordered Sig/Primo Route PRN Reason Start Time Stop Time Status Last Admin Dose Admin Acetaminophen (Tylenol) 650 mg Q4H PRN ORAL fever (T>100.5F) 07/31/18 13:30 08/26/18 17:24 Acetaminophen/ Hydrocodone Bitart ([place] 10/325) 1 tab Q6H PRN ORAL For Moderate Pain (4-6) 07/31/18 17:45 08/03/18 17:30 Al Hydroxide/Mg Hydroxide (Mylanta II) 30 ml Q6H PRN ORAL dyspepsia 07/31/18 12:00 08/26/18 11:59 Amlodipine Besylate (Norvasc) 10 mg DAILY ORAL 08/01/18 09:00 08/27/18 08:59 Chlorhexidine Gluconate ([place]orraine-Hex 2%) 1 applic DAILY@1999 TOPIC 07/31/18 20:00 08/26/18 19:59 Clonidine HCl (Catapres Tab) 0.1 mg EVERY 6 HOURS ORAL 07/31/18 12:00 08/29/18 12:59 Cyclobenzaprine HCl (Flexeril) 10 mg EVERY 12 HOURS ORAL 07/31/18 21:00 08/29/18 20:59 Cyclobenzaprine HCl (Flexeril) 10 mg TIDPRN PRN ORAL Muscle Spasm 07/31/18 13:00 08/29/18 12:59 Dextrose (Dextrose 50%) 25 ml Q30M PRN IV Hypoglycemia 07/31/18 12:00 08/26/18 17:15 Dextrose (Dextrose 50%) 50 ml Q30M PRN IV hypoglycemia 07/31/18 12:00 08/26/18 17:29 Fluoxetine HCl (PROzac) 40 mg DAILY ORAL 08/01/18 09:00 08/27/18 08:59 Gabapentin (Neurontin) 300 mg THREE TIMES A DAY ORAL 07/31/18 13:00 08/27/18 17:59 Hydrocortisone (Anusol HC) 1 applic TWICE A DAY RECTAL 07/31/18 18:00 08/27/18 17:59 Hydroxyzine HCl (Atarax) 25 mg Q6H PRN ORAL For Anxiety 07/31/18 17:15 08/27/18 17:14 Iron Sucrose 100 mg/Sodium Chloride 60 ml @ 240 mls/hr BEDTIME IV 07/31/18 21:00 08/02/18 21:14 Lorazepam (Ativan 2mg/ml 1ml) 0.5 mg Q4H PRN IV For Anxiety 07/31/18 12:00 08/03/18 11:59 Morphine Sulfate (Morphine Sulfate) 1 mg Q4H PRN IVP For Severe Pain (7-10) 07/31/18 12:00 08/03/18 11:59 Ondansetron HCl (Zofran) 4 mg Q6H PRN IVP Nausea & Vomiting 07/31/18 12:00 08/26/18 11:59 Patient Own Medication (Patient's Own Med) 1 ea DAILY ORAL 08/01/18 09:00 08/31/18 08:59 Polyethylene Glycol (Miralax) 17 gm HSPRN PRN ORAL Constipation 07/31/18 21:00 08/26/18 20:59 Simethicone (Mylicon) 80 mg QIDPRN PRN ORAL GAS PAIN 07/31/18 12:00 08/27/18 11:59 Tramadol HCl (Ultram) 50 mg Q6H PRN ORAL For Mild Pain(1-3) 07/31/18 12:00 08/03/18 11:59 Zolpidem Tartrate (Ambien) 5 mg HSPRN PRN ORAL Insomnia 07/31/18 21:00 08/03/18 20:59 Sharron Belle MD Jul 31, 2018 12:58
[2018-07-31] MEDS ORDERED: Cyclobenzaprine 10mg Tab ORAL PRN (13:00)
[2018-07-31 16:00] VITALS: BP 100/62
--- NOTE | 2018-07-31 16:13 | Neurology Progress Note ---
Interim History Interim History Interim History Ms. Gutierrez continues to have severe low back pain radiating into the left leg and in addition left hamstring spasms. She is still bleeding form her left nostril. She denies any new neurologic symptoms. She did get her MRI earlier. Review of Systems Neuro Review of Systems Benign. Objective Physical Exam Last Vital Signs Date Time Temp Pulse Resp B/P (MAP) Pulse Ox O2 Delivery O2 Flow Rate FiO2 07/31/18 12:00 97.5 93 18 110/82 (91) 96 07/31/18 09:00 Room Air Laboratory Tests Test 07/30/18 20:00 07/31/18 05:05 Stool Occult Blood Positive (NEGATIVE) White Blood Count 10.2 K/UL (4.8-10.8) Red Blood Count 3.26 M/UL (4.20-5.40) L Hemoglobin 8.9 G/DL (12.0-16.0) L Hematocrit 26.7 % (37.0-47.0) L Mean Corpuscular Volume 82 FL (80-99) Mean Corpuscular Hemoglobin 27.2 PG (27.0-31.0) Mean Corpuscular Hemoglobin Concent 33.3 G/DL (32.0-36.0) Red Cell Distribution Width 15.8 % (11.6-14.8) H Platelet Count 334 K/UL (150-450) Mean Platelet Volume 5.4 FL (6.5-10.1) L Neutrophils (%) (Auto) 73.0 % (45.0-75.0) Lymphocytes (%) (Auto) 19.9 % (20.0-45.0) L Monocytes (%) (Auto) 5.0 % (1.0-10.0) Eosinophils (%) (Auto) 1.6 % (0.0-3.0) Basophils (%) (Auto) 0.5 % (0.0-2.0) Sodium Level 142 MMOL/L (136-145) Potassium Level 4.1 MMOL/L (3.5-5.1) Chloride Level 107 MMOL/L (98-107) Carbon Dioxide Level 26 MMOL/L (21-32) Anion Gap 9 mmol/L (5-15) Blood Urea Nitrogen 13 mg/dL (7-18) Creatinine 0.6 MG/DL (0.55-1.30) Estimat Glomerular Filtration Rate > 60 mL/min (>60) Glucose Level 100 MG/DL (74-106) Calcium Level 9.2 MG/DL (8.5-10.1) Neurologic Exam Objective PHYSICAL EXAMINATION: GENERAL: She is a well-developed, well-nourished, pleasant, but anxious black lady, lying in bed, in no acute distress. HEAD: Normocephalic and atraumatic. EENT: Examination benign. NECK: No neck rigidity was observed. NEUROLOGIC EXAMINATION: MENTAL STATUS EXAMINATION: She was awake and alert. She was oriented to person, place, and time. She was able to recall 3/3 words immediately, but could only remember 2/3 words in 1 minute and 3 minutes. She was able to remember Presidents, Trump and Obama, but could not remember Presidents prior to that. Her mathematical skills were minimally impaired. Her visuospatial function was also minimally impaired. SPEECH: She had no dysarthria. LANGUAGE: She had no aphasia. CRANIAL NERVE EXAMINATION: II: The visual lin were intact on confrontation testing. III, IV & : The external ocular movements were full and the pupils 3 mm in diameter, equal, round, regular, and reactive to light. V: She has normal facial sensations, and the temporales, masseters, and pterygoids functioned normally. VII: She had normal facial expressions and no facial asymmetry. VIII: She was able to hear well bilaterally and had no nystagmus. IX: The palate moved symmetrically on phonation. X: She had no hoarseness of voice. XI: The sternocleidomastoids and trapezii functioned normally. XII: The tongue was in the midline without any fasciculations or atrophy. MOTOR SYSTEM: The tone was normal in all four extremities. Examination of muscle mass revealed no focal wasting. Examination of power was exceedingly difficult to perform because of significant give-way weakness in all four extremities. The give-way weakness was significantly more marked in the lower extremities than in the upper extremities and the left lower extremity than the right lower extremity. She did have some true weakness in left ankle dorsiflexors and toe extensors. SENSORY EXAMINATION: She had intact sensations to pinprick and light touch. Other sensory modalities could not be tested accurately. REFLEXES: Trace+ and bilaterally symmetrical at the biceps, triceps, brachioradialis, and knees, 0 at both ankles. The plantar responses were flexor bilaterally. COORDINATION: She performed well on phrruk-se-hrew testing. She was unable to perform [id number]-[id number] testing. STANCE & GAIT: Could not be tested. Impression/Recommendations Diagnostic Impression 1. Ms. Meche Gutierrez is a 63-year-old, right-handed, black lady, who does have a past history of hypertension, hepatitis C, depression and anxiety, a low back injury in 2000 which has completely disabled her, and recently a nasal versus gastrointestinal bleed. Since she has been in the hospital, she has been complaining of significant low back pain radiating to the left lower extremity and in addition, left hamstring spasms. 2. She continues to have severe low back pain radiating into the left leg and in addition left hamstring spasms. She is still bleeding form her left nostril. She denies any new neurologic symptoms. She did get her MRI earlier. 3. On neurological examination, at this time, she does have mild problems with memory, visuospatial function, and higher cognitive function. She also exhibits some generalized weakness most marked in the lower extremities more so on the left than on the right and predominantly in the left ankle dorsiflexors and toe extensors. She also has globally diminished reflexes with loss of ankle jerks. 4. The MRI of the LS spine revealed: - L5-S1: There is anterior offset. There is mild degenerative disc narrowing. There is circumferential annular disc bulge. The neural foramina are preserved. There is proliferative facet arthrosis. - L4-L5: There is slight anterior offset. There is degenerative disc narrowing with some high T2 signal within the disc. There is central posterior disc protrusion with a high intensity zone. There is slight compromise of the right lateral recess. There is no significant spinal canal stenosis. The neural foramina are preserved. - At the remaining disc levels, no significant disc bulge or protrusion, spinal stenosis, neural foraminal stenosis, or disc space narrowing is noted. 5. The patient's history and neurological examination are most compatible with left L5-S1 radiculopathy with ongoing hamstring spasms. Recommendations 1. Continue present management. 2. Continue Flexeril 10 mg q.12 hours around the clock rather than p.r.n. 3. Medrol 4 mg tid x 7 days. 4. Spine surgery opinion. Yassine Mixon M.D., M.S.P.H. YASSINE MIXON Jul 31, 2018 16:13
[2018-07-31 20:00] VITALS: BP 90/66
--- NOTE | 2018-07-31 20:00 | Consultation ---
DATE OF CONSULTATION: 07/31/2018 PAIN MANAGEMENT CONSULTATION CONSULTING PHYSICIAN: Jose G Jose M.D. REFERRING PHYSICIAN: Srikanth Oliva D.O. PHYSICIAN GRIEVANCE COORDINATOR: Ozzie Ibarra CHIEF COMPLAINT: Low back pain. HISTORY OF PRESENT ILLNESS: This is a 63-year-old female, who is being seen on the telemetry floor of [facility] for comprehensive pain management consultation. The patient is a known patient from prior admission now readmitted under the care of Dr. Oliva, complaining of weakness and anemia, being seen by relief charge nurse at this time for this issue, has been having low back pain which the patient reports is chronic, was also complaining on her last admission, has been seen by Dr. Eric Mixon neurologist and ordered for MRI of lumbar spine. At this time, the patient is on [place] 10/325 one tablet every 6 hours as needed for moderate pain and tramadol 50 mg every 6 hours as needed for mild pain, and morphine 1 mg IV every 4 hours as needed for severe pain. She reports that her pain has been tolerated well on the current medication regimen. She will be going for the MRI of the lumbar spine later today. We were consulted so that the patient would have adequate pain control while here in the hospital. REVIEW OF SYSTEMS: Denies rash, fever, chills, sweating, dizziness, drowsiness, blurred vision, sore throat, or change in weight. No nausea, vomiting, diarrhea, or blood in the urine. No dysuria. She is complaining of low back pain. PHYSICAL EXAMINATION: GENERAL: Alert, awake, and oriented. VITAL SIGNS: Blood pressure 111/75, heart rate is 90, oxygen saturation is 97%, respiratory rate is 18, and temperature is 97.3 degrees Fahrenheit. HEENT: PERRLA. NECK: Range of motion is full in all directions. No tenderness to paracervical muscles. No adenopathy. LUNGS: Decreased breath sounds bilaterally. HEART: Regular. ABDOMEN: Tenderness to palpation. BACK: Range of motion is decreased in flexion and extension. EXTREMITIES: Upper and lower extremity range of motion is decreased due to the patient's condition. No cyanosis. No clubbing. Sensory is reduced. Reflexes are not obtainable. No adenopathy. ASSESSMENT AND PLAN: This is a 63-year-old female with lumbar degenerative disease, lumbar herniated disc, lumbar radiculopathy, lumbar spondylosis. The patient will be continued on tramadol, morphine, and [place]. MRI of lumbar spine results pending. The patient was discussed with Dr. Jose and Dr. Jose concurred. We will follow the patient. Thank you very much for the courtesy of this consultation. Jose G Jose M.D. CRYSTAL Ibarra DR: Kelly JOB#: [id number] CC:
[2018-07-31] MEDS: Iron Sucrose 100 MG in NS 55 ML IV SCH (20:39)
[2018-07-31] MEDS: Dyna-Hex 2% Top Sol 2oz TOPIC SCH (20:39)
[2018-07-31] MEDS ORDERED: Miralax 17gm pkt ORAL PRN (21:00)
--- NOTE | 2018-07-31 21:30 | Progress Note ---
DATE: 07/31/2018 SUBJECTIVE: A 63-year-old female patient with anemia, but she has high levels of anxiety and depression, so her attending continues to request daily psychiatric consultation. I saw and assessed this patient in her room today. She does have some confusion, disorganized thought process, and mood lability, but mostly a lot of depression and anxiety while worrying about multiple things with intermittent panic attacks. MENTAL STATUS EXAMINATION: This is a 63-year-old female. Appearance is disheveled. Attitude, irritable and agitated. Affect, guarded and restricted. Intellect poor. Mood, depressed and anxious. Motor activity, psychomotor agitation. Attention span is poor. Orientation x3. Speech is low volume and slurred. Thought process, disorganized. Thought content, she has some paranoid delusions. Insight and judgment is poor. DIAGNOSIS: Major depressive disorder, mild, recurrent, without psychotic features. PLAN: Treat her with Prozac 40 mg daily, Ativan 0.5 mg every 4 hours p.r.n. anxiety or agitation, Neurontin 300 mg three times a day to help stabilize her mood and reduce anxiety. Also provided her with 20 minutes of cognitive behavioral therapy and during our cognitive behavioral therapy session today, I helped her identify automatic negative thoughts and helped her covert those negative thoughts to more positive thoughts to reduce depression, anxiety, and suicidality. That was 20 minutes of cognitive behavioral therapy. Chart was reviewed. Discussed with staff. Seen and assessed at bedside. Saroj Fernandez M.D. DR: RUBÉN JOB#: [id number] CC:
[2018-08-01] VITALS (7 sets, daily range): BP systolic 98–156; BP diastolic 64–85
--- NOTE | 2018-08-01 03:01 | Progress Note ---
DATE: 07/30/2018 NOTE: POOR AUDIO PSYCHOTHERAPY CONSULTATION PROGRESS NOTE TREATING ATTENDING PHYSICIAN: Srikanth Oliva D.O. SUBJECTIVE: The patient is a 63-year-old female patient. This patient has had feelings of hopelessness and depression nosebleed. She is feeling very hopeless and is also tearful about the nosebleed because she stated at this time the nose is bleeding very fast and it is difficult to control. The patient also has lots of anxiety as well. This clinician assessed this patient. . MENTAL STATUS EXAMINATION: Mood is anxious. Affect blunted. Thought process . Fair insight, judgment and impulse control. PLAN: The patient was provided with supportive psychotherapy coping skills. Continue with behavioral management. . This clinician has reviewed the patient's chart and discussed the treatment with treatment team. Poncho Morelos PsyD. DR: TAYLOR JOB#: [id number] CC:
[2018-08-01] MEDS: Morphine Sulfate 2mg/ml Inj IVP PRN (05:16)
[2018-08-01 07:17] LABS: ANION GAP 9 mmol/L (5-15); BLOOD UREA NITROGEN 13 mg/dL (7-18); CALCIUM 9.5 MG/DL (8.5-10.1); CARBON DIOXIDE 27 MMOL/L (21-32); CHLORIDE 105 MMOL/L (98-107); CREATININE 0.5 MG/DL (0.55-1.30); POTASSIUM 4.1 MMOL/L (3.5-5.1); SODIUM 141 MMOL/L (136-145)
--- NOTE | 2018-08-01 07:33 | Pulmonology Progress Note ---
Assessment/Plan Assessment/Plan ASSESSMENT anemia of iron deficiency duodenal ulcer disease lower GI bleeding due to bleeding hemorrhoids hypotension , probably defecation syncope ( followed by large bowel movement)- RESOLVED Cerebrovascular disease with history of CVA COPD Hepatitis C Lumbar DDD with radiculopathy and spondylosis GERD with hiatal hernia Recurrent epistaxis Major depressive disorder, recurrent, mild, without psychotic features PLAN OF CARE Tele Cardio follows s/p bolus hypotension likely defecation syncope ( after large bowel movement ) BP stable for now, started on CCB ECHO with pEF CT head -no acute intracranial pathology, but evidence of old lacunar infarct O2 titrate prn to keep pulse ox above 92% pulmonary toilet prn GI prophylaxis pain management , pain specialist follows MRI L-spine with progressive DDD L4-L5 bowel regimen GI follows patient with DUD on prior workup last EGD and colonoscopy earlier this year gastritis, large external hemorrhoids and diverticulosis stool OB 2 positive hemoglobin and hematocrit closely monitored regulatory law specialist follows anemia of iron deficiency, started on IV Venofer peripheral smear no evidence of hemolysis HH closely monitored with goal to keep hemoglobin above 7, received 1 u PRBC on IV Venofer /ferritin level 8 Anusol suppositories as ordered by GI hepatitis management as outpatient , on Harvani abd US -no acute findings GI prophylaxis ENT evaluated patient for recurrent epistaxis no epistaxis for now supportive care case discussed and evaluated by supervising physician Subjective Allergies: Coded Allergies: No Known Allergies (Unverified , 07/27/18) Subjective reports back pain no CP, no SOB remains ST 110-115 on tele BP stabilized Hgb 8.5 Objective Last 24 Hour Vital Signs Date Time Temp Pulse Resp B/P (MAP) Pulse Ox O2 Delivery O2 Flow Rate FiO2 08/01/18 05:17 98/64 08/01/18 04:00 75 08/01/18 04:00 98.0 102 20 98/64 (75) 95 08/01/18 00:00 98.5 88 20 100/70 (80) 96 08/01/18 00:00 83 08/01/18 00:00 100/70 07/31/18 21:00 Room Air 07/31/18 20:00 98.6 82 20 90/66 (74) 96 07/31/18 20:00 78 07/31/18 17:30 100/62 07/31/18 17:00 85 07/31/18 16:39 97.5 10/26/18 16:00 99.0 98 18 100/62 (75) 97 07/31/18 12:00 97.5 93 18 110/82 (91) 96 07/31/18 12:00 110/82 07/31/18 12:00 91 07/31/18 10:36 97.2 07/31/18 09:00 90 111/75 07/31/18 09:00 Room Air 07/31/18 08:00 87 07/31/18 08:00 97.2 90 18 111/75 (87) 97 Intake and Output 07/31/18 08/01/18 19:00 07:00 Intake Total 360 ml Balance 360 ml Intake Oral 360 ml # Voids 3 3 General Appearance: no acute distress HEENT: normocephalic, atraumatic, anicteric, mucous membranes moist Respiratory/Chest: lungs clear, no respiratory distress Cardiovascular: regular rhythm, tachycardia - ST on tele , other - LUE PICC Abdomen: normal bowel sounds, soft, non tender, non distended Extremities: no edema Neurologic/Psychiatric: alert, responsive Musculoskeletal: normal muscle bulk Laboratory Tests 08/01/18 06:20: White Blood Count [Pending], Red Blood Count [Pending], Hemoglobin [Pending], Hematocrit [Pending], Mean Corpuscular Volume [Pending], Mean Corpuscular Hemoglobin [Pending], Mean Corpuscular Hemoglobin Concent [Pending], Red Cell Distribution Width [Pending], Platelet Count [Pending], Mean Platelet Volume [ Pending], Neutrophils (%) (Auto) [Pending], Lymphocytes (%) (Auto) [Pending], Monocytes (%) (Auto) [Pending], Eosinophils (%) (Auto) [Pending], Basophils (%) (Auto) [Pending], Sodium Level 141, Potassium Level 4.1, Chloride Level 105, Carbon Dioxide Level 27, Anion Gap 9, Blood Urea Nitrogen 13, Creatinine 0.5L, Estimat Glomerular Filtration Rate > 60, Glucose Level 90, Calcium Level 9.5 Current Medications Medications (Trade) Dose Ordered Sig/Primo Route PRN Reason Start Time Stop Time Status Last Admin Dose Admin Acetaminophen (Tylenol) 650 mg Q4H PRN ORAL fever (T>100.5F) 07/31/18 13:30 08/26/18 17:24 Acetaminophen/ Hydrocodone Bitart ([place] [address]) 1 tab Q6H PRN ORAL For Moderate Pain (4-6) 07/31/18 17:45 08/03/18 17:30 Al Hydroxide/Mg Hydroxide (Mylanta II) 30 ml Q6H PRN ORAL dyspepsia 07/31/18 12:00 08/26/18 11:59 Amlodipine Besylate (Norvasc) 10 mg DAILY ORAL 08/01/18 09:00 08/27/18 08:59 Chlorhexidine Gluconate ([place]orraine-Hex 2%) 1 applic DAILY@2000 TOPIC 07/31/18 20:00 08/26/18 19:59 07/31/18 20:39 Clonidine HCl (Catapres Tab) 0.1 mg EVERY 6 HOURS ORAL 07/31/18 12:00 08/29/18 12:59 Cyclobenzaprine HCl (Flexeril) 10 mg EVERY 12 HOURS ORAL 07/31/18 21:00 08/29/18 20:59 07/31/18 20:40 Cyclobenzaprine HCl (Flexeril) 10 mg TIDPRN PRN ORAL Muscle Spasm 07/31/18 13:00 08/29/18 12:59 Dextrose (Dextrose 50%) 25 ml Q30M PRN IV Hypoglycemia 07/31/18 12:00 08/26/18 17:15 Dextrose (Dextrose 50%) 50 ml Q30M PRN IV hypoglycemia 07/31/18 12:00 08/26/18 17:29 Fluoxetine HCl (PROzac) 40 mg DAILY ORAL 08/01/18 09:00 08/27/18 08:59 Gabapentin (Neurontin) 300 mg THREE TIMES A DAY ORAL 07/31/18 13:00 08/27/18 17:59 07/31/18 18:07 Hydrocortisone (Anusol HC) 1 applic TWICE A DAY RECTAL 07/31/18 18:00 08/27/18 17:59 07/31/18 18:07 Hydroxyzine HCl (Atarax) 25 mg Q6H PRN ORAL For Anxiety 07/31/18 17:15 08/27/18 17:14 Iron Sucrose 100 mg/Sodium Chloride 60 ml @ 240 mls/hr BEDTIME IV 07/31/18 21:00 08/02/18 21:14 07/31/18 20:39 Lorazepam (Ativan 2mg/ml 1ml) 0.5 mg Q4H PRN IV For Anxiety 07/31/18 12:00 08/03/18 11:59 Methylprednisolone (Medrol) 4 mg TIPC ORAL 07/31/18 18:00 08/07/18 13:01 07/31/18 18:07 Morphine Sulfate (Morphine Sulfate) 1 mg Q4H PRN IVP For Severe Pain (7-10) 07/31/18 12:00 08/03/18 11:59 08/01/18 05:16 Ondansetron HCl (Zofran) 4 mg Q6H PRN IVP Nausea & Vomiting 07/31/18 12:00 08/26/18 11:59 Patient Own Medication (Patient's Own Med) 1 ea DAILY ORAL 08/01/18 09:00 08/31/18 08:59 Polyethylene Glycol (Miralax) 17 gm HSPRN PRN ORAL Constipation 07/31/18 21:00 08/26/18 20:59 Simethicone (Mylicon) 80 mg QIDPRN PRN ORAL GAS PAIN 07/31/18 12:00 08/27/18 11:59 Tramadol HCl (Ultram) 50 mg Q6H PRN ORAL For Mild Pain(1-3) 07/31/18 12:00 08/03/18 11:59 Zolpidem Tartrate (Ambien) 5 mg HSPRN PRN ORAL Insomnia 07/31/18 21:00 08/03/18 20:59 Chantal Chaudhry NP Aug 01, 2018 07:33
[2018-08-01 07:38] LABS: BASOPHILS % (AUTO) 0.6 % (0.0-2.0); EOSINOPHILS % (AUTO) 1.6 % (0.0-3.0); HEMATOCRIT 26.5 % (37.0-47.0); HEMOGLOBIN 8.6 G/DL (12.0-16.0); LYMPHOCYTES % (AUTO) 26.3 % (20.0-45.0); MEAN CORPUSCULAR VOLUME 82 FL (80-99); MONOCYTES % (AUTO) 6.4 % (1.0-10.0); NEUTROPHILS % (AUTO) 65.1 % (45.0-75.0); PLATELET COUNT 350 K/UL (150-450); RED BLOOD COUNT 3.24 M/UL (4.20-5.40); RED CELL DISTRIBUTION WIDTH 16.5 % (11.6-14.8); WHITE BLOOD COUNT 10.8 K/UL (4.8-10.8)
--- NOTE | 2018-08-01 08:05 | General Progress Note ---
Assessment/Plan Problem List: (1) Epistaxis ICD Codes: R04.0 - Epistaxis SNOMED: 831331075 (2) Dizzy ICD Codes: R42 - Dizziness and giddiness SNOMED: 779055800, 345186912 (3) HTN (hypertension) ICD Codes: I10 - Essential (primary) hypertension SNOMED: 18876765 (4) Anxiety ICD Codes: F41.9 - Anxiety disorder, unspecified SNOMED: 97935573 (5) Bleeding hemorrhoid ICD Codes: K64.9 - Unspecified hemorrhoids SNOMED: 01770963 (6) Anemia ICD Codes: D64.9 - Anemia SNOMED: 972448104 Status: stable, progressing Assessment/Plan ot pt diet eval gi heme ent cardio f/u cbc bmp am dc plan if clear Subjective Constitutional: Reports: weakness Allergies: Coded Allergies: No Known Allergies (Unverified , 07/27/18) All Systems: reviewed and negative except above Subjective sl anxious in bed Objective Last 24 Hour Vital Signs Date Time Temp Pulse Resp B/P (MAP) Pulse Ox O2 Delivery O2 Flow Rate FiO2 08/01/18 05:17 98/64 08/01/18 04:00 75 08/01/18 04:00 98.0 102 20 98/64 (75) 95 08/01/18 00:00 98.5 88 20 100/70 (80) 96 08/01/18 00:00 83 08/01/18 00:00 100/70 07/31/18 21:00 Room Air 07/31/18 20:00 98.6 82 20 90/66 (74) 96 07/31/18 20:00 78 07/31/18 17:30 100/62 07/31/18 17:00 85 07/31/18 16:39 97.5 07/31/18 16:00 99.0 98 18 100/62 (75) 97 07/31/18 12:00 97.5 93 18 110/82 (91) 96 07/31/18 12:00 110/82 07/31/18 12:00 91 07/31/18 10:36 97.2 07/31/18 09:00 90 111/75 07/31/18 09:00 Room Air Intake and Output 07/31/18 08/01/18 19:00 07:00 Intake Total 360 ml Balance 360 ml Intake Oral 360 ml # Voids 3 3 Laboratory Tests 08/01/18 06:20: White Blood Count 10.8, Red Blood Count 3.24L, Hemoglobin 8.6L, Hematocrit 26.5L , Mean Corpuscular Volume 82, Mean Corpuscular Hemoglobin 26.5L, Mean Corpuscular Hemoglobin Concent 32.4, Red Cell Distribution Width 16.5H, Platelet Count 350, Mean Platelet Volume 5.7L, Neutrophils (%) (Auto) 65.1, Lymphocytes (%) (Auto) 26.3, Monocytes (%) (Auto) 6.4, Eosinophils (%) (Auto) 1.6, Basophils (%) (Auto) 0.6, Sodium Level 141, Potassium Level 4.1, Chloride Level 105, Carbon Dioxide Level 27, Anion Gap 9, Blood Urea Nitrogen 13, Creatinine 0.5L, Estimat Glomerular Filtration Rate > 60, Glucose Level 90, Calcium Level 9.5 Height (Feet): 5 Height (Inches): 1.00 Weight (Pounds): 156 General Appearance: alert EENT: normal ENT inspection Neck: normal alignment Cardiovascular: normal peripheral pulses, normal rate, regular rhythm Respiratory/Chest: chest wall non-tender, lungs clear, normal breath sounds Abdomen: normal bowel sounds, non tender, soft Extremities: normal inspection Edema: no edema noted Arm (L), no edema noted Arm (R), no edema noted Leg (L), no edema noted Leg (R), no edema noted Pedal (L), no edema noted Pedal (R), no edema noted Generalized Neurologic: responsive, motor weakness Skin: normal pigmentation, warm/dry Srikanth Oliva DO Aug 01, 2018 08:05
[2018-08-01] MEDS: Cyclobenzaprine 10mg Tab ORAL SCH ×2 (08:31→20:19)
--- NOTE | 2018-08-01 08:33 | General Progress Note ---
Assessment/Plan Assessment/Plan Problems: (1) Duodenal ulcer disease ICD Codes: K26.9 - Duodenal ulcer, unsp as acute or chronic, w/o hemor or perf SNOMED: 73541754 (2) Anemia ICD Codes: D64.9 - Anemia SNOMED: 399237344 (3) Acute abdominal pain ICD Codes: R10.0 - Acute abdomen SNOMED: 379113572 (4) Lower GI bleed ICD Codes: K92.2 - Gastrointestinal hemorrhage, unspecified SNOMED: 51490338 (5) Hepatitis C ICD Codes: B19.20 - Unspecified viral hepatitis C without hepatic coma SNOMED: 50906247 (6) Bleeding hemorrhoid ICD Codes: K64.9 - Unspecified hemorrhoids SNOMED: 95457172 Status: unchanged Status Narrative Discussed with Dr. Mcgraw. Assessment/Plan 2012 EGD/colonoscopy >> duodenal AVMs 2014 EGD >> DU s/p EGD/colonoscopy 04/29/2018 SUMMARY OF FINDINGS: 1. Gastritis, status post biopsy. 2. Diverticulosis. 3. Large external hemorrhoids. Currently on Harvoni for Hep C treatment OB stool r/o GI bleed, positive transferred to [facility], had episode of severe epistaxis Anusol HC BID monitor H&H, prn transfusions bowel regime ppi fu labs simethicone prn Subjective ROS Limited/Unobtainable: Yes Allergies: Coded Allergies: No Known Allergies (Unverified , 07/27/18) Subjective no event Objective Last 24 Hour Vital Signs Date Time Temp Pulse Resp B/P (MAP) Pulse Ox O2 Delivery O2 Flow Rate FiO2 08/01/18 08:00 98.0 115 20 156/85 (108) 99 08/01/18 05:17 98/64 08/01/18 04:00 75 08/01/18 04:00 98.0 102 20 98/64 (75) 95 08/01/18 00:00 98.5 88 20 100/70 (80) 96 08/01/18 00:00 83 08/01/18 00:00 100/70 07/31/18 21:00 Room Air 07/31/18 20:00 98.6 82 20 90/66 (74) 96 07/31/18 20:00 78 07/31/18 17:30 100/62 10/26/18 17:00 85 07/31/18 16:39 97.5 07/31/18 16:00 99.0 98 18 100/62 (75) 97 07/31/18 12:00 97.5 93 18 110/82 (91) 96 07/31/18 12:00 110/82 07/31/18 12:00 91 07/31/18 10:36 97.2 07/31/18 09:00 90 111/75 07/31/18 09:00 Room Air Intake and Output 07/31/18 08/01/18 19:00 07:00 Intake Total 360 ml Balance 360 ml Intake Oral 360 ml # Voids 3 3 Laboratory Tests 08/01/18 06:20: White Blood Count 10.8, Red Blood Count 3.24L, Hemoglobin 8.6L, Hematocrit 26.5L , Mean Corpuscular Volume 82, Mean Corpuscular Hemoglobin 26.5L, Mean Corpuscular Hemoglobin Concent 32.4, Red Cell Distribution Width 16.5H, Platelet Count 350, Mean Platelet Volume 5.7L, Neutrophils (%) (Auto) 65.1, Lymphocytes (%) (Auto) 26.3, Monocytes (%) (Auto) 6.4, Eosinophils (%) (Auto) 1.6, Basophils (%) (Auto) 0.6, Sodium Level 141, Potassium Level 4.1, Chloride Level 105, Carbon Dioxide Level 27, Anion Gap 9, Blood Urea Nitrogen 13, Creatinine 0.5L, Estimat Glomerular Filtration Rate > 60, Glucose Level 90, Calcium Level 9.5 Height (Feet): 5 Height (Inches): 1.00 Weight (Pounds): 156 General Appearance: no apparent distress EENT: normal ENT inspection Neck: supple Cardiovascular: normal rate Respiratory/Chest: decreased breath sounds Abdomen: normal bowel sounds, non tender, soft Extremities: non-tender Darrin Mcgraw MD Aug 01, 2018 08:33
[2018-08-01] MEDS: HARVONI ORAL SCH (08:38)
[2018-08-01] MEDS ORDERED: HARVONI ORAL SCH (09:00)
[2018-08-01] MEDS: LORazepam Inj 2mg/ml 1ml IV PRN ×2 (10:29→20:07)
--- NOTE | 2018-08-01 12:00 | Progress Note ---
DATE: 08/01/2018 SUBJECTIVE: The patient is a 63-year-old female patient with anemia high levels of depression, anxiety, and mood lability worsened by stress of her medical illness. That is why, her attending physician has requested daily psychiatric consultation. MENTAL STATUS EXAMINATION: This patient is a 63-year-old female patient. Appearance is disheveled. Attitude, irritable and agitated. Affect, guarded and restricted. Intellect poor. Mood is depressed and anxious. Motor activity, psychomotor agitation. Attention span is poor. Orientation x2. Speech is pressured. Thought process, disorganized and illogical. Thought content, auditory hallucinations and paranoid delusions. Insight and judgment is poor. DIAGNOSIS: Major depressive disorder, mild, recurrent, without psychotic features. PLAN: Treat her with Prozac 40 mg daily, Ativan 0.5 mg every 4 hours p.r.n. anxiety and agitation. Provided 20 minutes of cognitive behavioral therapy to help her identify automatic negative thoughts and help to her convert those negative thoughts to more positive thinking to reduce depression, anxiety, and suicidality. She will continue to be followed by Psychiatry. A 20 minutes of cognitive behavioral therapy provided. Chart reviewed. Discussed with staff. Seen and assessed in her room. Saroj Fernandez M.D. DR: STEPHANIE JOB#: [id number] CC:
--- NOTE | 2018-08-01 14:39 | Neurology Progress Note ---
Interim History Interim History Interim History Ms. Gutierrez continues to complain of severe low back pain radiating into the left leg and in addition left hamstring spasms. She however looks more comfortable today. She is not bleeding form her nose today. She denies any new neurologic symptoms. Review of Systems Neuro Review of Systems Benign. Objective Physical Exam Last Vital Signs Date Time Temp Pulse Resp B/P (MAP) Pulse Ox O2 Delivery O2 Flow Rate FiO2 08/01/18 12:37 109/68 08/01/18 12:00 98.6 103 20 99 08/01/18 09:00 Room Air Laboratory Tests Test 08/01/18 06:20 White Blood Count 10.8 K/UL (4.8-10.8) Red Blood Count 3.24 M/UL (4.20-5.40) L Hemoglobin 8.6 G/DL (12.0-16.0) L Hematocrit 26.5 % (37.0-47.0) L Mean Corpuscular Volume 82 FL (80-99) Mean Corpuscular Hemoglobin 26.5 PG (27.0-31.0) L Mean Corpuscular Hemoglobin Concent 32.4 G/DL (32.0-36.0) Red Cell Distribution Width 16.5 % (11.6-14.8) H Platelet Count 350 K/UL (150-450) Mean Platelet Volume 5.7 FL (6.5-10.1) L Neutrophils (%) (Auto) 65.1 % (45.0-75.0) Lymphocytes (%) (Auto) 26.3 % (20.0-45.0) Monocytes (%) (Auto) 6.4 % (1.0-10.0) Eosinophils (%) (Auto) 1.6 % (0.0-3.0) Basophils (%) (Auto) 0.6 % (0.0-2.0) Sodium Level 141 MMOL/L (136-145) Potassium Level 4.1 MMOL/L (3.5-5.1) Chloride Level 105 MMOL/L (98-107) Carbon Dioxide Level 27 MMOL/L (21-32) Anion Gap 9 mmol/L (5-15) Blood Urea Nitrogen 13 mg/dL (7-18) Creatinine 0.5 MG/DL (0.55-1.30) L Estimat Glomerular Filtration Rate > 60 mL/min (>60) Glucose Level 90 MG/DL (74-106) Calcium Level 9.5 MG/DL (8.5-10.1) Neurologic Exam Objective PHYSICAL EXAMINATION: GENERAL: She is a well-developed, well-nourished, pleasant, but anxious black lady, lying in bed, in no acute distress. HEAD: Normocephalic and atraumatic. EENT: Examination benign. NECK: No neck rigidity was observed. NEUROLOGIC EXAMINATION: MENTAL STATUS EXAMINATION: She was awake and alert. She was oriented to person, place, and time. She was able to recall 3/3 words immediately, but could only remember 2/3 words in 1 minute and 3 minutes. She was able to remember Presidents, Trump and Obama, but could not remember Presidents prior to that. Her mathematical skills were minimally impaired. Her visuospatial function was also minimally impaired. SPEECH: She had no dysarthria. LANGUAGE: She had no aphasia. CRANIAL NERVE EXAMINATION: II: The visual lin were intact on confrontation testing. III, IV & : The external ocular movements were full and the pupils 3 mm in diameter, equal, round, regular, and reactive to light. V: She has normal facial sensations, and the temporales, masseters, and pterygoids functioned normally. VII: She had normal facial expressions and no facial asymmetry. VIII: She was able to hear well bilaterally and had no nystagmus. IX: The palate moved symmetrically on phonation. X: She had no hoarseness of voice. XI: The sternocleidomastoids and trapezii functioned normally. XII: The tongue was in the midline without any fasciculations or atrophy. MOTOR SYSTEM: The tone was normal in all four extremities. Examination of muscle mass revealed no focal wasting. Examination of power was exceedingly difficult to perform because of significant give-way weakness in all four extremities. The give-way weakness was significantly more marked in the lower extremities than in the upper extremities and the left lower extremity than the right lower extremity. She did have some true weakness in left ankle dorsiflexors and toe extensors. SENSORY EXAMINATION: She had intact sensations to pinprick and light touch. Other sensory modalities could not be tested accurately. REFLEXES: Trace+ and bilaterally symmetrical at the biceps, triceps, brachioradialis, and knees, 0 at both ankles. The plantar responses were flexor bilaterally. COORDINATION: She performed well on [id number] testing. She was unable to perform [id number] testing. STANCE & GAIT: Could not be tested. Impression/Recommendations Diagnostic Impression 1. Ms. Meche Gutierrez is a 63-year-old, right-handed, black lady, who does have a past history of hypertension, hepatitis C, depression and anxiety, a low back injury in 2000 which has completely disabled her, and recently a nasal versus gastrointestinal bleed. Since she has been in the hospital, she has been complaining of significant low back pain radiating to the left lower extremity and in addition, left hamstring spasms. 2. She continues to complain of severe low back pain radiating into the left leg and in addition left hamstring spasms. She however looks more comfortable today. She is not bleeding form her nose today. She denies any new neurologic symptoms. 3. On neurological examination, at this time, she does have mild problems with memory, visuospatial function, and higher cognitive function. She also exhibits some generalized weakness most marked in the lower extremities more so on the left than on the right and predominantly in the left ankle dorsiflexors and toe extensors. She also has globally diminished reflexes with loss of ankle jerks. 4. The MRI of the LS spine revealed: - L5-S1: There is anterior offset. There is mild degenerative disc narrowing. There is circumferential annular disc bulge. The neural foramina are preserved. There is proliferative facet arthrosis. - L4-L5: There is slight anterior offset. There is degenerative disc narrowing with some high T2 signal within the disc. There is central posterior disc protrusion with a high intensity zone. There is slight compromise of the right lateral recess. There is no significant spinal canal stenosis. The neural foramina are preserved. - At the remaining disc levels, no significant disc bulge or protrusion, spinal stenosis, neural foraminal stenosis, or disc space narrowing is noted. 5. The patient's history and neurological examination are most compatible with left L5-S1 radiculopathy with ongoing hamstring spasms. She continues to complain of severe low back pain radiating into the left leg and in addition left hamstring spasms, she however looks more comfortable today. Recommendations 1. Continue present management. 2. Continue Flexeril 10 mg q.12 hours around the clock rather than p.r.n. 3. Medrol 4 mg tid x 7 days. 4. Spine surgery opinion. Yassine Mixon M.D., M.S.Gildardo. YASSINE MIXON Aug 01, 2018 14:39
--- NOTE | 2018-08-01 18:22 | General Progress Note ---
Assessment/Plan Status: stable Assessment/Plan # Anemia of iron deficiency. Ferritin 8! potentially related to GI bleed. recent EGD/colonoscopy performed earlier this year noted to have gastritis, diverticulosis and large external hemorrhoids. --> Anemia w/u has been reviewed. Will trend CBC daily. --> Peripheral smear has been reviewed, no evidence of hemolysis --> Hgb goal >7. Transfuse prn basis --> 07/28: IV iron x5 days has been started --> hemorrhoidal treatment outpatient --> Blood tx: 07/29, # Hep C. 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 --> Viral load of Hep C has been ordered. --> US Abd: No acute findings. --> Transfuse to plt goal > 20k if febrile, >10k if afebrile --> Currently on Harvoni for Hep C treatment # Lower GI bleed. GI is following, appreciate recs. --> No active bleeding. --> OB stool ++ --> simethicone prn # Bleeding hemorrhoid. --> patient on Anusol HC BID --> bowel regime GREATLY APPRECIATE CONSULTATION. Subjective Date patient seen: Aug 01, 2018 Hematologic/Lymphatic: Reports: anemia Allergies: Coded Allergies: No Known Allergies (Unverified , 07/27/18) Subjective No acute events. H/H stable. DC planning. Objective Last 24 Hour Vital Signs Date Time Temp Pulse Resp B/P (MAP) Pulse Ox O2 Delivery O2 Flow Rate FiO2 08/01/18 16:00 85 08/01/18 16:00 98.3 93 22 125/78 (94) 98 08/01/18 12:37 109/68 08/01/18 12:00 98.6 103 20 109/68 (82) 99 08/01/18 12:00 98 08/01/18 09:00 Room Air 08/01/18 08:32 115 156/85 08/01/18 08:00 98.0 115 20 156/85 (108) 99 08/01/18 08:00 104 08/01/18 05:17 98/64 08/01/18 04:00 75 08/01/18 04:00 98.0 102 20 98/64 (75) 95 08/01/18 00:00 98.5 88 20 100/70 (80) 96 08/01/18 00:00 83 08/01/18 00:00 100/70 07/31/18 21:00 Room Air 07/31/18 20:00 98.6 82 20 90/66 (74) 96 07/31/18 20:00 78 Intake and Output 07/31/18 08/01/18 19:00 07:00 Intake Total 360 ml Balance 360 ml Intake Oral 360 ml # Voids 3 3 Laboratory Tests 08/01/18 06:20: White Blood Count 10.8, Red Blood Count 3.24L, Hemoglobin 8.6L, Hematocrit 26.5L , Mean Corpuscular Volume 82, Mean Corpuscular Hemoglobin 26.5L, Mean Corpuscular Hemoglobin Concent 32.4, Red Cell Distribution Width 16.5H, Platelet Count 350, Mean Platelet Volume 5.7L, Neutrophils (%) (Auto) 65.1, Lymphocytes (%) (Auto) 26.3, Monocytes (%) (Auto) 6.4, Eosinophils (%) (Auto) 1.6, Basophils (%) (Auto) 0.6, Sodium Level 141, Potassium Level 4.1, Chloride Level 105, Carbon Dioxide Level 27, Anion Gap 9, Blood Urea Nitrogen 13, Creatinine 0.5L, Estimat Glomerular Filtration Rate > 60, Glucose Level 90, Calcium Level 9.5 Height (Feet): 5 Height (Inches): 1.00 Weight (Pounds): 156 General Appearance: no apparent distress EENT: PERRL/EOMI Neck: normal alignment Cardiovascular: normal peripheral pulses Respiratory/Chest: no respiratory distress Abdomen: normal bowel sounds Sarath Golden MD Aug 01, 2018 18:22
[2018-08-01] MEDS: Dyna-Hex 2% Top Sol 2oz TOPIC SCH (20:07)
[2018-08-01] MEDS: Iron Sucrose 100 MG in NS 55 ML IV SCH ×3 (20:18→21:54)
[2018-08-01] MEDS: HYDROcodone/Acetamin 10/325 tab ORAL PRN (21:21)
[2018-08-02] VITALS: BP 94/63
[2018-08-02] MEDS: Zolpidem 5mg tab ORAL PRN ×2 (00:29→23:31)
[2018-08-02] MEDS: Iron Sucrose 100 MG in NS 55 ML IV SCH ×2 (01:54→21:06)
[2018-08-02 04:00] VITALS: BP 109/76
[2018-08-02] MEDS: HYDROcodone/Acetamin 10/325 tab ORAL PRN (06:42)
[2018-08-02 07:55] LABS: BASOPHILS % (AUTO) 1.2 % (0.0-2.0); EOSINOPHILS % (AUTO) 0.8 % (0.0-3.0); HEMATOCRIT 25.7 % (37.0-47.0); HEMOGLOBIN 8.4 G/DL (12.0-16.0); LYMPHOCYTES % (AUTO) 27.4 % (20.0-45.0); MEAN CORPUSCULAR VOLUME 81 FL (80-99); NEUTROPHILS % (AUTO) 65.6 % (45.0-75.0); PLATELET COUNT 327 K/UL (150-450); RED BLOOD COUNT 3.17 M/UL (4.20-5.40); RED CELL DISTRIBUTION WIDTH 17.5 % (11.6-14.8); WHITE BLOOD COUNT 15.6 K/UL (4.8-10.8)
[2018-08-02 08:00] VITALS: BP 106/69
[2018-08-02 08:01] LABS: ANION GAP 8 mmol/L (5-15); BLOOD UREA NITROGEN 17 mg/dL (7-18); CALCIUM 9.3 MG/DL (8.5-10.1); CARBON DIOXIDE 26 MMOL/L (21-32); CHLORIDE 104 MMOL/L (98-107); CREATININE 0.6 MG/DL (0.55-1.30); POTASSIUM 3.7 MMOL/L (3.5-5.1); SODIUM 138 MMOL/L (136-145)
--- NOTE | 2018-08-02 08:09 | General Progress Note ---
Assessment/Plan Assessment/Plan Problems: (1) Duodenal ulcer disease ICD Codes: K26.9 - Duodenal ulcer, unsp as acute or chronic, w/o hemor or perf SNOMED: 69572414 (2) Anemia ICD Codes: D64.9 - Anemia SNOMED: 876309313 (3) Acute abdominal pain ICD Codes: R10.0 - Acute abdomen SNOMED: 101780891 (4) Lower GI bleed ICD Codes: K92.2 - Gastrointestinal hemorrhage, unspecified SNOMED: 62359739 (5) Hepatitis C ICD Codes: B19.20 - Unspecified viral hepatitis C without hepatic coma SNOMED: 36145872 (6) Bleeding hemorrhoid ICD Codes: K64.9 - Unspecified hemorrhoids SNOMED: 77541443 Status: unchanged Status Narrative Discussed with Dr. Mcgraw. Assessment/Plan 2012 EGD/colonoscopy >> duodenal AVMs 2014 EGD >> DU s/p EGD/colonoscopy 04/29/2018 SUMMARY OF FINDINGS: 1. Gastritis, status post biopsy. 2. Diverticulosis. 3. Large external hemorrhoids. Currently on Harvoni for Hep C treatment OB stool r/o GI bleed, positive transferred to [facility], had episode of severe epistaxis Anusol HC BID monitor H&H, prn transfusions bowel regime ppi fu labs simethicone prn add bentyl per patient request Subjective ROS Limited/Unobtainable: Yes Allergies: Coded Allergies: No Known Allergies (Unverified , 07/27/18) Subjective no event Objective Last 24 Hour Vital Signs Date Time Temp Pulse Resp B/P (MAP) Pulse Ox O2 Delivery O2 Flow Rate FiO2 08/02/18 04:00 98.2 79 18 109/76 (87) 95 08/02/18 04:00 71 08/02/18 00:00 98.2 80 20 94/63 (73) 97 08/02/18 00:00 94/63 08/01/18 23:36 97 08/01/18 21:15 147/77 (100) 08/01/18 21:00 Room Air 08/01/18 20:00 98.7 87 20 118/71 (87) 94 08/01/18 19:32 94 08/01/18 18:33 125/78 08/01/18 16:00 85 08/01/18 16:00 98.3 93 22 125/78 (94) 98 08/01/18 12:37 109/68 08/01/18 12:00 98.6 103 20 109/68 (82) 99 08/01/18 12:00 98 08/01/18 09:00 Room Air 08/01/18 08:32 115 156/85 Intake and Output 08/01/18 08/02/18 19:00 07:00 Intake Total 600 ml Balance 600 ml Intake Oral 600 ml # Voids 3 3 Laboratory Tests 08/02/18 07:30: White Blood Count 15.6H, Red Blood Count 3.17L, Hemoglobin 8.4L, Hematocrit 25.7L, Mean Corpuscular Volume 81, Mean Corpuscular Hemoglobin 26.5L, Mean Corpuscular Hemoglobin Concent 32.7, Red Cell Distribution Width 17.5H, Platelet Count 327, Mean Platelet Volume 5.3L, Neutrophils (%) (Auto) 65.6, Lymphocytes (%) (Auto) 27.4, Monocytes (%) (Auto) 5.0, Eosinophils (%) (Auto) 0.8, Basophils (%) (Auto) 1.2, Sodium Level 138, Potassium Level 3.7, Chloride Level 104, Carbon Dioxide Level 26, Anion Gap 8, Blood Urea Nitrogen 17, Creatinine 0.6, Estimat Glomerular Filtration Rate > 60, Glucose Level 87, Calcium Level 9.3 Height (Feet): 5 Height (Inches): 1.00 Weight (Pounds): 156 General Appearance: alert EENT: normal ENT inspection Neck: supple Cardiovascular: normal rate Respiratory/Chest: decreased breath sounds Abdomen: normal bowel sounds, non tender, soft Extremities: non-tender Darrin Mcgraw MD Aug 02, 2018 08:09
--- NOTE | 2018-08-02 08:20 | Pulmonology Progress Note ---
Assessment/Plan Assessment/Plan ASSESSMENT leukocytosis probably UTI anemia of iron deficiency duodenal ulcer disease lower GI bleeding due to bleeding hemorrhoids hypotension , probably defecation syncope ( followed by large bowel movement)- RESOLVED cerebrovascular disease with history of CVA COPD hepatitis C lumbar DDD with radiculopathy and spondylosis GERD with hiatal hernia recurrent epistaxis major depressive disorder, recurrent, mild, without psychotic features PLAN OF CARE tele panculture blood, urine, CXR start empiric abx after cx done ID eval cardio follows s/p initial bolus hypotension was likely defecation syncope ( after large bowel movement )- as per cardio BP was afterwards stable and pt started on CCB, however now BP on the low side, will decrease dose of Norvasc with holding parameters( hold if SBP below 130) gentle IVF ECHO with pEF CT head -no acute intracranial pathology, but evidence of old lacunar infarct O2 titrate prn to keep pulse ox above 92% pulmonary toilet prn GI prophylaxis pain management , pain specialist follows MRI L-spine with progressive DDD L4-L5 bowel regimen GI follows patient with DUD on prior workup last EGD and colonoscopy earlier this year gastritis, large external hemorrhoids and diverticulosis stool OB 2 positive hemoglobin and 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 anemia of iron deficiency, started on IV Venofer peripheral smear no evidence of hemolysis HH closely monitored with goal to keep hemoglobin above 7, received 1 u PRBC on IV Venofer /ferritin level 8 Anusol suppositories as ordered by GI hepatitis management as outpatient , on [facility] -no acute findings GI prophylaxis ENT evaluated patient for recurrent epistaxis no epistaxis for now supportive care case discussed and evaluated by supervising physician Subjective Allergies: Coded Allergies: No Known Allergies (Unverified , 07/27/18) Subjective leukocytosis this am, afebrile BP on the low side tachycardia resolved no CP, no SOB reports burning on urination Objective Last 24 Hour Vital Signs Date Time Temp Pulse Resp B/P (MAP) Pulse Ox O2 Delivery O2 Flow Rate FiO2 08/02/18 04:00 98.2 79 18 109/76 (87) 95 08/02/18 04:00 71 08/02/18 00:00 98.2 80 20 94/63 (73) 97 08/02/18 00:00 94/63 08/01/18 23:36 97 08/01/18 21:15 147/77 (100) 08/01/18 21:00 Room Air 08/01/18 20:00 98.7 87 20 118/71 (87) 94 08/01/18 19:32 94 08/01/18 18:33 125/78 08/01/18 16:00 85 08/01/18 16:00 98.3 93 22 125/78 (94) 98 08/01/18 12:37 109/68 08/01/18 12:00 98.6 103 20 109/68 (82) 99 08/01/18 12:00 98 08/01/18 09:00 Room Air 08/01/18 08:32 115 156/85 Intake and Output 08/01/18 08/02/18 19:00 07:00 Intake Total 600 ml Balance 600 ml Intake Oral 600 ml # Voids 3 3 Objective General Appearance: no acute distress HEENT: normocephalic, atraumatic, anicteric, mucous membranes moist Respiratory/Chest: lungs clear, no respiratory distress Cardiovascular: regular rhythm, tachycardia / ST on tele , LUE PICC Abdomen: normal bowel sounds, soft, non tender, non distended Extremities: no edema Neurologic/Psychiatric: alert, responsive Musculoskeletal: normal muscle bulk Laboratory Tests 08/02/18 07:30: White Blood Count 15.6H, Red Blood Count 3.17L, Hemoglobin 8.4L, Hematocrit 25.7L, Mean Corpuscular Volume 81, Mean Corpuscular Hemoglobin 26.5L, Mean Corpuscular Hemoglobin Concent 32.7, Red Cell Distribution Width 17.5H, Platelet Count 327, Mean Platelet Volume 5.3L, Neutrophils (%) (Auto) 65.6, Lymphocytes (%) (Auto) 27.4, Monocytes (%) (Auto) 5.0, Eosinophils (%) (Auto) 0.8, Basophils (%) (Auto) 1.2, Sodium Level 138, Potassium Level 3.7, Chloride Level 104, Carbon Dioxide Level 26, Anion Gap 8, Blood Urea Nitrogen 17, Creatinine 0.6, Estimat Glomerular Filtration Rate > 60, Glucose Level 87, Calcium Level 9.3 Current Medications Medications (Trade) Dose Ordered Sig/Primo Route PRN Reason Start Time Stop Time Status Last Admin Dose Admin Acetaminophen (Tylenol) 650 mg Q4H PRN ORAL fever (T>100.5F) 07/31/18 13:30 11/21/18 17:24 08/01/18 08:32 Acetaminophen/ Hydrocodone Bitart ([place] 10/325) 1 tab Q6H PRN ORAL For Moderate Pain (4-6) 07/31/18 17:45 08/03/18 17:30 08/02/18 06:42 Al Hydroxide/Mg Hydroxide (Mylanta II) 30 ml Q6H PRN ORAL dyspepsia 07/31/18 12:00 08/26/18 11:59 Amlodipine Besylate (Norvasc) 10 mg DAILY ORAL 08/01/18 09:00 08/27/18 08:59 08/01/18 08:32 Chlorhexidine Gluconate ([place]-Hex 2%) 1 applic DAILY@2000 TOPIC 07/31/18 20:00 08/26/18 19:59 08/01/18 20:07 Clonidine HCl (Catapres Tab) 0.1 mg EVERY 6 HOURS ORAL 07/31/18 12:00 08/29/18 12:59 08/01/18 18:33 Cyclobenzaprine HCl (Flexeril) 10 mg EVERY 12 HOURS ORAL 07/31/18 21:00 08/29/18 20:59 08/01/18 20:19 Cyclobenzaprine HCl (Flexeril) 10 mg TIDPRN PRN ORAL Muscle Spasm 07/31/18 13:00 08/29/18 12:59 Dextrose (Dextrose 50%) 25 ml Q30M PRN IV Hypoglycemia 07/31/18 12:00 08/26/18 17:15 Dextrose (Dextrose 50%) 50 ml Q30M PRN IV hypoglycemia 07/31/18 12:00 08/26/18 17:29 Dicyclomine HCl (Bentyl) 10 mg QIDPRN PRN ORAL Abdominal cramps 08/02/18 08:15 09/01/18 08:14 Fluoxetine HCl (PROzac) 40 mg DAILY ORAL 08/01/18 09:00 08/27/18 08:59 08/01/18 08:32 Gabapentin (Neurontin) 300 mg THREE TIMES A DAY ORAL 07/31/18 13:00 08/27/18 17:59 08/01/18 17:18 Hydrocortisone (Anusol HC) 1 applic TWICE A DAY RECTAL 07/31/18 18:00 08/27/18 17:59 07/31/18 18:07 Hydroxyzine HCl (Atarax) 25 mg Q6H PRN ORAL For Anxiety 07/31/18 17:15 08/27/18 17:14 Iron Sucrose 100 mg/Sodium Chloride 60 ml @ 240 mls/hr BEDTIME IV 07/31/18 21:00 08/02/18 21:14 07/31/18 20:39 Lorazepam (Ativan 2mg/ml 1ml) 0.5 mg Q4H PRN IV For Anxiety 07/31/18 12:00 08/03/18 11:59 08/01/18 20:07 Methylprednisolone (Medrol) 4 mg TIPC ORAL 07/31/18 18:00 08/07/18 13:01 08/01/18 17:18 Morphine Sulfate (Morphine Sulfate) 1 mg Q4H PRN IVP For Severe Pain (7-10) 07/31/18 12:00 08/03/18 11:59 08/01/18 05:16 Ondansetron HCl (Zofran) 4 mg Q6H PRN IVP Nausea & Vomiting 07/31/18 12:00 08/26/18 11:59 Patient Own Medication (Patient's Own Med) 1 ea DAILY ORAL 08/01/18 09:00 08/31/18 08:59 08/01/18 08:38 Polyethylene Glycol (Miralax) 17 gm HSPRN PRN ORAL Constipation 07/31/18 21:00 08/26/18 20:59 Simethicone (Mylicon) 80 mg QIDPRN PRN ORAL GAS PAIN 07/31/18 12:00 08/27/18 11:59 Tramadol HCl (Ultram) 50 mg Q6H PRN ORAL For Mild Pain(1-3) 07/31/18 12:00 08/03/18 11:59 Zolpidem Tartrate (Ambien) 5 mg HSPRN PRN ORAL Insomnia 07/31/18 21:00 08/03/18 20:59 08/02/18 00:29 Chantal Chaudhry NP Aug 02, 2018 08:20
--- NOTE | 2018-08-02 08:43 | General Progress Note ---
Assessment/Plan Problem List: (1) Epistaxis ICD Codes: R04.0 - Epistaxis SNOMED: 611229304 (2) Dizzy ICD Codes: R42 - Dizziness and giddiness SNOMED: 627666574, 691530593 (3) HTN (hypertension) ICD Codes: I10 - Essential (primary) hypertension SNOMED: 45650095 (4) Anxiety ICD Codes: F41.9 - Anxiety disorder, unspecified SNOMED: 52826832 (5) Bleeding hemorrhoid ICD Codes: K64.9 - Unspecified hemorrhoids SNOMED: 16419520 (6) Anemia ICD Codes: D64.9 - Anemia SNOMED: 341736121 Status: unchanged Assessment/Plan ot pt diet eval gi heme ent cardio f/u cbc bmp am dc plan if clear Subjective Constitutional: Reports: weakness Allergies: Coded Allergies: No Known Allergies (Unverified , 07/27/18) All Systems: reviewed and negative except above Subjective sl anxious in bed Objective Last 24 Hour Vital Signs Date Time Temp Pulse Resp B/P (MAP) Pulse Ox O2 Delivery O2 Flow Rate FiO2 08/02/18 04:00 98.2 79 18 109/76 (87) 95 08/02/18 04:00 71 08/02/18 00:00 98.2 80 20 94/63 (73) 97 08/02/18 00:00 94/63 08/01/18 23:36 97 08/01/18 21:15 147/77 (100) 08/01/18 21:00 Room Air 08/01/18 20:00 98.7 87 20 118/71 (87) 94 08/01/18 19:32 94 08/01/18 18:33 125/78 08/01/18 16:00 85 08/01/18 16:00 98.3 93 22 125/78 (94) 98 08/01/18 12:37 109/68 08/01/18 12:00 98.6 103 20 109/68 (82) 99 08/01/18 12:00 98 08/01/18 09:00 Room Air Intake and Output 08/01/18 08/02/18 19:00 07:00 Intake Total 600 ml Balance 600 ml Intake Oral 600 ml # Voids 3 3 Laboratory Tests 08/02/18 07:30: White Blood Count 15.6H, Red Blood Count 3.17L, Hemoglobin 8.4L, Hematocrit 25.7L, Mean Corpuscular Volume 81, Mean Corpuscular Hemoglobin 26.5L, Mean Corpuscular Hemoglobin Concent 32.7, Red Cell Distribution Width 17.5H, Platelet Count 327, Mean Platelet Volume 5.3L, Neutrophils (%) (Auto) 65.6, Lymphocytes (%) (Auto) 27.4, Monocytes (%) (Auto) 5.0, Eosinophils (%) (Auto) 0.8, Basophils (%) (Auto) 1.2, Sodium Level 138, Potassium Level 3.7, Chloride Level 104, Carbon Dioxide Level 26, Anion Gap 8, Blood Urea Nitrogen 17, Creatinine 0.6, Estimat Glomerular Filtration Rate > 60, Glucose Level 87, Calcium Level 9.3 Height (Feet): 5 Height (Inches): 1.00 Weight (Pounds): 156 General Appearance: alert EENT: normal ENT inspection Neck: normal alignment Cardiovascular: normal peripheral pulses, normal rate, regular rhythm Respiratory/Chest: chest wall non-tender, lungs clear, normal breath sounds Abdomen: normal bowel sounds, non tender, soft Extremities: normal inspection Edema: no edema noted Arm (L), no edema noted Arm (R), no edema noted Leg (L), no edema noted Leg (R), no edema noted Pedal (L), no edema noted Pedal (R), no edema noted Generalized Neurologic: responsive, motor weakness Skin: normal pigmentation, warm/dry Srikanth Oliva DO Aug 02, 2018 08:43
[2018-08-02] MEDS: Cyclobenzaprine 10mg Tab ORAL SCH ×2 (08:59→21:07)
[2018-08-02] MEDS: HARVONI ORAL SCH (09:00)
[2018-08-02] MEDS: Dicyclomine HCl 10mg/5ml oral soln ORAL PRN (09:00)
--- NOTE | 2018-08-02 09:10 | Diagnostic Imaging Report ---
EXAM: XR Chest, 1 View CLINICAL HISTORY: Shortness of breath TECHNIQUE: Frontal view of the chest. COMPARISON: Chest x-ray dated 11/16/17 FINDINGS: Lungs: Mild linear atelectasis in the lung bases, left greater than right. Mild pulmonary vascular congestion. The lungs are otherwise clear without focal consolidation. Pleural space: Unremarkable. The costophrenic angles are sharp. No visible pneumothorax. Heart: Unremarkable. No cardiomegaly. Mediastinum: Unremarkable. Bones/joints: Unremarkable. Tubes, lines and devices: EKG leads overlie the thorax. IMPRESSION: 1. Mild linear atelectasis in the lung bases, left greater than right. 2. Mild pulmonary vascular congestion.
--- NOTE | 2018-08-02 10:12 | General Progress Note ---
Assessment/Plan Assessment/Plan (1) Lumbar DDD (2) Lumbar Herniated disc (3) Lumbar Radiculopathy (4) Lumbar Spondylosis Patient to be continued on [place] and Morphine D/w Dr. Jose and he concurred. Subjective Date patient seen: Aug 02, 2018 Time patient seen: 09:45 - am Allergies: Coded Allergies: No Known Allergies (Unverified , 07/27/18) Subjective REVIEW OF SYSTEMS: Denies rash, fever, chills, sweating, dizziness, drowsiness, blurred vision, sore throat, or change in weight. No nausea, vomiting, diarrhea, or blood in the urine. No dysuria. She is complaining of low back pain. SUBJECTIVE: Patient is in bed and reports that pain is at a minimal level and reduced on the Morphine. MRI was reviewed. Objective Last 24 Hour Vital Signs Date Time Temp Pulse Resp B/P (MAP) Pulse Ox O2 Delivery O2 Flow Rate FiO2 08/02/18 08:59 71 109/76 08/02/18 04:00 98.2 79 18 109/76 (87) 95 08/02/18 04:00 71 08/02/18 00:00 98.2 80 20 94/63 (73) 97 08/02/18 00:00 94/63 08/01/18 23:36 97 08/01/18 21:15 147/77 (100) 08/01/18 21:00 Room Air 08/01/18 20:00 98.7 87 20 118/71 (87) 94 08/01/18 19:32 94 08/01/18 18:33 125/78 08/01/18 16:00 85 08/01/18 16:00 98.3 93 22 125/78 (94) 98 08/01/18 12:37 109/68 08/01/18 12:00 98.6 103 20 109/68 (82) 99 08/01/18 12:00 98 Intake and Output 08/01/18 08/02/18 19:00 07:00 Intake Total 600 ml Balance 600 ml Intake Oral 600 ml # Voids 3 3 Laboratory Tests 08/02/18 07:30: White Blood Count 15.6H, Red Blood Count 3.17L, Hemoglobin 8.4L, Hematocrit 25.7L, Mean Corpuscular Volume 81, Mean Corpuscular Hemoglobin 26.5L, Mean Corpuscular Hemoglobin Concent 32.7, Red Cell Distribution Width 17.5H, Platelet Count 327, Mean Platelet Volume 5.3L, Neutrophils (%) (Auto) 65.6, Lymphocytes (%) (Auto) 27.4, Monocytes (%) (Auto) 5.0, Eosinophils (%) (Auto) 0.8, Basophils (%) (Auto) 1.2, Sodium Level 138, Potassium Level 3.7, Chloride Level 104, Carbon Dioxide Level 26, Anion Gap 8, Blood Urea Nitrogen 17, Creatinine 0.6, Estimat Glomerular Filtration Rate > 60, Glucose Level 87, Calcium Level 9.3 Height (Feet): 5 Height (Inches): 1.00 Weight (Pounds): 156 Objective GENERAL: Alert, awake, and oriented. LUNGS: Decreased breath sounds bilaterally. HEART: Regular. ABDOMEN: Tenderness to palpation. BACK: Range of motion is decreased in flexion and extension. EXTREMITIES: No cyanosis. No clubbing. NEURO: No changes. Procedure: MRI L Spine no Contrast Indication: Chronic low back pain and weakness Technique: Sagittal T1 and T2 fast spin echo, sagittal STIR, axial T1 and T2 fast spin-echo images of the lumbar spine Comparison: 08/17/2013, also lumbar radiograph 08/21/2017 Findings: There is anterior offset of L5 on S1. This is not evident on prior MRI , is to some extent evident on a CT scan of 01/25/2016, and is also evident on a lumbar spine radiograph of 10/21/2016. Prior and current studies demonstrate no evidence of L5 spondylolysis. There is mild degenerative disc narrowing at this level, also a new finding since the previous MRI. There is circumferential annular bulge at this level. This plus the alignment abnormality results in mild narrowing of the spinal canal at this level. The neural foramina are preserved. There is proliferative facet arthrosis at this level. This was also evident previously but has probably progressed There is slight anterior offset of L4 on L5, which has progressed slightly from the previous MRI, is similar to the prior plain radiograph. There is degenerative disc narrowing at this level which is also progressed slightly, with some high T2 signal within the disc. There is central posterior disc protrusion with a high intensity zone which appears similar to the previous exam. This may slightly compromises the right lateral recess. It does not significantly narrow the spinal canal. The neural foramina are preserved. There is progressive facet arthrosis at this level At the remaining disc levels, no significant disc bulge or protrusion, spinal stenosis, neural foraminal stenosis, or disc space narrowing. The remaining bony alignment is normal. The vertebral body heights are preserved. The vertebral body marrow signal is normal and unchanged on the T2-weighted and STIR images, is slightly decreased on the T1 weighted images compared to prior exam, likely indicating hematopoietic reconversion of the bone marrow the conus medullaris terminates at the L1 level. Rico Avery Aug 02, 2018 10:12
[2018-08-02] MEDS: Cefepime HCl 1 GM in D5W 55 ML IVPB SCH ×2 (10:57→21:07)
[2018-08-02] MEDS ORDERED: Vancomycin 1.5 GM/D5W 250ML IVPB ONE (11:00)
[2018-08-02 11:20] LABS: APPEARANCE,URINE CLEAR; BILIRUBIN, URINE NEGATIVE (NEGATIVE); COLOR,URINE PALE YELLOW; GLUCOSE, URINE (UA) NEGATIVE (NEGATIVE); KETONES,URINE NEGATIVE (NEGATIVE); LEUKOCYTE ESTERASE ,URINE 1+ (NEGATIVE); NITRITE,URINE NEGATIVE (NEGATIVE); PH,URINE 6 (4.5-8.0); PROTEIN,URINE NEGATIVE (NEGATIVE); UROBILINOGEN,URINE NORMAL MG/DL (0.0-1.0)
[2018-08-02 12:00] VITALS: BP 110/71
--- NOTE | 2018-08-02 14:25 | Neurology Progress Note ---
Interim History Interim History Interim History Ms. Gutierrez feels "better." The low back pain radiating into the left leg and in addition left hamstring spasms are definitely better. She however looks much more comfortable today. She was able to walk with the PT yesterday. She is not bleeding form her nose today. She denies any new neurologic symptoms. Review of Systems Neuro Review of Systems Benign. Objective Physical Exam Last Vital Signs Date Time Temp Pulse Resp B/P (MAP) Pulse Ox O2 Delivery O2 Flow Rate FiO2 08/02/18 12:00 110/71 08/02/18 12:00 98.1 83 21 98 08/02/18 09:00 Room Air Laboratory Tests Test 08/02/18 07:30 08/02/18 11:09 White Blood Count 15.6 K/UL (4.8-10.8) H Red Blood Count 3.17 M/UL (4.20-5.40) L Hemoglobin 8.4 G/DL (12.0-16.0) L Hematocrit 25.7 % (37.0-47.0) L Mean Corpuscular Volume 81 FL (80-99) Mean Corpuscular Hemoglobin 26.5 PG (27.0-31.0) L Mean Corpuscular Hemoglobin Concent 32.7 G/DL (32.0-36.0) Red Cell Distribution Width 17.5 % (11.6-14.8) H Platelet Count 327 K/UL (150-450) Mean Platelet Volume 5.3 FL (6.5-10.1) L Neutrophils (%) (Auto) 65.6 % (45.0-75.0) Lymphocytes (%) (Auto) 27.4 % (20.0-45.0) Monocytes (%) (Auto) 5.0 % (1.0-10.0) Eosinophils (%) (Auto) 0.8 % (0.0-3.0) Basophils (%) (Auto) 1.2 % (0.0-2.0) Sodium Level 138 MMOL/L (136-145) Potassium Level 3.7 MMOL/L (3.5-5.1) Chloride Level 104 MMOL/L (98-107) Carbon Dioxide Level 26 MMOL/L (21-32) Anion Gap 8 mmol/L (5-15) Blood Urea Nitrogen 17 mg/dL (7-18) Creatinine 0.6 MG/DL (0.55-1.30) Estimat Glomerular Filtration Rate > 60 mL/min (>60) Glucose Level 87 MG/DL (74-106) Calcium Level 9.3 MG/DL (8.5-10.1) Urine Color Pale yellow Urine Appearance Clear Urine pH 6 (4.5-8.0) Urine Specific [place] 1.010 (1.005-1.035) Urine Protein Negative (NEGATIVE) Urine Glucose (UA) Negative (NEGATIVE) Urine Ketones Negative (NEGATIVE) Urine Blood Negative (NEGATIVE) Urine Nitrite Negative (NEGATIVE) Urine Bilirubin Negative (NEGATIVE) Urine Urobilinogen Normal MG/DL (0.0-1.0) Urine Leukocyte Esterase 1+ (NEGATIVE) H Urine RBC 0-2 /HPF (0 - 2) Urine WBC 5-10 /HPF (0 - 2) H Urine Squamous Epithelial Cells Moderate /LPF (NONE/OCC) H Urine Bacteria Few /HPF (NONE) Neurologic Exam Objective PHYSICAL EXAMINATION: GENERAL: She is a well-developed, well-nourished, pleasant, but anxious black lady, lying in bed, in no acute distress. HEAD: Normocephalic and atraumatic. EENT: Examination benign. NECK: No neck rigidity was observed. NEUROLOGIC EXAMINATION: MENTAL STATUS EXAMINATION: She was awake and alert. She was oriented to person, place, and time. She was able to recall 3/3 words immediately, but could only remember 2/3 words in 1 minute and 3 minutes. She was able to remember Presidents, Trump and Obama, but could not remember Presidents prior to that. Her mathematical skills were minimally impaired. Her visuospatial function was also minimally impaired. SPEECH: She had no dysarthria. LANGUAGE: She had no aphasia. CRANIAL NERVE EXAMINATION: II: The visual lin were intact on confrontation testing. III, IV & : The external ocular movements were full and the pupils 3 mm in diameter, equal, round, regular, and reactive to light. V: She has normal facial sensations, and the temporales, masseters, and pterygoids functioned normally. VII: She had normal facial expressions and no facial asymmetry. VIII: She was able to hear well bilaterally and had no nystagmus. IX: The palate moved symmetrically on phonation. X: She had no hoarseness of voice. XI: The sternocleidomastoids and trapezii functioned normally. XII: The tongue was in the midline without any fasciculations or atrophy. MOTOR SYSTEM: The tone was normal in all four extremities. Examination of muscle mass revealed no focal wasting. Examination of power was exceedingly difficult to perform because of significant give-way weakness in all four extremities. The give-way weakness was significantly more marked in the lower extremities than in the upper extremities and the left lower extremity than the right lower extremity. She did have some true weakness in left ankle dorsiflexors and toe extensors. SENSORY EXAMINATION: She had intact sensations to pinprick and light touch. Other sensory modalities could not be tested accurately. REFLEXES: Trace+ and bilaterally symmetrical at the biceps, triceps, brachioradialis, and knees, 0 at both ankles. The plantar responses were flexor bilaterally. COORDINATION: She performed well on [id number] testing. She was unable to perform [id number] testing. STANCE & GAIT: Could not be tested. Impression/Recommendations Diagnostic Impression 1. Ms. Meche Gutierrez is a 63-year-old, right-handed, black lady, who does have a past history of hypertension, hepatitis C, depression and anxiety, a low back injury in 2000 which has completely disabled her, and recently a nasal versus gastrointestinal bleed. Since she has been in the hospital, she has been complaining of significant low back pain radiating to the left lower extremity and in addition, left hamstring spasms. 2. She feels "better." The low back pain radiating into the left leg and in addition left hamstring spasms are definitely better. She however looks much more comfortable today. She was able to walk with the PT yesterday. She is not bleeding form her nose today. She denies any new neurologic symptoms. 3. On neurological examination, at this time, she does have mild problems with memory, visuospatial function, and higher cognitive function. She also exhibits some generalized weakness most marked in the lower extremities more so on the left than on the right and predominantly in the left ankle dorsiflexors and toe extensors. She also has globally diminished reflexes with loss of ankle jerks. 4. The MRI of the LS spine revealed: - L5-S1: There is anterior offset. There is mild degenerative disc narrowing. There is circumferential annular disc bulge. The neural foramina are preserved. There is proliferative facet arthrosis. - L4-L5: There is slight anterior offset. There is degenerative disc narrowing with some high T2 signal within the disc. There is central posterior disc protrusion with a high intensity zone. There is slight compromise of the right lateral recess. There is no significant spinal canal stenosis. The neural foramina are preserved. - At the remaining disc levels, no significant disc bulge or protrusion, spinal stenosis, neural foraminal stenosis, or disc space narrowing is noted. 5. The patient's history and neurological examination are most compatible with left L5-S1 radiculopathy with ongoing hamstring spasms. She continues to complain of severe low back pain radiating into the left leg and in addition left hamstring spasms, she however looks and feels more comfortable today. Recommendations 1. Continue present management. 2. Continue Flexeril 10 mg q.12 hours around the clock rather than p.r.n. 3. Finish 7 day course of Medrol 4 mg tid. 4. Spine surgery opinion. Yassine Mixon M.D., M.S.P.YASSINE SOTO Aug 02, 2018 14:25
[2018-08-02] MEDS: LORazepam Inj 2mg/ml 1ml IV PRN (15:19)
[2018-08-02 16:00] VITALS: BP 113/98
--- NOTE | 2018-08-02 17:56 | Cardiology Progress Note ---
Assessment/Plan Assessment/Plan 1. Hypotension, likely neurally mediated, resolved, continue hydration. 2D echocardiography reveals normal LV systolic function with LVEF at 60%. 2. History of possible gastrointestinal bleed. 3. History of anemia. 4. Hx of HCV infection. Subjective Subjective Sinus rhythm at rate of 80. Objective Last 24 Hour Vital Signs Date Time Temp Pulse Resp B/P (MAP) Pulse Ox O2 Delivery O2 Flow Rate FiO2 08/02/18 16:00 95 08/02/18 16:00 98.5 97 21 113/98 (103) 98 08/02/18 12:00 110/71 08/02/18 12:00 98.1 83 21 110/71 (84) 98 08/02/18 12:00 86 08/02/18 09:00 Room Air 08/02/18 08:59 71 109/76 08/02/18 08:00 98.5 84 21 106/69 (81) 95 08/02/18 08:00 80 08/02/18 04:00 98.2 79 18 109/76 (87) 95 08/02/18 04:00 71 08/02/18 00:00 98.2 80 20 94/63 (73) 97 08/02/18 00:00 94/63 08/01/18 23:36 97 08/01/18 21:15 147/77 (100) 08/01/18 21:00 Room Air 08/01/18 20:00 98.7 87 20 118/71 (87) 94 08/01/18 19:32 94 08/01/18 18:33 125/78 Intake and Output 08/01/18 08/02/18 18:59 06:59 Intake Total 600 ml Balance 600 ml Intake Oral 600 ml # Voids 3 3 2D Echo: LVEF 60%, RVSP 31 mmHg, Mild GA Laboratory Tests Test 08/02/18 07:30 08/02/18 11:09 White Blood Count 15.6 K/UL (4.8-10.8) H Red Blood Count 3.17 M/UL (4.20-5.40) L Hemoglobin 8.4 G/DL (12.0-16.0) L Hematocrit 25.7 % (37.0-47.0) L Mean Corpuscular Volume 81 FL (80-99) Mean Corpuscular Hemoglobin 26.5 PG (27.0-31.0) L Mean Corpuscular Hemoglobin Concent 32.7 G/DL (32.0-36.0) Red Cell Distribution Width 17.5 % (11.6-14.8) H Platelet Count 327 K/UL (150-450) Mean Platelet Volume 5.3 FL (6.5-10.1) L Neutrophils (%) (Auto) 65.6 % (45.0-75.0) Lymphocytes (%) (Auto) 27.4 % (20.0-45.0) Monocytes (%) (Auto) 5.0 % (1.0-10.0) Eosinophils (%) (Auto) 0.8 % (0.0-3.0) Basophils (%) (Auto) 1.2 % (0.0-2.0) Sodium Level 138 MMOL/L (136-145) Potassium Level 3.7 MMOL/L (3.5-5.1) Chloride Level 104 MMOL/L (98-107) Carbon Dioxide Level 26 MMOL/L (21-32) Anion Gap 8 mmol/L (5-15) Blood Urea Nitrogen 17 mg/dL (7-18) Creatinine 0.6 MG/DL (0.55-1.30) Estimat Glomerular Filtration Rate > 60 mL/min (>60) Glucose Level 87 MG/DL (74-106) Calcium Level 9.3 MG/DL (8.5-10.1) Urine Color Pale yellow Urine Appearance Clear Urine pH 6 (4.5-8.0) Urine Specific [place] 1.010 (1.005-1.035) Urine Protein Negative (NEGATIVE) Urine Glucose (UA) Negative (NEGATIVE) Urine Ketones Negative (NEGATIVE) Urine Blood Negative (NEGATIVE) Urine Nitrite Negative (NEGATIVE) Urine Bilirubin Negative (NEGATIVE) Urine Urobilinogen Normal MG/DL (0.0-1.0) Urine Leukocyte Esterase 1+ (NEGATIVE) H Urine RBC 0-2 /HPF (0 - 2) Urine WBC 5-10 /HPF (0 - 2) H Urine Squamous Epithelial Cells Moderate /LPF (NONE/OCC) H Urine Bacteria Few /HPF (NONE) Objective HEENT: Atraumatic and normocephalic. Anicteric. Pupils are equal, round, and reactive to light and accommodation. NECK: JVP less than 5 cm. No carotid bruits. CVS: Normal S1, S2. Regular rate and rhythm. Tachycardic. No murmurs, gallops, or rubs. LUNGS: Clear to auscultation bilaterally. ABDOMEN: Soft, nontender, and nondistended. No hepatosplenomegaly. Positive bowel sounds. EXTREMITIES: No evidence of edema, clubbing, or cyanosis. Damian Kolb MD Aug 02, 2018 17:56
--- NOTE | 2018-08-02 18:16 | General Progress Note ---
Assessment/Plan Status: stable Assessment/Plan # Anemia of iron deficiency. Ferritin 8! potentially related to GI bleed. recent EGD/colonoscopy performed earlier this year noted to have gastritis, diverticulosis and large external hemorrhoids. --> Anemia w/u has been reviewed. Will trend CBC daily. --> Peripheral smear has been reviewed, no evidence of hemolysis --> Hgb goal >7. Transfuse prn basis --> 07/28: IV iron x5 days has been started --> hemorrhoidal treatment outpatient --> Blood tx: 07/29, # Hep C. Needs to be evaluated by chart clerk. --> Viral load of Hep C has been ordered. --> US Abd: No acute findings. --> Transfuse to plt goal > 20k if febrile, >10k if afebrile --> Currently on Harvoni for Hep C treatment # Lower GI bleed. GI is following, appreciate recs. --> No active bleeding. --> OB stool ++ --> simethicone prn # Bleeding hemorrhoid. --> patient on Anusol HC BID --> bowel regime GREATLY APPRECIATE CONSULTATION. Subjective Date patient seen: Aug 02, 2018 ROS Limited/Unobtainable: Yes Hematologic/Lymphatic: Reports: anemia Allergies: Coded Allergies: No Known Allergies (Unverified , 07/27/18) Subjective No acute events. H/H stable. CXR reviewed. Objective Last 24 Hour Vital Signs Date Time Temp Pulse Resp B/P (MAP) Pulse Ox O2 Delivery O2 Flow Rate FiO2 08/02/18 16:00 95 08/02/18 16:00 98.5 97 21 113/98 (103) 98 08/02/18 12:00 110/71 08/02/18 12:00 98.1 83 21 110/71 (84) 98 08/02/18 12:00 86 08/02/18 09:00 Room Air 08/02/18 08:59 71 109/76 08/02/18 08:00 98.5 84 21 106/69 (81) 95 08/02/18 08:00 80 08/02/18 04:00 98.2 79 18 109/76 (87) 95 08/02/18 04:00 71 08/02/18 00:00 98.2 80 20 94/63 (73) 97 08/02/18 00:00 94/63 08/01/18 23:36 97 08/01/18 21:15 147/77 (100) 08/01/18 21:00 Room Air 08/01/18 20:00 98.7 87 20 118/71 (87) 94 08/01/18 19:32 94 08/01/18 18:33 125/78 Intake and Output 08/01/18 08/02/18 18:59 06:59 Intake Total 600 ml Balance 600 ml Intake Oral 600 ml # Voids 3 3 Laboratory Tests 08/02/18 07:30: White Blood Count 15.6H, Red Blood Count 3.17L, Hemoglobin 8.4L, Hematocrit 25.7L, Mean Corpuscular Volume 81, Mean Corpuscular Hemoglobin 26.5L, Mean Corpuscular Hemoglobin Concent 32.7, Red Cell Distribution Width 17.5H, Platelet Count 327, Mean Platelet Volume 5.3L, Neutrophils (%) (Auto) 65.6, Lymphocytes (%) (Auto) 27.4, Monocytes (%) (Auto) 5.0, Eosinophils (%) (Auto) 0.8, Basophils (%) (Auto) 1.2, Sodium Level 138, Potassium Level 3.7, Chloride Level 104, Carbon Dioxide Level 26, Anion Gap 8, Blood Urea Nitrogen 17, Creatinine 0.6, Estimat Glomerular Filtration Rate > 60, Glucose Level 87, Calcium Level 9.3 08/02/18 11:09: Urine Color Pale yellow, Urine Appearance Clear, Urine pH 6, Urine Specific [place] 1.010, Urine Protein Negative, Urine Glucose (UA) Negative, Urine Ketones Negative, Urine Blood Negative, Urine Nitrite Negative, Urine Bilirubin Negative, Urine Urobilinogen Normal, Urine Leukocyte Esterase 1+H, Urine RBC 0-2 , Urine WBC 5-10H, Urine Squamous Epithelial Cells ModerateH, Urine Bacteria Few Height (Feet): 5 Height (Inches): 1.00 Weight (Pounds): 156 General Appearance: no apparent distress EENT: PERRL/EOMI Neck: normal alignment Cardiovascular: normal peripheral pulses Respiratory/Chest: no respiratory distress Abdomen: normal bowel sounds Sarath Golden MD Aug 02, 2018 18:16
[2018-08-02 20:00] VITALS: BP 120/64
[2018-08-02] MEDS: Dyna-Hex 2% Top Sol 2oz TOPIC SCH (20:00)
--- NOTE | 2018-08-02 20:45 | Progress Note ---
DATE: 08/02/2018 SUBJECTIVE: This is a 63-year-old female with anemia. She is still confused and disorganized. Her mood is labile. She has got no logical plan for her own self-care. Feelings of helplessness, hopelessness, low energy, poor appetite, and loss of interest in activity. , so she has a lot of depression and anxiety as a result that is why her attending has requested daily psychiatric consultation. MENTAL STATUS EXAMINATION: This is a 63-year-old female. Appearance is disheveled. Attitude, irritable and agitated. Affect, guarded and restricted. Intellect poor. Mood, depressed and anxious. Motor activity, psychomotor agitation. Attention span is poor. Orientation x2. Speech is pressured. Thought process, disorganized and illogical. Thought content, auditory hallucinations and paranoid delusions. Insight and judgment is poor. DIAGNOSIS: Major depressive disorder, mild, recurrent, without psychotic features. PLAN: Treat her with Prozac 40 mg daily, Ativan 0.5 mg every four hours p.r.n. anxiety and agitation, and Neurontin 300 mg three times a day. Provided her with 20 minutes of cognitive behavioral therapy session to identify her automatic negative thoughts and help her covert those negative thoughts to more positive thinking to reduce depression, anxiety, and suicidality. Chart was reviewed. Discussed with staff. Seen and assessed in the room. Saroj Fernandez M.D. DR: RUBÉN JOB#: [id number] CC:
[2018-08-02] MEDS: Vancomycin 750mg/NS 250ml IVPB SCH (23:23)
[2018-08-03] VITALS: BP 123/68
[2018-08-03] MEDS: Morphine Sulfate 2mg/ml Inj IVP PRN (03:06)
[2018-08-03 04:00] VITALS: BP 120/85
[2018-08-03 06:43] LABS: BASOPHILS % (AUTO) 0.8 % (0.0-2.0); EOSINOPHILS % (AUTO) 0.7 % (0.0-3.0); HEMOGLOBIN 8.2 G/DL (12.0-16.0); LYMPHOCYTES % (AUTO) 23.7 % (20.0-45.0); MEAN CORPUSCULAR VOLUME 84 FL (80-99); MONOCYTES % (AUTO) 3.9 % (1.0-10.0); PLATELET COUNT 317 K/UL (150-450); RED BLOOD COUNT 3.11 M/UL (4.20-5.40); RED CELL DISTRIBUTION WIDTH 18.3 % (11.6-14.8); WHITE BLOOD COUNT 12.5 K/UL (4.8-10.8)
[2018-08-03 07:05] LABS: ANION GAP 10 mmol/L (5-15); BLOOD UREA NITROGEN 14 mg/dL (7-18); CALCIUM 8.9 MG/DL (8.5-10.1); CARBON DIOXIDE 24 MMOL/L (21-32); CHLORIDE 107 MMOL/L (98-107); CREATININE 0.7 MG/DL (0.55-1.30); POTASSIUM 3.6 MMOL/L (3.5-5.1); SODIUM 141 MMOL/L (136-145)
[2018-08-03 08:00] VITALS: BP 111/77
--- NOTE | 2018-08-03 08:30 | General Progress Note ---
Assessment/Plan Status: stable Assessment/Plan # Anemia of iron deficiency. Ferritin 8! potentially related to GI bleed. recent EGD/colonoscopy performed earlier this year noted to have gastritis, diverticulosis and large external hemorrhoids. --> Anemia w/u has been reviewed. Will trend CBC daily. --> Peripheral smear has been reviewed, no evidence of hemolysis --> Hgb goal >7. Transfuse prn basis --> Completed IV iron x5 days has been started --> hemorrhoidal treatment outpatient --> Blood tx: 07/29, # Hep C. Needs to be evaluated by production cook. --> Viral load of Hep C has been ordered. --> US Abd: No acute findings. --> Transfuse to plt goal > 20k if febrile, >10k if afebrile --> Currently on Harvoni for Hep C treatment # Lower GI bleed. GI is following, appreciate recs. --> No active bleeding. --> OB stool ++ --> simethicone prn # Bleeding hemorrhoid. --> patient on Anusol HC BID --> bowel regime GREATLY APPRECIATE CONSULTATION. Subjective Date patient seen: Aug 03, 2018 ROS Limited/Unobtainable: Yes Hematologic/Lymphatic: Reports: anemia Allergies: Coded Allergies: No Known Allergies (Unverified , 07/27/18) Subjective No acute events. WBC elevated. Afebrile. Objective Last 24 Hour Vital Signs Date Time Temp Pulse Resp B/P (MAP) Pulse Ox O2 Delivery O2 Flow Rate FiO2 08/03/18 08:00 98.2 87 18 111/77 (88) 99 08/03/18 05:56 120/85 08/03/18 04:00 82 08/03/18 04:00 98.7 85 18 120/85 (97) 98 08/03/18 00:00 85 08/03/18 00:00 98.5 94 20 123/68 (86) 98 08/02/18 23:25 120/64 08/02/18 21:00 Room Air 08/02/18 20:00 89 08/02/18 20:00 98.6 90 18 120/64 (82) 96 08/02/18 18:12 113/98 08/02/18 16:00 95 08/02/18 16:00 98.5 97 21 113/98 (103) 98 08/02/18 12:00 110/71 08/02/18 12:00 98.1 83 21 110/71 (84) 98 08/02/18 12:00 86 08/02/18 09:00 Room Air 08/02/18 08:59 71 109/76 Intake and Output 08/02/18 08/03/18 19:00 07:00 Intake Total 895 ml 1140 ml Balance 895 ml 1140 ml Intake Oral 820 ml 240 ml IV Total 75 ml 900 ml # Voids 1 Laboratory Tests 08/02/18 11:09: Urine Color Pale yellow, Urine Appearance Clear, Urine pH 6, Urine Specific [place] 1.010, Urine Protein Negative, Urine Glucose (UA) Negative, Urine Ketones Negative, Urine Blood Negative, Urine Nitrite Negative, Urine Bilirubin Negative, Urine Urobilinogen Normal, Urine Leukocyte Esterase 1+H, Urine RBC 0-2 , Urine WBC 5-10H, Urine Squamous Epithelial Cells ModerateH, Urine Bacteria Few 08/03/18 05:50: White Blood Count 12.5H, Red Blood Count 3.11L, Hemoglobin 8.2L, Hematocrit 26.0L, Mean Corpuscular Volume 84, Mean Corpuscular Hemoglobin 26.5L, Mean Corpuscular Hemoglobin Concent 31.7L, Red Cell Distribution Width 18.3H, Platelet Count 317, Mean Platelet Volume 5.2L, Neutrophils (%) (Auto) 71.0, Lymphocytes (%) (Auto) 23.7, Monocytes (%) (Auto) 3.9, Eosinophils (%) (Auto) 0.7, Basophils (%) (Auto) 0.8, Sodium Level 141, Potassium Level 3.6, Chloride Level 107, Carbon Dioxide Level 24, Anion Gap 10, Blood Urea Nitrogen 14, Creatinine 0.7, Estimat Glomerular Filtration Rate > 60, Glucose Level 121H, Calcium Level 8.9 Height (Feet): 5 Height (Inches): 1.00 Weight (Pounds): 156 General Appearance: no apparent distress EENT: PERRL/EOMI Neck: normal alignment Cardiovascular: normal peripheral pulses Respiratory/Chest: no respiratory distress Abdomen: normal bowel sounds Sarath Golden MD Aug 03, 2018 08:29
[2018-08-03] MEDS: HARVONI ORAL SCH (08:36)
[2018-08-03] MEDS: Cyclobenzaprine 10mg Tab ORAL SCH ×2 (08:37→20:55)
[2018-08-03] MEDS: Dicyclomine HCl 10mg/5ml oral soln ORAL PRN (08:37)
[2018-08-03] MEDS: Cefepime HCl 1 GM in D5W 55 ML IVPB SCH ×2 (08:38→20:56)
--- NOTE | 2018-08-03 08:46 | General Progress Note ---
Assessment/Plan Assessment/Plan (1) Lumbar DDD (2) Lumbar Herniated disc (3) Lumbar Radiculopathy (4) Lumbar Spondylosis Patient to be continued on [place] and Morphine D/w Dr. Jose and he concurred. Subjective Date patient seen: Aug 03, 2018 Time patient seen: 07:15 - am Allergies: Coded Allergies: No Known Allergies (Unverified , 07/27/18) Subjective REVIEW OF SYSTEMS: Denies rash, fever, chills, sweating, dizziness, drowsiness, blurred vision, sore throat, or change in weight. No nausea, vomiting, diarrhea, or blood in the urine. No dysuria. She is complaining of low back pain. SUBJECTIVE: Patient doing well and has no new complaints. Objective Last 24 Hour Vital Signs Date Time Temp Pulse Resp B/P (MAP) Pulse Ox O2 Delivery O2 Flow Rate FiO2 08/03/18 08:28 87 111/77 08/03/18 08:00 98.2 87 18 111/77 (88) 99 08/03/18 05:56 120/85 08/03/18 04:00 82 08/03/18 04:00 98.7 85 18 120/85 (97) 98 08/03/18 00:00 85 08/03/18 00:00 98.5 94 20 123/68 (86) 98 08/02/18 23:25 120/64 08/02/18 21:00 Room Air 08/02/18 20:00 89 08/02/18 20:00 98.6 90 18 120/64 (82) 96 08/02/18 18:12 113/98 08/02/18 16:00 95 08/02/18 16:00 98.5 97 21 113/98 (103) 98 08/02/18 12:00 110/71 08/02/18 12:00 98.1 83 21 110/71 (84) 98 08/02/18 12:00 86 08/02/18 09:00 Room Air 08/02/18 08:59 71 109/76 Intake and Output 08/02/18 08/03/18 19:00 07:00 Intake Total 895 ml 1140 ml Balance 895 ml 1140 ml Intake Oral 820 ml 240 ml IV Total 75 ml 900 ml # Voids 1 Laboratory Tests 08/02/18 11:09: Urine Color Pale yellow, Urine Appearance Clear, Urine pH 6, Urine Specific [place] 1.010, Urine Protein Negative, Urine Glucose (UA) Negative, Urine Ketones Negative, Urine Blood Negative, Urine Nitrite Negative, Urine Bilirubin Negative, Urine Urobilinogen Normal, Urine Leukocyte Esterase 1+H, Urine RBC 0-2 , Urine WBC 5-10H, Urine Squamous Epithelial Cells ModerateH, Urine Bacteria Few 08/03/18 05:50: White Blood Count 12.5H, Red Blood Count 3.11L, Hemoglobin 8.2L, Hematocrit 26.0L, Mean Corpuscular Volume 84, Mean Corpuscular Hemoglobin 26.5L, Mean Corpuscular Hemoglobin Concent 31.7L, Red Cell Distribution Width 18.3H, Platelet Count 317, Mean Platelet Volume 5.2L, Neutrophils (%) (Auto) 71.0, Lymphocytes (%) (Auto) 23.7, Monocytes (%) (Auto) 3.9, Eosinophils (%) (Auto) 0.7, Basophils (%) (Auto) 0.8, Sodium Level 141, Potassium Level 3.6, Chloride Level 107, Carbon Dioxide Level 24, Anion Gap 10, Blood Urea Nitrogen 14, Creatinine 0.7, Estimat Glomerular Filtration Rate > 60, Glucose Level 121H, Calcium Level 8.9 Height (Feet): 5 Height (Inches): 1.00 Weight (Pounds): 156 Objective GENERAL: Alert, awake, and oriented. LUNGS: Decreased breath sounds bilaterally. HEART: Regular. ABDOMEN: Tenderness to palpation. BACK: Range of motion is decreased in flexion and extension. EXTREMITIES: No cyanosis. No clubbing. NEURO: No changes. Procedure: MRI L Spine no Contrast Indication: Chronic low back pain and weakness Technique: Sagittal T1 and T2 fast spin echo, sagittal STIR, axial T1 and T2 fast spin-echo images of the lumbar spine Comparison: 08/17/2013, also lumbar radiograph 08/21/2017 Findings: There is anterior offset of L5 on S1. This is not evident on prior MRI , is to some extent evident on a CT scan of 01/25/2016, and is also evident on a lumbar spine radiograph of 10/21/2016. Prior and current studies demonstrate no evidence of L5 spondylolysis. There is mild degenerative disc narrowing at this level, also a new finding since the previous MRI. There is circumferential annular bulge at this level. This plus the alignment abnormality results in mild narrowing of the spinal canal at this level. The neural foramina are preserved. There is proliferative facet arthrosis at this level. This was also evident previously but has probably progressed There is slight anterior offset of L4 on L5, which has progressed slightly from the previous MRI, is similar to the prior plain radiograph. There is degenerative disc narrowing at this level which is also progressed slightly, with some high T2 signal within the disc. There is central posterior disc protrusion with a high intensity zone which appears similar to the previous exam. This may slightly compromises the right lateral recess. It does not significantly narrow the spinal canal. The neural foramina are preserved. There is progressive facet arthrosis at this level At the remaining disc levels, no significant disc bulge or protrusion, spinal stenosis, neural foraminal stenosis, or disc space narrowing. The remaining bony alignment is normal. The vertebral body heights are preserved. The vertebral body marrow signal is normal and unchanged on the T2-weighted and STIR images, is slightly decreased on the T1 weighted images compared to prior exam, likely indicating hematopoietic reconversion of the bone marrow the conus medullaris terminates at the L1 level. Rico Avery Aug 03, 2018 08:46
--- NOTE | 2018-08-03 10:16 | Consultation ---
Consult Note Consult Note # [id number] Stanislav You MD Aug 03, 2018 10:16
--- NOTE | 2018-08-03 10:29 | GI Progress Note ---
Assessment/Plan Problems: (1) Duodenal ulcer disease ICD Codes: K26.9 - Duodenal ulcer, unsp as acute or chronic, w/o hemor or perf SNOMED: 59588240 (2) Anemia ICD Codes: D64.9 - Anemia SNOMED: 750283433 (3) Acute abdominal pain ICD Codes: R10.0 - Acute abdomen SNOMED: 984784323 (4) Lower GI bleed ICD Codes: K92.2 - Gastrointestinal hemorrhage, unspecified SNOMED: 94964951 (5) Hepatitis C ICD Codes: B19.20 - Unspecified viral hepatitis C without hepatic coma SNOMED: 52805598 (6) Bleeding hemorrhoid ICD Codes: K64.9 - Unspecified hemorrhoids SNOMED: 98563133 Status: stable Status Narrative Discussed with Dr. Mcgraw. Assessment/Plan 2012 EGD/colonoscopy >> duodenal AVMs 2014 EGD >> DU s/p EGD/colonoscopy 04/29/2018 SUMMARY OF FINDINGS: 1. Gastritis, status post biopsy. 2. Diverticulosis. 3. Large external hemorrhoids. Currently on Harvoni for Hep C treatment OB stool r/o GI bleed, positive transferred to [facility], had episode of severe epistaxis Anusol HC BID monitor H&H, prn transfusions bowel regime ppi fu labs simethicone prn add bentyl per patient request The patient was seen and examined at bedside and all new and available data was reviewed in the patients chart. I agree with the above findings, impression and plan. (Patient seen earlier today. Signature stamp does not reflect patient encounter time.). - Darrin Mcgraw MD Subjective Gastrointestinal/Abdominal: Reports: no symptoms Objective Last 24 Hour Vital Signs Date Time Temp Pulse Resp B/P (MAP) Pulse Ox O2 Delivery O2 Flow Rate FiO2 08/03/18 09:00 Room Air 08/03/18 08:28 87 111/77 08/03/18 08:00 98.2 87 18 111/77 (88) 99 08/03/18 08:00 84 08/03/18 05:56 120/85 08/03/18 04:00 82 08/03/18 04:00 98.7 85 18 120/85 (97) 98 08/03/18 00:00 85 08/03/18 00:00 98.5 94 20 123/68 (86) 98 08/02/18 23:25 120/64 08/02/18 21:00 Room Air 08/02/18 20:00 89 08/02/18 20:00 98.6 90 18 120/64 (82) 96 08/02/18 18:12 113/98 08/02/18 16:00 95 08/02/18 16:00 98.5 97 21 113/98 (103) 98 08/02/18 12:00 110/71 08/02/18 12:00 98.1 83 21 110/71 (84) 98 08/02/18 12:00 86 Intake and Output 08/02/18 08/03/18 19:00 07:00 Intake Total 895 ml 1140 ml Balance 895 ml 1140 ml Intake Oral 820 ml 240 ml IV Total 75 ml 900 ml # Voids 1 Laboratory Tests Test 08/02/18 11:09 08/03/18 05:50 Urine Color Pale yellow Urine Appearance Clear Urine pH 6 (4.5-8.0) Urine Specific [place] 1.010 (1.005-1.035) Urine Protein Negative (NEGATIVE) Urine Glucose (UA) Negative (NEGATIVE) Urine Ketones Negative (NEGATIVE) Urine Blood Negative (NEGATIVE) Urine Nitrite Negative (NEGATIVE) Urine Bilirubin Negative (NEGATIVE) Urine Urobilinogen Normal MG/DL (0.0-1.0) Urine Leukocyte Esterase 1+ (NEGATIVE) H Urine RBC 0-2 /HPF (0 - 2) Urine WBC 5-10 /HPF (0 - 2) H Urine Squamous Epithelial Cells Moderate /LPF (NONE/OCC) H Urine Bacteria Few /HPF (NONE) White Blood Count 12.5 K/UL (4.8-10.8) H Red Blood Count 3.11 M/UL (4.20-5.40) L Hemoglobin 8.2 G/DL (12.0-16.0) L Hematocrit 26.0 % (37.0-47.0) L Mean Corpuscular Volume 84 FL (80-99) Mean Corpuscular Hemoglobin 26.5 PG (27.0-31.0) L Mean Corpuscular Hemoglobin Concent 31.7 G/DL (32.0-36.0) L Red Cell Distribution Width 18.3 % (11.6-14.8) H Platelet Count 317 K/UL (150-450) Mean Platelet Volume 5.2 FL (6.5-10.1) L Neutrophils (%) (Auto) 71.0 % (45.0-75.0) Lymphocytes (%) (Auto) 23.7 % (20.0-45.0) Monocytes (%) (Auto) 3.9 % (1.0-10.0) Eosinophils (%) (Auto) 0.7 % (0.0-3.0) Basophils (%) (Auto) 0.8 % (0.0-2.0) Sodium Level 141 MMOL/L (136-145) Potassium Level 3.6 MMOL/L (3.5-5.1) Chloride Level 107 MMOL/L (98-107) Carbon Dioxide Level 24 MMOL/L (21-32) Anion Gap 10 mmol/L (5-15) Blood Urea Nitrogen 14 mg/dL (7-18) Creatinine 0.7 MG/DL (0.55-1.30) Estimat Glomerular Filtration Rate > 60 mL/min (>60) Glucose Level 121 MG/DL (74-106) H Calcium Level 8.9 MG/DL (8.5-10.1) Microbiology Date/Time Source Procedure Growth Status 08/02/18 11:09 Urine,Clean Catch Urine Culture - Preliminary Resulted Height (Feet): 5 Height (Inches): 1.00 Weight (Pounds): 156 General Appearance: WD/WN, no apparent distress, alert Cardiovascular: normal rate Respiratory/Chest: normal breath sounds, no respiratory distress Abdominal Exam: normal bowel sounds, non tender, soft Extremities: normal range of motion, non-tender Ciara Sheppard [employer] Aug 03, 2018 10:29
[2018-08-03] MEDS: HYDROcodone/Acetamin 10/325 tab ORAL PRN (11:21)
[2018-08-03] MEDS ORDERED: Tubing IV Secondary IV ONE ×2 (11:48→11:49)
[2018-08-03 12:00] VITALS: BP 129/80
--- NOTE | 2018-08-03 12:06 | Pulmonology Progress Note ---
Assessment/Plan Problems: (1) Recurrent epistaxis (2) Anemia (3) COPD (chronic obstructive pulmonary disease) (4) Hepatitis C (5) Hiatal hernia with GERD (6) Back pain Assessment/Plan no new events wbc lower, today is 12 anemia w/u in progress symptomatic treatment dvt prophylaxis. dc planing Subjective ROS Limited/Unobtainable: No Constitutional: Reports: no symptoms HEENT: Repors: no symptoms Respiratory: Reports: no symptoms Allergies: Coded Allergies: No Known Allergies (Unverified , 07/27/18) Objective Last 24 Hour Vital Signs Date Time Temp Pulse Resp B/P (MAP) Pulse Ox O2 Delivery O2 Flow Rate FiO2 08/03/18 11:20 111/77 08/03/18 09:00 Room Air 08/03/18 08:28 87 111/77 08/03/18 08:00 98.2 87 18 111/77 (88) 99 08/03/18 08:00 84 08/03/18 05:56 120/85 08/03/18 04:00 82 08/03/18 04:00 98.7 85 18 120/85 (97) 98 08/03/18 00:00 85 08/03/18 00:00 98.5 94 20 123/68 (86) 98 08/02/18 23:25 120/64 08/02/18 21:00 Room Air 08/02/18 20:00 89 08/02/18 20:00 98.6 90 18 120/64 (82) 96 08/02/18 18:12 113/98 08/02/18 16:00 95 08/02/18 16:00 98.5 97 21 113/98 (103) 98 Intake and Output 08/02/18 08/03/18 19:00 07:00 Intake Total 895 ml 1140 ml Balance 895 ml 1140 ml Intake Oral 820 ml 240 ml IV Total 75 ml 900 ml # Voids 1 General Appearance: WD/WN HEENT: normocephalic, anicteric Respiratory/Chest: chest wall non-tender, lungs clear Cardiovascular: normal peripheral pulses, regularly irregular Abdomen: normal bowel sounds Genitourinary: normal external genitalia Skin: no rash Microbiology Date/Time Source Procedure Growth Status 08/02/18 11:09 Urine,Clean Catch Urine Culture - Preliminary Resulted Laboratory Tests 08/03/18 05:50: White Blood Count 12.5H, Red Blood Count 3.11L, Hemoglobin 8.2L, Hematocrit 26.0L, Mean Corpuscular Volume 84, Mean Corpuscular Hemoglobin 26.5L, Mean Corpuscular Hemoglobin Concent 31.7L, Red Cell Distribution Width 18.3H, Platelet Count 317, Mean Platelet Volume 5.2L, Neutrophils (%) (Auto) 71.0, Lymphocytes (%) (Auto) 23.7, Monocytes (%) (Auto) 3.9, Eosinophils (%) (Auto) 0.7, Basophils (%) (Auto) 0.8, Sodium Level 141, Potassium Level 3.6, Chloride Level 107, Carbon Dioxide Level 24, Anion Gap 10, Blood Urea Nitrogen 14, Creatinine 0.7, Estimat Glomerular Filtration Rate > 60, Glucose Level 121H, Calcium Level 8.9 Current Medications Medications (Trade) Dose Ordered Sig/Primo Route PRN Reason Start Time Stop Time Status Last Admin Dose Admin Acetaminophen (Tylenol) 650 mg Q4H PRN ORAL fever (T>100.5F) 07/31/18 13:30 08/26/18 17:24 08/01/18 08:32 Acetaminophen/ Hydrocodone Bitart ([place] 10) 1 tab Q6H PRN ORAL For Moderate Pain (4-6) 07/31/18 17:45 08/03/18 17:30 08/03/18 11:21 Al Hydroxide/Mg Hydroxide (Mylanta II) 30 ml Q6H PRN ORAL dyspepsia 07/31/18 12:00 08/26/18 11:59 Amlodipine Besylate (Norvasc) 5 mg DAILY ORAL 08/02/18 09:00 09/01/18 08:59 08/02/18 08:59 Cefepime HCl 1 gm/ Dextrose 55 ml @ 110 mls/hr EVERY 12 HOURS IVPB 08/02/18 10:00 08/09/18 09:59 08/03/18 08:38 Chlorhexidine Gluconate ([place]-Hex 2%) 1 applic DAILY@2000 TOPIC 07/31/18 20:00 08/26/18 19:59 08/01/18 20:07 Clonidine HCl (Catapres Tab) 0.1 mg EVERY 6 HOURS ORAL 07/31/18 12:00 08/29/18 12:59 10/29/18 11:20 Cyclobenzaprine HCl (Flexeril) 10 mg EVERY 12 HOURS ORAL 07/31/18 21:00 08/29/18 20:59 08/03/18 08:37 Cyclobenzaprine HCl (Flexeril) 10 mg TIDPRN PRN ORAL Muscle Spasm 07/31/18 13:00 08/29/18 12:59 Dextrose (Dextrose 50%) 25 ml Q30M PRN IV Hypoglycemia 07/31/18 12:00 08/26/18 17:15 Dextrose (Dextrose 50%) 50 ml Q30M PRN IV hypoglycemia 07/31/18 12:00 08/26/18 17:29 Dicyclomine HCl (Bentyl) 10 mg QIDPRN PRN ORAL Abdominal cramps 08/02/18 08:15 09/01/18 08:14 08/03/18 08:37 Fluoxetine HCl (PROzac) 40 mg DAILY ORAL 08/01/18 09:00 08/27/18 08:59 08/03/18 08:37 Gabapentin (Neurontin) 300 mg THREE TIMES A DAY ORAL 07/31/18 13:00 08/27/18 17:59 08/03/18 08:37 Hydrocortisone (Anusol HC) 1 applic TWICE A DAY RECTAL 07/31/18 18:00 08/27/18 17:59 07/31/18 18:07 Hydroxyzine HCl (Atarax) 25 mg Q6H PRN ORAL For Anxiety 07/31/18 17:15 08/27/18 17:14 Methylprednisolone (Medrol) 4 mg TIPC ORAL 07/31/18 18:00 08/07/18 13:01 08/03/18 08:36 Ondansetron HCl (Zofran) 4 mg Q6H PRN IVP Nausea & Vomiting 07/31/18 12:00 08/26/18 11:59 Patient Own Medication (Patient's Own Med) 1 ea DAILY ORAL 08/01/18 09:00 08/31/18 08:59 08/03/18 08:36 Polyethylene Glycol (Miralax) 17 gm HSPRN PRN ORAL Constipation 07/31/18 21:00 08/26/18 20:59 Simethicone (Mylicon) 80 mg QIDPRN PRN ORAL GAS PAIN 07/31/18 12:00 08/27/18 11:59 Sodium Chloride 1,000 ml @ 75 mls/hr [id number] IV 08/02/18 08:30 09/01/18 08:29 08/03/18 11:21 Vancomycin HCl (Vanco rx to dose) 1 ea DAILY PRN MISC Per rx protocol 08/02/18 08:45 09/01/18 08:44 Vancomycin/Sodium Chloride 250 ml @ 166.667 mls/hr Q12HR@1100,2300 IVPB 08/02/18 23:00 08/07/18 22:59 08/02/18 23:23 Zolpidem Tartrate (Ambien) 5 mg HSPRN PRN ORAL Insomnia 07/31/18 21:00 08/03/18 20:59 08/02/18 23:31 Sharron Belle MD Aug 03, 2018 12:06
[2018-08-03] MEDS: Vancomycin 750mg/NS 250ml IVPB SCH (12:11)
--- NOTE | 2018-08-03 12:21 | Diagnostic Imaging Report ---
APPROVED REPORT CPT Code: 08482 Present Symptoms Upper Extremity Pain: Left Comments HX of PICC Line (Left Upper arm). LEFT UPPER EXTREMITY: Venous imaging reveals patency of the internal jugular, subclavian, axillary and brachial veins. The cephalic and basilic veins are also patent. Doppler indicates normal spontaneous flow within these venous segments.
--- NOTE | 2018-08-03 12:22 | Diagnostic Imaging Report ---
APPROVED REPORT CPT Code: 09988 Present Symptoms Lower Extremity Pain: Bilateral BILATERAL: Imaging reveals a patent deep venous system bilaterally. There is no evidence of thrombus within the femoral, popliteal or tibial segments. The greater saphenous veins are also within normal limits. Doppler indicates normal spontaneous flow within these segments.
--- NOTE | 2018-08-03 13:38 | General Progress Note ---
Assessment/Plan Problem List: (1) Epistaxis ICD Codes: R04.0 - Epistaxis SNOMED: 333634966 (2) Dizzy ICD Codes: R42 - Dizziness and giddiness SNOMED: 240771661, 050253919 (3) HTN (hypertension) ICD Codes: I10 - Essential (primary) hypertension SNOMED: 55108582 (4) Anxiety ICD Codes: F41.9 - Anxiety disorder, unspecified SNOMED: 17003584 (5) Bleeding hemorrhoid ICD Codes: K64.9 - Unspecified hemorrhoids SNOMED: 91324806 (6) Anemia ICD Codes: D64.9 - Anemia SNOMED: 553130808 Status: stable, progressing Assessment/Plan ot pt diet eval gi heme ent cardio f/u cbc bmp am dc plan if clear Subjective Constitutional: Reports: weakness Allergies: Coded Allergies: No Known Allergies (Unverified , 07/27/18) All Systems: reviewed and negative except above Subjective sl anxious in bed Objective Last 24 Hour Vital Signs Date Time Temp Pulse Resp B/P (MAP) Pulse Ox O2 Delivery O2 Flow Rate FiO2 08/03/18 11:20 111/77 08/03/18 09:00 Room Air 08/03/18 08:28 87 111/77 08/03/18 08:00 98.2 87 18 111/77 (88) 99 08/03/18 08:00 84 08/03/18 05:56 120/85 08/03/18 04:00 82 08/03/18 04:00 98.7 85 18 120/85 (97) 98 08/03/18 00:00 85 08/03/18 00:00 98.5 94 20 123/68 (86) 98 08/02/18 23:25 120/64 08/02/18 21:00 Room Air 08/02/18 20:00 89 08/02/18 20:00 98.6 90 18 120/64 (82) 96 08/02/18 18:12 113/98 08/02/18 16:00 95 08/02/18 16:00 98.5 97 21 113/98 (103) 98 Intake and Output 08/02/18 08/03/18 19:00 07:00 Intake Total 895 ml 1140 ml Balance 895 ml 1140 ml Intake Oral 820 ml 240 ml IV Total 75 ml 900 ml # Voids 1 Laboratory Tests 08/03/18 05:50: White Blood Count 12.5H, Red Blood Count 3.11L, Hemoglobin 8.2L, Hematocrit 26.0L, Mean Corpuscular Volume 84, Mean Corpuscular Hemoglobin 26.5L, Mean Corpuscular Hemoglobin Concent 31.7L, Red Cell Distribution Width 18.3H, Platelet Count 317, Mean Platelet Volume 5.2L, Neutrophils (%) (Auto) 71.0, Lymphocytes (%) (Auto) 23.7, Monocytes (%) (Auto) 3.9, Eosinophils (%) (Auto) 0.7, Basophils (%) (Auto) 0.8, Sodium Level 141, Potassium Level 3.6, Chloride Level 107, Carbon Dioxide Level 24, Anion Gap 10, Blood Urea Nitrogen 14, Creatinine 0.7, Estimat Glomerular Filtration Rate > 60, Glucose Level 121H, Calcium Level 8.9 Height (Feet): 5 Height (Inches): 1.00 Weight (Pounds): 156 General Appearance: lethargic EENT: normal ENT inspection Neck: normal alignment Cardiovascular: normal peripheral pulses, normal rate, regular rhythm Respiratory/Chest: chest wall non-tender, lungs clear, normal breath sounds Abdomen: normal bowel sounds, non tender, soft Extremities: normal inspection Edema: no edema noted Arm (L), no edema noted Arm (R), no edema noted Leg (L), no edema noted Leg (R), no edema noted Pedal (L), no edema noted Pedal (R), no edema noted Generalized Neurologic: responsive, motor weakness Skin: normal pigmentation, warm/dry Srikanth Oliva DO Aug 03, 2018 13:38
[2018-08-03 16:00] VITALS: BP 118/69
--- NOTE | 2018-08-03 18:51 | Cardiology Progress Note ---
Assessment/Plan Assessment/Plan 1. Hypotension, likely neurally mediated, resolved, continue hydration. 2D echocardiography reveals normal LV systolic function with LVEF at 60%. 2. History of gastrointestinal bleed. 3. History of anemia. 4. Hx of HCV infection. Subjective Subjective Sinus rhythm at rate of 83. Objective Last 24 Hour Vital Signs Date Time Temp Pulse Resp B/P (MAP) Pulse Ox O2 Delivery O2 Flow Rate FiO2 08/03/18 18:21 118/69 08/03/18 16:00 83 08/03/18 16:00 98.4 85 18 118/69 (85) 98 08/03/18 12:00 83 08/03/18 12:00 98.5 86 18 129/80 (96) 100 08/03/18 11:20 111/77 08/03/18 09:00 Room Air 08/03/18 08:28 87 111/77 08/03/18 08:00 98.2 87 18 111/77 (88) 99 08/03/18 08:00 84 08/03/18 05:56 120/85 08/03/18 04:00 82 08/03/18 04:00 98.7 85 18 120/85 (97) 98 08/03/18 00:00 85 08/03/18 00:00 98.5 94 20 123/68 (86) 98 08/02/18 23:25 120/64 08/02/18 21:00 Room Air 08/02/18 20:00 89 08/02/18 20:00 98.6 90 18 120/64 (82) 96 Intake and Output 08/02/18 08/03/18 18:59 06:59 Intake Total 820 ml 1140 ml Balance 820 ml 1140 ml Intake Oral 820 ml 240 ml IV Total 900 ml # Voids 1 2D Echo: LVEF 60%, RVSP 31 mmHg, Mild IA Laboratory Tests Test 08/03/18 05:50 White Blood Count 12.5 K/UL (4.8-10.8) H Red Blood Count 3.11 M/UL (4.20-5.40) L Hemoglobin 8.2 G/DL (12.0-16.0) L Hematocrit 26.0 % (37.0-47.0) L Mean Corpuscular Volume 84 FL (80-99) Mean Corpuscular Hemoglobin 26.5 PG (27.0-31.0) L Mean Corpuscular Hemoglobin Concent 31.7 G/DL (32.0-36.0) L Red Cell Distribution Width 18.3 % (11.6-14.8) H Platelet Count 317 K/UL (150-450) Mean Platelet Volume 5.2 FL (6.5-10.1) L Neutrophils (%) (Auto) 71.0 % (45.0-75.0) Lymphocytes (%) (Auto) 23.7 % (20.0-45.0) Monocytes (%) (Auto) 3.9 % (1.0-10.0) Eosinophils (%) (Auto) 0.7 % (0.0-3.0) Basophils (%) (Auto) 0.8 % (0.0-2.0) Sodium Level 141 MMOL/L (136-145) Potassium Level 3.6 MMOL/L (3.5-5.1) Chloride Level 107 MMOL/L (98-107) Carbon Dioxide Level 24 MMOL/L (21-32) Anion Gap 10 mmol/L (5-15) Blood Urea Nitrogen 14 mg/dL (7-18) Creatinine 0.7 MG/DL (0.55-1.30) Estimat Glomerular Filtration Rate > 60 mL/min (>60) Glucose Level 121 MG/DL (74-106) H Calcium Level 8.9 MG/DL (8.5-10.1) Microbiology Date/Time Source Procedure Growth Status 08/02/18 11:09 Urine,Clean Catch Urine Culture - Preliminary Resulted Objective HEENT: Atraumatic and normocephalic. Anicteric. Pupils are equal, round, and reactive to light and accommodation. NECK: JVP less than 5 cm. No carotid bruits. CVS: Normal S1, S2. Regular rate and rhythm. Tachycardic. No murmurs, gallops, or rubs. LUNGS: Clear to auscultation bilaterally. ABDOMEN: Soft, nontender, and nondistended. No hepatosplenomegaly. Positive bowel sounds. EXTREMITIES: No evidence of edema, clubbing, or cyanosis. Damian Kolb MD Aug 03, 2018 18:51
[2018-08-03] MEDS: Dyna-Hex 2% Top Sol 2oz TOPIC SCH (19:43)
[2018-08-03 20:00] VITALS: BP 121/76
--- NOTE | 2018-08-03 20:03 | Neurology Progress Note ---
Interim History Interim History Interim History Ms. Gutierrez feels "better." The low back pain radiating into the left leg and in addition left hamstring spasms continue to improve. She looks much more comfortable today. She has able to walk to and from the bathroom on her own. She denies any new neurologic symptoms. She looks generally better. Review of Systems Neuro Review of Systems Benign. Objective Physical Exam Last Vital Signs Date Time Temp Pulse Resp B/P (MAP) Pulse Ox O2 Delivery O2 Flow Rate FiO2 08/03/18 18:21 118/69 08/03/18 16:00 83 08/03/18 16:00 98.4 18 98 08/03/18 09:00 Room Air Laboratory Tests Test 08/03/18 05:50 White Blood Count 12.5 K/UL (4.8-10.8) H Red Blood Count 3.11 M/UL (4.20-5.40) L Hemoglobin 8.2 G/DL (12.0-16.0) L Hematocrit 26.0 % (37.0-47.0) L Mean Corpuscular Volume 84 FL (80-99) Mean Corpuscular Hemoglobin 26.5 PG (27.0-31.0) L Mean Corpuscular Hemoglobin Concent 31.7 G/DL (32.0-36.0) L Red Cell Distribution Width 18.3 % (11.6-14.8) H Platelet Count 317 K/UL (150-450) Mean Platelet Volume 5.2 FL (6.5-10.1) L Neutrophils (%) (Auto) 71.0 % (45.0-75.0) Lymphocytes (%) (Auto) 23.7 % (20.0-45.0) Monocytes (%) (Auto) 3.9 % (1.0-10.0) Eosinophils (%) (Auto) 0.7 % (0.0-3.0) Basophils (%) (Auto) 0.8 % (0.0-2.0) Sodium Level 141 MMOL/L (136-145) Potassium Level 3.6 MMOL/L (3.5-5.1) Chloride Level 107 MMOL/L (98-107) Carbon Dioxide Level 24 MMOL/L (21-32) Anion Gap 10 mmol/L (5-15) Blood Urea Nitrogen 14 mg/dL (7-18) Creatinine 0.7 MG/DL (0.55-1.30) Estimat Glomerular Filtration Rate > 60 mL/min (>60) Glucose Level 121 MG/DL (74-106) H Calcium Level 8.9 MG/DL (8.5-10.1) Neurologic Exam Objective PHYSICAL EXAMINATION: GENERAL: She is a well-developed, well-nourished, pleasant, but anxious black lady, lying in bed, in no acute distress. HEAD: Normocephalic and atraumatic. EENT: Examination benign. NECK: No neck rigidity was observed. NEUROLOGIC EXAMINATION: MENTAL STATUS EXAMINATION: She was awake and alert. She was oriented to person, place, and time. She was able to recall 3/3 words immediately, but could only remember 2/3 words in 1 minute and 3 minutes. She was able to remember Presidents, Trump and Obama, but could not remember Presidents prior to that. Her mathematical skills were minimally impaired. Her visuospatial function was also minimally impaired. SPEECH: She had no dysarthria. LANGUAGE: She had no aphasia. CRANIAL NERVE EXAMINATION: II: The visual lin were intact on confrontation testing. III, IV & : The external ocular movements were full and the pupils 3 mm in diameter, equal, round, regular, and reactive to light. V: She has normal facial sensations, and the temporales, masseters, and pterygoids functioned normally. VII: She had normal facial expressions and no facial asymmetry. VIII: She was able to hear well bilaterally and had no nystagmus. IX: The palate moved symmetrically on phonation. X: She had no hoarseness of voice. XI: The sternocleidomastoids and trapezii functioned normally. XII: The tongue was in the midline without any fasciculations or atrophy. MOTOR SYSTEM: The tone was normal in all four extremities. Examination of muscle mass revealed no focal wasting. Examination of power revealed G 5/5 except for G 4++/5 in left ankle dorsiflexors and toe extensors. SENSORY EXAMINATION: She had intact sensations to pinprick and light touch. REFLEXES: Trace+ and bilaterally symmetrical at the biceps, triceps, brachioradialis, and knees, 0 at both ankles. The plantar responses were flexor bilaterally. COORDINATION: She performed well on [id number] testing. She was unable to perform [id number]-iope testing. STANCE: She stood up steadily with contact guard. GAIT: She walked steadily with contact guard. Impression/Recommendations Diagnostic Impression 1. Ms. Meche Gutierrez is a 63-year-old, right-handed, black lady, who does have a past history of hypertension, hepatitis C, depression and anxiety, a low back injury in 2000 which has completely disabled her, and recently a nasal versus gastrointestinal bleed. Since she has been in the hospital, she has been complaining of significant low back pain radiating to the left lower extremity and in addition, left hamstring spasms. 2. She feels "better." The low back pain radiating into the left leg and in addition left hamstring spasms continue to improve. She looks much more comfortable today. She has able to walk to and from the bathroom on her own. She denies any new neurologic symptoms. She looks generally better. 3. On neurological examination, at this time, she does have mild problems with memory, visuospatial function, and higher cognitive function. She also has mild weakness in the left ankle dorsiflexors and toe extensors. She also has globally diminished reflexes with loss of ankle jerks. She is able to stand and walk now. 4. The MRI of the LS spine revealed: - L5-S1: There is anterior offset. There is mild degenerative disc narrowing. There is circumferential annular disc bulge. The neural foramina are preserved. There is proliferative facet arthrosis. - L4-L5: There is slight anterior offset. There is degenerative disc narrowing with some high T2 signal within the disc. There is central posterior disc protrusion with a high intensity zone. There is slight compromise of the right lateral recess. There is no significant spinal canal stenosis. The neural foramina are preserved. - At the remaining disc levels, no significant disc bulge or protrusion, spinal stenosis, neural foraminal stenosis, or disc space narrowing is noted. 5. The patient's history and neurological examination are most compatible with left L5-S1 radiculopathy with ongoing hamstring spasms. Her radiculopathy has improved significantly with steroids. Recommendations 1. Continue present management. 2. Continue Flexeril 10 mg q.12 hours. 3. Finish 7 day course of Medrol 4 mg tid. 4. Spine surgery opinion. Yassine Mixon M.D., M.S.P.H. YASSINE MIXON Aug 03, 2018 20:03
[2018-08-03] MEDS: Vancomycin 1gm in D5W 275ml IVPB SCH (23:31)
[2018-08-04] VITALS: BP 130/78
--- NOTE | 2018-08-04 00:30 | Progress Note ---
DATE: 08/03/2018 NOTE: "VERY POOR AUDIO QUALITY" SUBJECTIVE: The patient is a 63-year-old female patient with anemia, confusion, disorganized thought process, poor cognition worsened by the stress of her medical illness. That is why, her attending Mood lability. That is why her attending physician has requested daily psychiatric consultation. She is confused, disorganized. She has high levels of depression worsened by stress of her medical illness and high levels of anxiety with panic attack. That is why, her attending has requested daily psychiatric consultation. MENTAL STATUS EXAMINATION: This is a 63-year-old female. Appearance is disheveled. Attitude, irritable and agitated. Affect, guarded and restricted. Intellect poor. Mood, depressed and anxious. Motor activity, psychomotor agitation. Attention span is poor. Orientation x2. Speech is pressured. Thought process, disorganized and illogical. Thought content, auditory hallucinations and paranoid delusions. Insight and judgment is poor. DIAGNOSIS: Major depressive disorder, mild, recurrent, without psychotic features. PLAN: Continue to treat with Prozac mg a day. Provided her with 20 minutes of cognitive behavioral therapy to help her to identify automatic negative thoughts and help her to convert those negative thoughts to more positive thinking to reduce depression and anxiety. Seen and assessed at bedside. Chart was reviewed. Discussed with staff. Seen and assessed in her room. Twenty minutes of cognitive behavioral therapy provided. Saroj Fernandez M.D. DR: [place] JOB#: [id number] CC:
[2018-08-04] MEDS: HydrOXYzine tab 25mg tab ORAL PRN ×3 (00:44→16:46)
--- NOTE | 2018-08-04 02:00 | Consultation ---
DATE OF CONSULTATION: 08/03/2018 INFECTIOUS DISEASE CONSULT CONSULTING PHYSICIAN: Stanislav You M.D REFERRING PHYSICIAN: Srikanth Oliva D.O. REASON FOR CONSULTATION: Evaluation of the patient for leukocytosis. HISTORY OF PRESENT ILLNESS: The patient is a 63-year-old female with multiple medical problems, who was admitted to this medical center due to GI bleed. Apparently, the patient had vomited blood. The patient had been seen by GI data migration consultant and no procedure has been scheduled and the patient was monitored. However, the patient developed leukocytosis and the patient was started on empiric antibiotic treatment after cultures. The patient had a midline site on the left upper extremity, the site was painful, and the patient removed it. Infectious Diseases consultation has been requested for further evaluation of the patient's antibiotic management. PAST MEDICAL HISTORY: 1. Anemia. 2. History of hemorrhoids. 3. Hypertension. 4. Depression. 5. Anxiety. 6. History of . 7. History of abdominal hernia. 8. History of right knee and right hip surgery. 9. History of hepatitis C (on treatment). ALLERGIES: No known drug allergies. SOCIAL HISTORY: Negative for alcohol, drug abuse, or smoking. FAMILY HISTORY: Noncontributory. REVIEW OF SYSTEMS: HEENT: No recent change in vision or hearing. PULMONARY: No cough. CARDIOVASCULAR: No chest pain or palpitation. GASTROINTESTINAL: As mentioned above. GENITOURINARY: No dysuria. MUSCULOSKELETAL: As mentioned above. MEDICATIONS: Vancomycin and cefepime. PHYSICAL EXAMINATION: VITAL SIGNS: Temperature 98, pulse 86, respiratory rate 18, and blood pressure 111/77. HEENT: No pale conjunctivae. No scleral icterus. NECK: No lymphadenopathy. CHEST: Coarse breathing sounds. HEART: S1, S2. ABDOMEN: Soft, nontender. EXTREMITIES: The patient has mild tenderness over the left upper arm on the site of midline. LABORATORY DATA: White blood cells yesterday was 15.8, today it is 12.5, hemoglobin 8.2, and platelets 227,000. UA, 5 to 10 white blood cells. Stool occult blood positive. BUN 14 and creatinine 0.7. Urine culture is pending. Blood culture is pending. Chest x-ray showed mild linear atelectasis in the lung bases, left greater than right. Also, pulmonary venous congestion. Ultrasound of the abdomen unremarkable. ASSESSMENT: The patient is a 63-year-old female with: 1. Leukocytosis (most likely due to thrombophlebitis at the site of IV site). 2. Rule out probable bacteremia. 3. Rule out thrombophlebitis at the site of midline insertion. 4. Afebrile. PLAN: 1. We will continue the patient on vancomycin and cefepime for now. 2. Monitor CBC. 3. Monitor BMP. 4. Monitor cultures (blood, urine). 5. Left upper extremity Doppler, rule out thrombophlebitis (superficial versus deep). 6. Based on the patient's clinical course and labs, we will do further recommendation. Thank you, Dr. Oliva, for allowing me to participate in the care of this patient. I will follow the patient with you during this hospitalization. Stanislav You M.D. DR: SHWETA JOB#: [id number] CC:
[2018-08-04 04:00] VITALS: BP 132/86
[2018-08-04 07:42] LABS: BASOPHILS % (AUTO) 0.7 % (0.0-2.0); EOSINOPHILS % (AUTO) 0.7 % (0.0-3.0); HEMATOCRIT 26.4 % (37.0-47.0); HEMOGLOBIN 8.4 G/DL (12.0-16.0); LYMPHOCYTES % (AUTO) 28.9 % (20.0-45.0); MEAN CORPUSCULAR VOLUME 85 FL (80-99); MONOCYTES % (AUTO) 5.2 % (1.0-10.0); NEUTROPHILS % (AUTO) 64.5 % (45.0-75.0); PLATELET COUNT 347 K/UL (150-450); RED CELL DISTRIBUTION WIDTH 19.2 % (11.6-14.8); WHITE BLOOD COUNT 12.5 K/UL (4.8-10.8)
[2018-08-04 07:58] LABS: ANION GAP 11 mmol/L (5-15); BLOOD UREA NITROGEN 14 mg/dL (7-18); CALCIUM 8.8 MG/DL (8.5-10.1); CARBON DIOXIDE 24 MMOL/L (21-32); CHLORIDE 107 MMOL/L (98-107); CREATININE 0.7 MG/DL (0.55-1.30); POTASSIUM 3.3 MMOL/L (3.5-5.1); SODIUM 142 MMOL/L (136-145)
[2018-08-04 08:00] VITALS: BP 123/77
--- NOTE | 2018-08-04 08:57 | General Progress Note ---
Assessment/Plan Assessment/Plan (1) Lumbar DDD (2) Lumbar Herniated disc (3) Lumbar Radiculopathy (4) Lumbar Spondylosis Patient to be continued on Morton and Morphine D/w Dr. Jose and he concurred. Subjective Date patient seen: Aug 04, 2018 Time patient seen: 07:15 - am Allergies: Coded Allergies: No Known Allergies (Unverified , 07/27/18) Subjective REVIEW OF SYSTEMS: Denies rash, fever, chills, sweating, dizziness, drowsiness, blurred vision, sore throat, or change in weight. No nausea, vomiting, diarrhea, or blood in the urine. No dysuria. She is complaining of low back pain. SUBJECTIVE: Patient is in bed reporting pain is tolerated well using the Morphine and Morton as needed. Objective Last 24 Hour Vital Signs Date Time Temp Pulse Resp B/P (MAP) Pulse Ox O2 Delivery O2 Flow Rate FiO2 08/04/18 05:43 139/91 08/04/18 04:00 98.4 75 22 132/86 (101) 100 08/04/18 04:00 70 08/04/18 00:00 97.8 78 19 130/78 (95) 98 08/03/18 23:23 76 08/03/18 23:17 130/78 08/03/18 21:00 Room Air 08/03/18 20:00 98.4 80 21 121/76 (91) 99 08/03/18 19:03 80 08/03/18 18:21 118/69 08/03/18 16:00 83 08/03/18 16:00 98.4 85 18 118/69 (85) 98 08/03/18 12:00 83 08/03/18 12:00 98.5 86 18 129/80 (96) 100 08/03/18 11:20 111/77 08/03/18 09:00 Room Air Intake and Output 08/03/18 08/04/18 19:00 07:00 Intake Total 480 ml 345 ml Balance 480 ml 345 ml Intake Oral 480 ml 120 ml IV Total 225 ml # Voids 3 5 Laboratory Tests 08/03/18 22:25: Vancomycin Level Trough 9.0 08/04/18 07:00: White Blood Count 12.5H, Red Blood Count 3.10L, Hemoglobin 8.4L, Hematocrit 26.4L, Mean Corpuscular Volume 85, Mean Corpuscular Hemoglobin 27.2, Mean Corpuscular Hemoglobin Concent 31.9L, Red Cell Distribution Width 19.2H, Platelet Count 347, Mean Platelet Volume 5.8L, Neutrophils (%) (Auto) 64.5, Lymphocytes (%) (Auto) 28.9, Monocytes (%) (Auto) 5.2, Eosinophils (%) (Auto) 0.7, Basophils (%) (Auto) 0.7, Sodium Level 142, Potassium Level 3.3L, Chloride Level 107, Carbon Dioxide Level 24, Anion Gap 11, Blood Urea Nitrogen 14, Creatinine 0.7, Estimat Glomerular Filtration Rate > 60, Glucose Level 117H, Calcium Level 8.8 Height (Feet): 5 Height (Inches): 1.00 Weight (Pounds): 156 Objective GENERAL: Alert, awake, and oriented. LUNGS: Decreased breath sounds bilaterally. HEART: Regular. ABDOMEN: Tenderness to palpation. BACK: Range of motion is decreased in flexion and extension. EXTREMITIES: No cyanosis. No clubbing. NEURO: No changes. Rico Avery Aug 04, 2018 08:57
[2018-08-04] MEDS: Dicyclomine HCl 10mg/5ml oral soln ORAL PRN (09:10)
[2018-08-04] MEDS: Cefepime HCl 1 GM in D5W 55 ML IVPB SCH ×2 (09:10→20:16)
[2018-08-04] MEDS: HARVONI ORAL SCH (09:10)
[2018-08-04] MEDS: Cyclobenzaprine 10mg Tab ORAL SCH ×2 (09:11→20:15)
[2018-08-04] MEDS ORDERED: CEPHALEXIN500 MG ORAL (10:34)
--- NOTE | 2018-08-04 10:42 | Pulmonology Progress Note ---
Assessment/Plan Problems: (1) Recurrent epistaxis (2) Anemia (3) COPD (chronic obstructive pulmonary disease) (4) Hepatitis C (5) Hiatal hernia with GERD (6) Back pain Assessment/Plan no new events ID note appreciated wbc lower, today is 12 anemia w/u in progress symptomatic treatment dvt prophylaxis. pt can go home with oral abx. ID cleared. dc planing Subjective ROS Limited/Unobtainable: No Constitutional: Reports: no symptoms HEENT: Repors: no symptoms Respiratory: Reports: no symptoms Allergies: Coded Allergies: No Known Allergies (Unverified , 07/27/18) Objective Last 24 Hour Vital Signs Date Time Temp Pulse Resp B/P (MAP) Pulse Ox O2 Delivery O2 Flow Rate FiO2 08/04/18 09:41 98.4 08/04/18 09:12 76 123/77 08/04/18 09:00 Room Air 08/04/18 08:00 97.5 76 18 123/77 (92) 100 08/04/18 08:00 85 08/04/18 05:43 139/91 08/04/18 04:00 98.4 75 22 132/86 (101) 100 08/04/18 04:00 70 08/04/18 00:00 97.8 78 19 130/78 (95) 98 08/03/18 23:23 76 08/03/18 23:17 130/78 08/03/18 21:00 Room Air 08/03/18 20:00 98.4 80 21 121/76 (91) 99 08/03/18 19:03 80 08/03/18 18:21 118/69 08/03/18 16:00 83 08/03/18 16:00 98.4 85 18 118/69 (85) 98 08/03/18 12:00 83 08/03/18 12:00 98.5 86 18 129/80 (96) 100 08/03/18 11:20 111/77 Intake and Output 08/03/18 08/04/18 19:00 07:00 Intake Total 480 ml 345 ml Balance 480 ml 345 ml Intake Oral 480 ml 120 ml IV Total 225 ml # Voids 3 5 General Appearance: WD/WN HEENT: normocephalic, atraumatic Respiratory/Chest: chest wall non-tender, lungs clear Breasts: no masses Cardiovascular: normal peripheral pulses Abdomen: normal bowel sounds, soft, non tender Genitourinary: normal external genitalia Extremities: no clubbing Skin: no rash 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 normal Lymphatic: no neck adenopathy Microbiology Date/Time Source Procedure Growth Status 08/02/18 10:35 Blood Blood Culture - Preliminary NO GROWTH AFTER 24 HOURS Resulted 08/02/18 11:09 Urine,Clean Catch Urine Culture - Preliminary Mixed Gram Positive Organism Resulted Laboratory Tests 08/03/18 22:25: Vancomycin Level Trough 9.0 08/04/18 07:00: White Blood Count 12.5H, Red Blood Count 3.10L, Hemoglobin 8.4L, Hematocrit 26.4L, Mean Corpuscular Volume 85, Mean Corpuscular Hemoglobin 27.2, Mean Corpuscular Hemoglobin Concent 31.9L, Red Cell Distribution Width 19.2H, Platelet Count 347, Mean Platelet Volume 5.8L, Neutrophils (%) (Auto) 64.5, Lymphocytes (%) (Auto) 28.9, Monocytes (%) (Auto) 5.2, Eosinophils (%) (Auto) 0.7, Basophils (%) (Auto) 0.7, Sodium Level 142, Potassium Level 3.3L, Chloride Level 107, Carbon Dioxide Level 24, Anion Gap 11, Blood Urea Nitrogen 14, Creatinine 0.7, Estimat Glomerular Filtration Rate > 60, Glucose Level 117H, Calcium Level 8.8 Current Medications Medications (Trade) Dose Ordered Sig/Primo Route PRN Reason Start Time Stop Time Status Last Admin Dose Admin Acetaminophen (Tylenol) 650 mg Q4H PRN ORAL fever (T>100.5F) 07/31/18 13:30 08/26/18 17:24 08/04/18 05:50 Al Hydroxide/Mg Hydroxide (Mylanta II) 30 ml Q6H PRN ORAL dyspepsia 07/31/18 12:00 08/26/18 11:59 Amlodipine Besylate (Norvasc) 5 mg DAILY ORAL 08/02/18 09:00 09/01/18 08:59 08/04/18 09:12 Cefepime HCl 1 gm/ Dextrose 55 ml @ 110 mls/hr EVERY 12 HOURS IVPB 08/02/18 10:00 08/09/18 09:59 08/04/18 09:10 Chlorhexidine Gluconate (Lorraine-Hex 2%) 1 applic DAILY@2000 TOPIC 07/31/18 20:00 08/26/18 19:59 08/01/18 20:07 Clonidine HCl (Catapres Tab) 0.1 mg EVERY 6 HOURS ORAL 07/31/18 12:00 08/29/18 12:59 08/04/18 05:43 Cyclobenzaprine HCl (Flexeril) 10 mg EVERY 12 HOURS ORAL 07/31/18 21:00 08/29/18 20:59 08/04/18 09:11 Cyclobenzaprine HCl (Flexeril) 10 mg TIDPRN PRN ORAL Muscle Spasm 07/31/18 13:00 08/29/18 12:59 Dextrose (Dextrose 50%) 25 ml Q30M PRN IV Hypoglycemia 07/31/18 12:00 08/26/18 17:15 Dextrose (Dextrose 50%) 50 ml Q30M PRN IV hypoglycemia 07/31/18 12:00 08/26/18 17:29 Dicyclomine HCl (Bentyl) 10 mg QIDPRN PRN ORAL Abdominal cramps 08/02/18 08:15 09/01/18 08:14 08/04/18 09:10 Fluoxetine HCl (PROzac) 40 mg DAILY ORAL 08/01/18 09:00 08/27/18 08:59 08/04/18 09:11 Gabapentin (Neurontin) 300 mg THREE TIMES A DAY ORAL 07/31/18 13:00 08/27/18 17:59 08/04/18 09:11 Hydrocortisone (Anusol HC) 1 applic TWICE A DAY RECTAL 07/31/18 18:00 08/27/18 17:59 07/31/18 18:07 Hydroxyzine HCl (Atarax) 25 mg Q6H PRN ORAL For Anxiety 07/31/18 17:15 08/27/18 17:14 08/04/18 09:10 Methylprednisolone (Medrol) 4 mg TIPC ORAL 07/31/18 18:00 08/07/18 13:01 08/04/18 09:11 Ondansetron HCl (Zofran) 4 mg Q6H PRN IVP Nausea & Vomiting 07/31/18 12:00 08/26/18 11:59 Patient Own Medication (Patient's Own Med) 1 ea DAILY ORAL 08/01/18 09:00 08/31/18 08:59 08/04/18 09:10 Polyethylene Glycol (Miralax) 17 gm HSPRN PRN ORAL Constipation 07/31/18 21:00 08/26/18 20:59 Simethicone (Mylicon) 80 mg QIDPRN PRN ORAL GAS PAIN 07/31/18 12:00 08/27/18 11:59 Sodium Chloride 1,000 ml @ 75 mls/hr [id number] IV 08/02/18 08:30 09/01/18 08:29 08/03/18 23:18 Vancomycin HCl (Vanco rx to dose) 1 ea DAILY PRN MISC Per rx protocol 08/02/18 08:45 09/01/18 08:44 Vancomycin HCl 1 gm/Dextrose 275 ml @ 183.708 mls/hr Q12H IVPB 08/04/18 00:00 08/09/18 00:00 08/03/18 23:31 Sharron Belle MD Aug 04, 2018 10:42
[2018-08-04 12:00] VITALS: BP 130/83
--- NOTE | 2018-08-04 12:45 | Progress Note ---
DATE: 08/04/2018 SUBJECTIVE: This is a 63-year-old female patient with anemia. She has high levels of anxiety and depression worsened by stress of her medical illness. MENTAL STATUS EXAMINATION: This patient is a 63-year-old female. Appearance is disheveled. Attitude, irritable and agitated. Affect, guarded and restricted. Intellect poor. Mood is depressed and anxious. Motor activity, psychomotor agitation. Attention span is poor. Orientation x2. Speech is low volume and slurred. Thought process, linear. Thought content, denies auditory hallucinations and paranoid delusions. Insight and judgment fair. DIAGNOSIS: Major depressive disorder, mild, recurrent without psychotic features. PLAN: Treat her with Prozac mg a day, Ativan 0.5 mg every four hours p.r.n. anxiety and agitation, Neurontin 300 mg three times a day. Provided 20 minutes of cognitive behavioral therapy to help her identify automatic negative thoughts and help to convert those automatic negative thoughts more positive thinking to reduce depression and anxiety. Chart reviewed. Discussed with staff. Seen and assessed at bedside. Saroj Fernandez M.D. DR: STEPHANIE JOB#: [id number] CC:
--- NOTE | 2018-08-04 12:46 | GI Progress Note ---
Assessment/Plan Problems: (1) Duodenal ulcer disease ICD Codes: K26.9 - Duodenal ulcer, unsp as acute or chronic, w/o hemor or perf SNOMED: 46817718 (2) Anemia ICD Codes: D64.9 - Anemia SNOMED: 699181313 (3) Acute abdominal pain ICD Codes: R10.0 - Acute abdomen SNOMED: 391995996 (4) Lower GI bleed ICD Codes: K92.2 - Gastrointestinal hemorrhage, unspecified SNOMED: 30871441 (5) Hepatitis C ICD Codes: B19.20 - Unspecified viral hepatitis C without hepatic coma SNOMED: 61794873 (6) Bleeding hemorrhoid ICD Codes: K64.9 - Unspecified hemorrhoids SNOMED: 36289661 Status: stable Status Narrative Discussed with Dr. Mcgraw. Assessment/Plan 2012 EGD/colonoscopy >> duodenal AVMs 2014 EGD >> DU s/p EGD/colonoscopy 04/29/2018 SUMMARY OF FINDINGS: 1. Gastritis, status post biopsy. 2. Diverticulosis. 3. Large external hemorrhoids. Currently on Harvoni for Hep C treatment OB stool r/o GI bleed, positive transferred to [facility], had episode of severe epistaxis Anusol HC BID monitor H&H, prn transfusions bowel regime ppi fu labs simethicone prn bentyl per patient request The patient was seen and examined at bedside and all new and available data was reviewed in the patients chart. I agree with the above findings, impression and plan. (Patient seen earlier today. Signature stamp does not reflect patient encounter time.). - Darrin Mcgraw MD Subjective Gastrointestinal/Abdominal: Reports: no symptoms Objective Last 24 Hour Vital Signs Date Time Temp Pulse Resp B/P (MAP) Pulse Ox O2 Delivery O2 Flow Rate FiO2 08/04/18 09:41 98.4 08/04/18 09:12 76 123/77 08/04/18 09:00 Room Air 08/04/18 08:00 97.5 76 18 123/77 (92) 100 08/04/18 08:00 85 08/04/18 05:43 139/91 08/04/18 04:00 98.4 75 22 132/86 (101) 100 08/04/18 04:00 70 08/04/18 00:00 97.8 78 19 130/78 (95) 98 08/03/18 23:23 76 08/03/18 23:17 130/78 08/03/18 21:00 Room Air 08/03/18 20:00 98.4 80 21 121/76 (91) 99 08/03/18 19:03 80 08/03/18 18:21 118/69 08/03/18 16:00 83 08/03/18 16:00 98.4 85 18 118/69 (85) 98 Intake and Output 08/03/18 08/04/18 19:00 07:00 Intake Total 480 ml 345 ml Balance 480 ml 345 ml Intake Oral 480 ml 120 ml IV Total 225 ml # Voids 3 5 Laboratory Tests Test 08/03/18 22:25 08/04/18 07:00 Vancomycin Level Trough 9.0 ug/mL (5.0-12.0) White Blood Count 12.5 K/UL (4.8-10.8) H Red Blood Count 3.10 M/UL (4.20-5.40) L Hemoglobin 8.4 G/DL (12.0-16.0) L Hematocrit 26.4 % (37.0-47.0) L Mean Corpuscular Volume 85 FL (80-99) Mean Corpuscular Hemoglobin 27.2 PG (27.0-31.0) Mean Corpuscular Hemoglobin Concent 31.9 G/DL (32.0-36.0) L Red Cell Distribution Width 19.2 % (11.6-14.8) H Platelet Count 347 K/UL (150-450) Mean Platelet Volume 5.8 FL (6.5-10.1) L Neutrophils (%) (Auto) 64.5 % (45.0-75.0) Lymphocytes (%) (Auto) 28.9 % (20.0-45.0) Monocytes (%) (Auto) 5.2 % (1.0-10.0) Eosinophils (%) (Auto) 0.7 % (0.0-3.0) Basophils (%) (Auto) 0.7 % (0.0-2.0) Sodium Level 142 MMOL/L (136-145) Potassium Level 3.3 MMOL/L (3.5-5.1) L Chloride Level 107 MMOL/L (98-107) Carbon Dioxide Level 24 MMOL/L (21-32) Anion Gap 11 mmol/L (5-15) Blood Urea Nitrogen 14 mg/dL (7-18) Creatinine 0.7 MG/DL (0.55-1.30) Estimat Glomerular Filtration Rate > 60 mL/min (>60) Glucose Level 117 MG/DL (74-106) H Calcium Level 8.8 MG/DL (8.5-10.1) Height (Feet): 5 Height (Inches): 1.00 Weight (Pounds): 156 General Appearance: WD/WN, no apparent distress, alert Cardiovascular: normal rate Respiratory/Chest: normal breath sounds, no respiratory distress Abdominal Exam: normal bowel sounds, non tender, soft Extremities: normal range of motion, non-tender Ciara Sheppard NP Aug 04, 2018 12:46
--- NOTE | 2018-08-04 14:02 | Cardiology Report ---
APPROVED REPORT EXAM: Two-dimensional and M-mode echocardiogram with Doppler and color Doppler. INDICATION Syncope M-Mode DIMENSIONS IVSd1.0 (0.7-1.1cm)Left Atrium (MM)3.5 (1.6-4.0cm) LVDd3.7 (3.5-5.6cm)Aortic Root2.8 (2.0-3.7cm) PWd0.7 (0.7-1.1cm)Aortic Cusp Exc.2.0 (1.5-2.0cm) LVDs1.6 (2.5-4.0cm) PWs1.7 cm Normal left ventricular chamber size, systolic function and wall motion. Left ventricular ejection fraction estimated to be 60 %. No evidence of left ventricular hypertrophy. No evidence of pericardial effusion. All other cardiac chamber sizes are within normal limits. Focal aortic valve sclerosis with adequate cusp excursion. Mildly thickened mitral valve leaflets with normal excursion. Mild mitral annulus and aortic root calcification. Normal pulmonic valve structure. Normal tricuspid valve structure. IVC is normal in size with physiological collapse. A color flow and spectral Doppler study was performed and revealed: Trace aortic insufficiency. No mitral regurgitation. Normal left ventricular diastolic function. Trace tricuspid regurgitation. Tricuspid systolic velocities suggests peak right ventricular systolic pressure of 31 mmHg. Mild pulmonic regurgitation present.
--- NOTE | 2018-08-04 14:25 | General Progress Note ---
Assessment/Plan Assessment/Plan # Anemia of iron deficiency. Ferritin 8! potentially related to GI bleed. recent EGD/colonoscopy performed earlier this year noted to have gastritis, diverticulosis and large external hemorrhoids. --> Anemia w/u has been reviewed. Will trend CBC --> Peripheral smear has been reviewed, no evidence of hemolysis --> Hgb goal >7. Transfuse prn basis --> Completed IV iron x5 days --> hemorrhoidal treatment outpatient --> Blood tx: 07/29, # Left upper extremity basilic vein dvt --> on apixaban, has been started --> script written # Anemia due to lower GI bleed. GI is following, appreciate recs. --> No active bleeding. --> OB stool ++ --> simethicone prn # Leukocytosis is likely related to infection --> s/p abx, seen by id, improving # Hep C. 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 --> Viral load of Hep C has been ordered. --> US Abd: No acute findings. --> Transfuse to plt goal > 20k if febrile, >10k if afebrile --> Currently on Harvoni for Hep C treatment # Bleeding hemorrhoid. --> patient on Anusol HC BID --> bowel regime GREATLY APPRECIATE CONSULTATION. Subjective Constitutional: Denies: no symptoms, chills, diaphoresis, fever, malaise, weakness, other HEENT: Denies: no symptoms, eye pain, blurred vision, tearing, double vision, ear pain, ear discharge, nose pain, nose congestion, throat pain, throat swelling, mouth pain, mouth swelling, other Cardiovascular: Denies: no symptoms, chest pain, edema, irregular heart rate, lightheadedness, palpitations, syncope, other Respiratory: Denies: no symptoms, cough, orthopnea, shortness of breath, SOB with excertion, SOB at rest, sputum, stridor, wheezing, other Gastrointestinal/Abdominal: Denies: no symptoms, abdomen distended, abdominal pain, black stools, tarry stools, blood in stool, constipated, diarrhea, difficulty swallowing, nausea, poor appetite, poor fluid intake, rectal bleeding , vomiting, other Neurologic/Psychiatric: Denies: no symptoms, anxiety, depressed, emotional problems, headache, numbness, paresthesia, pre-existing deficit, seizure, tingling, tremors, weakness, other Endocrine: Denies: no symptoms, excessive sweating, flushing, intolerance to cold, intolerance to heat, increased hunger, increased thirst, increased urine, unexplained weight gain, unexplained weight loss, other Hematologic/Lymphatic: Denies: no symptoms, anemia, easy bleeding, easy bruising, other Allergies: Coded Allergies: No Known Allergies (Unverified , 07/27/18) Subjective No acute events. left basilic vein dvt, now is on eliquis Objective Last 24 Hour Vital Signs Date Time Temp Pulse Resp B/P (MAP) Pulse Ox O2 Delivery O2 Flow Rate FiO2 08/04/18 13:34 130/83 08/04/18 09:41 98.4 08/04/18 09:12 76 123/77 08/04/18 09:00 Room Air 08/04/18 08:00 97.5 76 18 123/77 (92) 100 08/04/18 08:00 85 08/04/18 05:43 139/91 08/04/18 04:00 98.4 75 22 132/86 (101) 100 08/04/18 04:00 70 08/04/18 00:00 97.8 78 19 130/78 (95) 98 08/03/18 23:23 76 08/03/18 23:17 130/78 08/03/18 21:00 Room Air 08/03/18 20:00 98.4 80 21 121/76 (91) 99 08/03/18 19:03 80 08/03/18 18:21 118/69 08/03/18 16:00 83 08/03/18 16:00 98.4 85 18 118/69 (85) 98 Intake and Output 08/03/18 08/04/18 19:00 07:00 Intake Total 480 ml 345 ml Balance 480 ml 345 ml Intake Oral 480 ml 120 ml IV Total 225 ml # Voids 3 5 Laboratory Tests 08/03/18 22:25: Vancomycin Level Trough 9.0 08/04/18 07:00: White Blood Count 12.5H, Red Blood Count 3.10L, Hemoglobin 8.4L, Hematocrit 26.4L, Mean Corpuscular Volume 85, Mean Corpuscular Hemoglobin 27.2, Mean Corpuscular Hemoglobin Concent 31.9L, Red Cell Distribution Width 19.2H, Platelet Count 347, Mean Platelet Volume 5.8L, Neutrophils (%) (Auto) 64.5, Lymphocytes (%) (Auto) 28.9, Monocytes (%) (Auto) 5.2, Eosinophils (%) (Auto) 0.7, Basophils (%) (Auto) 0.7, Sodium Level 142, Potassium Level 3.3L, Chloride Level 107, Carbon Dioxide Level 24, Anion Gap 11, Blood Urea Nitrogen 14, Creatinine 0.7, Estimat Glomerular Filtration Rate > 60, Glucose Level 117H, Calcium Level 8.8 Height (Feet): 5 Height (Inches): 1.00 Weight (Pounds): 156 General Appearance: alert EENT: TMs normal Neck: supple Respiratory/Chest: normal breath sounds Abdomen: soft Extremities: non-tender Edema: no edema noted Leg (L), no edema noted Leg (R) Edema: mild edema Neurologic: alert Skin: warm/dry Sarath Golden MD Aug 04, 2018 14:25
[2018-08-04] MEDS: Vancomycin 1gm in D5W 275ml IVPB SCH ×2 (14:30→23:49)
--- NOTE | 2018-08-04 14:49 | General Progress Note ---
Assessment/Plan Problem List: (1) Epistaxis ICD Codes: R04.0 - Epistaxis SNOMED: 987036493 (2) Dizzy ICD Codes: R42 - Dizziness and giddiness SNOMED: 018399557, 440897916 (3) HTN (hypertension) ICD Codes: I10 - Essential (primary) hypertension SNOMED: 32482837 (4) Anxiety ICD Codes: F41.9 - Anxiety disorder, unspecified SNOMED: 83192023 (5) Bleeding hemorrhoid ICD Codes: K64.9 - Unspecified hemorrhoids SNOMED: 47397218 (6) Anemia ICD Codes: D64.9 - Anemia SNOMED: 045814698 (7) DVT (deep venous thrombosis) ICD Codes: I82.409 - Acute embolism and thrombosis of unspecified deep veins of unspecified lower extremity SNOMED: 104581197 Assessment/Plan ot pt diet anticoag eval gi heme ent cardio f/u cbc bmp am dc plan if clear Subjective Constitutional: Reports: weakness Allergies: Coded Allergies: No Known Allergies (Unverified , 07/27/18) All Systems: reviewed and negative except above Subjective sl anxious in bed Objective Last 24 Hour Vital Signs Date Time Temp Pulse Resp B/P (MAP) Pulse Ox O2 Delivery O2 Flow Rate FiO2 08/04/18 13:34 130/83 08/04/18 09:41 98.4 08/04/18 09:12 76 123/77 08/04/18 09:00 Room Air 08/04/18 08:00 97.5 76 18 123/77 (92) 100 08/04/18 08:00 85 08/04/18 05:43 139/91 08/04/18 04:00 98.4 75 22 132/86 (101) 100 08/04/18 04:00 70 08/04/18 00:00 97.8 78 19 130/78 (95) 98 08/03/18 23:23 76 08/03/18 23:17 130/78 08/03/18 21:00 Room Air 08/03/18 20:00 98.4 80 21 121/76 (91) 99 08/03/18 19:03 80 08/03/18 18:21 118/69 08/03/18 16:00 83 08/03/18 16:00 98.4 85 18 118/69 (85) 98 Intake and Output 08/03/18 08/04/18 19:00 07:00 Intake Total 480 ml 345 ml Balance 480 ml 345 ml Intake Oral 480 ml 120 ml IV Total 225 ml # Voids 3 5 Laboratory Tests 08/03/18 22:25: Vancomycin Level Trough 9.0 08/04/18 07:00: White Blood Count 12.5H, Red Blood Count 3.10L, Hemoglobin 8.4L, Hematocrit 26.4L, Mean Corpuscular Volume 85, Mean Corpuscular Hemoglobin 27.2, Mean Corpuscular Hemoglobin Concent 31.9L, Red Cell Distribution Width 19.2H, Platelet Count 347, Mean Platelet Volume 5.8L, Neutrophils (%) (Auto) 64.5, Lymphocytes (%) (Auto) 28.9, Monocytes (%) (Auto) 5.2, Eosinophils (%) (Auto) 0.7, Basophils (%) (Auto) 0.7, Sodium Level 142, Potassium Level 3.3L, Chloride Level 107, Carbon Dioxide Level 24, Anion Gap 11, Blood Urea Nitrogen 14, Creatinine 0.7, Estimat Glomerular Filtration Rate > 60, Glucose Level 117H, Calcium Level 8.8 Height (Feet): 5 Height (Inches): 1.00 Weight (Pounds): 156 General Appearance: alert EENT: normal ENT inspection Neck: normal alignment Cardiovascular: normal peripheral pulses, normal rate, regular rhythm Respiratory/Chest: chest wall non-tender, lungs clear, normal breath sounds Abdomen: normal bowel sounds, non tender, soft Extremities: normal inspection Edema: no edema noted Arm (L), no edema noted Arm (R), no edema noted Leg (L), no edema noted Leg (R), no edema noted Pedal (L), no edema noted Pedal (R), no edema noted Generalized Neurologic: responsive, motor weakness Skin: normal pigmentation, warm/dry Srikanth Oliva DO Aug 04, 2018 14:49
--- NOTE | 2018-08-04 15:20 | Infectious Diseases Prog Note ---
Assessment/Plan Assessment/Plan ASSESSMENT: The patient is a 63-year-old female with: Leukocytosis (most likely due to thrombophlebitis at the site of IV site). Rule out probable bacteremia Rule out thrombophlebitis at the site of midline insertion. Afebrile. History of hepatitis C (on treatment). Anemia. History of hemorrhoids. Hypertension. Depression. Anxiety. History of . History of abdominal hernia. History of right knee and right hip surgery. PLAN: will continue the patient on vancomycin and cefepime d# 3, may DC on Kefelx x 5 days Monitor CBC Monitor BMP. Monitor cultures (blood, urine). Left upper extremity Doppler, rule out thrombophlebitis (superficial versus deep ) recommendation. Subjective Allergies: Coded Allergies: No Known Allergies (Unverified , 07/27/18) Subjective comfortable Objective Vital Signs Last 24 Hour Vital Signs Date Time Temp Pulse Resp B/P (MAP) Pulse Ox O2 Delivery O2 Flow Rate FiO2 08/04/18 13:34 130/83 08/04/18 09:41 98.4 08/04/18 09:12 76 123/77 08/04/18 09:00 Room Air 08/04/18 08:00 97.5 76 18 123/77 (92) 100 08/04/18 08:00 85 08/04/18 05:43 139/91 08/04/18 04:00 98.4 75 22 132/86 (101) 100 08/04/18 04:00 70 08/04/18 00:00 97.8 78 19 130/78 (95) 98 08/03/18 23:23 76 08/03/18 23:17 130/78 08/03/18 21:00 Room Air 08/03/18 20:00 98.4 80 21 121/76 (91) 99 08/03/18 19:03 80 08/03/18 18:21 118/69 08/03/18 16:00 83 08/03/18 16:00 98.4 85 18 118/69 (85) 98 Height (Feet): 5 Height (Inches): 1.00 Weight (Pounds): 156 HEENT: anicteric Respiratory/Chest: normal breath sounds Cardiovascular: normal rate Abdomen: no organomegaly Microbiology Date/Time Source Procedure Growth Status 08/02/18 10:35 Blood Blood Culture - Preliminary NO GROWTH AFTER 24 HOURS Resulted 08/02/18 11:09 Urine,Clean Catch Urine Culture - Preliminary Mixed Gram Positive Organism Resulted Laboratory Tests Test 08/03/18 22:25 08/04/18 07:00 Vancomycin Level Trough 9.0 ug/mL (5.0-12.0) White Blood Count 12.5 K/UL (4.8-10.8) H Red Blood Count 3.10 M/UL (4.20-5.40) L Hemoglobin 8.4 G/DL (12.0-16.0) L Hematocrit 26.4 % (37.0-47.0) L Mean Corpuscular Volume 85 FL (80-99) Mean Corpuscular Hemoglobin 27.2 PG (27.0-31.0) Mean Corpuscular Hemoglobin Concent 31.9 G/DL (32.0-36.0) L Red Cell Distribution Width 19.2 % (11.6-14.8) H Platelet Count 347 K/UL (150-450) Mean Platelet Volume 5.8 FL (6.5-10.1) L Neutrophils (%) (Auto) 64.5 % (45.0-75.0) Lymphocytes (%) (Auto) 28.9 % (20.0-45.0) Monocytes (%) (Auto) 5.2 % (1.0-10.0) Eosinophils (%) (Auto) 0.7 % (0.0-3.0) Basophils (%) (Auto) 0.7 % (0.0-2.0) Sodium Level 142 MMOL/L (136-145) Potassium Level 3.3 MMOL/L (3.5-5.1) L Chloride Level 107 MMOL/L (98-107) Carbon Dioxide Level 24 MMOL/L (21-32) Anion Gap 11 mmol/L (5-15) Blood Urea Nitrogen 14 mg/dL (7-18) Creatinine 0.7 MG/DL (0.55-1.30) Estimat Glomerular Filtration Rate > 60 mL/min (>60) Glucose Level 117 MG/DL (74-106) H Calcium Level 8.8 MG/DL (8.5-10.1) Current Medications Medications (Trade) Dose Ordered Sig/Primo Route PRN Reason Start Time Stop Time Status Last Admin Dose Admin Acetaminophen (Tylenol) 650 mg Q4H PRN ORAL fever (T>100.5F) 07/31/18 13:30 08/26/18 17:24 08/04/18 05:50 Al Hydroxide/Mg Hydroxide (Mylanta II) 30 ml Q6H PRN ORAL dyspepsia 07/31/18 12:00 08/26/18 11:59 Amlodipine Besylate (Norvasc) 5 mg DAILY ORAL 08/02/18 09:00 09/01/18 08:59 08/04/18 09:12 Apixaban (Eliquis) 5 mg Q12HR ORAL 08/04/18 21:00 09/03/18 20:59 Cefepime HCl 1 gm/ Dextrose 55 ml @ 110 mls/hr EVERY 12 HOURS IVPB 08/02/18 10:00 08/09/18 09:59 08/04/18 09:10 Chlorhexidine Gluconate (Lorraine-Hex 2%) 1 applic DAILY@2000 TOPIC 07/31/18 20:00 08/26/18 19:59 08/01/18 20:07 Clonidine HCl (Catapres Tab) 0.1 mg EVERY 6 HOURS ORAL 07/31/18 12:00 08/29/18 12:59 08/04/18 13:34 Cyclobenzaprine HCl (Flexeril) 10 mg EVERY 12 HOURS ORAL 07/31/18 21:00 08/29/18 20:59 08/04/18 09:11 Cyclobenzaprine HCl (Flexeril) 10 mg TIDPRN PRN ORAL Muscle Spasm 07/31/18 13:00 08/29/18 12:59 Dextrose (Dextrose 50%) 25 ml Q30M PRN IV Hypoglycemia 07/31/18 12:00 08/26/18 17:15 Dextrose (Dextrose 50%) 50 ml Q30M PRN IV hypoglycemia 07/31/18 12:00 08/26/18 17:29 Dicyclomine HCl (Bentyl) 10 mg QIDPRN PRN ORAL Abdominal cramps 08/02/18 08:15 09/01/18 08:14 08/04/18 09:10 Fluoxetine HCl (PROzac) 40 mg DAILY ORAL 08/01/18 09:00 08/27/18 08:59 08/04/18 09:11 Gabapentin (Neurontin) 300 mg THREE TIMES A DAY ORAL 07/31/18 13:00 08/27/18 17:59 08/04/18 13:33 Hydrocortisone (Anusol HC) 1 applic TWICE A DAY RECTAL 07/31/18 18:00 08/27/18 17:59 07/31/18 18:07 Hydroxyzine HCl (Atarax) 25 mg Q6H PRN ORAL For Anxiety 07/31/18 17:15 08/27/18 17:14 08/04/18 09:10 Methylprednisolone (Medrol) 4 mg TIPC ORAL 07/31/18 18:00 08/07/18 13:01 08/04/18 13:33 Ondansetron HCl (Zofran) 4 mg Q6H PRN IVP Nausea & Vomiting 07/31/18 12:00 08/26/18 11:59 Patient Own Medication (Patient's Own Med) 1 ea DAILY ORAL 08/01/18 09:00 08/31/18 08:59 08/04/18 09:10 Polyethylene Glycol (Miralax) 17 gm HSPRN PRN ORAL Constipation 07/31/18 21:00 08/26/18 20:59 Simethicone (Mylicon) 80 mg QIDPRN PRN ORAL GAS PAIN 07/31/18 12:00 08/27/18 11:59 Sodium Chloride 1,000 ml @ 75 mls/hr [id number] IV 08/02/18 08:30 09/01/18 08:29 08/04/18 13:34 Vancomycin HCl (Vanco rx to dose) 1 ea DAILY PRN MISC Per rx protocol 08/02/18 08:45 09/01/18 08:44 Vancomycin HCl 1 gm/Dextrose 275 ml @ 183.708 mls/hr Q12H IVPB 08/04/18 00:00 08/09/18 00:00 08/04/18 14:30 Stanislav You MD Aug 04, 2018 15:20
[2018-08-04 16:00] VITALS: BP 149/98
[2018-08-04] MEDS: HYDROcodone/Acetamin 10/325 tab ORAL PRN (16:43)
[2018-08-04 20:00] VITALS: BP 128/77
[2018-08-04] MEDS: Dyna-Hex 2% Top Sol 2oz TOPIC SCH (20:00)
[2018-08-04] MEDS: Eliquis 2.5mg tablet ORAL SCH (20:14)
--- NOTE | 2018-08-04 20:44 | Neurology Progress Note ---
Interim History Interim History Interim History Ms. Gutierrez feels "better." The low back pain radiating into the left leg and in addition left hamstring spasms continue to improve. She is much more comfortable today. She has able to walk better today. She had pain in her left upper extremity and a venous duplex revealed that she has LUE DVT. She denies any new neurologic symptoms. She looks generally better. Review of Systems Neuro Review of Systems Benign. Objective Physical Exam Last Vital Signs Date Time Temp Pulse Resp B/P (MAP) Pulse Ox O2 Delivery O2 Flow Rate FiO2 08/04/18 17:13 98.4 08/04/18 16:00 95 18 149/98 (115) 95 08/04/18 09:00 Room Air Laboratory Tests Test 08/03/18 22:25 08/04/18 07:00 Vancomycin Level Trough 9.0 ug/mL (5.0-12.0) White Blood Count 12.5 K/UL (4.8-10.8) H Red Blood Count 3.10 M/UL (4.20-5.40) L Hemoglobin 8.4 G/DL (12.0-16.0) L Hematocrit 26.4 % (37.0-47.0) L Mean Corpuscular Volume 85 FL (80-99) Mean Corpuscular Hemoglobin 27.2 PG (27.0-31.0) Mean Corpuscular Hemoglobin Concent 31.9 G/DL (32.0-36.0) L Red Cell Distribution Width 19.2 % (11.6-14.8) H Platelet Count 347 K/UL (150-450) Mean Platelet Volume 5.8 FL (6.5-10.1) L Neutrophils (%) (Auto) 64.5 % (45.0-75.0) Lymphocytes (%) (Auto) 28.9 % (20.0-45.0) Monocytes (%) (Auto) 5.2 % (1.0-10.0) Eosinophils (%) (Auto) 0.7 % (0.0-3.0) Basophils (%) (Auto) 0.7 % (0.0-2.0) Sodium Level 142 MMOL/L (136-145) Potassium Level 3.3 MMOL/L (3.5-5.1) L Chloride Level 107 MMOL/L (98-107) Carbon Dioxide Level 24 MMOL/L (21-32) Anion Gap 11 mmol/L (5-15) Blood Urea Nitrogen 14 mg/dL (7-18) Creatinine 0.7 MG/DL (0.55-1.30) Estimat Glomerular Filtration Rate > 60 mL/min (>60) Glucose Level 117 MG/DL (74-106) H Calcium Level 8.8 MG/DL (8.5-10.1) Neurologic Exam Objective PHYSICAL EXAMINATION: GENERAL: She is a well-developed, well-nourished, pleasant, but anxious black lady, lying in bed, in no acute distress. HEAD: Normocephalic and atraumatic. EENT: Examination benign. NECK: No neck rigidity was observed. NEUROLOGIC EXAMINATION: MENTAL STATUS EXAMINATION: She was awake and alert. She was oriented to person, place, and time. She was able to recall 3/3 words immediately, and in 1 minute and 3 minutes. She was able to remember Presidents, Trump and Obama, but could not remember Presidents prior to that. Her mathematical skills were minimally impaired. Her visuospatial function was also minimally impaired. SPEECH: She had no dysarthria. LANGUAGE: She had no aphasia. CRANIAL NERVE EXAMINATION: II: The visual lin were intact on confrontation testing. III, IV & : The external ocular movements were full and the pupils 3 mm in diameter, equal, round, regular, and reactive to light. V: She has normal facial sensations, and the temporales, masseters, and pterygoids functioned normally. VII: She had normal facial expressions and no facial asymmetry. VIII: She was able to hear well bilaterally and had no nystagmus. IX: The palate moved symmetrically on phonation. X: She had no hoarseness of voice. XI: The sternocleidomastoids and trapezii functioned normally. XII: The tongue was in the midline without any fasciculations or atrophy. MOTOR SYSTEM: The tone was normal in all four extremities. Examination of muscle mass revealed no focal wasting. Examination of power revealed G 5/5 except for G 5-/5 in left ankle dorsiflexors and toe extensors. SENSORY EXAMINATION: She had intact sensations to pinprick and light touch. REFLEXES: Trace+ and bilaterally symmetrical at the biceps, triceps, brachioradialis, and knees, 0 at both ankles. The plantar responses were flexor bilaterally. COORDINATION: She performed well on ideydf-dr-[id number] testing. She was unable to perform tdgf-tl-[id number] testing. STANCE: She stood up steadily with contact guard. GAIT: She walked steadily with contact guard. Impression/Recommendations Diagnostic Impression 1. Ms. Meche Gutierrez is a 63-year-old, right-handed, black lady, who does have a past history of hypertension, hepatitis C, depression and anxiety, a low back injury in 2000 which has completely disabled her, and recently a nasal versus gastrointestinal bleed. Since she has been in the hospital, she has been complaining of significant low back pain radiating to the left lower extremity and in addition, left hamstring spasms. 2. She feels "better." The low back pain radiating into the left leg and in addition left hamstring spasms continue to improve. She is much more comfortable today. She has able to walk better today. She had pain in her left upper extremity and a venous duplex revealed that she has LUE DVT. She denies any new neurologic symptoms. She looks generally better. 3. On neurological examination, at this time, she does have mild problems with visuospatial function and higher cognitive function. She has minimal weakness in the left ankle dorsiflexors and toe extensors. She also has globally diminished reflexes with loss of ankle jerks. She is able to stand and walk now. 4. The MRI of the LS spine revealed: - L5-S1: There is anterior offset. There is mild degenerative disc narrowing. There is circumferential annular disc bulge. The neural foramina are preserved. There is proliferative facet arthrosis. - L4-L5: There is slight anterior offset. There is degenerative disc narrowing with some high T2 signal within the disc. There is central posterior disc protrusion with a high intensity zone. There is slight compromise of the right lateral recess. There is no significant spinal canal stenosis. The neural foramina are preserved. - At the remaining disc levels, no significant disc bulge or protrusion, spinal stenosis, neural foraminal stenosis, or disc space narrowing is noted. 5. The patient's history and neurological examination are most compatible with left L5-S1 radiculopathy with ongoing hamstring spasms. Her radiculopathy has improved significantly with steroids. Recommendations 1. Continue present management. 2. Continue Flexeril 10 mg q.12 hours. 3. Finish 7 day course of Medrol 4 mg tid. 4. Spine surgery opinion. Yassine Mixon M.D., [email or web address]. YASSINE MIXON Aug 04, 2018 20:44
--- NOTE | 2018-08-04 23:25 | Cardiology Progress Note ---
Assessment/Plan Assessment/Plan 1. Hypotension, likely neurally mediated, resolved, continue hydration. 2D echocardiography reveals normal LV systolic function with LVEF at 60%. 2. History of gastrointestinal bleed. 3. History of anemia. 4. Hx of HCV infection. Subjective Subjective Sinus rhythm at rate of 82. Objective Last 24 Hour Vital Signs Date Time Temp Pulse Resp B/P (MAP) Pulse Ox O2 Delivery O2 Flow Rate FiO2 08/04/18 21:00 Room Air 08/04/18 20:00 98.1 82 18 128/77 (94) 100 08/04/18 20:00 82 08/04/18 17:13 98.4 08/04/18 16:00 98.4 95 18 149/98 (115) 95 08/04/18 16:00 90 08/04/18 13:34 130/83 08/04/18 12:00 79 08/04/18 12:00 98.5 82 18 130/83 (99) 98 08/04/18 09:41 98.4 08/04/18 09:12 76 123/77 08/04/18 09:00 Room Air 08/04/18 08:00 97.5 76 18 123/77 (92) 100 08/04/18 08:00 85 08/04/18 05:43 139/91 08/04/18 04:00 98.4 75 22 132/86 (101) 100 08/04/18 04:00 70 08/04/18 00:00 97.8 78 19 130/78 (95) 98 Intake and Output 08/03/18 08/04/18 18:59 06:59 Intake Total 555 ml 270 ml Balance 555 ml 270 ml Intake Oral 480 ml 120 ml IV Total 75 ml 150 ml # Voids 3 5 2D Echo: LVEF 60%, RVSP 31 mmHg, Mild CO Laboratory Tests Test 08/04/18 07:00 White Blood Count 12.5 K/UL (4.8-10.8) H Red Blood Count 3.10 M/UL (4.20-5.40) L Hemoglobin 8.4 G/DL (12.0-16.0) L Hematocrit 26.4 % (37.0-47.0) L Mean Corpuscular Volume 85 FL (80-99) Mean Corpuscular Hemoglobin 27.2 PG (27.0-31.0) Mean Corpuscular Hemoglobin Concent 31.9 G/DL (32.0-36.0) L Red Cell Distribution Width 19.2 % (11.6-14.8) H Platelet Count 347 K/UL (150-450) Mean Platelet Volume 5.8 FL (6.5-10.1) L Neutrophils (%) (Auto) 64.5 % (45.0-75.0) Lymphocytes (%) (Auto) 28.9 % (20.0-45.0) Monocytes (%) (Auto) 5.2 % (1.0-10.0) Eosinophils (%) (Auto) 0.7 % (0.0-3.0) Basophils (%) (Auto) 0.7 % (0.0-2.0) Sodium Level 142 MMOL/L (136-145) Potassium Level 3.3 MMOL/L (3.5-5.1) L Chloride Level 107 MMOL/L (98-107) Carbon Dioxide Level 24 MMOL/L (21-32) Anion Gap 11 mmol/L (5-15) Blood Urea Nitrogen 14 mg/dL (7-18) Creatinine 0.7 MG/DL (0.55-1.30) Estimat Glomerular Filtration Rate > 60 mL/min (>60) Glucose Level 117 MG/DL (74-106) H Calcium Level 8.8 MG/DL (8.5-10.1) Microbiology Date/Time Source Procedure Growth Status 08/02/18 10:35 Blood Blood Culture - Preliminary NO GROWTH AFTER 24 HOURS Resulted 08/02/18 11:09 Urine,Clean Catch Urine Culture - Preliminary Mixed Gram Positive Organism Resulted Objective HEENT: Atraumatic and normocephalic. Anicteric. Pupils are equal, round, and reactive to light and accommodation. NECK: JVP less than 5 cm. No carotid bruits. CVS: Normal S1, S2. Regular rate and rhythm. Tachycardic. No murmurs, gallops, or rubs. LUNGS: Clear to auscultation bilaterally. ABDOMEN: Soft, nontender, and nondistended. No hepatosplenomegaly. Positive bowel sounds. EXTREMITIES: No evidence of edema, clubbing, or cyanosis. Damian Kolb MD Aug 04, 2018 23:25
[2018-08-04] MEDS ORDERED: Zolpidem 5mg tab ORAL PRN (23:45)
[2018-08-05] VITALS: BP 109/74
[2018-08-05] MEDS: Dicyclomine HCl 10mg/5ml oral soln ORAL PRN ×2 (03:26→10:05)
[2018-08-05 04:00] VITALS: BP 130/90
[2018-08-05] MEDS: HYDROcodone/Acetamin 10/325 tab ORAL PRN ×2 (04:57→11:29)
--- NOTE | 2018-08-05 06:10 | General Progress Note ---
Assessment/Plan Assessment/Plan # Anemia of iron deficiency. Ferritin 8! potentially related to GI bleed. recent EGD/colonoscopy performed earlier this year noted to have gastritis, diverticulosis and large external hemorrhoids. --> Anemia w/u has been reviewed. Will trend CBC --> Peripheral smear has been reviewed, no evidence of hemolysis --> Hgb goal >7. Transfuse prn basis --> Completed IV iron x5 days --> hemorrhoidal treatment outpatient, anusol --> Blood tx: 07/29, # Left upper extremity basilic vein dvt --> on apixaban, has been started --> script written, will call pharmacy if needed --> dw pulm and pcp # Anemia due to lower GI bleed. --> GI is following, appreciate recs. --> No active bleeding. --> OB stool ++ --> simethicone prn # Leukocytosis is likely related to infection --> s/p abx, seen by id, improving # Hep C++. 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 --> Viral load of Hep C reviewed, as per ID --> US Abd: No acute findings. --> Transfuse to plt goal > 20k if febrile, >10k if afebrile --> Currently on Harvoni for Hep C treatment # Bleeding hemorrhoid. --> patient on Anusol HC BID --> bowel regime GREATLY APPRECIATE CONSULTATION. Subjective Constitutional: Denies: no symptoms, chills, diaphoresis, fever, malaise, weakness, other HEENT: Denies: no symptoms, eye pain, blurred vision, tearing, double vision, ear pain, ear discharge, nose pain, nose congestion, throat pain, throat swelling, mouth pain, mouth swelling, other Respiratory: Denies: no symptoms, cough, orthopnea, shortness of breath, SOB with excertion, SOB at rest, sputum, stridor, wheezing, other Gastrointestinal/Abdominal: Denies: no symptoms, abdomen distended, abdominal pain, black stools, tarry stools, blood in stool, constipated, diarrhea, difficulty swallowing, nausea, poor appetite, poor fluid intake, rectal bleeding , vomiting, other Genitourinary: Denies: no symptoms, burning, discharge, frequency, flank pain, hematuria, incontinence, pain, urgency, other Neurologic/Psychiatric: Denies: no symptoms, anxiety, depressed, emotional problems, headache, numbness, paresthesia, pre-existing deficit, seizure, tingling, tremors, weakness, other Endocrine: Denies: no symptoms, excessive sweating, flushing, intolerance to cold, intolerance to heat, increased hunger, increased thirst, increased urine, unexplained weight gain, unexplained weight loss, other Allergies: Coded Allergies: No Known Allergies (Unverified , 07/27/18) Subjective Given norco for abd pain. ++ left basilic vein dvt, now is on eliquis Objective Last 24 Hour Vital Signs Date Time Temp Pulse Resp B/P (MAP) Pulse Ox O2 Delivery O2 Flow Rate FiO2 08/05/18 05:58 130/90 08/05/18 04:00 79 08/05/18 04:00 98.3 79 18 130/90 (103) 95 08/05/18 00:00 81 08/05/18 00:00 98.4 81 18 109/74 (86) 96 08/04/18 23:49 128/77 08/04/18 21:00 Room Air 08/04/18 20:00 98.1 82 18 128/77 (94) 100 08/04/18 20:00 82 08/04/18 17:13 98.4 08/04/18 16:00 98.4 95 18 149/98 (115) 95 08/04/18 16:00 90 08/04/18 13:34 130/83 08/04/18 12:00 79 08/04/18 12:00 98.5 82 18 130/83 (99) 98 08/04/18 09:41 98.4 08/04/18 09:12 76 123/77 08/04/18 09:00 Room Air 08/04/18 08:00 97.5 76 18 123/77 (92) 100 08/04/18 08:00 85 Intake and Output 08/04/18 08/05/18 19:00 07:00 Intake Total 435 ml 910.000 ml Balance 435 ml 910.000 ml Intake Oral 360 ml IV Total 75 ml 910.000 ml # Voids 3 Laboratory Tests 08/04/18 07:00: White Blood Count 12.5H, Red Blood Count 3.10L, Hemoglobin 8.4L, Hematocrit 26.4L, Mean Corpuscular Volume 85, Mean Corpuscular Hemoglobin 27.2, Mean Corpuscular Hemoglobin Concent 31.9L, Red Cell Distribution Width 19.2H, Platelet Count 347, Mean Platelet Volume 5.8L, Neutrophils (%) (Auto) 64.5, Lymphocytes (%) (Auto) 28.9, Monocytes (%) (Auto) 5.2, Eosinophils (%) (Auto) 0.7, Basophils (%) (Auto) 0.7, Sodium Level 142, Potassium Level 3.3L, Chloride Level 107, Carbon Dioxide Level 24, Anion Gap 11, Blood Urea Nitrogen 14, Creatinine 0.7, Estimat Glomerular Filtration Rate > 60, Glucose Level 117H, Calcium Level 8.8 Height (Feet): 5 Height (Inches): 1.00 Weight (Pounds): 156 General Appearance: no apparent distress EENT: TMs normal Neck: supple Cardiovascular: regular rhythm Respiratory/Chest: lungs clear Abdomen: soft Extremities: non-tender Edema: 1+ Leg (L), 1+ Leg (R) Edema: mild edema Neurologic: alert Skin: warm/dry Sarath Golden MD Aug 05, 2018 06:10
[2018-08-05 06:50] LABS: BASOPHILS % (AUTO) 0.6 % (0.0-2.0); EOSINOPHILS % (AUTO) 0.5 % (0.0-3.0); HEMATOCRIT 29.4 % (37.0-47.0); HEMOGLOBIN 9.1 G/DL (12.0-16.0); LYMPHOCYTES % (AUTO) 29.1 % (20.0-45.0); MEAN CORPUSCULAR VOLUME 85 FL (80-99); NEUTROPHILS % (AUTO) 64.8 % (45.0-75.0); PLATELET COUNT 382 K/UL (150-450); RED BLOOD COUNT 3.44 M/UL (4.20-5.40); RED CELL DISTRIBUTION WIDTH 19.5 % (11.6-14.8); WHITE BLOOD COUNT 14.4 K/UL (4.8-10.8)
[2018-08-05 06:59] LABS: ANION GAP 9 mmol/L (5-15); BLOOD UREA NITROGEN 14 mg/dL (7-18); CALCIUM 9.2 MG/DL (8.5-10.1); CARBON DIOXIDE 26 MMOL/L (21-32); CHLORIDE 105 MMOL/L (98-107); CREATININE 0.6 MG/DL (0.55-1.30); POTASSIUM 3.9 MMOL/L (3.5-5.1); SODIUM 140 MMOL/L (136-145)
[2018-08-05 08:00] VITALS: BP 97/62
[2018-08-05] MEDS: Eliquis 2.5mg tablet ORAL SCH (08:47)
--- NOTE | 2018-08-05 08:47 | General Progress Note ---
Assessment/Plan Assessment/Plan (1) Lumbar DDD (2) Lumbar Herniated disc (3) Lumbar Radiculopathy (4) Lumbar Spondylosis Patient to be continued on [place] and Morphine D/w Dr. Jose and he concurred. Subjective Date patient seen: Aug 05, 2018 Time patient seen: 07:30 - am Allergies: Coded Allergies: No Known Allergies (Unverified , 07/27/18) Subjective REVIEW OF SYSTEMS: Denies rash, fever, chills, sweating, dizziness, drowsiness, blurred vision, sore throat, or change in weight. No nausea, vomiting, diarrhea, or blood in the urine. No dysuria. She is complaining of low back pain. 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 She has no new complaints. Objective Last 24 Hour Vital Signs Date Time Temp Pulse Resp B/P (MAP) Pulse Ox O2 Delivery O2 Flow Rate FiO2 08/05/18 08:00 98.1 77 18 97/62 (74) 98 08/05/18 05:58 130/90 08/05/18 04:00 79 08/05/18 04:00 98.3 79 18 130/90 (103) 95 08/05/18 00:00 81 08/05/18 00:00 98.4 81 18 109/74 (86) 96 08/04/18 23:49 128/77 08/04/18 21:00 Room Air 08/04/18 20:00 98.1 82 18 128/77 (94) 100 08/04/18 20:00 82 08/04/18 17:13 98.4 08/04/18 16:00 98.4 95 18 149/98 (115) 95 08/04/18 16:00 90 08/04/18 13:34 130/83 08/04/18 12:00 79 08/04/18 12:00 98.5 82 18 130/83 (99) 98 08/04/18 09:41 98.4 08/04/18 09:12 76 123/77 08/04/18 09:00 Room Air Intake and Output 08/04/18 08/05/18 19:00 07:00 Intake Total 435 ml 1150.000 ml Balance 435 ml 1150.000 ml Intake Oral 360 ml 240 ml IV Total 75 ml 910.000 ml # Voids 3 3 Laboratory Tests 08/05/18 05:40: White Blood Count 14.4H, Red Blood Count 3.44L, Hemoglobin 9.1L, Hematocrit 29.4L, Mean Corpuscular Volume 85, Mean Corpuscular Hemoglobin 26.4L, Mean Corpuscular Hemoglobin Concent 31.0L, Red Cell Distribution Width 19.5H, Platelet Count 382, Mean Platelet Volume 5.7L, Neutrophils (%) (Auto) 64.8, Lymphocytes (%) (Auto) 29.1, Monocytes (%) (Auto) 5.0, Eosinophils (%) (Auto) 0.5, Basophils (%) (Auto) 0.6, Sodium Level 140, Potassium Level 3.9, Chloride Level 105, Carbon Dioxide Level 26, Anion Gap 9, Blood Urea Nitrogen 14, Creatinine 0.6, Estimat Glomerular Filtration Rate > 60, Glucose Level 79, Calcium Level 9.2 Height (Feet): 5 Height (Inches): 1.00 Weight (Pounds): 175 Objective GENERAL: Alert, awake, and oriented. LUNGS: Decreased breath sounds bilaterally. HEART: Regular. ABDOMEN: Tenderness to palpation. BACK: Range of motion is decreased in flexion and extension. EXTREMITIES: No cyanosis. No clubbing. NEURO: No changes. Rico Avery Aug 05, 2018 08:47
[2018-08-05] MEDS: Cyclobenzaprine 10mg Tab ORAL SCH (08:49)
[2018-08-05] MEDS: Cefepime HCl 1 GM in D5W 55 ML IVPB SCH (08:50)
[2018-08-05] MEDS: HARVONI ORAL SCH (08:57)
--- NOTE | 2018-08-05 10:24 | Pulmonology Progress Note ---
Assessment/Plan Problems: (1) DVT (deep venous thrombosis) (2) Recurrent epistaxis (3) Anemia (4) COPD (chronic obstructive pulmonary disease) (5) Hepatitis C (6) Hiatal hernia with GERD (7) Back pain Assessment/Plan on Apixiban ID note appreciated wbc lower, today is 12 anemia w/u in progress symptomatic treatment dvt prophylaxis. pt can go home with oral abx. ID cleared. dc planing Subjective ROS Limited/Unobtainable: No Constitutional: Reports: no symptoms HEENT: Repors: no symptoms Respiratory: Reports: no symptoms Allergies: Coded Allergies: No Known Allergies (Unverified , 07/27/18) Objective Last 24 Hour Vital Signs Date Time Temp Pulse Resp B/P (MAP) Pulse Ox O2 Delivery O2 Flow Rate FiO2 08/05/18 09:00 Room Air 08/05/18 08:57 77 97/62 08/05/18 08:00 73 08/05/18 08:00 98.1 77 18 97/62 (74) 98 08/05/18 05:58 130/90 08/05/18 04:00 79 08/05/18 04:00 98.3 79 18 130/90 (103) 95 08/05/18 00:00 81 08/05/18 00:00 98.4 81 18 109/74 (86) 96 08/04/18 23:49 128/77 08/04/18 21:00 Room Air 08/04/18 20:00 98.1 82 18 128/77 (94) 100 08/04/18 20:00 82 08/04/18 17:13 98.4 08/04/18 16:00 98.4 95 18 149/98 (115) 95 08/04/18 16:00 90 08/04/18 13:34 130/83 08/04/18 12:00 79 08/04/18 12:00 98.5 82 18 130/83 (99) 98 Intake and Output 08/04/18 08/05/18 19:00 07:00 Intake Total 435 ml 1150.000 ml Balance 435 ml 1150.000 ml Intake Oral 360 ml 240 ml IV Total 75 ml 910.000 ml # Voids 3 3 General Appearance: WD/WN HEENT: normocephalic, anicteric Respiratory/Chest: chest wall non-tender, lungs clear Breasts: no masses Cardiovascular: normal peripheral pulses Abdomen: normal bowel sounds, soft, non tender Genitourinary: normal external genitalia Skin: no rash Microbiology Date/Time Source Procedure Growth Status 08/02/18 10:35 Blood Blood Culture - Preliminary NO GROWTH AFTER 48 HOURS Resulted 08/02/18 11:09 Urine,Clean Catch Urine Culture - Final Mixed Gram Positive Organism Complete Laboratory Tests 08/05/18 05:40: White Blood Count 14.4H, Red Blood Count 3.44L, Hemoglobin 9.1L, Hematocrit 29.4L, Mean Corpuscular Volume 85, Mean Corpuscular Hemoglobin 26.4L, Mean Corpuscular Hemoglobin Concent 31.0L, Red Cell Distribution Width 19.5H, Platelet Count 382, Mean Platelet Volume 5.7L, Neutrophils (%) (Auto) 64.8, Lymphocytes (%) (Auto) 29.1, Monocytes (%) (Auto) 5.0, Eosinophils (%) (Auto) 0.5, Basophils (%) (Auto) 0.6, Sodium Level 140, Potassium Level 3.9, Chloride Level 105, Carbon Dioxide Level 26, Anion Gap 9, Blood Urea Nitrogen 14, Creatinine 0.6, Estimat Glomerular Filtration Rate > 60, Glucose Level 79, Calcium Level 9.2 Current Medications Medications (Trade) Dose Ordered Sig/Primo Route PRN Reason Start Time Stop Time Status Last Admin Dose Admin Acetaminophen (Tylenol) 650 mg Q4H PRN ORAL fever (T>100.5F) 07/31/18 13:30 08/26/18 17:24 08/04/18 05:50 Acetaminophen/ Hydrocodone Bitart ([place] 10/325) 1 tab Q6H PRN ORAL Severe Pain (Pain Scale 7-10) 08/04/18 16:30 08/11/18 16:29 08/05/18 04:57 Al Hydroxide/Mg Hydroxide (Mylanta II) 30 ml Q6H PRN ORAL dyspepsia 07/31/18 12:00 08/26/18 11:59 Amlodipine Besylate (Norvasc) 5 mg DAILY ORAL 08/02/18 09:00 09/01/18 08:59 08/04/18 09:12 Apixaban (Eliquis) 5 mg Q12HR ORAL 08/04/18 21:00 09/03/18 20:59 10/31/18 08:47 Cefepime HCl 1 gm/ Dextrose 55 ml @ 110 mls/hr EVERY 12 HOURS IVPB 08/02/18 10:00 08/09/18 09:59 08/05/18 08:50 Chlorhexidine Gluconate ([place]orraine-Hex 2%) 1 applic DAILY@2000 TOPIC 07/31/18 20:00 08/26/18 19:59 08/01/18 20:07 Clonidine HCl (Catapres Tab) 0.1 mg EVERY 6 HOURS ORAL 07/31/18 12:00 08/29/18 12:59 08/05/18 05:58 Cyclobenzaprine HCl (Flexeril) 10 mg EVERY 12 HOURS ORAL 07/31/18 21:00 08/29/18 20:59 08/05/18 08:49 Cyclobenzaprine HCl (Flexeril) 10 mg TIDPRN PRN ORAL Muscle Spasm 07/31/18 13:00 08/29/18 12:59 Dextrose (Dextrose 50%) 25 ml Q30M PRN IV Hypoglycemia 07/31/18 12:00 08/26/18 17:15 Dextrose (Dextrose 50%) 50 ml Q30M PRN IV hypoglycemia 07/31/18 12:00 08/26/18 17:29 Dicyclomine HCl (Bentyl) 10 mg QIDPRN PRN ORAL Abdominal cramps 08/02/18 08:15 09/01/18 08:14 08/05/18 10:05 Fluoxetine HCl (PROzac) 40 mg DAILY ORAL 08/01/18 09:00 08/27/18 08:59 08/05/18 08:47 Gabapentin (Neurontin) 300 mg THREE TIMES A DAY ORAL 07/31/18 13:00 08/27/18 17:59 08/05/18 08:47 Hydrocortisone (Anusol HC) 1 applic TWICE A DAY RECTAL 07/31/18 18:00 08/27/18 17:59 08/05/18 08:49 Hydroxyzine HCl (Atarax) 25 mg Q6H PRN ORAL For Anxiety 07/31/18 17:15 08/27/18 17:14 08/04/18 16:46 Methylprednisolone (Medrol) 4 mg TIPC ORAL 07/31/18 18:00 08/07/18 13:01 08/05/18 08:47 Ondansetron HCl (Zofran) 4 mg Q6H PRN IVP Nausea & Vomiting 07/31/18 12:00 08/26/18 11:59 Patient Own Medication (Patient's Own Med) 1 ea DAILY ORAL 08/01/18 09:00 08/31/18 08:59 08/05/18 08:57 Polyethylene Glycol (Miralax) 17 gm HSPRN PRN ORAL Constipation 07/31/18 21:00 08/26/18 20:59 Simethicone (Mylicon) 80 mg QIDPRN PRN ORAL GAS PAIN 07/31/18 12:00 08/27/18 11:59 Sodium Chloride 1,000 ml @ 75 mls/hr [id number] IV 08/02/18 08:30 09/01/18 08:29 08/05/18 03:26 Vancomycin HCl (Vanco rx to dose) 1 ea DAILY PRN MISC Per rx protocol 08/02/18 08:45 09/01/18 08:44 Vancomycin HCl 1 gm/Dextrose 275 ml @ 183.708 mls/hr Q12H IVPB 08/04/18 00:00 08/09/18 00:00 08/04/18 23:49 Zolpidem Tartrate (Ambien) 5 mg HSPRN PRN ORAL Insomnia 08/04/18 23:45 08/11/18 23:44 08/04/18 23:49 Sharron Belle MD Aug 05, 2018 10:24
--- NOTE | 2018-08-05 10:30 | GI Progress Note ---
Assessment/Plan Problems: (1) Duodenal ulcer disease ICD Codes: K26.9 - Duodenal ulcer, unsp as acute or chronic, w/o hemor or perf SNOMED: 19071677 (2) Anemia ICD Codes: D64.9 - Anemia SNOMED: 321497725 (3) Lower GI bleed ICD Codes: K92.2 - Gastrointestinal hemorrhage, unspecified SNOMED: 38770573 Status: stable Status Narrative Discussed with Dr. Mcgraw. Assessment/Plan 2012 EGD/colonoscopy >> duodenal AVMs 2014 EGD >> DU s/p EGD/colonoscopy 04/29/2018 SUMMARY OF FINDINGS: 1. Gastritis, status post biopsy. 2. Diverticulosis. 3. Large external hemorrhoids. Currently on Harvoni for Hep C treatment, outpatient follow up OB stool r/o GI bleed, positive transferred to [facility], had episode of severe epistaxis okay for DC per GI standpoint Anusol HC BID monitor H&H, prn transfusions bowel regime ppi fu labs simethicone prn bentyl per patient request The patient was seen and examined at bedside and all new and available data was reviewed in the patients chart. I agree with the above findings, impression and plan. (Patient seen earlier today. Signature stamp does not reflect patient encounter time.). - Darrin Mcgraw MD Subjective Gastrointestinal/Abdominal: Reports: no symptoms Objective Last 24 Hour Vital Signs Date Time Temp Pulse Resp B/P (MAP) Pulse Ox O2 Delivery O2 Flow Rate FiO2 08/05/18 09:00 Room Air 08/05/18 08:57 77 97/62 08/05/18 08:00 73 08/05/18 08:00 98.1 77 18 97/62 (74) 98 08/05/18 05:58 130/90 08/05/18 04:00 79 08/05/18 04:00 98.3 79 18 130/90 (103) 95 08/05/18 00:00 81 08/05/18 00:00 98.4 81 18 109/74 (86) 96 08/04/18 23:49 128/77 08/04/18 21:00 Room Air 08/04/18 20:00 98.1 82 18 128/77 (94) 100 08/04/18 20:00 82 08/04/18 17:13 98.4 08/04/18 16:00 98.4 95 18 149/98 (115) 95 08/04/18 16:00 90 08/04/18 13:34 130/83 08/04/18 12:00 79 08/04/18 12:00 98.5 82 18 130/83 (99) 98 Intake and Output 08/04/18 08/05/18 19:00 07:00 Intake Total 435 ml 1150.000 ml Balance 435 ml 1150.000 ml Intake Oral 360 ml 240 ml IV Total 75 ml 910.000 ml # Voids 3 3 Laboratory Tests Test 08/05/18 05:40 White Blood Count 14.4 K/UL (4.8-10.8) H Red Blood Count 3.44 M/UL (4.20-5.40) L Hemoglobin 9.1 G/DL (12.0-16.0) L Hematocrit 29.4 % (37.0-47.0) L Mean Corpuscular Volume 85 FL (80-99) Mean Corpuscular Hemoglobin 26.4 PG (27.0-31.0) L Mean Corpuscular Hemoglobin Concent 31.0 G/DL (32.0-36.0) L Red Cell Distribution Width 19.5 % (11.6-14.8) H Platelet Count 382 K/UL (150-450) Mean Platelet Volume 5.7 FL (6.5-10.1) L Neutrophils (%) (Auto) 64.8 % (45.0-75.0) Lymphocytes (%) (Auto) 29.1 % (20.0-45.0) Monocytes (%) (Auto) 5.0 % (1.0-10.0) Eosinophils (%) (Auto) 0.5 % (0.0-3.0) Basophils (%) (Auto) 0.6 % (0.0-2.0) Sodium Level 140 MMOL/L (136-145) Potassium Level 3.9 MMOL/L (3.5-5.1) Chloride Level 105 MMOL/L (98-107) Carbon Dioxide Level 26 MMOL/L (21-32) Anion Gap 9 mmol/L (5-15) Blood Urea Nitrogen 14 mg/dL (7-18) Creatinine 0.6 MG/DL (0.55-1.30) Estimat Glomerular Filtration Rate > 60 mL/min (>60) Glucose Level 79 MG/DL (74-106) Calcium Level 9.2 MG/DL (8.5-10.1) Height (Feet): 5 Height (Inches): 1.00 Weight (Pounds): 175 General Appearance: WD/WN, no apparent distress, alert Cardiovascular: normal rate Respiratory/Chest: normal breath sounds, no respiratory distress Abdominal Exam: normal bowel sounds, non tender, soft Extremities: normal range of motion, non-tender Ciara Sheppard NP Aug 05, 2018 10:30
[2018-08-05 12:00] VITALS: BP 127/81
--- NOTE | 2018-08-05 12:15 | Infectious Diseases Prog Note ---
Assessment/Plan Assessment/Plan ASSESSMENT: The patient is a 63-year-old female with: Leukocytosis (most likely 2/2 thrombophlebitis at the site of IV site vs steroids) ? thrombophlebitis at the site of midline insertion. Doppler: prelim report : no DVT Afebrile History of hepatitis C (on treatment) Anemia. History of hemorrhoids. Hypertension. Depression. Anxiety. History of . History of abdominal hernia. History of right knee and right hip surgery. PLAN: will continue the patient on vancomycin and cefepime d# 4, may DC on Kefelx x 5 days Monitor CBC Monitor BMP. Monitor cultures (blood, urine). Left upper extremity Doppler, rule out thrombophlebitis (superficial versus deep ) ask RN to follow on the official result. Subjective Constitutional: Denies: no symptoms, fever, chills, fatigue, anorexia, drenching sweats, other Allergies: Coded Allergies: No Known Allergies (Unverified , 07/27/18) Subjective Afebrile no complain no diarrhea, no cough,no fever, no chills Objective Vital Signs Last 24 Hour Vital Signs Date Time Temp Pulse Resp B/P (MAP) Pulse Ox O2 Delivery O2 Flow Rate FiO2 08/05/18 09:00 Room Air 08/05/18 08:57 77 97/62 08/05/18 08:00 73 08/05/18 08:00 98.1 77 18 97/62 (74) 98 08/05/18 05:58 130/90 08/05/18 04:00 79 08/05/18 04:00 98.3 79 18 130/90 (103) 95 08/05/18 00:00 81 08/05/18 00:00 98.4 81 18 109/74 (86) 96 08/04/18 23:49 128/77 08/04/18 21:00 Room Air 08/04/18 20:00 98.1 82 18 128/77 (94) 100 08/04/18 20:00 82 08/04/18 17:13 98.4 08/04/18 16:00 98.4 95 18 149/98 (115) 95 08/04/18 16:00 90 08/04/18 13:34 130/83 Height (Feet): 5 Height (Inches): 1.00 Weight (Pounds): 175 HEENT: anicteric Respiratory/Chest: no accessory muscle use Cardiovascular: regular rhythm Abdomen: no organomegaly Laboratory Tests Test 08/05/18 05:40 08/05/18 11:20 White Blood Count 14.4 K/UL (4.8-10.8) H Red Blood Count 3.44 M/UL (4.20-5.40) L Hemoglobin 9.1 G/DL (12.0-16.0) L Hematocrit 29.4 % (37.0-47.0) L Mean Corpuscular Volume 85 FL (80-99) Mean Corpuscular Hemoglobin 26.4 PG (27.0-31.0) L Mean Corpuscular Hemoglobin Concent 31.0 G/DL (32.0-36.0) L Red Cell Distribution Width 19.5 % (11.6-14.8) H Platelet Count 382 K/UL (150-450) Mean Platelet Volume 5.7 FL (6.5-10.1) L Neutrophils (%) (Auto) 64.8 % (45.0-75.0) Lymphocytes (%) (Auto) 29.1 % (20.0-45.0) Monocytes (%) (Auto) 5.0 % (1.0-10.0) Eosinophils (%) (Auto) 0.5 % (0.0-3.0) Basophils (%) (Auto) 0.6 % (0.0-2.0) Sodium Level 140 MMOL/L (136-145) Potassium Level 3.9 MMOL/L (3.5-5.1) Chloride Level 105 MMOL/L (98-107) Carbon Dioxide Level 26 MMOL/L (21-32) Anion Gap 9 mmol/L (5-15) Blood Urea Nitrogen 14 mg/dL (7-18) Creatinine 0.6 MG/DL (0.55-1.30) Estimat Glomerular Filtration Rate > 60 mL/min (>60) Glucose Level 79 MG/DL (74-106) Calcium Level 9.2 MG/DL (8.5-10.1) Vancomycin Level Trough Pending Current Medications Medications (Trade) Dose Ordered Sig/Primo Route PRN Reason Start Time Stop Time Status Last Admin Dose Admin Acetaminophen (Tylenol) 650 mg Q4H PRN ORAL fever (T>100.5F) 10/26/18 13:30 08/26/18 17:24 08/04/18 05:50 Acetaminophen/ Hydrocodone Bitart ([place] 10) 1 tab Q6H PRN ORAL Severe Pain (Pain Scale 7-10) 08/04/18 16:30 08/11/18 16:29 08/05/18 11:29 Al Hydroxide/Mg Hydroxide (Mylanta II) 30 ml Q6H PRN ORAL dyspepsia 07/31/18 12:00 08/26/18 11:59 Amlodipine Besylate (Norvasc) 5 mg DAILY ORAL 08/02/18 09:00 09/01/18 08:59 08/04/18 09:12 Apixaban (Eliquis) 5 mg Q12HR ORAL 08/04/18 21:00 09/03/18 20:59 08/05/18 08:47 Cefepime HCl 1 gm/ Dextrose 55 ml @ 110 mls/hr EVERY 12 HOURS IVPB 08/02/18 10:00 08/09/18 09:59 08/05/18 08:50 Chlorhexidine Gluconate (Lorraine-Hex 2%) 1 applic DAILY@2000 TOPIC 07/31/18 20:00 08/26/18 19:59 08/01/18 20:07 Clonidine HCl (Catapres Tab) 0.1 mg EVERY 6 HOURS ORAL 07/31/18 12:00 08/29/18 12:59 08/05/18 05:58 Cyclobenzaprine HCl (Flexeril) 10 mg EVERY 12 HOURS ORAL 07/31/18 21:00 08/29/18 20:59 08/05/18 08:49 Cyclobenzaprine HCl (Flexeril) 10 mg TIDPRN PRN ORAL Muscle Spasm 07/31/18 13:00 08/29/18 12:59 Dextrose (Dextrose 50%) 25 ml Q30M PRN IV Hypoglycemia 07/31/18 12:00 08/26/18 17:15 Dextrose (Dextrose 50%) 50 ml Q30M PRN IV hypoglycemia 07/31/18 12:00 08/26/18 17:29 Dicyclomine HCl (Bentyl) 10 mg QIDPRN PRN ORAL Abdominal cramps 08/02/18 08:15 09/01/18 08:14 08/05/18 10:05 Fluoxetine HCl (PROzac) 40 mg DAILY ORAL 08/01/18 09:00 08/27/18 08:59 08/05/18 08:47 Gabapentin (Neurontin) 300 mg THREE TIMES A DAY ORAL 07/31/18 13:00 08/27/18 17:59 08/05/18 08:47 Hydrocortisone (Anusol HC) 1 applic TWICE A DAY RECTAL 07/31/18 18:00 08/27/18 17:59 08/05/18 08:49 Hydroxyzine HCl (Atarax) 25 mg Q6H PRN ORAL For Anxiety 07/31/18 17:15 08/27/18 17:14 08/04/18 16:46 Methylprednisolone (Medrol) 4 mg TIPC ORAL 07/31/18 18:00 08/07/18 13:01 08/05/18 08:47 Ondansetron HCl (Zofran) 4 mg Q6H PRN IVP Nausea & Vomiting 07/31/18 12:00 08/26/18 11:59 Patient Own Medication (Patient's Own Med) 1 ea DAILY ORAL 08/01/18 09:00 08/31/18 08:59 08/05/18 08:57 Polyethylene Glycol (Miralax) 17 gm HSPRN PRN ORAL Constipation 07/31/18 21:00 08/26/18 20:59 Simethicone (Mylicon) 80 mg QIDPRN PRN ORAL GAS PAIN 07/31/18 12:00 08/27/18 11:59 Sodium Chloride 1,000 ml @ 75 mls/hr [id number] IV 08/02/18 08:30 09/01/18 08:29 08/05/18 03:26 Vancomycin HCl (Vanco rx to dose) 1 ea DAILY PRN MISC Per rx protocol 08/02/18 08:45 09/01/18 08:44 Vancomycin HCl 1 gm/Dextrose 275 ml @ 183.708 mls/hr Q12H IVPB 08/04/18 00:00 08/09/18 00:00 08/04/18 23:49 Zolpidem Tartrate (Ambien) 5 mg HSPRN PRN ORAL Insomnia 08/04/18 23:45 08/11/18 23:44 08/04/18 23:49 Stanislav You MD Aug 05, 2018 12:15
[2018-08-05] MEDS: Vancomycin 1gm in D5W 275ml IVPB SCH (12:27)
--- NOTE | 2018-08-05 13:37 | General Progress Note ---
Assessment/Plan Problem List: (1) HTN (hypertension) ICD Codes: I10 - Essential (primary) hypertension SNOMED: 71922255 (2) Anxiety ICD Codes: F41.9 - Anxiety disorder, unspecified SNOMED: 28381177 (3) Anemia ICD Codes: D64.9 - Anemia SNOMED: 897770634 (4) DVT (deep venous thrombosis) ICD Codes: I82.409 - Acute embolism and thrombosis of unspecified deep veins of unspecified lower extremity SNOMED: 370274283 Status: stable, progressing Assessment/Plan ot pt diet anticoag eval gi heme ent cardio f/u dc home w hh if id clears Subjective Constitutional: Reports: weakness Allergies: Coded Allergies: No Known Allergies (Unverified , 07/27/18) All Systems: reviewed and negative except above Subjective sl anxious in bed wants to go home Objective Last 24 Hour Vital Signs Date Time Temp Pulse Resp B/P (MAP) Pulse Ox O2 Delivery O2 Flow Rate FiO2 08/05/18 12:00 98.7 82 18 127/81 (96) 100 08/05/18 12:00 127/81 08/05/18 09:00 Room Air 08/05/18 08:57 77 97/62 08/05/18 08:00 73 08/05/18 08:00 98.1 77 18 97/62 (74) 98 08/05/18 05:58 130/90 08/05/18 04:00 79 08/05/18 04:00 98.3 79 18 130/90 (103) 95 08/05/18 00:00 81 08/05/18 00:00 98.4 81 18 109/74 (86) 96 08/04/18 23:49 128/77 08/04/18 21:00 Room Air 08/04/18 20:00 98.1 82 18 128/77 (94) 100 08/04/18 20:00 82 08/04/18 17:13 98.4 08/04/18 16:00 98.4 95 18 149/98 (115) 95 08/04/18 16:00 90 Intake and Output 08/04/18 08/05/18 19:00 07:00 Intake Total 435 ml 1150.000 ml Balance 435 ml 1150.000 ml Intake Oral 360 ml 240 ml IV Total 75 ml 910.000 ml # Voids 3 3 Laboratory Tests 08/05/18 05:40: White Blood Count 14.4H, Red Blood Count 3.44L, Hemoglobin 9.1L, Hematocrit 29.4L, Mean Corpuscular Volume 85, Mean Corpuscular Hemoglobin 26.4L, Mean Corpuscular Hemoglobin Concent 31.0L, Red Cell Distribution Width 19.5H, Platelet Count 382, Mean Platelet Volume 5.7L, Neutrophils (%) (Auto) 64.8, Lymphocytes (%) (Auto) 29.1, Monocytes (%) (Auto) 5.0, Eosinophils (%) (Auto) 0.5, Basophils (%) (Auto) 0.6, Sodium Level 140, Potassium Level 3.9, Chloride Level 105, Carbon Dioxide Level 26, Anion Gap 9, Blood Urea Nitrogen 14, Creatinine 0.6, Estimat Glomerular Filtration Rate > 60, Glucose Level 79, Calcium Level 9.2 08/05/18 11:20: Vancomycin Level Trough 12.9H Height (Feet): 5 Height (Inches): 1.00 Weight (Pounds): 175 General Appearance: alert EENT: normal ENT inspection Neck: normal alignment Cardiovascular: normal peripheral pulses, normal rate, regular rhythm Respiratory/Chest: chest wall non-tender, lungs clear, normal breath sounds Abdomen: normal bowel sounds, non tender, soft Extremities: normal inspection Edema: no edema noted Arm (L), no edema noted Arm (R), no edema noted Leg (L), no edema noted Leg (R), no edema noted Pedal (L), no edema noted Pedal (R), no edema noted Generalized Neurologic: responsive, motor weakness Skin: normal pigmentation, warm/dry Srikanth Oliva DO Aug 05, 2018 13:37
[2018-08-05] MEDS ORDERED: ELIQUIS5 MG PO (14:27)
--- NOTE | 2018-08-05 15:31 | Diagnostic Imaging Report ---
APPROVED REPORT CPT Code: 69685 Present Symptoms Comments: Swelling and pain 2D Evaluation LEFT UPPER EXTREMITY: Venous imaging reveals acute thrombus in the brachial vein. The remaining segments are within normal limits. There is no evidence of thrombus within the internal jugular, innominate, subclavian, axillary, radial and ulnar veins. Imaging reveals acute thrombus in the left basilic vein at the upper arm level. Imaging also reveals patency of the left cephalic vein. Note: The radial and ulnar arteries appear to bifurcate in the mid arm. LUIS Meng was informed at 11:30 hours.
--- NOTE | 2018-08-05 16:15 | Progress Note ---
DATE: 08/05/2018 SUBJECTIVE: This is a 63-year-old female patient with anemia and possible GI bleeding. This patient continues to have some confusion, mood lability, and high levels of depression worsened by stress from her medical illness. MENTAL STATUS EXAMINATION: This is a 63-year-old female. Appearance is disheveled. Attitude, irritable and agitated. Affect, guarded and restricted. Intellect poor. Mood, depressed and anxious. Motor activity, psychomotor agitation. Attention span is poor. Orientation x2. Speech is normal volume and . Insight and judgment is fair. DIAGNOSIS: Major depressive disorder, mild, recurrent, without psychotic features. PLAN: Treat her with Prozac 40 mg daily as well as treat her with Neurontin 300 mg 2 times a day and Ativan 0.5 mg every four hours p.r.n. Provided with 20 minutes of cognitive behavioral therapy to help identify her automatic negative thoughts and help her convert those negative thoughts to more positive thoughts to reduce depression, anxiety, and suicidality. Chart reviewed. Discussed with staff. Seen and assessed at bedside. Saroj Fernandez M.D. DR: RUBÉN JOB#: [id number] CC:
--- NOTE | 2018-08-06 14:09 | Discharge Summary ---
Discharge Summary Discharge Summary _ DATE OF ADMISSION: 07/27/2018 DATE OF DISCHARGE: 08/05/2018 CONSULTANTS: Dr. 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 She has medical history significant for hepatitis C currently on Harvoni treatment, COPD, hypertension , duodenal ulcer and hiatal hernia. On evaluation at ED, she was found to be severely anemic. Hemoglobin was 7.7, hematocrit 25.2, platelet was normal. INR was elevated to 1.1, PT 11, PTT 31. 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 Patient went for PICC line insertion however, was unable to place a PICC line catheter. A 10 cm catheter was then placed on the left upper extremity for peripheral use. She was admitted for evaluation of anemia. She was seen by ENT. There were no scabs seen in either nostril or postnasal pharynx. Oral cavity with no oral bleeding or posterior discharge. She underwent GI evaluation. Stool OB was positive. Patient had a history of endoscopy done on April 2018 with findings of gastritis, diverticulosis and large external hemorrhoids. He was given bowel regimen and was given PPI. He was placed on Anusol twice a day. Anemia work up was done. Ferritin was 8. She was given 1 unit packed RBC blood transfusion. She was given IV iron. Patient was diagnosed with major depressive disorder, she was given Prozac and Neurontin. She was given Ativan for anxiety. She complained of significant low back pain radiating to the left lower extremity and left hamstring spasms. On neuro examination, she exhibited generalized weakness most marked in the lower extremity. She had globally diminished reflexes with loss of ankle jerks. Findings were compatible with left L5-S1 radiculopathy with ongoing hamstring spasms. She was given Flexeril every 12 hours around the clock. Lumbar MRI showed evidence of progressive degenerative change of the L5-S1 and L4-L5 disc and bilateral facets. Progressive anterior offset of L5 on S1 related to disc degeneration. There was mild spinal stenosis with no significant neural compromise. She was given tramadol, morphine and [place] by set painter. She was given 7 day course of Medrol 4 mg 3 times a day. She had an episode of hypotension, that occurred after a large bowel movement. She was given IV bolus. Hypotension, likely neurally mediated. Echocardiogram done showed LV ejection fraction 60%, with trace aortic insufficiency, trace tricuspid regurgitation and mild pulmonic regurgitation. Hypotension resolved. Patient developed leukocytosis. She was started on vancomycin and cefepime ID was consulted. Leukocytosis most likely due to thrombophlebitis at the IV site. Left upper extremity Doppler scan showed acute DVT on the left brachial vein. She was eventually started on apixaban. Blood culture did not isolate any growth. Urine culture with mixed organisms. She was eventually cleared for discharge to continue po antibiotics and anticoagulation at home. FINAL DIAGNOSES: Anemia possibly secondary to lower GI bleed due to bleeding hemorrhoids, requiring blood transfusion Acute DVT on left arm Anemia of iron deficiency Hypertension Depression Anxiety Hepatitis C Leukocytosis most likely secondary to thrombophlebitis Recurrent epistaxis Major depressive disorder, mild, recurrent, without psychotic features Hiatal hernia with GERD Back pain due to lumbar degenerative disc disease, spinal stenosis L5-S1 radiculopathy with ongoing hamstring spasms DISPOSITION: Patient was discharged home with home health. DISCHARGE MEDICATIONS: Refer to Discharge Medication List. Continue Keflex 500 mg capsule every 6 hours for 5 more days. DISCHARGE INSTRUCTIONS: Follow up within a week. I have been assigned to dictate discharge summary on this account, and I was not involved in the patient's management. Tavia Bain NP Aug 06, 2018 14:09
== END 2018-08-05 16:15 | disposition home health service (06) | DRG 394 ==
LOC: EMR 12:35 → 4E 15:23 → EDBEDREQ 15:54 → 4E 07-28 07:00 → 2E 07-30 22:26
PROC: 05HA33Z Insertion of Infusion Device into Left Brachial Vein, Percutaneous Approach (ICD-10-PCS; 2018-07-28)
PROC: 30233N1 Transfusion of Nonautologous Red Blood Cells into Peripheral Vein, Percutaneous Approach (ICD-10-PCS; principal; 2018-07-29)
DX: K64.9 Unspecified hemorrhoids (principal); I82.622 Acute embolism and thrombosis of deep veins of left upper extremity; I82.890 Acute embolism and thrombosis of other specified veins; F33.8 Other recurrent depressive disorders; N39.0 Urinary tract infection, site not specified; I95.89 Other hypotension; D50.0 Iron deficiency anemia secondary to blood loss (chronic); B19.20 Unspecified viral hepatitis C without hepatic coma; I10 Essential (primary) hypertension; F32.9 Major depressive disorder, single episode, unspecified; F41.9 Anxiety disorder, unspecified; R04.0 Epistaxis; K21.9 Gastro-esophageal reflux disease without esophagitis; K44.9 Diaphragmatic hernia without obstruction or gangrene; M51.16 Intervertebral disc disorders with radiculopathy, lumbar region; M48.061 Spinal stenosis, lumbar region without neurogenic claudication; J44.9 Chronic obstructive pulmonary disease, unspecified; K29.70 Gastritis, unspecified, without bleeding; K57.90 Diverticulosis of intestine, part unspecified, without perforation or abscess without bleeding; I12.9 Hypertensive chronic kidney disease with stage 1 through stage 4 chronic kidney disease, or unspecified chronic kidney disease; N18.9 Chronic kidney disease, unspecified; K26.9 Duodenal ulcer, unspecified as acute or chronic, without hemorrhage or perforation; R42 Dizziness and giddiness; Z86.73 Personal history of transient ischemic attack (TIA), and cerebral infarction without residual deficits
CPT/HCPCS: 36415; 36569; 70450; 71045; 72148; 76700; 76937; 80048; 80053; 80061; 80202; 81001; 82270; 82378; 82607; 82728; 82746; 82962; 83540; 83550; 83615; 84443; 85007; 85025; 85044; 85060; 85610; 85651; 85730; 86850; 86900; 86901; 86920; 87040; 87086; 93306; 93970; 93971; 97803; 99285; J2405; J8499

== ENCOUNTER 2018-08-24 15:18 | Day surgery (SDC) | payer MEDICARE, MEDICAID ==
[2018-08-18 13:50] LABS: BASOPHILS % (AUTO) 0.8 % (0.0-2.0); EOSINOPHILS % (AUTO) 1.4 % (0.0-3.0); HEMATOCRIT 31.8 % (37.0-47.0); HEMOGLOBIN 9.8 G/DL (12.0-16.0); LYMPHOCYTES % (AUTO) 32.7 % (20.0-45.0); MEAN CORPUSCULAR VOLUME 83 FL (80-99); MONOCYTES % (AUTO) 6.2 % (1.0-10.0); NEUTROPHILS % (AUTO) 58.9 % (45.0-75.0); PLATELET COUNT 406 K/UL (150-450); RED BLOOD COUNT 3.83 M/UL (4.20-5.40); WHITE BLOOD COUNT 8.6 K/UL (4.8-10.8)
[2018-08-18 14:01] LABS: ANION GAP 9 mmol/L (5-15); BLOOD UREA NITROGEN 9 mg/dL (7-18); CALCIUM 9.4 MG/DL (8.5-10.1); CARBON DIOXIDE 28 MMOL/L (21-32); CHLORIDE 103 MMOL/L (98-107); POTASSIUM 3.8 MMOL/L (3.5-5.1); SODIUM 139 MMOL/L (136-145)
[2018-08-24] VITALS (20 sets, daily range): BP systolic 127–157; BP diastolic 69–96
[~2018-08-24] VITALS: Ht 152.4 cm; Wt 67.1 kg
--- NOTE | 2018-08-24 13:52 | Moderate Sedation - Procedural ---
Moderate Sedation HPI Home Medication Active Scripts Cephalexin* (KEFLEX*) 500 Mg Capsule, 500 MG ORAL EVERY 6 HOURS for 5 Days, CAP Prov:Sharron Belle MD 08/04/18 Methocarbamol* (ROBAXIN-750*) 750 Mg Tablet, 750 MG PO TID, #21 TAB 0 Refills Prov:Kadie Gallegos DO 05/30/18 Omeprazole (OMEPRAZOLE) 20 Mg Capsule.dr, 20 MG ORAL DAILY, #30 CAP Prov:Cameron Llanos MD 05/03/18 Albuterol Sulfate* (ALBUTEROL SULFATE MDI*) 8.5 Gm Hfa.aer.ad, 2 PUFF INH Q6H, # 1 EA 0 Refills Prov:Kadie Gallegos DO 07/03/17 Mag Hydrox/Al Hydrox/Simeth (MAALOX MAXIMUM STRENGTH SUSP) 355 Ml Oral.susp, 30 ML PO Q6HR PRN for For Pain, #240 ML Prov:Yasir Ruff MD 11/26/16 Reported Medications Prednisone* (PREDNISONE*) 2.5 Mg Tablet, 5 MG ORAL DAILY, #10 TAB 0 Refills 08/21/18 Tizanidine Hcl (TIZANIDINE HCL) 4 Mg Capsule, 4 MG ORAL QHS, #90 CAP 0 Refills 08/21/18 Oxcarbazepine (OXTELLAR XR) 150 Mg Tab.er.24h, 300 MG ORAL TID, TAB 08/21/18 Fluoxetine Hcl* (FLUOXETINE HCL*) 40 Mg Capsule, 40 MG ORAL DAILY, CAP 08/21/18 Apixaban (ELIQUIS) 5 Mg Tablet, 5 MG PO Q12HR, TAB 08/05/18 Hydrocodone Bit/Acetaminophen 10-325* (NORCO 10-325*) 1 Each Tablet, 1 TAB ORAL Q6H PRN for For Pain, #10 TAB 0 Refills PRN PAIN 07/27/18 Zolpidem Tartrate* (ZOLPIDEM TARTRATE*) 10 Mg Tablet, 10 MG ORAL BEDTIME PRN for Insomnia, TAB 0 Refills 07/27/18 Potassium Chloride (Potassium Chloride) 20 Meq/15 Ml Liquid, 20 MEQ PO DAILY, ML 11/16/17 Diclofenac Sodium (VOLTAREN) Unknown Strength Gel..gram., TP, GM 08/19/17 Calcium Carbonate (TUMS) Unknown Strength Tab.chew, PO PRN for STOMACH PAIN , TAB 08/19/17 Aspirin* (ASPIRIN*) 325 Mg Tablet, 81 MG ORAL DAILY PRN for For Pain, TAB 08/19/17 Acetaminophen* (TYLENOL EXTRA STRENGTH*) 500 Mg Tablet, 500 MG ORAL Q8H PRN for For Pain, #30 TAB 0 Refills 08/19/17 Lidocaine HCl 2% Viscous (Lidocaine HCl 2% Viscous) 100 Ml Solution, 10 ML ORAL Q8HR PRN for Abdominal cramps, ML 08/19/17 Tramadol Hcl* (ULTRAM*) 50 Mg Tablet, 50 MG ORAL Q6H PRN for For Pain, #30 TAB 0 Refills 08/19/17 Dicyclomine Hcl* (DICYCLOMINE HCL*) 10 Mg Capsule, 20 MG PO QID PRN for COLITIS , CAP 08/19/17 Amlodipine Besylate* (AMLODIPINE BESYLATE*) 10 Mg Tablet, 10 MG ORAL HS, TAB 08/23/15 Discontinued Reported Medications Oxcarbazepine (OXTELLAR XR) 300 Mg Tab.er.24h, 300 MG ORAL DAILY, TAB 07/27/18 Fluoxetine Hcl* (FLUOXETINE HCL*) 20 Mg Capsule, 20 MG PO DAILY 12/28/12 Patient History Allergies: Coded Allergies: No Known Allergies (Unverified , 07/27/18) Pre-Procedural Mod Sedation Date: Aug 24, 2018 Pre-Assessment Time: 13:51 Pre-Sedation Assessment: Elective Airway Assessment (Malampati): III Heart: normal Lungs: normal Abdomen: normal Extremities: normal Evaluation Hx of untoward rxns to mod sed: No Procedures/Plans: Radiology Plan for Moderate Sedation: Midazolam, Fentanyl ASA Score: II Informed Consent The nature of the procedure/sedation; its benefits; risks and complications; and alternatives (and the risks and benefits of such alternatives) were discussed with the patient (or their legal equal opportunity representative), prior to the procedure. All questions were answered to the patient's (or their legal equal opportunity representative's) satisfaction and the patient (or their legal equal opportunity representative) gave informed consent to the procedure. I attest that I re-evaluated the patient just prior to the surgery and that there has been no change in the patient's H&P, except as documented below: Post Procedure Assessment Post Procedure TIme: 15:05 Communication: No Apparent Limitation Mental Status: Awake Respiration: Unlabored Skin Condition: WNL Adomen: WNL Nausea: NO Vomiting: NO Wyatt Schneider MD Aug 24, 2018 13:52
--- NOTE | 2018-08-24 13:53 | Pre-Procedure Note/Attestation ---
Pre-Procedure Note/Attestation Complete Prior to Procedure Planned Procedure: not applicable Procedure Narrative: Portacath Indications for Procedure Pre-Operative Diagnosis: Needs IV access for frequent pain management procedures Attestation I attest that I discussed the nature of the procedure; its benefits; risks and complications; and alternatives (and the risks and benefits of such alternatives ), prior to the procedure, with the patient (or the patient's legal apprenticeship representative). I attest that, if there was a reasonable possibility of needing a blood transfusion, the patient (or the patient's legal apprenticeship representative) was given the [facility] standardized written summary, pursuant to the Delbert Ivelisse Blood Safety Act ([place] Health and Safety Code # 1645, as amended). I attest that I re-evaluated the patient just prior to the surgery and that there has been no change in the patient's H&P, except as documented below: Wyatt Schneider MD Aug 24, 2018 13:53
--- NOTE | 2018-08-24 15:11 | Brief Operative Note ---
Immediate Post Operative Note Operative Note Pre-op Diagnosis: Needs IV access for frequent pain management procedures Procedure: R chest portacath Post-op Diagnosis: same as pre-op Surgeon: Alexx SCHNEIDER Anesthesia: local Specimen: none Complications: none Condition: stable Fluids: none Implant(s) used?: Yes - 8F andgiodynamics chest port Wyatt Schneider MD Aug 24, 2018 15:11
[~2018-08-24 15:18] MED LIST changes: +CEPHALEXIN500 MG ORAL; +ELIQUIS5 MG PO; +FLUOXETINE HCL40 MG ORAL; +Heparin 2000 units/Ns 1000ml 1,000 ML ONE; +Heparin 2000 units/Ns 1000ml INJ PRN; +Lidocaine 2% 20mg/ml/Epi 0.005mg/ml 20ml vial INJ ONE; +Lidocaine 2% 20mg/ml/Epi 0.005mg/ml 20ml vial INJ SCH; +Midazolam 2mg/2ml Inj ONE; +NORCO 10-325 T1 EACH ORAL; +OXTELLAR XR150 MG ORAL; +OXTELLAR XR300 MG ORAL; +PREDNISONE2.5 MG ORAL; +TIZANIDINE HCL4 M2 ORAL; +TIZANIDINE HCL4 MG ORAL; +ZOLPIDEM TARTRA10 MG ORAL; +fentaNYL 100 mcg/2 mL IV ONE
--- NOTE | 2018-08-26 09:59 | Diagnostic Imaging Report ---
Indication: Reason For Exam: PAIN Technique: Patient was given preprocedure antibiotics. Informed consent obtained prior to commencement of the procedure. Total sterile technique, including sterile gloves and hand hygiene, hat, mask, sterile gown, large sterile drape, and preparation with 2% chlorhexidine utilized. Procedural timeout performed. Ultrasound demonstrates patent compressible right internal jugular vein. Under real-time ultrasound guidance, and after local anesthesia with 1% lidocaine, puncture right internal jugular vein using 21-gauge micropuncture needle, passage 0.018 guidewire. This was used to measure the appropriate length of the intravascular portion of the catheter. 4 [place] micropuncture catheter inserted and then left in place. A location in the right chest 2 fingerbreadths below the clavicle was then selected for the chest pocket. The intended incision and pocket were anesthetized with 1% lidocaine with bicarbonate and epinephrine. Incision was made. Blunt dissection was used to create a pocket in the subcutaneous soft tissues. 2 3-0 Vicryl anchor sutures were placed in the floor of the pocket and connected to the reservoir of the 8 [place] Ang[employer] port catheter. The intended subcutaneous tunnel was anesthetized. A tunneling device was used to pull the catheter from the chest pocket to the neck dermatotomy. The catheter was then connected to the reservoir, and the integrity of the system was tested by injecting saline into the reservoir. The catheter was then cut to 21 cm. A 0.035 guidewire was inserted into the right neck introducer under fluoroscopic guidance and directed into the inferior vena cava. Over it was passed a peel-away sheath. The guidewire and dilator were moved. The catheter was inserted into the peel-away sheath, and the peel-away sheath was removed. Fluoroscopic visualization demonstrated adequate position of the catheter tip, at the cavoatrial junction. An image was saved. The integrity of the system was again tested by aspiration of blood from and injection of heparinized saline into the reservoir. The anchor sutures were then tied and cut. The chest pocket and incision were closed using deep 3-0 interrupted Vicryl and superficial 4-0 interrupted Vicryl sutures. The skin of the incision and of the neck dermatotomy was closed with Dermabond. The patient tolerated the procedure well, without immediate complication. Fluoroscopy time 1.4 minutes Dose area product 47 dGycm2 Total number of images-1 Comparison: None Findings: Completion image documents satisfactory catheter course and position, tip at the cavoatrial junction Impression: Successful placement of right chest 8 [place] port catheter under sonographic and fluoroscopic supervision, as described
[2018-08-26] MEDS ORDERED: Midazolam 2mg/2ml Inj IVP SCH (13:25)
[2018-08-26] MEDS ORDERED: fentaNYL 100 mcg/2 mL IV SCH (13:30)
== END 2018-08-24 17:00 | disposition home or self-care (01) ==
LOC: RAD 15:18 → SUR 17:00
DX: G89.29 Other chronic pain (principal); I10 Essential (primary) hypertension; K29.70 Gastritis, unspecified, without bleeding; K57.90 Diverticulosis of intestine, part unspecified, without perforation or abscess without bleeding; B19.20 Unspecified viral hepatitis C without hepatic coma; Z87.828 Personal history of other (healed) physical injury and trauma; M19.90 Unspecified osteoarthritis, unspecified site; Z86.718 Personal history of other venous thrombosis and embolism
CPT/HCPCS: 36415; 36561; 76942; 80048; 85025; 85610; 85730; J0690; J1644; J2250; J3010

== ENCOUNTER 2018-09-26 07:46 | Emergency (ER) | payer MEDICARE, MEDICAID ==
[~2018-09-26] VITALS: Ht 172.7 cm; Wt 72.6 kg
[~2018-09-26 07:46] MED LIST changes: -Heparin 2000 units/Ns 1000ml 1,000 ML ONE; -Heparin 2000 units/Ns 1000ml INJ PRN; -Lidocaine 2% 20mg/ml/Epi 0.005mg/ml 20ml vial INJ ONE; -Lidocaine 2% 20mg/ml/Epi 0.005mg/ml 20ml vial INJ SCH; -Midazolam 2mg/2ml Inj ONE; -fentaNYL 100 mcg/2 mL IV ONE
[2018-09-26 07:54] VITALS: BP 116/64
[2018-09-26] MEDS ORDERED: POTASSIUM CHLOR8 ME2 PO (07:56)
[2018-09-26] MEDS ORDERED: LISINOPRIL5 MG ORAL (07:56)
[2018-09-26] MEDS ORDERED: FUROSEMIDE20 M1 ORAL (07:56)
--- NOTE | 2018-09-26 08:06 | Emergency Room Report ---
History of Present Illness General Chief Complaint: Nosebleed Source: Patient Present Illness HPI Patient presents with reports of epistaxis reports that happened 2 times over the past night Today she was feeling somewhat lightheaded she was supposed to be going shopping however with the lightheadedness she was concerning came to the ER Reports having anemia with blood transfusion recently Patient also has a Port-A-Cath placed in the right upper chest and reports getting pain management on Denies any chest pain or shortness of breath she has had a cough however over the past several days Denies any neck pain or photophobia Allergies: Coded Allergies: No Known Allergies (Unverified , 07/27/18) Patient History Past Medical History: see triage record Pertinent Family History: none Reviewed Nursing Documentation: PMH: Agreed; PSxH: Agreed Nursing Documentation-PMH Past Medical History: No History, Except For Hx Cardiac Problems: Yes Hx Hypertension: Yes Hx Asthma: Yes Hx COPD: Yes - Pnuemonia Hx Cancer: No Hx Gastrointestinal Problems: Yes - Diverticulitis, Colitis, Gastritis Hx Dialysis: No - Pyelonephritis Hx Neurological Problems: Yes - ruptured disk with pinched nerve Hx Weakness: Yes Hx Fatigue: Yes Review of Systems All Other Systems: negative except mentioned in HPI Physical Exam Vital Signs Date Time Temp Pulse Resp B/P (MAP) Pulse Ox O2 Delivery O2 Flow Rate FiO2 09/26/18 07:46 98.8 89 17 116/64 100 Room Air Sp02 EP Interpretation: reviewed, normal General Appearance: well appearing, no apparent distress Head: normocephalic, atraumatic Eyes: bilateral eye PERRL, bilateral eye EOMI ENT: hearing grossly normal, normal pharynx, TMs + canals normal, uvula midline , other - No evidence of blood in the anterior chamber throat is clear Neck: full range of motion, supple, no meningismus, no bony tend Respiratory: lungs clear, normal breath sounds, no rhonchi, no respiratory distress, no retraction, no accessory muscle use Cardiovascular #1: normal peripheral pulses, regular rate, rhythm, no edema, no gallop, no JVD, no murmur Gastrointestinal: normal bowel sounds, non tender, soft, no mass, no organomegaly, non-distended, no guarding, no hernia, no pulsatile mass, no rebound Genitourinary: no CVA tenderness Musculoskeletal: normal inspection Neurologic: oriented x3, 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, 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, motor strength/ tone normal, sensory intact Psychiatric: mood/affect normal Skin: normal color, no rash, warm/dry, palpation normal Lymphatic: normal inspection, no adenopathy Medical Decision Making Diagnostic Impression: Primary Impression: Epistaxis ER Course Given the patient's previous history and presentation Repeat blood work is obtained patient's hemoglobin remained stable Patient does not show any signs of bleeding during her stay in the emergency room No further intervention was required here Upon disposition patient reports that she feels significantly better and would like to go shopping I did notify her that resting for the next day or 2 would be recommended Labs Test 09/26/18 07:50 White Blood Count 7.8 K/UL (4.8-10.8) Red Blood Count 3.94 M/UL (4.20-5.40) Hemoglobin 10.8 G/DL (12.0-16.0) Hematocrit 35.2 % (37.0-47.0) Mean Corpuscular Volume 89 FL (80-99) Mean Corpuscular Hemoglobin 27.4 PG (27.0-31.0) Mean Corpuscular Hemoglobin Concent 30.7 G/DL (32.0-36.0) Red Cell Distribution Width 16.9 % (11.6-14.8) Platelet Count 303 K/UL (150-450) Mean Platelet Volume 6.1 FL (6.5-10.1) Neutrophils (%) (Auto) 57.1 % (45.0-75.0) Lymphocytes (%) (Auto) 34.1 % (20.0-45.0) Monocytes (%) (Auto) 6.8 % (1.0-10.0) Eosinophils (%) (Auto) 1.1 % (0.0-3.0) Basophils (%) (Auto) 0.9 % (0.0-2.0) Sodium Level 138 MMOL/L (136-145) Potassium Level 3.7 MMOL/L (3.5-5.1) Chloride Level 103 MMOL/L (98-107) Carbon Dioxide Level 28 MMOL/L (21-32) Anion Gap 7 mmol/L (5-15) Blood Urea Nitrogen 15 mg/dL (7-18) Creatinine 0.8 MG/DL (0.55-1.30) Estimat Glomerular Filtration Rate > 60 mL/min (>60) Glucose Level 96 MG/DL (74-106) Calcium Level 9.2 MG/DL (8.5-10.1) Total Bilirubin 0.1 MG/DL (0.2-1.0) Aspartate Amino Transf (AST/SGOT) 20 U/L (15-37) Alanine Aminotransferase (ALT/SGPT) 26 U/L (12-78) Alkaline Phosphatase 74 U/L (46-116) Total Protein 7.1 G/DL (6.4-8.2) Albumin 3.5 G/DL (3.4-5.0) Globulin 3.6 g/dL Albumin/Globulin Ratio 1.0 (1.0-2.7) Lipase 107 U/L (73-393) Last Vital Signs Date Time Temp Pulse Resp B/P (MAP) Pulse Ox O2 Delivery O2 Flow Rate FiO2 09/26/18 07:54 98.8 89 17 116/64 100 Room Air Status: improved Disposition: HOME, SELF-CARE Condition: Improved Referrals: NON PHYSICIAN (PCP) Additional Instructions: Patient is provided with the discharge instructions notified to follow up with primary doctor in the next 2-3 days otherwise return to the er with any worsening symptoms. Please note that this report is being documented using [employer] technology. This can lead to erroneous entry secondary to incorrect interpretation by the dictating instrument. Kadie Gallegos DO Sep 26, 2018 08:06
[2018-09-26 08:26] LABS: BASOPHILS % (AUTO) 0.9 % (0.0-2.0); EOSINOPHILS % (AUTO) 1.1 % (0.0-3.0); HEMATOCRIT 35.2 % (37.0-47.0); HEMOGLOBIN 10.8 G/DL (12.0-16.0); LYMPHOCYTES % (AUTO) 34.1 % (20.0-45.0); MEAN CORPUSCULAR VOLUME 89 FL (80-99); MONOCYTES % (AUTO) 6.8 % (1.0-10.0); NEUTROPHILS % (AUTO) 57.1 % (45.0-75.0); PLATELET COUNT 303 K/UL (150-450); RED BLOOD COUNT 3.94 M/UL (4.20-5.40); RED CELL DISTRIBUTION WIDTH 16.9 % (11.6-14.8); WHITE BLOOD COUNT 7.8 K/UL (4.8-10.8)
--- NOTE | 2018-09-26 08:27 | Diagnostic Imaging Report ---
EXAM: XR Chest, 1 View CLINICAL HISTORY: Shortness of breath TECHNIQUE: Frontal view of the chest. COMPARISON: Chest x-ray dated 07/25/18 FINDINGS: Lungs: Mild linear atelectasis in the left lung base. Mild pulmonary vascular congestion. The lungs are otherwise clear. Pleural space: Unremarkable. The costophrenic angles are sharp. No visible pneumothorax. Heart: Unremarkable. No cardiomegaly. Mediastinum: Unremarkable. Bones/joints: Unremarkable. Tubes, lines and devices: Right subclavian central venous catheter with the tip in the region of the SVC. IMPRESSION: 1. Mild linear atelectasis in the left lung base. 2. Mild pulmonary vascular congestion.
[2018-09-26 08:32] LABS: ANION GAP 7 mmol/L (5-15); BLOOD UREA NITROGEN 15 mg/dL (7-18); CALCIUM 9.2 MG/DL (8.5-10.1); CARBON DIOXIDE 28 MMOL/L (21-32); CHLORIDE 103 MMOL/L (98-107); CREATININE 0.8 MG/DL (0.55-1.30); POTASSIUM 3.7 MMOL/L (3.5-5.1); SODIUM 138 MMOL/L (136-145)
[2018-09-26 08:37] LABS: ALANINE AMINOTRANSFERASE 26 U/L (12-78); ALBUMIN 3.5 G/DL (3.4-5.0); ALKALINE PHOSPHATASE 74 U/L (46-116); ASPARTATE AMINO TRANSFERASE 20 U/L (15-37); BILIRUBIN,TOTAL 0.1 MG/DL (0.2-1.0)
[2018-09-26 09:08] VITALS: BP 147/88
[2018-09-26 09:58] VITALS: BP 147/88
== END 2018-09-26 09:58 | disposition home or self-care (01) ==
LOC: EDBD 07:46 → EMR 08:00
DX: R04.0 Epistaxis (principal); R05 Cough; R42 Dizziness and giddiness; I10 Essential (primary) hypertension; J44.9 Chronic obstructive pulmonary disease, unspecified; R53.83 Other fatigue; R53.1 Weakness
CPT/HCPCS: 36415; 71045; 80053; 83690; 85025; 99284

== ENCOUNTER 2018-11-25 12:35 | Emergency (ER) | payer MEDICARE, MEDICAID ==
[~2018-11-25] VITALS: Ht 149.9 cm; Wt 71.7 kg
[~2018-11-25 12:35] MED LIST changes: +FUROSEMIDE20 M1 ORAL; +LISINOPRIL5 MG ORAL; +POTASSIUM CHLOR8 ME2 PO
[2018-11-25] MEDS ORDERED: UNOBMED (12:40)
[2018-11-25 12:48] VITALS: BP 116/96
--- NOTE | 2018-11-25 12:51 | NUR ---
ED Nurse Note: pt walked in to ED due to SOB that starting this morning. pt also c/o nausea and vomiting. per pt, just discharged from other hospital for UTI. skin warm to touch. no open wound noted. pt able to speak full sentence without difficulty. breath sounds clear. respirations even and non-labored noted. will wait for the further order.
[2018-11-25] MEDS ORDERED: Norco 5mg/325mg tab ORAL ONE (13:15)
[2018-11-25] MEDS ORDERED: Methocarbamol 750mg tab ORAL ONE (13:15)
--- NOTE | 2018-11-25 13:49 | Emergency Room Report ---
History of Present Illness General Chief Complaint: General Complaint Source: Medical Record Present Illness Allergies: Coded Allergies: No Known Allergies (Unverified , 07/27/18) Patient History Past Medical History: see triage record Past Surgical History: none Pertinent Family History: none Reviewed Nursing Documentation: PMH: Agreed; PSxH: Agreed Nursing Documentation-PMH Past Medical History: No History, Except For Hx Cardiac Problems: Yes Hx Hypertension: Yes Hx Asthma: Yes Hx COPD: Yes - Pnuemonia Hx Cancer: No Hx Gastrointestinal Problems: Yes - Diverticulitis, Colitis, Gastritis Hx Dialysis: No - Pyelonephritis Hx Neurological Problems: Yes - ruptured disk with pinched nerve Hx Weakness: Yes Hx Fatigue: Yes Physical Exam Vital Signs Date Time Temp Pulse Resp B/P (MAP) Pulse Ox O2 Delivery O2 Flow Rate FiO2 11/25/18 12:36 98.1 100 19 116/96 97 Room Air Medical Decision Making PA Attestation Dr. Ruff is my supervising Physician whom patient management has been discussed with. Labs Test 11/25/18 13:33 11/25/18 15:20 Urine Color Pale yellow Urine Appearance Clear Urine pH 7 (4.5-8.0) Urine Specific [place] 1.005 (1.005-1.035) Urine Protein Negative (NEGATIVE) Urine Glucose (UA) Negative (NEGATIVE) Urine Ketones Negative (NEGATIVE) Urine Blood Negative (NEGATIVE) Urine Nitrite Negative (NEGATIVE) Urine Bilirubin Negative (NEGATIVE) Urine Urobilinogen Normal MG/DL (0.0-1.0) Urine Leukocyte Esterase Negative (NEGATIVE) White Blood Count 7.4 K/UL (4.8-10.8) Red Blood Count 4.34 M/UL (4.20-5.40) Hemoglobin 12.3 G/DL (12.0-16.0) Hematocrit 38.7 % (37.0-47.0) Mean Corpuscular Volume 89 FL (80-99) Mean Corpuscular Hemoglobin 28.2 PG (27.0-31.0) Mean Corpuscular Hemoglobin Concent 31.6 G/DL (32.0-36.0) Red Cell Distribution Width 14.5 % (11.6-14.8) Platelet Count 294 K/UL (150-450) Mean Platelet Volume 6.8 FL (6.5-10.1) Neutrophils (%) (Auto) 53.6 % (45.0-75.0) Lymphocytes (%) (Auto) 37.7 % (20.0-45.0) Monocytes (%) (Auto) 6.5 % (1.0-10.0) Eosinophils (%) (Auto) 1.6 % (0.0-3.0) Basophils (%) (Auto) 0.6 % (0.0-2.0) Prothrombin Time 10.7 SEC (9.30-11.50) Prothromb Time International Ratio 1.0 (0.9-1.1) Activated Partial Thromboplast Time 31 SEC (23-33) Sodium Level 141 MMOL/L (136-145) Potassium Level 3.3 MMOL/L (3.5-5.1) Chloride Level 103 MMOL/L (98-107) Carbon Dioxide Level 30 MMOL/L (21-32) Anion Gap 8 mmol/L (5-15) Blood Urea Nitrogen 8 mg/dL (7-18) Creatinine 0.6 MG/DL (0.55-1.30) Estimat Glomerular Filtration Rate > 60 mL/min (>60) Glucose Level 84 MG/DL (74-106) Calcium Level 9.0 MG/DL (8.5-10.1) Total Bilirubin 0.2 MG/DL (0.2-1.0) Aspartate Amino Transf (AST/SGOT) 16 U/L (15-37) Alanine Aminotransferase (ALT/SGPT) 22 U/L (12-78) Alkaline Phosphatase 78 U/L (46-116) Total Creatine Kinase 53 U/L (26-308) Creatine Kinase MB < 0.5 NG/ML (0.0-3.6) Creatine Kinase MB Relative Index 0.9 Troponin I 0.000 ng/mL (0.000-0.056) Pro-B-Type Natriuretic Peptide 18 pg/mL (0-125) Total Protein 7.9 G/DL (6.4-8.2) Albumin 4.1 G/DL (3.4-5.0) Globulin 3.8 g/dL Albumin/Globulin Ratio 1.1 (1.0-2.7) EKG Diagnostic Results Rate: normal - 73bpm Rhythm: NSR ST Segments: no acute changes ASA given to the pt in ED: No PA Scribe Text This Interpretation was scribed by CRYSTAL Raymond. Last Vital Signs Date Time Temp Pulse Resp B/P (MAP) Pulse Ox O2 Delivery O2 Flow Rate FiO2 11/25/18 12:48 100 19 Room Air 11/25/18 12:48 98.1 116/96 97 Disposition: AGAINST MEDICAL ADVICE Condition: Unknown Referrals: Srikanth Oliva DO (PCP) Perla Raymond Nov 25, 2018 13:49
--- NOTE | 2018-11-25 13:58 | Diagnostic Imaging Report ---
Indication: Shortness of breath Technique: One view of the chest Comparison: 09/26/2018 Findings: There is some scarring present at the left lung base. Lungs and pleural spaces are otherwise clear. There is a right chest port catheter again demonstrated Impression: No acute process
[2018-11-25 14:05] LABS: APPEARANCE,URINE CLEAR; BILIRUBIN, URINE NEGATIVE (NEGATIVE); COLOR,URINE PALE YELLOW; GLUCOSE, URINE (UA) NEGATIVE (NEGATIVE); KETONES,URINE NEGATIVE (NEGATIVE); LEUKOCYTE ESTERASE ,URINE NEGATIVE (NEGATIVE); NITRITE,URINE NEGATIVE (NEGATIVE); PH,URINE 7 (4.5-8.0); PROTEIN,URINE NEGATIVE (NEGATIVE); UROBILINOGEN,URINE NORMAL MG/DL (0.0-1.0)
--- NOTE | 2018-11-25 15:00 | NUR ---
ED Nurse Note: received report from RN Janet and endorsed care, pt vss, airway intact, resp even and unlabored on RA, will cont monitor.
[2018-11-25 16:00] LABS: BASOPHILS % (AUTO) 0.6 % (0.0-2.0); EOSINOPHILS % (AUTO) 1.6 % (0.0-3.0); HEMATOCRIT 38.7 % (37.0-47.0); HEMOGLOBIN 12.3 G/DL (12.0-16.0); LYMPHOCYTES % (AUTO) 37.7 % (20.0-45.0); MEAN CORPUSCULAR VOLUME 89 FL (80-99); MONOCYTES % (AUTO) 6.5 % (1.0-10.0); NEUTROPHILS % (AUTO) 53.6 % (45.0-75.0); PLATELET COUNT 294 K/UL (150-450); RED BLOOD COUNT 4.34 M/UL (4.20-5.40); RED CELL DISTRIBUTION WIDTH 14.5 % (11.6-14.8); WHITE BLOOD COUNT 7.4 K/UL (4.8-10.8)
[2018-11-25 16:04] LABS: ANION GAP 8 mmol/L (5-15); BLOOD UREA NITROGEN 8 mg/dL (7-18); CARBON DIOXIDE 30 MMOL/L (21-32); CHLORIDE 103 MMOL/L (98-107); CREATININE 0.6 MG/DL (0.55-1.30); POTASSIUM 3.3 MMOL/L (3.5-5.1); SODIUM 141 MMOL/L (136-145)
[2018-11-25 16:15] LABS: ALANINE AMINOTRANSFERASE 22 U/L (12-78); ALBUMIN 4.1 G/DL (3.4-5.0); ALBUMIN/GLOBULIN RATIO 1.1 (1.0-2.7); ALKALINE PHOSPHATASE 78 U/L (46-116); ASPARTATE AMINO TRANSFERASE 16 U/L (15-37); BILIRUBIN,TOTAL 0.2 MG/DL (0.2-1.0); CKMB < 0.5 NG/ML (0.0-3.6); CREATINE KINASE 53 U/L (26-308)
--- NOTE | 2018-11-25 17:18 | NUR ---
ED Nurse Note: pt vss, airway intact, AA&ox4, gcs=15, resp even and unlabored on RA, ambulatory w/ steady gait. all belongings left w/ pt.
[2018-11-25 17:19] VITALS: BP 116/87
--- NOTE | 2018-11-25 17:19 | NUR ---
ED Nurse Note: pt states she wants to AMA, pt states it's raining outside and wants to go home, pt advised to follow up with pcp or return to ED if sx worsen or new sx develop, pt was advised the consequences and risks of AMA by ERMD, pt verbalized understanding and agrees with plan. wristband removed, pt signed AMA.
== END 2018-11-25 17:19 | disposition left against medical advice (07) ==
LOC: EMR 13:30
DX: R11.2 Nausea with vomiting, unspecified (principal); R06.02 Shortness of breath; I10 Essential (primary) hypertension; J44.9 Chronic obstructive pulmonary disease, unspecified
CPT/HCPCS: 36415; 71045; 80053; 81003; 82550; 82553; 83880; 84484; 85025; 85610; 85730; 86710; 93005; 96374; 99284; J2405

== ENCOUNTER 2018-12-22 13:09 | Emergency (ER) | payer MEDICARE, MEDICAID ==
[~2018-12-22] VITALS: Ht 154.9 cm; Wt 68.0 kg
--- NOTE | 2018-12-22 13:25 | NUR ---
ED Nurse Note: Pt BIBA from home due to complaints of nosebleed x 5 days. Pt is on eliquis 5mg. Pt denies pain. A + O x4. Ambulatory. Skin warm to touch.
[2018-12-22] MEDS ORDERED: Oxymetazoline 0.05% Na Spray 30ml NASAL ONE (13:30)
--- NOTE | 2018-12-22 13:48 | NUR ---
ED Nurse Note: Pt went down to CT.
--- NOTE | 2018-12-22 13:54 | NUR ---
ED Nurse Note: Pt noted to have a rt upper chest port-a-cath.
--- NOTE | 2018-12-22 14:05 | NUR ---
ED Nurse Note: Pt back from CT.
[2018-12-22 14:06] LABS: BASOPHILS % (AUTO) 0.9 % (0.0-2.0); EOSINOPHILS % (AUTO) 1.3 % (0.0-3.0); HEMATOCRIT 36.3 % (37.0-47.0); HEMOGLOBIN 11.3 G/DL (12.0-16.0); LYMPHOCYTES % (AUTO) 36.5 % (20.0-45.0); MEAN CORPUSCULAR VOLUME 91 FL (80-99); MONOCYTES % (AUTO) 7.1 % (1.0-10.0); NEUTROPHILS % (AUTO) 54.2 % (45.0-75.0); PLATELET COUNT 319 K/UL (150-450); RED CELL DISTRIBUTION WIDTH 15.5 % (11.6-14.8); WHITE BLOOD COUNT 8.6 K/UL (4.8-10.8)
--- NOTE | 2018-12-22 14:15 | Diagnostic Imaging Report ---
Indication: Headache Technique: Contiguous 5 mm thick transaxial imaging of the head obtained in a Siemens Sensation [address] scanner. Soft tissue and bone windows generated. Automatic Exposure Control was utilized. Total Dose length Product (DLP): 1390.[address] Dose Index Volume (CTDIvol): 70.38 mGy Comparison: 07/27/2018 Findings: The size and configuration of the cortical sulci, basal cisterns, and ventricles are within normal limits for age. There is no mass effect, midline shift, or edema identified. There is no evidence of acute hemorrhage or abnormal intra-axial or extra-axial fluid collections. The bones and soft tissues are unremarkable. Impression: No mass effect, edema or acute bleed. The CT scanner at [facility] is accredited by the [employer] and the scans are performed using dose optimization techniques as appropriate to a performed exam including Automatic Exposure control.
[2018-12-22 14:17] LABS: ANION GAP 8 mmol/L (5-15); BLOOD UREA NITROGEN 12 mg/dL (7-18); CALCIUM 9.4 MG/DL (8.5-10.1); CARBON DIOXIDE 28 MMOL/L (21-32); CHLORIDE 104 MMOL/L (98-107); CREATININE 0.7 MG/DL (0.55-1.30); POTASSIUM 3.4 MMOL/L (3.5-5.1); SODIUM 140 MMOL/L (136-145)
[2018-12-22 14:21] LABS: INR 1.1 (0.9-1.1)
[2018-12-22 14:22] LABS: ALANINE AMINOTRANSFERASE 26 U/L (12-78); ALBUMIN 3.8 G/DL (3.4-5.0); ALBUMIN/GLOBULIN RATIO 1.1 (1.0-2.7); ALKALINE PHOSPHATASE 70 U/L (46-116); ASPARTATE AMINO TRANSFERASE 15 U/L (15-37); BILIRUBIN,TOTAL 0.2 MG/DL (0.2-1.0)
[2018-12-22 14:37] VITALS: BP 157/87
[2018-12-22] MEDS ORDERED: Bacitracin Oint UD TOPIC ONE (15:00)
--- NOTE | 2018-12-22 15:09 | NUR ---
ER DISCHARGE NOTE: Patient is cleared to be discharged per ERMD, pt is aox4, on room air, with stable vital signs. pt was given dc and prescription instructions, pt was able to verbalize understanding, pt id band and port-a-cath needle removed without complications. pt is able to ambulate with steady gait. pt took all belongings.
--- NOTE | 2018-12-24 16:09 | Emergency Room Report ---
History of Present Illness General Chief Complaint: Nosebleed Source: Patient Present Illness HPI 63-year-old female presents ED with epistaxis. Has been going on for last 5 days comes and goes. Started again today. Patient brought in by EMS. States that epistaxis has resolved upon arrival. Denies any trauma. States she's taking eliquis. Denies any pain. Denies any dizziness or weakness. No other aggravating relieving factors. Denies any other associated symptoms Allergies: Coded Allergies: No Known Allergies (Unverified , 07/27/18) Patient History Past Medical History: HTN, asthma, COPD Pertinent Family History: none Social History: Denies: smoking, alcohol use, drug use Last Menstrual Period: 1988 Now: No Immunizations: UTD Reviewed Nursing Documentation: PMH: Agreed; PSxH: Agreed Nursing Documentation-PMH Past Medical History: No History, Except For Hx Cardiac Problems: Yes Hx Hypertension: Yes Hx Asthma: Yes Hx COPD: Yes Hx Cancer: No Hx Gastrointestinal Problems: Yes - DIVERTICULITIS, GASTRITIS, COLITIS Hx Neurological Problems: Yes - ruptured disk with pinched nerve Hx Weakness: Yes Hx Fatigue: Yes Review of Systems All Other Systems: negative except mentioned in HPI Physical Exam Vital Signs Date Time Temp Pulse Resp B/P (MAP) Pulse Ox O2 Delivery O2 Flow Rate FiO2 12/22/18 13:04 99.1 80 20 141/91 98 Room Air Sp02 EP Interpretation: reviewed, normal General Appearance: no apparent distress, alert, GCS 15, non-toxic Head: normocephalic, atraumatic Eyes: bilateral eye normal inspection, bilateral eye PERRL ENT: hearing grossly normal, normal pharynx, no angioedema, normal voice, other - no active bleeding bilateral nares Neck: full range of motion, supple/symm/no masses Respiratory: chest non-tender, lungs clear, normal breath sounds, speaking full sentences Cardiovascular #1: regular rate, rhythm, no edema Cardiovascular #2: 2+ carotid (R), 2+ carotid (L), 2+ radial (R), 2+ radial (L) , 2+ dorsalis pedis (R), 2+ dorsalis pedis (L) Gastrointestinal: normal bowel sounds, non tender, soft, non-distended, no guarding, no rebound Rectal: deferred Genitourinary: normal inspection, no CVA tenderness Musculoskeletal: back normal, gait/station normal, normal range of motion, non- tender Neurologic: alert, oriented x3, responsive, motor strength/tone normal, sensory intact, speech normal Psychiatric: judgement/insight normal, memory normal, mood/affect normal, no suicidal/homicidal ideation Reflexes: 3+ bicep (R), 3+ bicep (L), 3+ tricep (R), 3+ tricep (L), 3+ knee (R) , 3+ knee (L) Skin: normal color, no rash, warm/dry, well hydrated Lymphatic: no adenopathy Medical Decision Making Diagnostic Impression: Primary Impression: Epistaxis ER Course 63-year-old female presents ED complaining of epistaxis. On Eliquis Differential-anterior epistaxis, posterior epistaxis, coagulopathy Patient placed on stretcher. After initial history, physical exam reveals elderly female in no acute distress. On exam there is no active bleeding. Patient noting headache as well. Pain is sharp, 7 out of 10, nonradiating I ordered labs, CT head, Afrin spray Labs-no leukocytosis, hemoglobin/hematocrit stable, electrolytes ok, coags normal CT head ok Patient observed in ED on secured entrance monitor. No recurrence of epistaxis. Bacitracin applied to nasal passages. Discussed with PMD Dr. Oliva. Agrees the patient can be safely discharged to home. Patient agrees with plan. I will provide ENT referrals Diagnoses- epistaxis Stable and discharged to home. Followup with ENT/PMD. Return to ED if symptoms recur or worsen Labs Test 12/22/18 13:35 White Blood Count 8.6 K/UL (4.8-10.8) Red Blood Count 4.00 M/UL (4.20-5.40) Hemoglobin 11.3 G/DL (12.0-16.0) Hematocrit 36.3 % (37.0-47.0) Mean Corpuscular Volume 91 FL (80-99) Mean Corpuscular Hemoglobin 28.4 PG (27.0-31.0) Mean Corpuscular Hemoglobin Concent 31.3 G/DL (32.0-36.0) Red Cell Distribution Width 15.5 % (11.6-14.8) Platelet Count 319 K/UL (150-450) Mean Platelet Volume 6.4 FL (6.5-10.1) Neutrophils (%) (Auto) 54.2 % (45.0-75.0) Lymphocytes (%) (Auto) 36.5 % (20.0-45.0) Monocytes (%) (Auto) 7.1 % (1.0-10.0) Eosinophils (%) (Auto) 1.3 % (0.0-3.0) Basophils (%) (Auto) 0.9 % (0.0-2.0) Prothrombin Time 11.6 SEC (9.30-11.50) Prothromb Time International Ratio 1.1 (0.9-1.1) Activated Partial Thromboplast Time 30 SEC (23-33) Sodium Level 140 MMOL/L (136-145) Potassium Level 3.4 MMOL/L (3.5-5.1) Chloride Level 104 MMOL/L (98-107) Carbon Dioxide Level 28 MMOL/L (21-32) Anion Gap 8 mmol/L (5-15) Blood Urea Nitrogen 12 mg/dL (7-18) Creatinine 0.7 MG/DL (0.55-1.30) Estimat Glomerular Filtration Rate > 60 mL/min (>60) Glucose Level 85 MG/DL (74-106) Calcium Level 9.4 MG/DL (8.5-10.1) Total Bilirubin 0.2 MG/DL (0.2-1.0) Aspartate Amino Transf (AST/SGOT) 15 U/L (15-37) Alanine Aminotransferase (ALT/SGPT) 26 U/L (12-78) Alkaline Phosphatase 70 U/L (46-116) Total Protein 7.3 G/DL (6.4-8.2) Albumin 3.8 G/DL (3.4-5.0) Globulin 3.5 g/dL Albumin/Globulin Ratio 1.1 (1.0-2.7) CT/MRI/US Diagnostic Results CT/MRI/US Diagnostic Results : Imaging Test Ordered: CT Head Impression no acute process Last Vital Signs Date Time Temp Pulse Resp B/P (MAP) Pulse Ox O2 Delivery O2 Flow Rate FiO2 12/22/18 15:08 98.7 80 17 150/85 100 Room Air Status: improved Disposition: HOME, SELF-CARE Condition: Stable Referrals: Srikanth Oliva DO (PCP) NOT CHOSEN IPA/,REFERRING Juwan Gimenez MD Patient Instructions: Nosebleed, [id number] Lucian Couch MD Dec 24, 2018 16:09
== END 2018-12-22 15:17 | disposition home or self-care (01) ==
LOC: EDBD 13:09 → EMR 14:56
DX: R04.0 Epistaxis (principal); I10 Essential (primary) hypertension; J44.9 Chronic obstructive pulmonary disease, unspecified; R51 Headache
CPT/HCPCS: 36415; 70450; 80053; 85025; 85610; 85730; 86850; 86900; 86901; 99284; J7040

== ENCOUNTER 2018-12-28 16:01 | Emergency (ER) | payer MEDICARE, MEDICAID ==
[~2018-12-28] VITALS: Ht 149.9 cm; Wt 71.7 kg
[2018-12-28 16:20] VITALS: BP 125/83
--- NOTE | 2018-12-28 16:20 | NUR ---
ED Nurse Note: ambulated in to ER due to severe headache with neck pain / since 12/24/18. Denies N/V nor blurry vision. pt is concerned of her uti that is related to her headache. ermd on bedside, pt able to give urine sample and was sent to lab. will continue to monitor.
--- NOTE | 2018-12-28 17:05 | NUR ---
ED Nurse Note: pt went to ct with tech
[2018-12-28 17:14] LABS: APPEARANCE,URINE CLEAR; BILIRUBIN, URINE NEGATIVE (NEGATIVE); GLUCOSE, URINE (UA) NEGATIVE (NEGATIVE); KETONES,URINE 1+ (NEGATIVE); LEUKOCYTE ESTERASE ,URINE 2+ (NEGATIVE); NITRITE,URINE NEGATIVE (NEGATIVE); PH,URINE 5 (4.5-8.0); PROTEIN,URINE 1+ (NEGATIVE); UROBILINOGEN,URINE 1 MG/DL (0.0-1.0)
[2018-12-28 17:16] LABS: COLOR,URINE YELLOW
--- NOTE | 2018-12-28 17:19 | NUR ---
ED Nurse Note: pt went back from ct with tech..
[2018-12-28 18:20] VITALS: BP 125/83
--- NOTE | 2018-12-28 18:20 | NUR ---
ER DISCHARGE NOTE: Patient is cleared to be discharged per ERMD, pt is aox4, on room air, with stable vital signs. pt was given dc instructions, pt was able to verbalize understanding, pt id band removed without complications. pt is able to ambulate with steady gait. pt took all belongings.
--- NOTE | 2018-12-29 19:15 | Diagnostic Imaging Report ---
Indication: Headache Technique: Contiguous 5 mm thick transaxial imaging of the head obtained in a Siemens Sensation [address] scanner. Soft tissue and bone windows generated. Automatic Exposure Control was utilized. Total Dose length Product (DLP): [address] Dose Index Volume (CTDIvol): 70.38 mGy Comparison: 12/22/2018 Findings: There is mild prominence of the ventricles, basal cisterns, and cerebral sulci consistent with atrophy. Mild, nonspecific, white matter hypoattenuation is noted throughout the brain consistent with chronic small vessel disease. There is no midline shift, edema, acute hemorrhage, mass effect, or abnormal extra-axial fluid collections. Bones and extra osseous soft tissues are unremarkable. Impression: No acute intracranial bleed, mass effect or edema. Mild atrophy of the brain. Nonspecific white matter hypoattenuation probably due to chronic small vessel disease. The CT scanner at [facility] is accredited by the [employer] and the scans are performed using dose optimization techniques as appropriate to a performed exam including Automatic Exposure control.
--- NOTE | 2018-12-30 14:10 | Emergency Room Report ---
History of Present Illness General Chief Complaint: Headache Source: Patient Present Illness HPI 63-year-old female presents ED for evaluation. Complaining of headache and neck pain for the last 4 days. Denies any fall or injury. Pain is sharp, 9 out of 10, nonradiating. Notes pain behind both eyes.. Denies photophobia or blurry vision. Denies nausea or vomiting. States that she has bulging disks in her neck which typically causes her pain. States she was seen at urgent care 2 days ago for this headache. Was told that she had a UTI and was prescribed antibiotics. States she's taking antibiotics but states the headache persists. Denies dysuria or hematuria. No other aggravating relieving factors. Denies any other associated symptoms Allergies: Coded Allergies: No Known Allergies (Unverified , 12/28/18) Patient History Past Medical History: none, HTN, other - diverticulitis. pinched nerve in desk Past Surgical History: none Pertinent Family History: none Social History: Denies: smoking, alcohol use, drug use Last Menstrual Period: menopause Now: No Immunizations: UTD Reviewed Nursing Documentation: PMH: Agreed; PSxH: Agreed Nursing Documentation-PMH Past Medical History: No History, Except For Hx Cardiac Problems: Yes Hx Hypertension: Yes Hx Asthma: Yes Hx COPD: Yes Hx Cancer: No Hx Gastrointestinal Problems: Yes - DIVERTICULITIS, GASTRITIS, COLITIS Hx Neurological Problems: Yes - ruptured disk with pinched nerve Hx Weakness: Yes Hx Fatigue: Yes Review of Systems All Other Systems: negative except mentioned in HPI Physical Exam Vital Signs Date Time Temp Pulse Resp B/P (MAP) Pulse Ox O2 Delivery O2 Flow Rate FiO2 12/28/18 16:14 98.1 98 16 125/83 94 Room Air Sp02 EP Interpretation: reviewed, normal General Appearance: no apparent distress, alert, GCS 15, non-toxic Head: normocephalic, atraumatic Eyes: bilateral eye normal inspection, bilateral eye PERRL ENT: hearing grossly normal, normal pharynx, no angioedema, normal voice Neck: full range of motion, supple, supple/symm/no masses, tender lateral Respiratory: chest non-tender, lungs clear, normal breath sounds, speaking full sentences Cardiovascular #1: regular rate, rhythm, no edema Cardiovascular #2: 2+ carotid (R), 2+ carotid (L), 2+ radial (R), 2+ radial (L) , 2+ dorsalis pedis (R), 2+ dorsalis pedis (L) Gastrointestinal: normal bowel sounds, non tender, soft, non-distended, no guarding, no rebound Rectal: deferred Genitourinary: normal inspection, no CVA tenderness Musculoskeletal: back normal, gait/station normal, normal range of motion, non- tender Neurologic: alert, oriented x3, responsive, motor strength/tone normal, sensory intact, speech normal Psychiatric: judgement/insight normal, memory normal, mood/affect normal, no suicidal/homicidal ideation Reflexes: 3+ bicep (R), 3+ bicep (L), 3+ tricep (R), 3+ tricep (L), 3+ knee (R) , 3+ knee (L) Skin: normal color, no rash, warm/dry, well hydrated Lymphatic: no adenopathy Medical Decision Making Diagnostic Impression: Primary Impression: Headache Qualified Codes: R51 - Headache Additional Impression: UTI (urinary tract infection) Qualified Codes: N39.0 - Urinary tract infection, site not specified ER Course Hospital Course 63 yo F presents to ED complaining of headache and neck pain. recently diagnosed with UTI. Differential diagnoses include: chronic pain, migraine, UTI Clinical course Patient placed on stretcher. After initial history, physical exam reveals female in no acute distress. Cranial nerves II through XII intact. Tenderness to the neck however there is no nuchal rigidity or meningismal signs. Patient has history of chronic pain and is currently being seen by pain management. Patient is not requesting pain meds here that she has pain medication home. she is asking that we check her urine and to get a CAT scan UA shows some bacteria. CT head negative Discussed findings with patient. We will discharged to home. States she has a PMD. Patient will continue her Cipro as prescribed. Diagnosis - UTI, headache Stable and discharged home. continue cipro as directed. Instructed to followup with PMD. Return to ED if symptoms recur or worsen Labs Test 12/28/18 16:50 Urine Color Yellow Urine Appearance Clear Urine pH 5 (4.5-8.0) Urine Specific [place] 1.015 (1.005-1.035) Urine Protein 1+ (NEGATIVE) Urine Glucose (UA) Negative (NEGATIVE) Urine Ketones 1+ (NEGATIVE) Urine Blood 1+ (NEGATIVE) Urine Nitrite Negative (NEGATIVE) Urine Bilirubin Negative (NEGATIVE) Urine Urobilinogen 1 MG/DL (0.0-1.0) Urine Leukocyte Esterase 2+ (NEGATIVE) Urine RBC 2-4 /HPF (0 - 2) Urine WBC 5-10 /HPF (0 - 2) Urine Squamous Epithelial Cells Moderate /LPF (NONE/OCC) Urine Bacteria Few /HPF (NONE) Last Vital Signs Date Time Temp Pulse Resp B/P (MAP) Pulse Ox O2 Delivery O2 Flow Rate FiO2 12/28/18 18:20 98.1 78 16 125/83 94 Room Air Status: improved Disposition: HOME, SELF-CARE Condition: Stable Patient Instructions: General Headache Without Cause Lucian Couch MD Dec 30, 2018 14:10
== END 2018-12-28 18:20 | disposition home or self-care (01) ==
LOC: EMR 16:55
DX: R51 Headache (principal); N39.0 Urinary tract infection, site not specified; I10 Essential (primary) hypertension; J45.909 Unspecified asthma, uncomplicated
CPT/HCPCS: 70450; 81003; 99284

== ENCOUNTER 2019-02-16 22:14 | Emergency (ER) | payer MEDICARE, MEDICAID ==
[~2019-02-16] VITALS: Ht 149.9 cm; Wt 72.6 kg
--- NOTE | 2019-02-16 22:21 | NUR ---
ED Nurse Note: pt brought in by [facility] c/o abd pain, pt states she started having after dinner, pt has hx chronic gastritis and diverticulitis, pt reports she usually take OTC meds and it goes away but this time it didn't. pt denies n/v/d. pt AA&ox4, gcs=15, skin warm and dry, resp even and unlabored on RA, -n/v/d, ambulates w/ steady slow gait, will cont monitor. vss.
[2019-02-16 22:30] VITALS: BP 118/78
--- NOTE | 2019-02-16 22:41 | NUR ---
ED Nurse Note: NOTED PT PORT-A-CATH ON RIGHT SUBCLAVIAN, VERIFIED W/ ERMD TO USE, MD ZUÑIGA, PT TOLEARTED WELL, BLOOD SPECIMEN OBTAINED, LINE FLUSHED W/ NS.
[2019-02-16] MEDS ORDERED: HYDROmorphone 1mg/ml Carpuject IVP ONE ×2 (22:45→23:45)
--- NOTE | 2019-02-16 22:50 | Emergency Room Report ---
History of Present Illness General Chief Complaint: Abdominal Pain Source: Patient Present Illness HPI This is a 63-year-old female with chronic pain. She presents with chief complaint of abdominal pain and epigastric pain. Onset today. No relief with her tramadol. No relief with a GI cocktail. Pain is 10 out of 10. Worse with movement. Nausea but no vomiting. No diarrhea. No fever. Similar pain in the past but more severe per patient. She has a history of 7 previous C- sections. Allergies: Coded Allergies: No Known Allergies (Unverified , 02/16/19) Patient History Past Medical History: see triage record, old chart reviewed Past Surgical History: other Pertinent Family History: none Social History: Denies: smoking Now: No Immunizations: other Reviewed Nursing Documentation: PMH: Agreed; PSxH: Agreed Nursing Documentation-PMH Hx Cardiac Problems: Yes Hx Hypertension: Yes Hx Asthma: Yes Hx COPD: Yes Hx Cancer: No Hx Gastrointestinal Problems: Yes - DIVERTICULITIS, GASTRITIS, COLITIS Hx Neurological Problems: Yes - ruptured disk with pinched nerve Hx Weakness: Yes Hx Fatigue: Yes Review of Systems Eye: Denies: eye pain, blurred vision ENT: Denies: ear pain, nose congestion, throat swelling Respiratory: Denies: cough, shortness of breath Cardiovascular: Denies: chest pain, palpitations Gastrointestinal: Reports: abdominal pain; Denies: diarrhea, nausea, vomiting Musculoskeletal: Denies: back pain, joint pain Skin: Denies: rash Neurological: Denies: headache, numbness Endocrine: Denies: increased thirst, increased urine Hematologic/Lymphatic: Denies: easy bruising All Other Systems: negative except mentioned in HPI Physical Exam Vital Signs Date Time Temp Pulse Resp B/P (MAP) Pulse Ox O2 Delivery O2 Flow Rate FiO2 02/16/19 22:17 98.6 104 18 98 Room Air vitals unremarkable Sp02 EP Interpretation: reviewed, normal General Appearance: well appearing, no apparent distress, alert Head: normocephalic, atraumatic Eyes: bilateral eye PERRL, bilateral eye EOMI ENT: hearing grossly normal, normal pharynx Neck: full range of motion, supple, no meningismus Respiratory: chest non-tender, lungs clear, normal breath sounds Cardiovascular #1: regular rate, rhythm, no murmur Gastrointestinal: normal bowel sounds, no mass, no organomegaly, no bruit, non- distended, tenderness - Diffuse Musculoskeletal: back normal, gait/station normal, normal range of motion Psychiatric: mood/affect normal Skin: warm/dry Medical Decision Making Diagnostic Impression: Primary Impression: Intractable abdominal pain Additional Impressions: Gastroenteritis Hypokalemia ER Course Patient with abdominal pain. No evidence of obstruction or acute abdomen. Better now. We'll discharge home. Lab Results Impression labs unremarkable CT/MRI/US Diagnostic Results CT/MRI/US Diagnostic Results : Imaging Test Ordered: CT abdomen and pelvis Impression Read by radiologist. Diffusely fluid-filled and mildly distended small bowel, Denilson with gastroenteritis. Last Vital Signs Date Time Temp Pulse Resp B/P (MAP) Pulse Ox O2 Delivery O2 Flow Rate FiO2 02/16/19 22:23 104 18 Room Air 02/16/19 22:17 98.6 98 Status: improved Disposition: HOME, SELF-CARE Condition: Stable Scripts Lidocaine HCl (Lidocaine HCl Viscous) 100 Ml Solution 10 MG MM TID, #100 MG Prov: Ramiro Sheppard MD 02/17/19 Patient Instructions: Abdominal Pain, Adult Additional Instructions: Follow-up with your DrSamuel in 2-3 days if not better. Return if worse. Ramiro Sheppard MD February 16, 2019 22:50
--- NOTE | 2019-02-16 22:50 | NUR ---
ED Nurse Note: PT OFF TO CT.
[2019-02-16 23:08] LABS: APPEARANCE,URINE CLEAR; BILIRUBIN, URINE NEGATIVE (NEGATIVE); COLOR,URINE PALE YELLOW; GLUCOSE, URINE (UA) NEGATIVE (NEGATIVE); KETONES,URINE NEGATIVE (NEGATIVE); LEUKOCYTE ESTERASE ,URINE 1+ (NEGATIVE); NITRITE,URINE NEGATIVE (NEGATIVE); PH,URINE 8 (4.5-8.0); PROTEIN,URINE NEGATIVE (NEGATIVE); UROBILINOGEN,URINE NORMAL MG/DL (0.0-1.0)
[2019-02-16 23:10] LABS: BASOPHILS % (AUTO) 0.6 % (0.0-2.0); EOSINOPHILS % (AUTO) 1.2 % (0.0-3.0); HEMOGLOBIN 9.4 G/DL (12.0-16.0); LYMPHOCYTES % (AUTO) 25.1 % (20.0-45.0); MEAN CORPUSCULAR VOLUME 87 FL (80-99); MONOCYTES % (AUTO) 7.4 % (1.0-10.0); NEUTROPHILS % (AUTO) 65.7 % (45.0-75.0); PLATELET COUNT 345 K/UL (150-450); RED BLOOD COUNT 3.35 M/UL (4.20-5.40); RED CELL DISTRIBUTION WIDTH 13.3 % (11.6-14.8); WHITE BLOOD COUNT 5.7 K/UL (4.8-10.8)
[2019-02-16 23:17] LABS: ANION GAP 8 mmol/L (5-15); BLOOD UREA NITROGEN 13 mg/dL (7-18); CALCIUM 8.9 MG/DL (8.5-10.1); CARBON DIOXIDE 29 MMOL/L (21-32); CHLORIDE 106 MMOL/L (98-107); CREATININE 0.8 MG/DL (0.55-1.30); POTASSIUM 3.1 MMOL/L (3.5-5.1); SODIUM 143 MMOL/L (136-145)
[2019-02-16 23:21] LABS: ALANINE AMINOTRANSFERASE 25 U/L (12-78); ALBUMIN 3.6 G/DL (3.4-5.0); ALKALINE PHOSPHATASE 71 U/L (46-116); ASPARTATE AMINO TRANSFERASE 17 U/L (15-37); BILIRUBIN,TOTAL 0.1 MG/DL (0.2-1.0)
[2019-02-16 23:30] VITALS: BP 140/76
[2019-02-17] MEDS ORDERED: LIDOCAINE20 MG/1 M1 MM (00:23)
[2019-02-17 00:43] VITALS: BP 122/86
--- NOTE | 2019-02-17 00:43 | NUR ---
ED Nurse Note: pt cleared to be d/c per ERMD, pt discharge and aftercare instruction provided w/ prescription, pt education done via discussion and handout, pt advised to follow up with pcp or return to ed if changes in condition, pt verbalized understanding and agrees with plan, vss, ambulatory w/ steady gait, iv d/c and id band removed, left w/ all belongings, taxi provided per req.
--- NOTE | 2019-02-17 13:53 | Diagnostic Imaging Report ---
Indication: Abdominal pain Technique: Continuous helical transaxial imaging of the abdomen and pelvis was obtained from the lung bases to the pubic symphysis. No intravenous contrast was administered. Coronal 2-D reformats were also obtained. Automatic Exposure Control was utilized. Total Dose length Product (DLP): 804.[address] Dose Index Volume (CTDIvol): 17.49 mGy Comparison: 01/25/2016 Findings: Mild bronchiectasis demonstrated at the lung bases. Pacemaker and cardiomegaly noted. There is a hiatal hernia. There is no nephrolithiasis or hydronephrosis. The gallbladder is unremarkable. Diverticula noted within the colon. Mild fluid-filled and mildly distended small bowel loops are noted diffusely. Correlate for gastroenteritis. There is a right total hip prosthesis with streak artifact limiting evaluation of the pelvis. Urinary bladder is grossly unremarkable. IMPRESSION: Query mild gastroenteritis with the mildly distended fluid-filled loops of small bowel. Diverticulosis of the colon. No definite diverticulitis. Mild bronchiectasis and scarring at the lung bases. Cardiomegaly Pacemaker Hiatal hernia Right total hip replacement The CT scanner at [facility] is accredited by the [employer] and the scans are performed using dose optimization techniques as appropriate to a performed exam including Automatic Exposure control.
== END 2019-02-17 00:43 | disposition home or self-care (01) ==
LOC: EDUNIT# 22:14 → EDBD 22:14 → EMR 22:28
DX: R10.13 Epigastric pain (principal); K21.9 Gastro-esophageal reflux disease without esophagitis; E87.6 Hypokalemia; I10 Essential (primary) hypertension; J44.9 Chronic obstructive pulmonary disease, unspecified; Z96.641 Presence of right artificial hip joint; K44.9 Diaphragmatic hernia without obstruction or gangrene; Z95.0 Presence of cardiac pacemaker; I51.7 Cardiomegaly; K57.90 Diverticulosis of intestine, part unspecified, without perforation or abscess without bleeding; K52.9 Noninfective gastroenteritis and colitis, unspecified
CPT/HCPCS: 36415; 74176; 80053; 81003; 83690; 85025; 96361; 96374; 96375; 96376; 99284; J1170; J2405

== ENCOUNTER 2019-04-29 07:47 | Inpatient (IN) | payer MEDICARE, MEDICAID ==
[~2019-04-29] VITALS: Ht 149.9 cm; Wt 74.4 kg
[~2019-04-29 07:47] MED LIST changes: +LIDOCAINE20 MG/1 M1 MM
[2019-04-29 07:55] VITALS: BP 141/80
--- NOTE | 2019-04-29 07:55 | NUR ---
ED Nurse Note: pt brought by RA from home due to non-radiated sharp cp that started last night. pt pointed on epigastric area. no n/v. skin warm to touch. no open wound noted. on monitoring manager. pt has port for pain management. came with grandson. on monitoring manager. ekg done at the bed side. will wait for the further order.
--- NOTE | 2019-04-29 08:30 | NUR ---
ED Nurse Note: RN accessed port-a-cath @ the right side of the chest using 22g needle while maintaining sterile technique as ordered. No redness, pain or swelling noted on the site noted. RN able to get blood return and flush it without difficulty. Patient tolerated the procedure wtihout difficulty.
--- NOTE | 2019-04-29 08:35 | Emergency Room Report ---
History of Present Illness General Chief Complaint: Chest Pain Source: Patient, Medical Record Present Illness HPI 63yo F with a medical history of COPD, chronic pain, hypertension, anemia presents to the ER for midsternal sharp, nonradiating chest pain that started last night, she fell asleep after taking Ambien in awoke this morning and had recurrence of the pain. She has not tried any medication for symptoms, the only associated symptom she has is shortness of breath. She reports the pain is worse when she takes deep breath. She denies hemoptysis syncope, leg swelling, abdominal pain, any other symptoms. She has not taken any medications for pain. Allergies: Coded Allergies: No Known Allergies (Unverified , 02/16/19) Patient History Past Medical History: see triage record Reviewed Nursing Documentation: PMH: Agreed; PSxH: Agreed Nursing Documentation-PMH Past Medical History: No History, Except For Hx Cardiac Problems: Yes Hx Hypertension: Yes Hx Asthma: Yes Hx COPD: Yes Hx Cancer: No Hx Gastrointestinal Problems: Yes - DIVERTICULITIS, GASTRITIS, COLITIS Hx Neurological Problems: Yes - ruptured disk with pinched nerve Hx Weakness: Yes Hx Fatigue: Yes Review of Systems All Other Systems: negative except mentioned in HPI Physical Exam Vital Signs Date Time Temp Pulse Resp B/P (MAP) Pulse Ox O2 Delivery O2 Flow Rate FiO2 04/29/19 07:47 98.8 90 18 130/83 (99) 98 Room Air Sp02 EP Interpretation: reviewed, normal General Appearance: no apparent distress, alert, non-toxic Head: normocephalic Eyes: bilateral eye normal inspection, bilateral eye PERRL, bilateral eye EOMI ENT: normal ENT inspection, hearing grossly normal, normal pharynx, no angioedema, normal voice, moist mucus membranes Neck: normal inspection, full range of motion, supple, supple/symm/no masses Respiratory: chest non-tender, lungs clear, normal breath sounds, chest symmetrical, palpation of chest normal Cardiovascular #1: normal peripheral pulses, regular rate, rhythm, no edema, no gallop, no murmur, no rub, other - Right chest wall port site clean dry and intact Cardiovascular #2: 2+ radial (R), 2+ radial (L) Gastrointestinal: normal inspection, non tender, soft, no mass, no guarding, no rebound Rectal: deferred Genitourinary: normal inspection, no CVA tenderness Musculoskeletal: back normal, gait/station normal, normal range of motion, non- tender, no calf tenderness Neurologic: alert, responsive, financial aid officer III-XII nml as tested, motor strength/tone normal, sensory intact, speech normal Psychiatric: judgement/insight normal, memory normal, mood/affect normal Lymphatic: no adenopathy Medical Decision Making EKG Diagnostic Results EKG Time: 07:56 EP Interpretation: no stemi Rate: normal Rhythm: NSR ST Segments: no acute changes Rhythm Strip Diag. Results Rhythm Strip Time: 08:35 EP Interpretation: yes Rate: 88 Rhythm: NSR, no PVC's, no ectopy Last Vital Signs Date Time Temp Pulse Resp B/P (MAP) Pulse Ox O2 Delivery O2 Flow Rate FiO2 04/29/19 07:47 98.8 90 18 130/83 (99) 98 Room Air SANIYA RUEDA M.D Apr 29, 2019 08:35
[2019-04-29] MEDS ORDERED: RANITIDINE HCL150 MG ORAL (08:39)
[2019-04-29] MEDS ORDERED: PREDNISONE2.5 MG ORAL (08:39)
[2019-04-29 08:43] LABS: BASOPHILS % (AUTO) 1.2 % (0.0-2.0); EOSINOPHILS % (AUTO) 3.1 % (0.0-3.0); HEMATOCRIT 32.8 % (37.0-47.0); HEMOGLOBIN 10.1 G/DL (12.0-16.0); LYMPHOCYTES % (AUTO) 25.8 % (20.0-45.0); MEAN CORPUSCULAR VOLUME 87 FL (80-99); MONOCYTES % (AUTO) 7.4 % (1.0-10.0); NEUTROPHILS % (AUTO) 62.5 % (45.0-75.0); PLATELET COUNT 311 K/UL (150-450); RED BLOOD COUNT 3.75 M/UL (4.20-5.40); WHITE BLOOD COUNT 6.5 K/UL (4.8-10.8)
[2019-04-29] MEDS: Nitroglycerin Subl 0.4mg tab SL PRN ×5 (08:46→15:19)
[2019-04-29 08:58] LABS: ANION GAP 10 mmol/L (5-15); BLOOD UREA NITROGEN 10 mg/dL (7-18); CALCIUM 9.3 MG/DL (8.5-10.1); CARBON DIOXIDE 27 MMOL/L (21-32); CHLORIDE 105 MMOL/L (98-107); CREATININE 0.6 MG/DL (0.55-1.30); POTASSIUM 3.5 MMOL/L (3.5-5.1); SODIUM 142 MMOL/L (136-145)
[2019-04-29 08:59] LABS: ALANINE AMINOTRANSFERASE 14 U/L (12-78); ALBUMIN 3.8 G/DL (3.4-5.0); ALBUMIN/GLOBULIN RATIO 1.1 (1.0-2.7); ALKALINE PHOSPHATASE 68 U/L (46-116); ASPARTATE AMINO TRANSFERASE 17 U/L (15-37); BILIRUBIN,TOTAL 0.2 MG/DL (0.2-1.0)
[2019-04-29 09:30] VITALS: BP 138/78
[2019-04-29] MEDS ORDERED: Isovue-370 150ml vial INJ PRN (09:45)
[2019-04-29] MEDS ORDERED: EMLA 5gm tube TOPIC ONE (10:15)
--- NOTE | 2019-04-29 10:25 | NUR ---
ED Nurse Note: pending CTA. will transfer pt after test done.
--- NOTE | 2019-04-29 10:40 | NUR ---
ED Nurse Note: RN accessed port-a-cath using 20g needle as requested by radiology dept for CTA exam. RN mainiained sterile technique. RN was able to get blood return and flush it without difficulty. Patient tolerated the procedure without difficulty. the site remained intact without redness, swelling or pain.
--- NOTE | 2019-04-29 11:10 | NUR ---
ED Nurse Note: pt has medication pill organizer with unknown meds. RN put in the home meds bag and locked in black box.
--- NOTE | 2019-04-29 11:12 | NUR ---
ED Nurse Note: reports given to Martin Minor
[2019-04-29] MEDS ORDERED: Acetaminophen 500mg (ES) tab ORAL PRN ×2 (11:15→12:00)
--- NOTE | 2019-04-29 11:30 | NUR ---
NURSE NOTES: Patient transferred from ED, and received report from Cierra/RN. Patient is awake and alert, AO x4, patient was able to transfer herself from [facility] to bed. No acute distress/SOB noted. Able to make needs known. Heart monitor placed and reads SR. Belonging check done. Patient has Port-a-cath on right upper chest, patent, no sign of bleeding or infiltration. Vital signs are stable. Bed in low position and locked, Call light within reach, Will continue plan of care.
--- NOTE | 2019-04-29 11:32 | NUR ---
ED Nurse Note: RN confirmed with Dr. Pryor that pt is ok to be transferred to Tele without CTA result.
--- NOTE | 2019-04-29 11:47 | Consultation ---
History of Present Illness General Date patient seen: Apr 29, 2019 Chief Complaint: Chest Pain Present Illness HPI 63-year-old female with PMHx of Hep C, COPD, hiatal hernia, duodenal ulcer, hypertension presented to ER with CC of lower chest pain. Pt is comfortable now and chest pain has resolved. Allergies: Coded Allergies: LACTOSE (Verified Allergy, Intermediate, Itching, 04/29/19) Medication History Scheduled Amlodipine Besylate* (Amlodipine Besylate*), 10 MG ORAL HS, (Reported) Apixaban (Eliquis), 5 MG PO Q12HR, (Reported) Fluoxetine Hcl* (Fluoxetine Hcl*), 40 MG ORAL DAILY, (Reported) Furosemide* (Lasix*), 20 MG ORAL DAILY, (Reported) Lidocaine HCl (Lidocaine HCl Viscous), 10 MG MM TID Lisinopril (Lisinopril*), 10 MG ORAL DAILY, (Reported) Oxcarbazepine (Oxtellar Xr), 300 MG ORAL TID, (Reported) Potassium Chloride (Potassium Chloride), 20 MEQ PO DAILY, (Reported) Prednisone* (Prednisone*), 5 MG ORAL DAILY, (Reported) Ranitidine Hcl* (Zantac*), 150 MG ORAL TWICE A DAY, (Reported) Tizanidine Hcl (Tizanidine Hcl), 4 MG ORAL QHS, (Reported) Scheduled PRN Acetaminophen* (Tylenol Extra Strength*), 500 MG ORAL Q8H PRN for For Pain, ( Reported) Aspirin* (Aspirin*), 81 MG ORAL DAILY PRN for For Pain, (Reported) Calcium Carbonate (Tums), Unknown Dose PO for STOMACH PAIN , (Reported) Dicyclomine Hcl* (Dicyclomine Hcl*), 20 MG PO QID PRN for COLITIS, (Reported) Hydrocodone Bit/Acetaminophen 10-325* ([place] 10-325*), 1 TAB ORAL Q6H PRN for For Pain, (Reported) Tramadol Hcl* (Ultram*), 50 MG ORAL Q6H PRN for For Pain, (Reported) Zolpidem Tartrate* (Zolpidem Tartrate*), 10 MG ORAL BEDTIME PRN for Insomnia, ( Reported) Miscellaneous Medications Diclofenac Sodium (Voltaren), Unknown Dose TP, (Reported) Potassium Chloride (Potassium Chloride), 8 MEQ PO, (Reported) Patient History Healthcare decision maker N Resuscitation status Advanced Directive on File Past Medical/Surgical History Past Medical/Surgical History: (1) Hiatal hernia with GERD (2) Lower GI bleed (3) COPD (chronic obstructive pulmonary disease) (4) Duodenal ulcer disease (5) Hepatitis C (6) HTN (hypertension) (7) DVT (deep venous thrombosis) Review of Systems Constitutional: Reports: no symptoms Physical Exam General Appearance: WD/WN, alert Lines, tubes and drains: peripheral HEENT: normocephalic, atraumatic Neck: non-tender, supple Respiratory/Chest: chest wall non-tender, lungs clear Breasts: no masses Cardiovascular/Chest: normal rate Abdomen: normal bowel sounds Genitourinary/Rectal: normal genital exam 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 Last 24 Hour Vital Signs Date Time Temp Pulse Resp B/P (MAP) Pulse Ox O2 Delivery O2 Flow Rate FiO2 04/29/19 11:30 98.0 81 18 150/81 98 Room Air 04/29/19 09:30 98.1 81 18 138/78 97 Room Air 04/29/19 09:24 125/83 04/29/19 08:46 141/80 04/29/19 07:55 91 21 Room Air 04/29/19 07:55 98.8 91 21 141/80 98 Room Air 04/29/19 07:47 98.8 90 18 130/83 (99) 98 Room Air Laboratory Tests Test 04/29/19 08:30 White Blood Count 6.5 K/UL (4.8-10.8) Red Blood Count 3.75 M/UL (4.20-5.40) L Hemoglobin 10.1 G/DL (12.0-16.0) L Hematocrit 32.8 % (37.0-47.0) L Mean Corpuscular Volume 87 FL (80-99) Mean Corpuscular Hemoglobin 26.9 PG (27.0-31.0) L Mean Corpuscular Hemoglobin Concent 30.8 G/DL (32.0-36.0) L Red Cell Distribution Width 15.0 % (11.6-14.8) H Platelet Count 311 K/UL (150-450) Mean Platelet Volume 6.0 FL (6.5-10.1) L Neutrophils (%) (Auto) 62.5 % (45.0-75.0) Lymphocytes (%) (Auto) 25.8 % (20.0-45.0) Monocytes (%) (Auto) 7.4 % (1.0-10.0) Eosinophils (%) (Auto) 3.1 % (0.0-3.0) H Basophils (%) (Auto) 1.2 % (0.0-2.0) D-Dimer 0.94 mg/L FEU (0.00-0.49) H Sodium Level 142 MMOL/L (136-145) Potassium Level 3.5 MMOL/L (3.5-5.1) Chloride Level 105 MMOL/L (98-107) Carbon Dioxide Level 27 MMOL/L (21-32) Anion Gap 10 mmol/L (5-15) Blood Urea Nitrogen 10 mg/dL (7-18) Creatinine 0.6 MG/DL (0.55-1.30) Estimat Glomerular Filtration Rate > 60 mL/min (>60) Glucose Level 93 MG/DL (74-106) Calcium Level 9.3 MG/DL (8.5-10.1) Total Bilirubin 0.2 MG/DL (0.2-1.0) Aspartate Amino Transf (AST/SGOT) 17 U/L (15-37) Alanine Aminotransferase (ALT/SGPT) 14 U/L (12-78) Alkaline Phosphatase 68 U/L (46-116) Troponin I 0.017 ng/mL (0.000-0.056) Total Protein 7.4 G/DL (6.4-8.2) Albumin 3.8 G/DL (3.4-5.0) Globulin 3.6 g/dL Albumin/Globulin Ratio 1.1 (1.0-2.7) Height (Feet): 5 Height (Inches): 2.00 Weight (Pounds): 150 Medications Current Medications Medications (Trade) Dose Ordered Sig/Primo Route PRN Reason Start Time Stop Time Status Last Admin Dose Admin Acetaminophen (Tylenol) 500 mg Q8H PRN ORAL For Pain 04/29/19 11:15 05/29/19 11:14 Amlodipine Besylate (Norvasc) 10 mg DAILY ORAL 04/30/19 09:00 05/30/19 08:59 Apixaban (Eliquis) 5 mg Q12HR ORAL 7/25/19 21:00 05/29/19 20:59 Fluoxetine HCl (PROzac) 40 mg DAILY ORAL 04/30/19 09:00 05/30/19 08:59 Iopamidol (Isovue-370 150ml) 150 ml NOW PRN INJ Radiology Procedure 04/29/19 09:45 05/01/19 09:38 Lisinopril (Zestril) 10 mg DAILY ORAL 04/30/19 09:00 05/30/19 08:59 Nitroglycerin (Ntg) 0.4 mg Q5M PRN SL Prn Chest Pain 04/29/19 08:45 05/29/19 08:44 04/29/19 09:24 Assessment/Plan Problem List: (1) Chest pain ICD Codes: R07.9 - Chest pain, unspecified SNOMED: 24025933 (2) HTN (hypertension) ICD Codes: I10 - Essential (primary) hypertension SNOMED: 42436048 (3) Hepatitis C ICD Codes: B19.20 - Hepatitis C SNOMED: 31519365 (4) COPD (chronic obstructive pulmonary disease) ICD Codes: J44.9 - Chronic obstructive pulmonary disease, unspecified SNOMED: 97709068 Assessment/Plan: serial ekg, troponin echo CT angio was negative for PE cardio evaluation dvt prohylaxis. Sharron Belle MD Apr 29, 2019 11:47
[2019-04-29 12:00] VITALS: BP 133/93
[2019-04-29] MEDS ORDERED: Miralax 17gm pkt ORAL PRN (12:00)
[2019-04-29] MEDS ORDERED: Enalaprilat 2.5mg/2ml Inj IV PRN (12:00)
[2019-04-29] MEDS ORDERED: Albuterol/Ipratropium 3ml neb HHN PRN (12:00)
[2019-04-29] MEDS ORDERED: dilTIAZem HCl 25mg/5ml Inj IV PRN (12:00)
--- NOTE | 2019-04-29 12:44 | Diagnostic Imaging Report ---
Indication: Chest pain Technique: Continuous helical transaxial imaging of the chest was obtained from the thoracic inlet to the upper abdomen during rapid intravenous contrast administration. Arterial phase of enhancement obtained. Coronal 2-D reformats were also obtained and maximum intensity projection images in multiple planes. Study obtained in a Siemens sensation [address] Automatic Exposure Control was utilized. Total Dose length Product (DLP): [address] Dose Index Volume (CTDIvol): 12.62, 12.62, 22.41, 0.17 mGy Comparison: None Findings: The pulmonary artery is reasonably opacified and shows no filling defects. There is no adenopathy, pleural or pericardial effusions are identified. There is no aortic dissection or aneurysm identified within the chest. There is mild posterior basal atelectasis. Lungs are clear otherwise. There is a right chest port noted. No adenopathy pleural or pericardial effusion identified. The visualized part of the upper abdomen is unremarkable. There is narrowing of intervertebral discs and accompanying endplate osteophyte formation. Hypertrophied facet joints also demonstrated.. There is a kyphosis of the thoracic spine noted. Visualized part of the upper abdomen is unremarkable. Impression: No evidence of pulmonary embolus, aortic dissection or aneurysm. Other incidental findings as above The CT scanner at [facility] is accredited by the [employer] and the scans are performed using dose optimization techniques as appropriate to a performed exam including Automatic Exposure control.
--- NOTE | 2019-04-29 12:44 | Diagnostic Imaging Report ---
Indication: Chest pain Comparison: 11/25/2018 A single view chest radiograph was obtained. Findings: There is a right chest port present in good position unchanged. Cardiomegaly is stable. There is mild basilar plate like atelectasis noted. Bones are osteopenic. IMPRESSION: Mild basal atelectasis. No interval change
[2019-04-29] MEDS: Morphine Sulfate 2mg/ml Inj(IV/IM USE ONLY) IVP PRN (15:28)
--- NOTE | 2019-04-29 18:24 | Cardiology Report ---
APPROVED REPORT EKG Measurement Heart [id number] Normal sinus rhythm Cannot rule out Anterior infarct, age undetermined Abnormal ECG
--- NOTE | 2019-04-29 19:12 | NUR ---
HAND-OFF: Report given to Edison/RN, Patient is awake and alert, in stable condition. Endorsed plan of care.
--- NOTE | 2019-04-29 19:15 | NUR ---
NURSE NOTES: Received report from LUIS Hay. Pt. sitting in bed awake showing no signs of acute distress. Respiration even and non labored on room air. No sob noted. AOx4. Nicole-cath noted on right upper chest patent and intact. No chest pain noted at this time. Bed in lowest position, and wheels locked. Call light within reach. All needs attended and met. Will continue plan of care.
[2019-04-29 20:00] VITALS: BP 124/82
--- NOTE | 2019-04-29 20:12 | Cardiology Progress Note ---
Assessment/Plan Assessment/Plan [id number] chest pain not sure why she is on eliquis hold asa nsaid vs steroid for chest wall pain sternal sereis to exclude any sternal pathlog full note dicated Objective Last 24 Hour Vital Signs Date Time Temp Pulse Resp B/P (MAP) Pulse Ox O2 Delivery O2 Flow Rate FiO2 04/29/19 16:00 104 04/29/19 15:19 110/82 04/29/19 15:12 133/93 04/29/19 15:04 133/93 04/29/19 12:09 Room Air 04/29/19 12:00 82 04/29/19 12:00 98.1 97 20 133/93 (106) 98 04/29/19 11:30 98.0 81 18 150/81 98 Room Air 04/29/19 09:30 98.1 81 18 138/78 97 Room Air 04/29/19 09:24 125/83 04/29/19 08:46 141/80 04/29/19 07:55 91 21 Room Air 04/29/19 07:55 98.8 91 21 141/80 98 Room Air 04/29/19 07:47 98.8 90 18 130/83 (99) 98 Room Air Laboratory Tests Test 04/29/19 08:30 04/29/19 16:40 White Blood Count 6.5 K/UL (4.8-10.8) Red Blood Count 3.75 M/UL (4.20-5.40) L Hemoglobin 10.1 G/DL (12.0-16.0) L Hematocrit 32.8 % (37.0-47.0) L Mean Corpuscular Volume 87 FL (80-99) Mean Corpuscular Hemoglobin 26.9 PG (27.0-31.0) L Mean Corpuscular Hemoglobin Concent 30.8 G/DL (32.0-36.0) L Red Cell Distribution Width 15.0 % (11.6-14.8) H Platelet Count 311 K/UL (150-450) Mean Platelet Volume 6.0 FL (6.5-10.1) L Neutrophils (%) (Auto) 62.5 % (45.0-75.0) Lymphocytes (%) (Auto) 25.8 % (20.0-45.0) Monocytes (%) (Auto) 7.4 % (1.0-10.0) Eosinophils (%) (Auto) 3.1 % (0.0-3.0) H Basophils (%) (Auto) 1.2 % (0.0-2.0) D-Dimer 0.94 mg/L FEU (0.00-0.49) H Sodium Level 142 MMOL/L (136-145) Potassium Level 3.5 MMOL/L (3.5-5.1) Chloride Level 105 MMOL/L (98-107) Carbon Dioxide Level 27 MMOL/L (21-32) Anion Gap 10 mmol/L (5-15) Blood Urea Nitrogen 10 mg/dL (7-18) Creatinine 0.6 MG/DL (0.55-1.30) Estimat Glomerular Filtration Rate > 60 mL/min (>60) Glucose Level 93 MG/DL (74-106) Calcium Level 9.3 MG/DL (8.5-10.1) Total Bilirubin 0.2 MG/DL (0.2-1.0) Aspartate Amino Transf (AST/SGOT) 17 U/L (15-37) Alanine Aminotransferase (ALT/SGPT) 14 U/L (12-78) Alkaline Phosphatase 68 U/L (46-116) Troponin I 0.017 ng/mL (0.000-0.056) 0.000 ng/mL (0.000-0.056) Total Protein 7.4 G/DL (6.4-8.2) Albumin 3.8 G/DL (3.4-5.0) Globulin 3.6 g/dL Albumin/Globulin Ratio 1.1 (1.0-2.7) Igor Brown MD Apr 29, 2019 20:12
[2019-04-29] MEDS ORDERED: Naproxen 375mg tab ORAL SCH (20:15)
[2019-04-29] MEDS ORDERED: Eliquis 5mg tablet ORAL SCH (21:00)
[2019-04-29] MEDS ORDERED: Heparin 5000 units/ml inj SUBQ SCH (21:00)
--- NOTE | 2019-04-29 23:00 | Consultation ---
DATE OF CONSULTATION: 04/29/2019 CARDIOLOGY CONSULTATION CONSULTING PHYSICIAN: Igor Brown M.D. REFERRING PHYSICIANS: 1. Sharron Belle M.D. 2. Ivan Rodas M.D. REASON FOR REFERRAL: Chest pain. HISTORY OF PRESENT ILLNESS: This is a 63-year-old female, who started having some pain in the chest as she was trying to fall asleep last night in her hospital bed at home and took some sleeping medication, fell asleep, and woke up this morning. Continues to have pain. The pain is described in the right side of the sternal edge. It gets worse when she moves in certain positions, twists, turn, trying to lie down, or trying to sit up. There has been no injury that the patient has noted and there is no history of any recent pulling, pushing, or using of any upper extremities. Just started at the time that she was lying in bed. It hurts now still. There is no change with eating. She does get the pain when she moves, even moving out of the bed or trying to walk around, she also has the pain, but worse when in certain positions. She has shortness of breath only because she is not able to take a deep breath because of the pain. There is no PND. Uses one pillow. There is no dizziness or lightheadedness. No heart pounding or palpitations. PAST MEDICAL HISTORY: Positive for high blood pressure. No history of heart attack. No cancer. She has a history of stroke. She has history of hepatitis C, was treated with Harvoni. No tuberculosis. No emphysema. She does have a history of asthma. She does have history of ulcers and gastritis. No kidney problems, liver problems, thyroid problems. She does have history of anemia. She has nosebleeds. No thyroid problems. There is no HIV or AIDS. She did have a history of blood clots in her upper extremities, but never in her legs. She does have history of disk disease for which she is undergoing pain management evaluation and therapy. She does have a history of hypotension previously, significant volume depletion, gastrointestinal bleed, and anemia as well as iron deficiency, OB positive stools, and bleeding hemorrhoids. ALLERGIES: She is not allergic to any medications. SOCIAL HISTORY: She quit smoking in the . No alcohol. No drugs. She lives at home. She has 1 child, son is 39 years old and diagnosed with soft tissue sarcoma recently. REVIEW OF SYSTEMS: GASTROINTESTINAL: She denies any nausea, vomiting, diarrhea, or constipation. GENITOURINARY: She denies. PULMONARY: She does not cough or wheeze. CONSTITUTIONAL: Negative. NEUROLOGIC: Negative. PHYSICAL EXAMINATION: GENERAL: Shows to be a middle-aged female, who is clearly uncomfortable with any kind of movement trying to sit up or lying down. NECK: Supple. No jugular venous distention. LUNGS: Clear to auscultation and percussion. Chest wall is exquisitely tender to palpation of the right side of costochondral joint in the mid area. No masses or deformities are noted. CARDIAC: S1 is normal. S2 is normal. Regular rate and rhythm. No heaves, thrills, or gallops noted. ABDOMEN: Soft, nontender. Positive bowel sounds. EXTREMITIES: There is no clubbing, cyanosis, or edema. LABORATORY VALUES: Her blood tests include a white count of 6.5, hemoglobin 10.1, and platelet count of 311. Sodium is 142, potassium 3.5, chloride 105, bicarb 27, BUN of 10, creatinine 0.6, glucose of 93. Liver function tests are normal. Two sets of cardiac enzymes so far negative. The first one at 8:30 this morning 0.17, subsequently the second one is 0.000. No coags are available. The D-dimer was elevated at 0.94. She had a CT angiogram of her chest today that shows no filling defect in the pulmonary arteries. No adenopathy, pleural effusion, pericardial effusion. There is no aortic dissection and aneurysm. Lungs are clear. Right-sided port noted. No adenopathy, pleural effusion, pericardial effusion. Upper abdomen is negative. She has had an echocardiogram, preliminary report shows ejection fraction is normal. No significant effusion is noted and no wall motion abnormalities and just trivial valvular regurgitations noted. Chest x-ray shows mild atelectasis. No otherwise interval changes. ASSESSMENT AND PLAN: 1. Chest wall pain, costochondritis most likely etiology. 2. History of hypertension. 3. History of anemia. 4. History of GI bleed. 5. History of epistaxis. 6. History of hepatitis C, status post Harvoni treatment. 7. History of asthma. Dr. Rodas and Dr. Belle, this patient was seen in cardiac consultation. The patient's chest wall is tender to palpation and reproduces the pain. In fact, when she tries to move in certain positions in bed during the interview, she was exquisitely tender and painful. I think the dose of nonsteroidals will be the best treatment for her although she has had some history of GI bleeding and I suspect that that may hinder our ability to administer. Maybe a short course of steroids may be in order to help alleviate some of her discomfort that she seems to be having. Proton pump inhibitors may be in order for treatment of possible side effects of nonsteroidals. She is on anticoagulation with Eliquis it appears and she is getting aspirin as well although I do not think she needs to continue the aspirin from a cardiac point of view. She did not have any pulmonary embolism. She has had a history of DVT in the upper extremities. I am not sure why she is on Eliquis otherwise. I would probably discontinue the combination of aspirin and Eliquis. She does not have a major indication for both, but needs to be evaluated further based on history. Igor Brown M.D. DR: MARILOU JOB#: [id number] CC:
[2019-04-30] VITALS: BP 114/77
[2019-04-30] MEDS: Morphine Sulfate 2mg/ml Inj(IV/IM USE ONLY) IVP PRN ×2 (00:05→09:19)
[2019-04-30 04:00] VITALS: BP 144/82
[2019-04-30 06:43] LABS: BASOPHILS % (AUTO) 1.8 % (0.0-2.0); EOSINOPHILS % (AUTO) 5.2 % (0.0-3.0); HEMATOCRIT 35.9 % (37.0-47.0); HEMOGLOBIN 11.1 G/DL (12.0-16.0); LYMPHOCYTES % (AUTO) 34.4 % (20.0-45.0); MEAN CORPUSCULAR VOLUME 87 FL (80-99); NEUTROPHILS % (AUTO) 52.7 % (45.0-75.0); PLATELET COUNT 345 K/UL (150-450); RED BLOOD COUNT 4.12 M/UL (4.20-5.40); RED CELL DISTRIBUTION WIDTH 15.3 % (11.6-14.8); WHITE BLOOD COUNT 5.1 K/UL (4.8-10.8)
--- NOTE | 2019-04-30 07:15 | NUR ---
HAND-OFF: Report given to LUIS Hay.
[2019-04-30 07:17] LABS: CHOLESTEROL 199 MG/DL (< 200); HDL CHOLESTEROL 75 MG/DL (40-60); TRIGLYCERIDES 66 MG/DL (30-150)
--- NOTE | 2019-04-30 07:17 | NUR ---
NURSE NOTES: Received report from Edison/RN, Patient awake and alert, AO x4, No acute distress/SOB noted. Sitting up on bed, eating breakfast. Able to make needs known. Patient has a Port-a-cath, on right upper chest, patent, no bleeding or infiltration noted. Bed in lowest position and locked. Call light and personal belonging within reach. Will continue plan of care.
[2019-04-30 08:00] VITALS: BP 126/83
--- NOTE | 2019-04-30 08:14 | Cardiology Progress Note ---
Assessment/Plan Assessment/Plan The patient is seen and examined, full consult noter is dictated. Objective Last 24 Hour Vital Signs Date Time Temp Pulse Resp B/P (MAP) Pulse Ox O2 Delivery O2 Flow Rate FiO2 04/30/19 04:00 97.9 73 18 144/82 (102) 98 04/30/19 04:00 76 04/30/19 00:30 89 20 99 Nasal Cannula 2.0 28 04/30/19 00:00 72 04/30/19 00:00 98.3 72 19 114/77 (89) 97 04/29/19 21:21 98.0 04/29/19 21:00 Room Air 04/29/19 20:00 98.0 89 18 124/82 (96) 98 04/29/19 20:00 90 04/29/19 16:00 104 04/29/19 15:19 110/82 04/29/19 15:12 133/93 04/29/19 15:04 133/93 04/29/19 12:09 Room Air 04/29/19 12:00 82 04/29/19 12:00 98.1 97 20 133/93 (106) 98 04/29/19 11:30 98.0 81 18 150/81 98 Room Air 04/29/19 09:30 98.1 81 18 138/78 97 Room Air 04/29/19 09:24 125/83 04/29/19 08:46 141/80 Intake and Output 04/29/19 04/30/19 18:59 06:59 Intake Total 480 ml Balance 480 ml Intake Oral 480 ml # Voids 5 1 # Bowel Movements 1 Laboratory Tests Test 04/29/19 08:30 04/29/19 16:40 04/30/19 06:00 White Blood Count 6.5 K/UL (4.8-10.8) 5.1 K/UL (4.8-10.8) Red Blood Count 3.75 M/UL (4.20-5.40) L 4.12 M/UL (4.20-5.40) L Hemoglobin 10.1 G/DL (12.0-16.0) L 11.1 G/DL (12.0-16.0) L Hematocrit 32.8 % (37.0-47.0) L 35.9 % (37.0-47.0) L Mean Corpuscular Volume 87 FL (80-99) 87 FL (80-99) Mean Corpuscular Hemoglobin 26.9 PG (27.0-31.0) L 26.8 PG (27.0-31.0) L Mean Corpuscular Hemoglobin Concent 30.8 G/DL (32.0-36.0) L 30.8 G/DL (32.0-36.0) L Red Cell Distribution Width 15.0 % (11.6-14.8) H 15.3 % (11.6-14.8) H Platelet Count 311 K/UL (150-450) 345 K/UL (150-450) Mean Platelet Volume 6.0 FL (6.5-10.1) L 6.2 FL (6.5-10.1) L Neutrophils (%) (Auto) 62.5 % (45.0-75.0) 52.7 % (45.0-75.0) Lymphocytes (%) (Auto) 25.8 % (20.0-45.0) 34.4 % (20.0-45.0) Monocytes (%) (Auto) 7.4 % (1.0-10.0) 6.0 % (1.0-10.0) Eosinophils (%) (Auto) 3.1 % (0.0-3.0) H 5.2 % (0.0-3.0) H Basophils (%) (Auto) 1.2 % (0.0-2.0) 1.8 % (0.0-2.0) D-Dimer 0.94 mg/L FEU (0.00-0.49) H Sodium Level 142 MMOL/L (136-145) Potassium Level 3.5 MMOL/L (3.5-5.1) Chloride Level 105 MMOL/L (98-107) Carbon Dioxide Level 27 MMOL/L (21-32) Anion Gap 10 mmol/L (5-15) Blood Urea Nitrogen 10 mg/dL (7-18) Creatinine 0.6 MG/DL (0.55-1.30) Estimat Glomerular Filtration Rate > 60 mL/min (>60) Glucose Level 93 MG/DL (74-106) Calcium Level 9.3 MG/DL (8.5-10.1) Total Bilirubin 0.2 MG/DL (0.2-1.0) Aspartate Amino Transf (AST/SGOT) 17 U/L (15-37) Alanine Aminotransferase (ALT/SGPT) 14 U/L (12-78) Alkaline Phosphatase 68 U/L (46-116) Troponin I 0.017 ng/mL (0.000-0.056) 0.000 ng/mL (0.000-0.056) 0.000 ng/mL (0.000-0.056) Total Protein 7.4 G/DL (6.4-8.2) Albumin 3.8 G/DL (3.4-5.0) Globulin 3.6 g/dL Albumin/Globulin Ratio 1.1 (1.0-2.7) Prothrombin Time 10.5 SEC (9.30-11.50) Prothromb Time International Ratio 1.0 (0.9-1.1) Activated Partial Thromboplast Time 28 SEC (23-33) C-Reactive Protein, Quantitative < 0.4 mg/dL (0.00-0.90) Triglycerides Level 66 MG/DL (30-150) Cholesterol Level 199 MG/DL (< 200) LDL Cholesterol 109 mg/dL (<100) H HDL Cholesterol 75 MG/DL (40-60) H Cholesterol/HDL Ratio 2.7 (3.3-4.4) L Thyroid Stimulating Hormone (TSH) 0.239 uiU/mL (0.358-3.740) Damian Kolb MD Apr 30, 2019 08:14
--- NOTE | 2019-04-30 08:20 | History & Physical ---
History of Present Illness General Reason for Hospitalization: Chest Pain Present Illness Allergies: Coded Allergies: LACTOSE (Verified Allergy, Intermediate, Itching, 04/29/19) Medication History Scheduled Amlodipine Besylate* (Amlodipine Besylate*), 10 MG ORAL HS, (Reported) Apixaban (Eliquis), 5 MG PO Q12HR, (Reported) Fluoxetine Hcl* (Fluoxetine Hcl*), 40 MG ORAL DAILY, (Reported) Furosemide* (Lasix*), 20 MG ORAL DAILY, (Reported) Lidocaine HCl (Lidocaine HCl Viscous), 10 MG MM TID Lisinopril (Lisinopril*), 10 MG ORAL DAILY, (Reported) Oxcarbazepine (Oxtellar Xr), 300 MG ORAL TID, (Reported) Potassium Chloride (Potassium Chloride), 20 MEQ PO DAILY, (Reported) Prednisone* (Prednisone*), 5 MG ORAL DAILY, (Reported) Ranitidine Hcl* (Zantac*), 150 MG ORAL TWICE A DAY, (Reported) Tizanidine Hcl (Tizanidine Hcl), 4 MG ORAL QHS, (Reported) Scheduled PRN Acetaminophen* (Tylenol Extra Strength*), 500 MG ORAL Q8H PRN for For Pain, ( Reported) Aspirin* (Aspirin*), 81 MG ORAL DAILY PRN for For Pain, (Reported) Calcium Carbonate (Tums), Unknown Dose PO for STOMACH PAIN , (Reported) Dicyclomine Hcl* (Dicyclomine Hcl*), 20 MG PO QID PRN for COLITIS, (Reported) Hydrocodone Bit/Acetaminophen 10-325* ([place] 10-325*), 1 TAB ORAL Q6H PRN for For Pain, (Reported) Tramadol Hcl* (Ultram*), 50 MG ORAL Q6H PRN for For Pain, (Reported) Zolpidem Tartrate* (Zolpidem Tartrate*), 10 MG ORAL BEDTIME PRN for Insomnia, ( Reported) Miscellaneous Medications Diclofenac Sodium (Voltaren), Unknown Dose TP, (Reported) Potassium Chloride (Potassium Chloride), 8 MEQ PO, (Reported) Patient History Healthcare decision maker N Resuscitation status Full Code Advanced Directive on File No Review of Systems Review of Symptoms General ROS: no weight loss or fever Psychological ROS: no depression or mood changes, no memory loss Ophthalmic ROS: no visual changes or eye irritation ENT ROS: no nasal congestion, hearing loss, dizziness Allergy and Immunology ROS: no allergic symptoms or urticaria Hematological and Lymphatic ROS: no swollen glands, unusual bleeding or bruising Endocrine ROS: no polyuria, polydipsia, weight changes, temperature intolerance Respiratory ROS: no cough, shortness of breath, or wheezing Cardiovascular ROS: no chest pain or dyspnea on exertion Gastrointestinal ROS: denies abdominal pain, bright red blood in stool. Musculoskeletal ROS: no myalgias or arthralgias Neurological ROS: no TIA or stroke symptoms Dermatological ROS: no new or changing skin lesions, rashes or pruritis Physical Exam Physical Exam General appearance: alert, cooperative, no distress, appears stated age Head: Normocephalic, without obvious abnormality, atraumatic Eyes: conjunctivae/corneas clear. PERRL, EOM's intact. Fundi benign Throat: Lips, mucosa, and tongue normal. Teeth and gums normal Neck: supple, symmetrical, trachea midline, no adenopathy, thyroid: not enlarged, symmetric, no tenderness/mass/nodules, no carotid bruit and no JVD Lungs: clear to auscultation bilaterally Heart: regular rate and rhythm, S1, S2 normal, no murmur, click, rub or gallop Abdomen: soft, non-tender. Bowel sounds normal. No masses, no organomegaly Extremities: extremities normal, atraumatic, no cyanosis or edema Pulses: 2+ and symmetric Skin: Skin color, texture, turgor normal. No rashes or lesions Neurologic: Grossly normal Last 24 Hour Vital Signs Date Time Temp Pulse Resp B/P (MAP) Pulse Ox O2 Delivery O2 Flow Rate FiO2 04/30/19 04:00 97.9 73 18 144/82 (102) 98 04/30/19 04:00 76 04/30/19 00:30 89 20 99 Nasal Cannula 2.0 28 04/30/19 00:00 72 04/30/19 00:00 98.3 72 19 114/77 (89) 97 04/29/19 21:21 98.0 04/29/19 21:00 Room Air 04/29/19 20:00 98.0 89 18 124/82 (96) 98 04/29/19 20:00 90 04/29/19 16:00 104 04/29/19 15:19 110/82 04/29/19 15:12 133/93 04/29/19 15:04 133/93 04/29/19 12:09 Room Air 04/29/19 12:00 82 04/29/19 12:00 98.1 97 20 133/93 (106) 98 04/29/19 11:30 98.0 81 18 150/81 98 Room Air 04/29/19 09:30 98.1 81 18 138/78 97 Room Air 04/29/19 09:24 125/83 04/29/19 08:46 141/80 Intake and Output 04/29/19 04/30/19 18:59 06:59 Intake Total 480 ml Balance 480 ml Intake Oral 480 ml # Voids 5 1 # Bowel Movements 1 Laboratory Tests Test 04/29/19 08:30 04/29/19 16:40 04/30/19 06:00 White Blood Count 6.5 K/UL (4.8-10.8) 5.1 K/UL (4.8-10.8) Red Blood Count 3.75 M/UL (4.20-5.40) L 4.12 M/UL (4.20-5.40) L Hemoglobin 10.1 G/DL (12.0-16.0) L 11.1 G/DL (12.0-16.0) L Hematocrit 32.8 % (37.0-47.0) L 35.9 % (37.0-47.0) L Mean Corpuscular Volume 87 FL (80-99) 87 FL (80-99) Mean Corpuscular Hemoglobin 26.9 PG (27.0-31.0) L 26.8 PG (27.0-31.0) L Mean Corpuscular Hemoglobin Concent 30.8 G/DL (32.0-36.0) L 30.8 G/DL (32.0-36.0) L Red Cell Distribution Width 15.0 % (11.6-14.8) H 15.3 % (11.6-14.8) H Platelet Count 311 K/UL (150-450) 345 K/UL (150-450) Mean Platelet Volume 6.0 FL (6.5-10.1) L 6.2 FL (6.5-10.1) L Neutrophils (%) (Auto) 62.5 % (45.0-75.0) 52.7 % (45.0-75.0) Lymphocytes (%) (Auto) 25.8 % (20.0-45.0) 34.4 % (20.0-45.0) Monocytes (%) (Auto) 7.4 % (1.0-10.0) 6.0 % (1.0-10.0) Eosinophils (%) (Auto) 3.1 % (0.0-3.0) H 5.2 % (0.0-3.0) H Basophils (%) (Auto) 1.2 % (0.0-2.0) 1.8 % (0.0-2.0) D-Dimer 0.94 mg/L FEU (0.00-0.49) H Sodium Level 142 MMOL/L (136-145) Potassium Level 3.5 MMOL/L (3.5-5.1) Chloride Level 105 MMOL/L (98-107) Carbon Dioxide Level 27 MMOL/L (21-32) Anion Gap 10 mmol/L (5-15) Blood Urea Nitrogen 10 mg/dL (7-18) Creatinine 0.6 MG/DL (0.55-1.30) Estimat Glomerular Filtration Rate > 60 mL/min (>60) Glucose Level 93 MG/DL (74-106) Calcium Level 9.3 MG/DL (8.5-10.1) Total Bilirubin 0.2 MG/DL (0.2-1.0) Aspartate Amino Transf (AST/SGOT) 17 U/L (15-37) Alanine Aminotransferase (ALT/SGPT) 14 U/L (12-78) Alkaline Phosphatase 68 U/L (46-116) Troponin I 0.017 ng/mL (0.000-0.056) 0.000 ng/mL (0.000-0.056) 0.000 ng/mL (0.000-0.056) Total Protein 7.4 G/DL (6.4-8.2) Albumin 3.8 G/DL (3.4-5.0) Globulin 3.6 g/dL Albumin/Globulin Ratio 1.1 (1.0-2.7) Prothrombin Time 10.5 SEC (9.30-11.50) Prothromb Time International Ratio 1.0 (0.9-1.1) Activated Partial Thromboplast Time 28 SEC (23-33) C-Reactive Protein, Quantitative < 0.4 mg/dL (0.00-0.90) Triglycerides Level 66 MG/DL (30-150) Cholesterol Level 199 MG/DL (< 200) LDL Cholesterol 109 mg/dL (<100) H HDL Cholesterol 75 MG/DL (40-60) H Cholesterol/HDL Ratio 2.7 (3.3-4.4) L Thyroid Stimulating Hormone (TSH) 0.239 uiU/mL (0.358-3.740) Height (Feet): 4 Height (Inches): 11.00 Weight (Pounds): 164 Medications Current Medications Medications (Trade) Dose Ordered Sig/Primo Route PRN Reason Start Time Stop Time Status Last Admin Dose Admin Acetaminophen (Tylenol) 500 mg Q8H PRN ORAL Mild Pain (Pain Scale 1-3) 04/29/19 12:00 05/29/19 11:14 Acetaminophen (Tylenol) 650 mg Q4H PRN ORAL T>100.5 04/29/19 12:00 05/29/19 11:59 Albuterol/ Ipratropium (Albuterol/ Ipratropium) 3 ml Q4H PRN HHN Shortness of Breath 04/29/19 12:00 05/04/19 11:59 Amlodipine Besylate (Norvasc) 10 mg DAILY ORAL 04/30/19 09:00 05/30/19 08:59 Apixaban (Eliquis) 5 mg Q12HR ORAL 04/29/19 21:00 05/29/19 20:59 04/29/19 20:51 Diltiazem HCl (Cardizem) 10 mg EVERY HOUR PRN IV heart rate more than 120 bpm 04/29/19 12:00 05/29/19 11:59 Enalaprilat (Vasotec) 2.5 mg Q6H PRN IV sbp more than 160mmHg 04/29/19 12:00 05/29/19 11:59 Fluoxetine HCl (PROzac) 40 mg DAILY ORAL 04/30/19 09:00 05/30/19 08:59 Iopamidol (Isovue-370 150ml) 150 ml NOW PRN INJ Radiology Procedure 04/29/19 09:45 05/01/19 09:38 Lisinopril (Zestril) 10 mg DAILY ORAL 04/30/19 09:00 05/30/19 08:59 Morphine Sulfate (Morphine Sulfate) 2 mg Q4H PRN IVP Severe Pain (Pain Scale 7-10) 04/29/19 12:00 05/06/19 11:59 04/30/19 00:05 Naproxen (Naprosyn) 375 mg TWICE A DAY ORAL 04/29/19 20:15 04/30/19 18:00 04/29/19 20:51 Nitroglycerin (Ntg) 0.4 mg Q5MIN X 3 DOSES PRN SL Prn Chest Pain 04/29/19 12:00 05/29/19 11:59 04/29/19 15:19 Ondansetron HCl (Zofran) 4 mg Q6H PRN IVP Nausea & Vomiting 04/29/19 12:00 05/29/19 11:59 Pantoprazole (Protonix) 40 mg DAILY ORAL 04/29/19 20:15 05/29/19 20:14 04/29/19 20:51 Polyethylene Glycol (Miralax) 17 gm DAILYPRN PRN ORAL Constipation 04/29/19 12:00 05/29/19 11:59 Temazepam (Restoril) 15 mg HSPRN PRN ORAL Insomnia 04/29/19 21:00 05/06/19 20:59 Assessment/Plan Assessment/Plan: History and Physical Covering Dr: Silke Oliva DOS: 04/30/19 Source: Patient, Medical Record RFA: Chest pain eval ID [id number] F with a medical history of COPD, chronic pain, hypertension, anemia presents to the ER for midsternal sharp, nonradiating chest pain that started last night, she fell asleep after taking Ambien in awoke this morning and had recurrence of the pain. She has not tried any medication for symptoms, the only associated symptom she has is shortness of breath. She reports the pain is worse when she takes deep breath. She denies hemoptysis syncope, leg swelling, abdominal pain, any other symptoms. She has not taken any medications for pain. I have seen her on prior admission and she had anemia of iron deficiency at that time. Coded Allergies: No Known Allergies (Unverified , 02/16/19) Patient History Past Medical History: see triage record Reviewed Nursing Documentation: PMH: Agreed; PSxH: Agreed Nursing Documentation-PMH Past Medical History: No History, Except For Hx Cardiac Problems: Yes Hx Hypertension: Yes Hx Asthma: Yes Hx COPD: Yes Hx Cancer: No Hx Gastrointestinal Problems: Yes - DIVERTICULITIS, GASTRITIS, COLITIS Hx Neurological Problems: Yes - ruptured disk with pinched nerve Hx Weakness: Yes Hx Fatigue: Yes Review of Systems All Other Systems: negative except mentioned in HPI Physical Exam Vital Signs Date Time Temp Pulse Resp B/P (MAP) Pulse Ox O2 Delivery O2 Flow Rate FiO2 04/30/19 07:47 98.8 90 18 130/83 (99) 98 Room Air Sp02 EP Interpretation: reviewed, normal General Appearance: nad, alert, non-toxic HEENT b.l PERRL, bilateral eye EOMI Pulm: chest non-tender, lungs clear, normal breath sounds, chest symmetrical, palpation of chest normal CV: rrr, no mgr GI: normal inspection, non tender, soft, nt, nd Rectal: deferred Genitourinary: normal inspection, no CVA tenderness Psychiatric: judgement/insight normal, memory normal, mood/affect normal Lymphatic: no adenopathy Labs: reviewed Imaging: ntoed Assessment and Recs # Chest pain, atypical at this time --> has been seen by cardiology on this admission --> trop and ekg as needed, trend --> consider to elroy johnson at this time --> appreciate cards recs # Anemia of iron deficiency. Ferritin 8 on prior admission! potentially related to GI bleed. recent EGD/colonoscopy performed earlier this year noted to have gastritis, diverticulosis and large external hemorrhoids. --> Anemia w/u has been reviewed. Will trend CBC --> Peripheral smear has been reviewed, no evidence of hemolysis --> Hgb goal >7. Transfuse prn basis --> Completed IV iron x5 days prior admission --> hemorrhoidal treatment outpatient, anusol --> recheck ferritin # Left upper extremity basilic vein dvt --> given prior history last year, elroy johnson --> script written, will call pharmacy if needed --> dw pulm and pcp # Anemia due to lower GI bleed. --> GI is following, appreciate recs. --> No active bleeding. # Leukocytosis is likely related to infection --> s/p abx, seen by id, improving # Hep C++. Needs to be evaluated by md do resident urgent care. --> Viral load of Hep C reviewed, as per ID --> US abd with no acute findings. --> Transfuse to plt goal > 20k if febrile, >10k if afebrile --> Currently on Harvoni for Hep C treatment # Bleeding hemorrhoid. --> patient on Anusol HC BID --> bowel regime GREATLY APPRECIATE CONSULTATION. MIPS Hospital declaration INPATIENT level of care is warranted for this patient because patient is a 89 year old with who presents with suspicion of . I have a high level of concern because . Patient is at high risk for . Plan of care/treatment include . Patient care is expected to be greater than 2 midnights. OBSERVATION level of care is warranted for this patient. Patient is a 89 year old with who presents with . Patient will be admitted for 1 midnight, but if additional night(s) is/are necessary, patient will be converted to inpatient status for the entire hospitalization Disposition: Once the patient is stable to leave the hospital, I anticipate the patient will likely be discharged to the following environment: Estimated discharge date: I spent 70 minutes on this patient's case, and minutes was dedicated to counseling and/or care coordination. MIPS (Merit-based Incentive Payment System) Applicable CPT: 41264, 07347 CHECK ALL THAT ARE MET: Measure #5 (CHF): All ages. Prescribe RUBINA/ARB upon discharge for patients with left ventricular systolic dysfunction. If not, the reason is clearly documented in the medical chart. Measure #8 (CHF): All ages. Prescribe a beta jeffry upon discharge for patients with left ventricular systolic dysfunction. If not, the reason is clearly documented in the medical chart. Measure #47 Advance care plan or surrogate decision maker documented in the medical record. Measure #130 The provider has documented, updated, or reviewed the patients current medication list and has documented it in the patients note. Measure #374 (All): Send report to referring provider. Measure #407(Sepsis due to MSSA bacteremia): Age 18+ Patient treated with a beta-lactam antibiotic (Nafcillin, Oxacillin or Cefazolin) as definitive therapy. MEDICAL COMPLEXITY High complexity medical decision making (need 2/3 categories) Problem - need 4 points Acute/new problem with new plan for workup (4 points, 1 max) Acute/new problem without additional workup (3 points, 1 max) Unstable chronic problem actively being managed (2 point each, 2 max) Stable chronic problem actively being managed (1 point each, 2 max) Self-limited/transient process (constipation, muscle ache, etc) (1 point each , 2 max) Data - need 4 points Reviewed labs/imaging studies (1 points, 2 max) Independent review of imaging (EKG, xrays, etc) (2 points, 2 max) Discussed case with consult/other MD/RN (2 points, 2 max) High Risk - qualify if have one of the following: Severe exacerbation of acute problem, acute mental status change, IV narcotics , monitoring drug levels (vancomycin, INR, tacrolimus etc) Sarath Golden MD Apr 30, 2019 08:20
[2019-04-30] MEDS ORDERED: Lisinopril 10mg tab ORAL SCH (09:00)
[2019-04-30] MEDS ORDERED: Aspirin Baby 81mg ORAL SCH (09:00)
--- NOTE | 2019-04-30 11:19 | Cardiology Report ---
APPROVED REPORT EXAM: Two-dimensional and M-mode echocardiogram with Doppler and color Doppler. INDICATION LV FUNCTION M-Mode DIMENSIONS IVSd0.9 (0.7-1.1cm)Left Atrium (MM)2.7 (1.6-4.0cm) LVDd4.1 (3.5-5.6cm)Aortic Root2.7 (2.0-3.7cm) PWd0.7 (0.7-1.1cm)Aortic Cusp Exc.1.9 (1.5-2.0cm) IVSs1.2 cm LVDs2.7 (2.5-4.0cm) PWs1.0 cm Normal left ventricular chamber size, systolic function and wall motion. Left ventricular ejection fraction estimated to be 60%. No evidence of left ventricular hypertrophy . No evidence of pericardial effusion. All other cardiac chamber sizes are within normal limits. Aortic valve calcification with normal cusp excursion . Mildly thickened mitral valve leaflets with normal excursion. Mild mitral annulus and aortic root calcification. Pulmonic valve not well visualized. IVC at normal size with physiologic collapse . A color flow and spectral Doppler study was performed and revealed: Trace aortic insufficiency . Mitral diastolic velocities suggest reduced left ventricular relaxation c/w mild LV diastolic dysfunction (Grade I ) Trace mitral regurgitation. Trace tricuspid regurgitation. Tricuspid systolic velocities suggests peak right ventricular systolic pressure of 30mmHg,. Trace pulmoin regurgitation .
[2019-04-30 12:00] VITALS: BP 118/76
--- NOTE | 2019-04-30 12:15 | Consultation ---
DATE OF CONSULTATION: 04/30/2019 CARDIOLOGY CONSULTATION CONSULTING PHYSICIAN: Damian Kolb M.D. REQUESTING PHYSICIAN: Srikanth Oliva D.O. REASON FOR CONSULTATION: Management of chest pain. HISTORY OF PRESENT ILLNESS: The patient is a very unfortunate 63-year-old female with prior history of chronic obstructive pulmonary disease, left basilic vein DVT following midline insertion in July 2018, history of hepatitis C virus infection, history of anemia of iron deficiency, who presents to the hospital with chest pain described as pleuritic, associated shallow breath sounds, nonradiating. No associated nausea, vomiting, or diaphoresis. At the time of arrival to the hospital, a 12-lead electrocardiogram showed normal sinus rhythm, no acute ischemic features. The patient's troponin I level x2 were within normal limits. The patient in the emergency department had a chest x-ray, which revealed no acute cardiopulmonary disease. CT angiography of her coronary showed no evidence of pulmonary embolism, aortic dissection, as well as aneurysm. The patient was admitted to telemetry for further evaluation and management of chest pain. PAST MEDICAL HISTORY: History of hypertension, history of iron deficiency anemia, history of diverticulosis, history of gastritis, history of lumbosacral disc disease, history of left basilic vein DVT on Eliquis, and history of asthma/COPD. REVIEW OF SYSTEMS: HEENT: Denies any headache. Complains of epistaxis on a daily basis. CONSTITUTIONAL: Denies any fever, chills, night sweats, or weight loss. CARDIOVASCULAR: Chest pain, which is pleuritic, shortness of breath due to shallow breaths. No PND, orthopnea, or leg swelling. PULMONARY: Pleuritic chest pain, but no cough, no hemoptysis. GASTROINTESTINAL: Denies any nausea, vomiting, diarrhea, constipation, abdominal pain, or GI bleed. GENITOURINARY: Denies any hematuria, dysuria, or incontinence. NEUROLOGIC: Denies any motor dysfunction, sensory deficits, or altered speech. LABORATORY FINDINGS: Sodium is 142, potassium is 3.5, chloride 105, bicarbonate 27, BUN 10, creatinine 0.6, glucose is 93, calcium is 9.3. Troponin I x2 negative. LDL is 109, HDL is 75, and TSH is 0.23. Total cholesterol is 199. D-dimer is 0.94. INR is 1.0. DIAGNOSTIC DATA: Chest x-ray showed no acute cardiopulmonary disease. A CT angiography of the chest shows no evidence of pulmonary embolism, aortic dissection, or aneurysm. A 12-lead electrocardiogram shows sinus rhythm at a rate of 90 with no acute cardiopulmonary disease. PHYSICAL EXAMINATION: HEENT: Atraumatic and normocephalic. Anicteric. Pupils are equal, round, and reactive to light and accommodation. Extraocular muscles intact. NECK: JVP less than 5 cm. No carotid bruit. Carotid upstrokes 2+ bilaterally. CARDIOVASCULAR: Normal S1, S2. Regular rate and rhythm. Tenderness over upper midsternal area. No murmurs, gallops, or rubs. LUNGS: Clear to auscultation bilaterally. ABDOMEN: Soft, nontender, and nondistended. No hepatosplenomegaly. Positive bowel sounds. EXTREMITIES: No evidence of edema, clubbing, or cyanosis. ASSESSMENT AND PLAN: The patient is a very unfortunate 63-year-old lady, who was seen in Cardiology consultation. 1. Pleuritic chest pain with associated reproducible chest wall pain. This is likely musculoskeletal pleurisy due to inflammation. Acute myocardial infarction is ruled out. A 12-lead electrocardiogram does not show any evidence of ischemia. A 2D echocardiography from July 2019 clearly shows normal left ventricular systolic function with no wall motion abnormalities and LVEF approximately 65%. No further cardiac intervention is required at this time. 2. History of hepatitis C virus infections. Hepatology followup and documentation if the patient has been treated for hepatitis C virus infections. 3. Midline induced left basilic vein DVT. I spoke with Dr. Golden, in Hematology. We both agreed that Eliquis needs to be discontinued in view of the patient's daily epistaxis and the fact that she has completed three months course of anticoagulation therapy. 4. History of hypertension, currently controlled with amlodipine. We will discontinue Naprosyn as it might have potentiated the patient's episodes of bleeding. 5. History of asthma/COPD. Currently stable. I would like to thank, Dr. Srikanth Oliva, for allowing me to participate in care of this patient. Damian Kolb M.D. DR: YOLETTE JOB#: [id number] CC:
--- NOTE | 2019-04-30 12:38 | Pulmonology Progress Note ---
Assessment/Plan Problems: (1) Chest pain (2) HTN (hypertension) (3) Hepatitis C (4) COPD (chronic obstructive pulmonary disease) Assessment/Plan troponin are negative echo was normal normal sinus rhythm respiratory treatment check electrolytes pt probably need Carafate, H2 blockers, Subjective ROS Limited/Unobtainable: No Constitutional: Reports: no symptoms HEENT: Repors: no symptoms Allergies: Coded Allergies: LACTOSE (Verified Allergy, Intermediate, Itching, 04/29/19) Objective Last 24 Hour Vital Signs Date Time Temp Pulse Resp B/P (MAP) Pulse Ox O2 Delivery O2 Flow Rate FiO2 04/30/19 09:18 126/83 04/30/19 09:18 90 126/83 04/30/19 09:00 Room Air 04/30/19 08:00 90 04/30/19 08:00 98.1 76 18 126/83 (97) 100 04/30/19 07:40 91 17 98 Nasal Cannula 2.0 28 04/30/19 07:40 98 Nasal Cannula 2.0 28 04/30/19 04:00 97.9 73 18 144/82 (102) 98 04/30/19 04:00 76 04/30/19 00:30 89 20 99 Nasal Cannula 2.0 28 04/30/19 00:00 72 04/30/19 00:00 98.3 72 19 114/77 (89) 97 04/29/19 21:21 98.0 04/29/19 21:00 Room Air 04/29/19 20:00 98.0 89 18 124/82 (96) 98 04/29/19 20:00 90 04/29/19 16:00 104 04/29/19 15:19 110/82 04/29/19 15:12 133/93 04/29/19 15:04 133/93 Intake and Output 04/29/19 04/30/19 19:00 07:00 Intake Total 480 ml 700 ml Balance 480 ml 700 ml Intake Oral 480 ml 700 ml # Voids 5 1 # Bowel Movements 1 General Appearance: WD/WN HEENT: normocephalic, atraumatic Respiratory/Chest: chest wall non-tender, normal breath sounds Breasts: no masses Cardiovascular: normal rate Abdomen: normal bowel sounds, soft, non tender Extremities: no cyanosis Neurologic/Psychiatric: web sizer II-XII grossly normal Laboratory Tests 04/29/19 16:40: Troponin I 0.000 04/30/19 06:00: Troponin I 0.000, White Blood Count 5.1, Red Blood Count 4.12L, Hemoglobin 11.1L , Hematocrit 35.9L, Mean Corpuscular Volume 87, Mean Corpuscular Hemoglobin 26.8L, Mean Corpuscular Hemoglobin Concent 30.8L, Red Cell Distribution Width 15.3H, Platelet Count 345, Mean Platelet Volume 6.2L, Neutrophils (%) (Auto) 52.7, Lymphocytes (%) (Auto) 34.4, Monocytes (%) (Auto) 6.0, Eosinophils (%) ( Auto) 5.2H, Basophils (%) (Auto) 1.8, Prothrombin Time 10.5, Prothromb Time International Ratio 1.0, Activated Partial Thromboplast Time 28, Ferritin 20, C- Reactive Protein, Quantitative < 0.4, Triglycerides Level 66, Cholesterol Level 199, LDL Cholesterol 109H, HDL Cholesterol 75H, Cholesterol/HDL Ratio 2.7L, Thyroid Stimulating Hormone (TSH) 0.239L Current Medications Medications (Trade) Dose Ordered Sig/Primo Route PRN Reason Start Time Stop Time Status Last Admin Dose Admin Acetaminophen (Tylenol) 500 mg Q8H PRN ORAL Mild Pain (Pain Scale 1-3) 04/29/19 12:00 05/29/19 11:14 Acetaminophen (Tylenol) 650 mg Q4H PRN ORAL T>100.5 04/29/19 12:00 05/29/19 11:59 Albuterol/ Ipratropium (Albuterol/ Ipratropium) 3 ml Q4H PRN HHN Shortness of Breath 04/29/19 12:00 05/04/19 11:59 Amlodipine Besylate (Norvasc) 10 mg DAILY ORAL 04/30/19 09:00 05/30/19 08:59 04/30/19 09:18 Diltiazem HCl (Cardizem) 10 mg EVERY HOUR PRN IV heart rate more than 120 bpm 04/29/19 12:00 05/29/19 11:59 Enalaprilat (Vasotec) 2.5 mg Q6H PRN IV sbp more than 160mmHg 04/29/19 12:00 05/29/19 11:59 Fluoxetine HCl (PROzac) 40 mg DAILY ORAL 04/30/19 09:00 05/30/19 08:59 04/30/19 09:18 Iopamidol (Isovue-370 150ml) 150 ml NOW PRN INJ Radiology Procedure 04/29/19 09:45 05/01/19 09:38 Lisinopril (Zestril) 10 mg DAILY ORAL 04/30/19 09:00 05/30/19 08:59 04/30/19 09:18 Morphine Sulfate (Morphine Sulfate) 2 mg Q4H PRN IVP Severe Pain (Pain Scale 7-10) 04/29/19 12:00 05/06/19 11:59 04/30/19 09:19 Nitroglycerin (Ntg) 0.4 mg Q5MIN X 3 DOSES PRN SL Prn Chest Pain 04/29/19 12:00 05/29/19 11:59 04/29/19 15:19 Ondansetron HCl (Zofran) 4 mg Q6H PRN IVP Nausea & Vomiting 04/29/19 12:00 05/29/19 11:59 Pantoprazole (Protonix) 40 mg DAILY ORAL 04/29/19 20:15 05/29/19 20:14 04/30/19 09:17 Polyethylene Glycol (Miralax) 17 gm DAILYPRN PRN ORAL Constipation 04/29/19 12:00 05/29/19 11:59 Temazepam (Restoril) 15 mg HSPRN PRN ORAL Insomnia 04/29/19 21:00 05/06/19 20:59 Sharron Belle MD Apr 30, 2019 12:38
[2019-04-30] MEDS ORDERED: CARAFATE1 GM/10 M1 ORAL (12:41)
[2019-04-30] MEDS ORDERED: PROTONIX20 MG ORAL (12:42)
--- NOTE | 2019-04-30 14:20 | NUR ---
CASE MANAGEMENT:REVIEW 63 YR OLD FEMALE BIBA FROM HOME CC: CHEST PAIN SI: CHEST PAIN 98.7 90 18 130/83 98% ON RA TROPONIN(-) X2 IS: ASA PO CTA CHEST CHEST XRAY : TO TELEMETRY UNIT 04/30/19 DISCHARGE
--- NOTE | 2019-04-30 15:00 | Diagnostic Imaging Report ---
Indication: Chest pain Technique: 2 views of the STIR Comparison: none Findings: Evaluation is limited as the bones are osteoporotic as well as due to patient body habitus. No definite acute fractures. No definite retrosternal hematoma. Incidentally noted is a right chest port catheter. Impression: Limited as described. No definite abnormality
--- NOTE | 2019-04-30 15:11 | Cardiology Report ---
APPROVED REPORT EKG Measurement Heart [id number] Normal sinus rhythm Normal ECG
--- NOTE | 2019-04-30 15:15 | NUR ---
NURSE NOTES: Discharge Instruction given and patient is not happy leaving in Pain. Dr. Belle aware of the pain and talked with patient. stated, he will be responsible for the discharge and told RN to not get any clearance from other Doctors. Heart monitor removed, and de-accessed the Port-a-cath. Site intact, no bleeding noted. Belonging check done and signed by patient. Escorted patient and daughter with grand kid down stairs, they left via private vehicle.
--- NOTE | 2019-05-01 08:33 | Discharge Summary ---
Discharge Summary Discharge Summary _ DATE OF ADMISSION: 04/29/2019 DATE OF DISCHARGE: 04/30/2019 ADMITTING MD: Dr. Srikanth Oliva DISCHARGED BY: Dr. Sharron Belle CONSULTANTS: Dr. Sharron Golden [facility] COURSE: Patient is a 63-year-old female with medical history of COPD, chronic pain, hypertension, and anemia presented to ED for midsternal sharp, nonradiating chest pain that started the night prior to admission. She fell asleep after taking Ambien and awoke in the morning with recurrence of pain. She had associated shortness of breath. Reported pain was worse when taking a deep breath. She denied hemoptysis, syncope, leg swelling, abdominal pain and other symptoms she has not taken any medications for pain. On evaluation at ED, vital signs were stable. Blood work did not show any leukocytosis. Hemoglobin 10, hematocrit 33. Electrolytes were normal. Initial troponin was 0.017. D-dimer was elevated to 0.9. EKG showed normal sinus rhythm with no acute changes. Chest x-ray showed mild basilar atelectasis. CT scan did not show any evidence of pulmonary embolus, aortic dissection or aneurysm. She was given aspirin and nitroglycerin. Due to her age and risk factors, she was then admitted for evaluation of chest pain. She was admitted to monitored floor. She was evaluated by research program internship. Pain was described to be on the right side of sternal edge. Worse with certain positions. There was no injury and no history of recent pulling, pushing or using any upper extremity. She had shortness of breath only because she was not able to take deep breaths because of the pain. Patient had pain that was reproducible. Pain likely musculoskeletal pleurisy due to inflammation. Cardiac enzymes were negative. Acute myocardial infarction was ruled out. Echocardiogram showed EF 60%. CRP was negative. Sternal x-ray negative for acute fracture. Patient has a history of left basilic DVT last year. She had episodes of epistaxis Eliquis was recommended to be discontinued. She was also advised to follow-up with cd reactor operator head for hepatitis C. She was recommended to continue with Carafate and proton pump inhibitors. Anemia was assessed to be due to iron deficiency based on prior work-up. Repeat ferritin level was 20. Lipid panel showed cholesterol 199, LDL 109, HDL 75. Due to rapid unexpected improvement in patient's symptoms, she was discharged home to follow-up as outpatient. 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 DISCHARGE MEDICATIONS: Refer to Discharge Medication List. DISCHARGE INSTRUCTIONS: Follow-up in a week. I have been assigned to complete a discharge summary on this account, I was not involved with the patient's management.--PAULINE Carroll Jacqueline Robles NP May 01, 2019 08:33
== END 2019-04-30 15:21 | disposition home or self-care (01) | DRG 206 ==
LOC: EDBD 07:47 → EMR 08:35 → EDBEDREQ 10:23 → 2E 10:30
DX: M94.0 Chondrocostal junction syndrome [Tietze] (principal); I82.722 Chronic embolism and thrombosis of deep veins of left upper extremity; C49.9 Malignant neoplasm of connective and soft tissue, unspecified; R09.1 Pleurisy; B19.20 Unspecified viral hepatitis C without hepatic coma; K64.9 Unspecified hemorrhoids; J44.9 Chronic obstructive pulmonary disease, unspecified; G89.29 Other chronic pain; D50.9 Iron deficiency anemia, unspecified; I10 Essential (primary) hypertension; R04.0 Epistaxis; Z79.01 Long term (current) use of anticoagulants; Z86.73 Personal history of transient ischemic attack (TIA), and cerebral infarction without residual deficits; Z87.891 Personal history of nicotine dependence; K57.90 Diverticulosis of intestine, part unspecified, without perforation or abscess without bleeding
CPT/HCPCS: 36415; 71045; 71120; 71275; 80053; 80061; 82728; 84443; 84484; 85025; 85379; 85610; 85730; 86140; 93005; 93306; 94664; 99285

== ENCOUNTER 2020-01-21 21:16 | Emergency (ER) | payer MEDICARE, MEDICAID ==
[~2020-01-21] VITALS: Ht 149.9 cm; Wt 72.6 kg
[~2020-01-21 21:16] MED LIST changes: +CARAFATE1 GM/10 M1 ORAL; +DICYCLOMINE HCL10 MG ORAL; +DICYCLOMINE HCL20 M1 PO; +PROTONIX20 MG ORAL
[2020-01-21 21:35] VITALS: BP 161/79
[2020-01-21] MEDS ORDERED: Dicyclomine HCl 10mg/5ml oral soln ORAL ONE (21:45)
[2020-01-21] MEDS ORDERED: Mylanta II UD 30ml ORAL ONE (21:45)
[2020-01-21] MEDS ORDERED: Omnipaque-300 100ml vial INJ PRN (21:45)
[2020-01-21] MEDS ORDERED: Morphine Sulfate 4mg/ml Inj (IV USE ONLY) IVP ONE ×2 (21:45→23:45)
[2020-01-21] MEDS ORDERED: Lidocaine 2% Visc 15ml soln ORAL ONE (21:45)
[2020-01-21 22:02] LABS: BASOPHILS % (AUTO) 2.3 % (0.0-2.0); EOSINOPHILS % (AUTO) 1.3 % (0.0-3.0); HEMATOCRIT 34.4 % (37.0-47.0); HEMOGLOBIN 10.6 G/DL (12.0-16.0); LYMPHOCYTES % (AUTO) 32.6 % (20.0-45.0); MEAN CORPUSCULAR VOLUME 90 FL (80-99); MONOCYTES % (AUTO) 6.7 % (1.0-10.0); NEUTROPHILS % (AUTO) 57.2 % (45.0-75.0); PLATELET COUNT 288 K/UL (150-450); RED BLOOD COUNT 3.81 M/UL (4.20-5.40); RED CELL DISTRIBUTION WIDTH 16.4 % (11.6-14.8); WHITE BLOOD COUNT 8.3 K/UL (4.8-10.8)
[2020-01-21 22:11] LABS: ANION GAP 8 mmol/L (5-15); BLOOD UREA NITROGEN 17 mg/dL (7-18); CALCIUM 8.8 MG/DL (8.5-10.1); CARBON DIOXIDE 28 MMOL/L (21-32); CHLORIDE 104 MMOL/L (98-107); CREATININE 0.8 MG/DL (0.55-1.30); POTASSIUM 3.7 MMOL/L (3.5-5.1); SODIUM 140 MMOL/L (136-145)
[2020-01-21 22:15] LABS: ALANINE AMINOTRANSFERASE 32 U/L (12-78); ALBUMIN 3.8 G/DL (3.4-5.0); ALBUMIN/GLOBULIN RATIO 1.1 (1.0-2.7); ALKALINE PHOSPHATASE 93 U/L (46-116); ASPARTATE AMINO TRANSFERASE 21 U/L (15-37); BILIRUBIN,TOTAL 0.1 MG/DL (0.2-1.0)
[2020-01-21 22:31] LABS: APPEARANCE,URINE CLEAR; BILIRUBIN, URINE NEGATIVE (NEGATIVE); COLOR,URINE PALE YELLOW; GLUCOSE, URINE (UA) NEGATIVE (NEGATIVE); KETONES,URINE NEGATIVE (NEGATIVE); LEUKOCYTE ESTERASE ,URINE NEGATIVE (NEGATIVE); NITRITE,URINE NEGATIVE (NEGATIVE); PH,URINE 6.5 (4.5-8.0); PROTEIN,URINE NEGATIVE (NEGATIVE); UROBILINOGEN,URINE NORMAL MG/DL (0.0-1.0)
--- NOTE | 2020-01-21 23:15 | Emergency Room Report ---
History of Present Illness General Chief Complaint: Abdominal Pain Source: Patient Present Illness HPI 64-year-old female presents ED complaining of abdominal pain. Started this morning. Left-sided, sharp, 9 out of 10, nonradiating. Denies nausea or vomiting. Denies chest pain. Denies diarrhea. Thinks it is diverticulitis. Has had diverticulitis in the past. Denies any runny nose cough or congestion. No other aggravating relieving factors. Denies any other associated symptoms Allergies: Coded Allergies: LACTOSE (Verified Allergy, Intermediate, Itching, 04/29/19) COVID-19 Screening Contact w/high risk pt: No Recent Travel to affected area: No Experienced COVID-19 symptoms?: No Patient History Past Medical History: COPD, other - diverticulitis Past Surgical History: none Pertinent Family History: none Social History: Denies: smoking, alcohol use, drug use Last Menstrual Period: na Now: No Immunizations: UTD Reviewed Nursing Documentation: PMH: Agreed; PSxH: Agreed Nursing Documentation-PMH Past Medical History: No History, Except For Hx Hypertension: Yes - ANEMIA, OSTEOARTHRITIS, HIATAL HERNIA Hx Asthma: Yes Hx COPD: Yes Hx Cancer: No Hx Gastrointestinal Problems: Yes - DIVERTICULITIS, GASTRITIS, COLITIS Hx Neurological Problems: Yes - ruptured disk with pinched nerve Hx Weakness: Yes Hx Fatigue: Yes Review of Systems All Other Systems: negative except mentioned in HPI Physical Exam Vital Signs Date Time Temp Pulse Resp B/P (MAP) Pulse Ox O2 Delivery O2 Flow Rate FiO2 01/21/20 21:30 98.6 89 21 171/101 (124) 97 Room Air Sp02 EP Interpretation: reviewed, normal General Appearance: alert, GCS 15, non-toxic, mild distress Head: normocephalic, atraumatic Eyes: bilateral eye normal inspection, bilateral eye PERRL ENT: hearing grossly normal, normal pharynx, no angioedema, normal voice Neck: full range of motion, supple/symm/no masses Respiratory: chest non-tender, lungs clear, normal breath sounds, speaking full sentences Cardiovascular #1: regular rate, rhythm, no edema Cardiovascular #2: 2+ carotid (R), 2+ carotid (L), 2+ radial (R), 2+ radial (L) , 2+ dorsalis pedis (R), 2+ dorsalis pedis (L) Gastrointestinal: normal bowel sounds, soft, non-distended, no guarding, no rebound, tenderness - L sided Rectal: deferred Genitourinary: normal inspection, no CVA tenderness Musculoskeletal: back normal, normal range of motion, gait/station normal, non- tender Neurologic: alert, motor strength/tone normal, oriented x3, sensory intact, responsive, speech normal Psychiatric: judgement/insight normal, memory normal, mood/affect normal, no suicidal/homicidal ideation Reflexes: 3+ bicep (R), 3+ bicep (L), 3+ tricep (R), 3+ tricep (L), 3+ knee (R) , 3+ knee (L) Skin: no rash Lymphatic: no adenopathy Medical Decision Making Diagnostic Impression: Primary Impression: Hiatal hernia with GERD ER Course Hospital Course 64-year-old F presents to ED with abdominal pain Differential diagnosis includes-appendicitis, cholecystitis, small bowel obstruction, gastritis, Clinical course Patient placed on stretcher. After initial history and physical I ordered labs , IV fluids, pain medications and CT scan Labs - no leukocytosis, electrolytes ok, LFTs normal CT scan shows mild hiatal hernia, diverticulosis unchanged from prior CT I discussed findings with patient. Pain improved. Labs unremarkable. Unchanged CT findings. Will discharge home. I reviewed CURES and is receiving extensive narcotic prescriptions on a monthly basis. I feel this is a highly complex case requiring extensive working including EKG/ Rhythm strip, Xray/CT/US, Blood/urine lab work, repeat exams while in ED, and administration of strong opiates/narcotics for pain control, admission to hospital or close patient follow up. Diagnosis - hiatal hernia with GERD Stable and discharged to home with Rx Sofie Rucker. Followup with PMD. Return to ED if symptoms recur or worsen Labs Test 01/21/20 21:45 01/21/20 22:15 White Blood Count 8.3 K/UL (4.8-10.8) Red Blood Count 3.81 M/UL (4.20-5.40) Hemoglobin 10.6 G/DL (12.0-16.0) Hematocrit 34.4 % (37.0-47.0) Mean Corpuscular Volume 90 FL (80-99) Mean Corpuscular Hemoglobin 27.7 PG (27.0-31.0) Mean Corpuscular Hemoglobin Concent 30.7 G/DL (32.0-36.0) Red Cell Distribution Width 16.4 % (11.6-14.8) Platelet Count 288 K/UL (150-450) Mean Platelet Volume 6.9 FL (6.5-10.1) Neutrophils (%) (Auto) 57.2 % (45.0-75.0) Lymphocytes (%) (Auto) 32.6 % (20.0-45.0) Monocytes (%) (Auto) 6.7 % (1.0-10.0) Eosinophils (%) (Auto) 1.3 % (0.0-3.0) Basophils (%) (Auto) 2.3 % (0.0-2.0) Sodium Level 140 MMOL/L (136-145) Potassium Level 3.7 MMOL/L (3.5-5.1) Chloride Level 104 MMOL/L (98-107) Carbon Dioxide Level 28 MMOL/L (21-32) Anion Gap 8 mmol/L (5-15) Blood Urea Nitrogen 17 mg/dL (7-18) Creatinine 0.8 MG/DL (0.55-1.30) Estimat Glomerular Filtration Rate > 60 mL/min (>60) Glucose Level 97 MG/DL (74-106) Calcium Level 8.8 MG/DL (8.5-10.1) Total Bilirubin 0.1 MG/DL (0.2-1.0) Aspartate Amino Transf (AST/SGOT) 21 U/L (15-37) Alanine Aminotransferase (ALT/SGPT) 32 U/L (12-78) Alkaline Phosphatase 93 U/L (46-116) Total Protein 7.4 G/DL (6.4-8.2) Albumin 3.8 G/DL (3.4-5.0) Globulin 3.6 g/dL Albumin/Globulin Ratio 1.1 (1.0-2.7) Lipase 113 U/L (73-393) Urine Color Pale yellow Urine Appearance Clear Urine pH 6.5 (4.5-8.0) Urine Specific [place] 1.005 (1.005-1.035) Urine Protein Negative (NEGATIVE) Urine Glucose (UA) Negative (NEGATIVE) Urine Ketones Negative (NEGATIVE) Urine Blood Negative (NEGATIVE) Urine Nitrite Negative (NEGATIVE) Urine Bilirubin Negative (NEGATIVE) Urine Urobilinogen Normal MG/DL (0.0-1.0) Urine Leukocyte Esterase Negative (NEGATIVE) CT/MRI/US Diagnostic Results CT/MRI/US Diagnostic Results : Imaging Test Ordered: CT A/P Impression COMPARISON: 02/16/2019 FINDINGS: Lung bases: Cardiomegaly. ABDOMEN: Liver: Enlarged. Gallbladder and bile ducts: Unremarkable. Pancreas: Unremarkable. Spleen: Unremarkable. Adrenals: Unremarkable. Kidneys and ureters: No hydronephrosis. Stomach and bowel: No bowel obstruction. No bowel wall thickening. Colonic diverticulosis. Mild hiatal hernia. PELVIS: Appendix: No evidence of appendicitis. Bladder: Unremarkable. Reproductive: Removed. ABDOMEN and PELVIS: Intraperitoneal space: Unremarkable. Bones/joints: No acute fractures. Lumbosacral fusion. Right total hip arthroplasty hardware. Soft tissues: Unremarkable. Vasculature: No abdominal aortic aneurysm. Lymph nodes: No enlarged lymph nodes. IMPRESSION: 1. Cardiomegaly. 2. Better medically. 3. Colonic diverticulosis. 4. Mild hiatal hernia. Last Vital Signs Date Time Temp Pulse Resp B/P (MAP) Pulse Ox O2 Delivery O2 Flow Rate FiO2 01/21/20 21:35 98.6 78 21 161/79 97 Room Air Status: improved Disposition: HOME, SELF-CARE Condition: Stable Scripts Dicyclomine Hcl* (DICYCLOMINE HCL*) 10 Mg Capsule 10 MG ORAL QID, #20 CAP Prov: Lucian Couch MD 01/21/20 Famotidine* (Pepcid 20mg tablet*) 20 Mg Tablet 20 MG ORAL DAILY, #30 TAB 0 Refills Prov: Lucian Couch MD 01/21/20 Referrals: NOT CHOSEN IPA/,REFERRING (PCP) Lucina Couch MD Jan 21, 2020 23:15
--- NOTE | 2020-01-21 23:22 | Diagnostic Imaging Report ---
ADDENDUM - Added by Marbin Kang MD on 01/21/2020 11:22 PM (-07:00) IMPRESSION: 1. Cardiomegaly. 2. Hepatomegaly. 3. Colonic diverticulosis. 4. Mild hiatal hernia. EXAM: CT Abdomen and Pelvis With Intravenous Contrast CLINICAL HISTORY: ABD PAIN TECHNIQUE: Axial computed tomography images of the abdomen and pelvis with intravenous contrast. CTDI is 9 mGy and DLP is 434 mGy-cm. One or more of the following dose reduction techniques were used: automated exposure control, adjustment of the mA and/or kV according to patient size, use of iterative reconstruction technique. COMPARISON: 02/16/2019 FINDINGS: Lung bases: Cardiomegaly. ABDOMEN: Liver: Enlarged. Gallbladder and bile ducts: Unremarkable. Pancreas: Unremarkable. Spleen: Unremarkable. Adrenals: Unremarkable. Kidneys and ureters: No hydronephrosis. Stomach and bowel: No bowel obstruction. No bowel wall thickening. Colonic diverticulosis. Mild hiatal hernia. PELVIS: Appendix: No evidence of appendicitis. Bladder: Unremarkable. Reproductive: Removed. ABDOMEN and PELVIS: Intraperitoneal space: Unremarkable. Bones/joints: No acute fractures. Lumbosacral fusion. Right total hip arthroplasty hardware. Soft tissues: Unremarkable. Vasculature: No abdominal aortic aneurysm. Lymph nodes: No enlarged lymph nodes. IMPRESSION: 1. Cardiomegaly. 2. Better medically. 3. Colonic diverticulosis. 4. Mild hiatal hernia.
[2020-01-21] MEDS ORDERED: DICYCLOMINE HCL10 MG ORAL (23:51)
[2020-01-21] MEDS ORDERED: FAMOTIDINE20 MG ORAL (23:51)
[2020-01-22] VITALS: BP 150/82
== END 2020-01-22 | disposition home or self-care (01) ==
LOC: EMR 21:45
DX: K44.9 Diaphragmatic hernia without obstruction or gangrene (principal); K21.9 Gastro-esophageal reflux disease without esophagitis; Z91.011 Allergy to milk products; J44.9 Chronic obstructive pulmonary disease, unspecified; K57.90 Diverticulosis of intestine, part unspecified, without perforation or abscess without bleeding; I51.7 Cardiomegaly; Z98.1 Arthrodesis status
CPT/HCPCS: 36415; 74177; 80053; 81003; 83690; 85025; 96361; 96374; 96376; 99284; J2270; J2405; J7030; Q9967; S0028

== ENCOUNTER 2020-02-02 18:06 | Emergency (ER) | payer MEDICARE, MEDICAID ==
[~2020-02-02] VITALS: Ht 167.6 cm; Wt 68.0 kg
[2020-02-02] MEDS ORDERED: ALBUTEROL SULF8.5 G1 INH (18:17)
[2020-02-02] MEDS ORDERED: NORVASC2.5 MG ORAL (18:17)
--- NOTE | 2020-02-02 18:27 | Emergency Room Report ---
History of Present Illness General Chief Complaint: Multiple Trauma/Fall Source: Patient, EMS Present Illness HPI 64-year-old female history of chronic pain back pain, multiple surgeries to the back presents with left wrist pain after falling trying to catch her dog she endorses a sharp pain after having a mechanical fall on her left wrist, aggravated with movement alleviated with rest severity is severe, intermittent patient presents via EMS Allergies: Coded Allergies: LACTOSE (Verified Allergy, Intermediate, Itching, 04/29/19) COVID-19 Screening Contact w/high risk pt: No Recent Travel to affected area: No Experienced COVID-19 symptoms?: No Patient History Past Medical History: see triage record Reviewed Nursing Documentation: PMH: Agreed; PSxH: Agreed Nursing Documentation-PMH Hx Hypertension: Yes - ANEMIA, OSTEOARTHRITIS, HIATAL HERNIA Hx Asthma: Yes Hx COPD: Yes Hx Cancer: No Hx Gastrointestinal Problems: Yes - DIVERTICULITIS, GASTRITIS, COLITIS Hx Neurological Problems: Yes - ruptured disk with pinched nerve Hx Weakness: Yes Hx Fatigue: Yes Review of Systems All Other Systems: negative except mentioned in HPI Physical Exam Vital Signs Date Time Temp Pulse Resp B/P (MAP) Pulse Ox O2 Delivery O2 Flow Rate FiO2 02/02/20 18:11 97.2 95 22 200/100 (133) 99 Room Air Sp02 EP Interpretation: reviewed, normal General Appearance: alert, mild distress Head: normocephalic, atraumatic Eyes: bilateral eye PERRL, bilateral eye EOMI ENT: uvula midline, moist mucus membranes Neck: supple, thyroid normal, supple/symm/no masses Respiratory: lungs clear, no respiratory distress, no retraction, no accessory muscle use Cardiovascular #1: normal peripheral pulses, regular rate, rhythm, no edema, no gallop, no murmur Gastrointestinal: non tender, soft, no guarding, no rebound Musculoskeletal: other - Left upper extremity: Deformity at the distal radius, dinner fork deformity noted, 2+ radial pulses, radial median ulnar nerve intact , sensation grossly intact, exam is limited by pain Neurologic: alert, oriented x3 Psychiatric: anxious Skin: no rash, warm/dry Procedures Splinting Splinting : Consent: Verbal Location: Left wrist Hand-Made Type: plaster Splint: sugar-tong Pre-Proc Neuro Vasc Exam: normal Post-Proc Neuro Vasc Exam: normal Patient Tolerated: Well Complications: None Additional Procedure Procedure Narrative Hematoma block of the left wrist, area was cleansed with chlorhexidine, 10 mL of lidocaine 1% was injected into the joint space Medical Decision Making Diagnostic Impression: Primary Impression: Distal radius fracture, left Qualified Codes: S52.532A - Colles' fracture of left radius, initial encounter for closed fracture Additional Impression: Fall Qualified Codes: W19.XXXA - Unspecified fall, initial encounter 64-year-old female presents with distal radius fracture after falling on her wrist, she endorses sharp pain, differential diagnosis includes fracture contusion, bursitis Patient with a distal radius fracture, patient was splinted, hematoma block performed Patient referred to orthopedics for possible surgical intervention Other X-Ray Diagnostic Results Other X-Ray Diagnostic Results #1: X-Ray ordered: Left wrist # of Views/Limited Vs Complete: 2 View Indication: Pain EP Interpretation: Yes Interpretation: other - Distal radius fracture Impression: Other - Distal radius fracture Electronically Signed by: Florencio Vásquez MD Other X-Ray Diagnostic Results #2: X-Ray ordered: Left wrist # of Views/Limited Vs Complete: 2 View Indication: Pain EP Interpretation: Yes Interpretation: other - Interval reduction of distal radius fracture Impression: Other - Interval reduction of distal radius fracture Electronically Signed by: Florencio Vásquez MD Last Vital Signs Date Time Temp Pulse Resp B/P (MAP) Pulse Ox O2 Delivery O2 Flow Rate FiO2 02/02/20 18:11 97.2 95 22 200/100 (133) 99 Room Air Disposition: HOME, SELF-CARE Condition: Stable Scripts Acetaminophen (Tylenol) 325 Mg Tablet 650 MG ORAL Q6H PRN for Prn Pain/Headache/Temp > 101, #30 TAB 0 Refills Prov: Florencio Vásquez MD 02/02/20 Ibuprofen* (MOTRIN*) 600 Mg Tablet 600 MG ORAL Q6H PRN for For Pain, #30 TAB 0 Refills Prov: Florencio Vásquez MD 02/02/20 Referrals: Orthopedic Urgent Care Patient Instructions: Colles Fracture Additional Instructions: The patient was provided with discharge instructions, notified to follow-up with a primary care doctor and or specialist in the next 24-48 hours, and to return to the ED if they have worsening of their symptoms. Please note that this report is being documented using [employer] technology. This can lead to erroneous entry secondary to incorrect interpretation by the dictating instrument. Florencio Vásquez MD Feb 02, 2020 18:27
[2020-02-02] MEDS ORDERED: HYDROmorphone 1mg/ml Carpuject IVP ONE ×2 (18:30→19:00)
--- NOTE | 2020-02-02 18:43 | NUR ---
ED Nurse Note: Pt brought by ambulance to ED for c/o L wrist fracture. Pt fell today after playing with dog. L wrist fracture 8/10 pain, ROM 1/5 pain. Pt is alert and orientedx4, ambulatory. Pt L wrist has pulses radial 3+. Pt has been seen by .
[2020-02-02] MEDS ORDERED: Lidocaine 1% 10mg/ml/EPI 0.01mg/ml 30ml INJ ONE (18:45)
[2020-02-02] MEDS ORDERED: Lidocaine 1% Plain 30 ml INJ ONE ×2 (18:46→19:15)
[2020-02-02 18:48] VITALS: BP 141/92
--- NOTE | 2020-02-02 19:05 | NUR ---
ED Nurse Note: 15 mL of lidocaine 1% 300 mg/[address] Fahad concepcion.
--- NOTE | 2020-02-02 19:16 | NUR ---
ED Nurse Note: Dilaudid admin at 1856, per Dr Vásquez change of order, only 1 mg was given and 1 mg wasted.
--- NOTE | 2020-02-02 19:25 | NUR ---
ED Nurse Note: pt received from LUIS Reina in stable condition. pt is ERMD is at pt bedside with medical lab tech instructor applying sugar tongue splint to pt's L wrist. pt tolerating procedure well, VSS. will continue to monitor
--- NOTE | 2020-02-02 19:30 | NUR ---
ED Nurse Note: xray at bedside
--- NOTE | 2020-02-02 19:35 | NUR ---
ED Nurse Note: pt ambulated to restroom with steady gait, states her daughter is coming to pick her up once discharged
[2020-02-02] MEDS ORDERED: IBUPROFEN600 M1 ORAL (19:56)
[2020-02-02] MEDS ORDERED: TYLENOL325 MG ORAL (19:56)
[2020-02-02 20:10] VITALS: BP 121/96
--- NOTE | 2020-02-02 20:10 | NUR ---
ER DISCHARGE NOTE: Patient is cleared to be discharged per ERMD, pt is aox4, on room air, with stable vital signs. pt was given dc and prescription instructions, pt was able to verbalize understanding, pt id band and iv site removed without complications. pt is able to ambulate with steady gait. pt took all belongings.
--- NOTE | 2020-02-03 10:09 | Diagnostic Imaging Report ---
Clinical Indication:Pain, trauma Technique: 2 views of the left wrist Comparison: None Findings: There is a comminuted activity posteriorly angulated fracture of the distal radius which involves the articular surface. The ulnar styloid is not well visualized so uncertain as whether involved. No definite carpal fracture, although evaluation for such is limited by the availability of only 2 views Impression: Positive for distal radial fracture, as described. This was apparently recognized by the emergency room physician as a subsequent post reduction radiograph is available
--- NOTE | 2020-02-03 10:11 | Diagnostic Imaging Report ---
Indications: Left wrist pain Technique: Two views of the left humerus Comparison: 45 minutes prior Findings: Interim placement of a plaster cast. There is improved but persistent angulation of the previously reported distal radial fracture. No definite associated ulnar fracture, although the ulnar styloid is not well visualized Impression: Improved alignment of previously demonstrated distal radial fracture, post closed reduction and casting
== END 2020-02-02 20:10 | disposition home or self-care (01) ==
LOC: EDBD 18:06 → EMR 18:15
DX: S52.532A Colles' fracture of left radius, initial encounter for closed fracture (principal); W19.XXXA Unspecified fall, initial encounter; Y92.9 Unspecified place or not applicable; M19.90 Unspecified osteoarthritis, unspecified site; J44.9 Chronic obstructive pulmonary disease, unspecified; K57.90 Diverticulosis of intestine, part unspecified, without perforation or abscess without bleeding
CPT/HCPCS: 29125; 73100; 96374; 96375; 99283; J1170; J2001; J2405

== ENCOUNTER 2020-04-19 19:40 | Emergency (ER) | payer MEDICARE, MEDICAID ==
[~2020-04-19] VITALS: Ht 154.9 cm; Wt 72.6 kg
[~2020-04-19 19:40] MED LIST changes: +ALBUTEROL SULF8.5 G1 INH; +IBUPROFEN600 M1 ORAL; +NORVASC2.5 MG ORAL; +TYLENOL325 MG ORAL
[2020-04-19] MEDS ORDERED: Ketorolac 30mg Inj IV ONE (20:00)
[2020-04-19 20:10] VITALS: BP 126/89
[2020-04-19] MEDS ORDERED: Omnipaque-300 100ml vial INJ PRN (20:15)
[2020-04-19] MEDS ORDERED: Morphine Sulfate 2mg/ml Inj(IV/IM USE ONLY) IVP ONE (20:30)
[2020-04-19 21:13] LABS: BASOPHILS % (AUTO) 1.7 % (0.0-2.0); EOSINOPHILS % (AUTO) 1.3 % (0.0-3.0); HEMATOCRIT 31.6 % (37.0-47.0); HEMOGLOBIN 9.6 G/DL (12.0-16.0); LYMPHOCYTES % (AUTO) 30.9 % (20.0-45.0); MEAN CORPUSCULAR VOLUME 87 FL (80-99); MONOCYTES % (AUTO) 7.2 % (1.0-10.0); PLATELET COUNT 306 K/UL (150-450); RED BLOOD COUNT 3.61 M/UL (4.20-5.40); RED CELL DISTRIBUTION WIDTH 15.2 % (11.6-14.8); WHITE BLOOD COUNT 7.9 K/UL (4.8-10.8)
[2020-04-19 21:31] LABS: ANION GAP 9 mmol/L (5-15); BLOOD UREA NITROGEN 18 mg/dL (7-18); CALCIUM 8.7 MG/DL (8.5-10.1); CARBON DIOXIDE 29 MMOL/L (21-32); CHLORIDE 105 MMOL/L (98-107); CREATININE 0.8 MG/DL (0.55-1.30); POTASSIUM 3.6 MMOL/L (3.5-5.1); SODIUM 143 MMOL/L (136-145)
[2020-04-19 21:34] LABS: ALANINE AMINOTRANSFERASE 22 U/L (12-78); ALBUMIN/GLOBULIN RATIO 1.1 (1.0-2.7); ALKALINE PHOSPHATASE 96 U/L (46-116); ASPARTATE AMINO TRANSFERASE 20 U/L (15-37); BILIRUBIN,TOTAL 0.1 MG/DL (0.2-1.0)
--- NOTE | 2020-04-19 22:04 | Diagnostic Imaging Report ---
EXAM: CT Abdomen and Pelvis With Intravenous Contrast CLINICAL HISTORY: PAIN TECHNIQUE: Axial computed tomography images of the abdomen and pelvis with intravenous contrast. CTDI is 8.7 mGy and DLP is 387 mGy-cm. One or more of the following dose reduction techniques were used: automated exposure control, adjustment of the mA and/or kV according to patient size, use of iterative reconstruction technique. COMPARISON: None FINDINGS: Lung bases: Unremarkable. No mass. No consolidation. ABDOMEN: Liver: Unremarkable. No mass. Gallbladder and bile ducts: The gallbladder is contracted, limiting its evaluation. No calcified stones. No ductal dilation. Pancreas: Unremarkable. No mass. No ductal dilation. Spleen: Unremarkable. No splenomegaly. Adrenals: Unremarkable. No mass. Kidneys and ureters: Unremarkable. No solid mass. No hydronephrosis. Stomach and bowel: There is no evidence of small or large bowel obstruction. There is a moderate amount of stool within the colon. There is a normal appendix. There is diverticulosis without evidence of diverticulitis. PELVIS: Appendix: See above. Bladder: Decompressed. No mass. Reproductive: Unremarkable as visualized. ABDOMEN and PELVIS: Intraperitoneal space: Unremarkable. No free air. No significant fluid collection. Bones/joints: There has been posterior fusion from L4-S1 with intervening discectomy. Laminectomies are present at L4-L5. The left transpedicular screw at L5 approximates the common iliac vessels. There is a nonunited fracture of the left transverse process of L3. The patient is status post right total hip arthroplasty. Significant degenerative changes are seen within the sacroiliac joints. No dislocation. Vasculature: Atherosclerosis. No abdominal aortic aneurysm. IMPRESSION: No definite acute intra-abdominal process. Chronic findings are discussed above.
[2020-04-19 22:16] LABS: APPEARANCE,URINE CLEAR; BILIRUBIN, URINE NEGATIVE (NEGATIVE); COLOR,URINE PALE YELLOW; GLUCOSE, URINE (UA) NEGATIVE (NEGATIVE); KETONES,URINE NEGATIVE (NEGATIVE); LEUKOCYTE ESTERASE ,URINE NEGATIVE (NEGATIVE); NITRITE,URINE NEGATIVE (NEGATIVE); PH,URINE 7 (4.5-8.0); PROTEIN,URINE NEGATIVE (NEGATIVE); UROBILINOGEN,URINE NORMAL MG/DL (0.0-1.0)
--- NOTE | 2020-04-19 22:31 | Emergency Room Report ---
History of Present Illness General Chief Complaint: Abdominal Pain Source: Patient Present Illness HPI 64-year-old female with history of gastritis as well as hypertension currently controlled with medication here complaining of 1 week of intermittent right to mid epigastric abdominal pain radiation to back rating it 7 out of 10 today. Reports that she got an ultrasound earlier today however does not know the results. Patient denies any fever and chills, nausea vomiting. Denies any diarrhea and loose stools. Denies fever and chills, chest pain, shortness of breath, cough and congestion. Denies any abdominal surgery history. Has not taken medication for symptom relief. Denies any drug use, tobacco smoke, alcohol intake. Denies any urinary symptoms. Allergies: Coded Allergies: LACTOSE (Verified Allergy, Intermediate, Itching, 04/29/19) COVID-19 Screening Contact w/high risk pt: No Recent Travel to affected area: No Experienced COVID-19 symptoms?: No COVID-19 Testing performed FOOD PORTER: No Patient History Past Medical History: see triage record Past Surgical History: none Pertinent Family History: none Now: No Immunizations: UTD Reviewed Nursing Documentation: PMH: Agreed; PSxH: Agreed Nursing Documentation-PMH Hx Hypertension: Yes Hx Asthma: Yes Hx COPD: Yes Hx Cancer: No Hx Gastrointestinal Problems: Yes - COLITIS, GASTRITIS Hx Neurological Problems: Yes - ruptured disk with pinched nerve Hx Weakness: Yes Hx Fatigue: Yes Review of Systems All Other Systems: negative except mentioned in HPI Physical Exam Vital Signs Date Time Temp Pulse Resp B/P (MAP) Pulse Ox O2 Delivery O2 Flow Rate FiO2 04/19/20 19:59 99.0 85 24 126/89 (101) 98 Room Air Sp02 EP Interpretation: reviewed, normal General Appearance: alert, GCS 15, non-toxic, mild distress Head: normocephalic, atraumatic Eyes: bilateral eye normal inspection, bilateral eye PERRL ENT: hearing grossly normal, normal pharynx, no angioedema, normal voice Neck: full range of motion, supple/symm/no masses Respiratory: chest non-tender, lungs clear, normal breath sounds, no rhonchi, no retraction, speaking full sentences Cardiovascular #1: regular rate, rhythm, no edema, no JVD, no murmur Gastrointestinal: no mass, no organomegaly, no peritonitis, no bruit, non- distended, no hernia, guarding - Epigastric and right upper quadrant, other - Negative Gooden's, negative McBurney's and Rovsing's Rectal: deferred Genitourinary: no CVA tenderness Musculoskeletal: back normal, no calf tenderness Neurologic: alert, motor strength/tone normal, oriented x3, sensory intact, responsive, speech normal Psychiatric: judgement/insight normal, memory normal, mood/affect normal, no suicidal/homicidal ideation Skin: no rash Lymphatic: no adenopathy Medical Decision Making PA Attestation All my diagnosis and treatment plans were reviewed ad discussed with my supervising physician Dr. Parrish Diagnostic Impression: Primary Impression: Gastritis Additional Impressions: Marijuana abuse Abdominal pain Anemia ER Course 64-year-old female with history of gastritis as well as hypertension currently controlled with medication here complaining of 1 week of intermittent right to mid epigastric abdominal pain radiation to back rating it 7 out of 10 today. Reports that she got an ultrasound earlier today however does not know the results. Patient denies any fever and chills, nausea vomiting. Denies any diarrhea and loose stools. Denies fever and chills, chest pain, shortness of breath, cough and congestion. Denies any abdominal surgery history. Has not taken medication for symptom relief. Denies any drug use, tobacco smoke, alcohol intake. Denies any urinary symptoms. Ddx considered but are not limited to: appendicitis, cholecystis, gastritis, gastroenteritis, UTI, pyelonephritis, SBO, diverticulitis, influenza with GI manifestation, [place], pancreatitis Vital signs: are WNL, pt. is afebrile H&PE are most consistent with: Gastritis, abdominal pain, marijuana abuse, incidental finding of iron deficiency anemia ORDERS: Abdominal pain order set, CT abdomen pelvis with contrast, Zofran, Tylenol, Pepcid, ferrous sulfate ED INTERVENTIONS: Morphine, NS bolus, Zofran DISCHARGE: At this time pt. is stable for d/c to home. Will provide printed patient care instructions, and any necessary prescriptions. Care plan and follow up instructions have been discussed with the patient prior to discharge. Patient take medication as directed, increase oral hydration, avoiding spicy greasy food, follow-up primary care provider for referral to supervisor sewer system and further evaluation. If worsening symptoms return to emergency room. Avoid marijuana use. EKG Diagnostic Results Rate: normal Rhythm: NSR ST Segments: no acute changes Other Impression No acute ST changes Chest X-Ray Diagnostic Results Chest X-Ray Diagnostic Results : Chest X-Ray Ordered: Yes # of Views/Limited/Complete: 1 View Indication: Other EP Interpretation: Yes PA Xray: Interpretation reviewed, by supervising MD, and agrees with findings. Interpretation: no consolidation, no effusion, no pneumothorax Impression: No acute disease Electronically Signed by: Gia Soler PA-C CT/MRI/US Diagnostic Results CT/MRI/US Diagnostic Results : Imaging Test Ordered: CT abdomen pelvis with contrast Impression COMPARISON: None FINDINGS: Lung bases:Unremarkable. No mass. No consolidation. ABDOMEN: Liver:Unremarkable. No mass. Gallbladder and bile ducts: The gallbladder is contracted, limiting its evaluation. No calcified stones. No ductal dilation. Pancreas:Unremarkable. No mass. No ductal dilation. Spleen:Unremarkable. No splenomegaly. Adrenals:Unremarkable. No mass. Kidneys and ureters:Unremarkable. No solid mass. No hydronephrosis. Stomach and bowel: There is no evidence of small or large bowel obstruction. There is a moderate amount of stool within the colon. There is a normal appendix. There is diverticulosiswithout evidence of diverticulitis. PELVIS: Appendix: See above. Bladder:Decompressed. No mass. Reproductive:Unremarkable as visualized. ABDOMEN and PELVIS: Intraperitoneal space:Unremarkable. No free air. No significant fluid collection. Bones/joints: There has been posterior fusion fromL4-S1with intervening discectomy. Laminectomies are present at L4-L5. The left transpedicular screwat L5 approximates the common iliac vessels. There is a nonunited fracture of the left transverse process of L3. The patient is status post right total hip arthroplasty. Significant degenerative changes are seen within the sacroiliac joints. No dislocation. Vasculature:Atherosclerosis. No abdominal aortic aneurysm. IMPRESSION: No definite acute intra-abdominal process. Chronic findings are discussed above. Last Vital Signs Date Time Temp Pulse Resp B/P (MAP) Pulse Ox O2 Delivery O2 Flow Rate FiO2 04/19/20 20:10 85 24 Room Air 04/19/20 20:10 99.0 126/89 98 Disposition: HOME, SELF-CARE Condition: Stable Referrals: NON PHYSICIAN (PCP) Patient Instructions: Abdominal Pain, Adult Additional Instructions: Patient take medication as directed, increase oral hydration, avoiding spicy greasy food, follow-up primary care provider for referral to supervisor sewer system and further evaluation. If worsening symptoms return to emergency room. Avoid marijuana use. Gia Kinsey Apr 19, 2020 22:31
[2020-04-19] MEDS ORDERED: TYLENOL EXTRA500 MG ORAL (22:34)
[2020-04-19] MEDS ORDERED: FAMOTIDINE20 MG ORAL (22:34)
[2020-04-19] MEDS ORDERED: ZOFRAN4 M1 ORAL (22:34)
[2020-04-19] MEDS ORDERED: FERROUS SULFAT325 MG ORAL (22:34)
[2020-04-19 22:50] VITALS: BP 125/95
--- NOTE | 2020-04-20 13:19 | Diagnostic Imaging Report ---
Indication: Abdominal pain Technique: One view of the chest Comparison: 04/29/2019 Findings: Lungs and pleural spaces are clear. The heart size is normal. There is a right chest port catheter again noted. Previously demonstrated atelectatic changes are no longer evident. There is mild elevation left hemidiaphragm. Surgical hardware is seen in the lumbar spine Impression: No acute process
== END 2020-04-19 22:50 | disposition home or self-care (01) ==
LOC: EMR 20:00
DX: K29.70 Gastritis, unspecified, without bleeding (principal); F12.10 Cannabis abuse, uncomplicated; R10.9 Unspecified abdominal pain; D64.9 Anemia, unspecified; J44.9 Chronic obstructive pulmonary disease, unspecified; K57.90 Diverticulosis of intestine, part unspecified, without perforation or abscess without bleeding; Z98.1 Arthrodesis status; S32.039A Unspecified fracture of third lumbar vertebra, initial encounter for closed fracture; Z96.641 Presence of right artificial hip joint; X58.XXXA Exposure to other specified factors, initial encounter; Y92.9 Unspecified place or not applicable
CPT/HCPCS: 36415; 71045; 74177; 80053; 80307; 81003; 83690; 84484; 85025; 85610; 85730; 93005; 96361; 96374; 96375; 99284; G0480; J1885; J2270; J2405; J7030; Q9967; S0028

== ENCOUNTER 2020-09-04 18:22 | Emergency (ER) | payer MEDICARE, MEDICAID ==
[~2020-09-04] VITALS: Ht 154.9 cm; Wt 72.6 kg
[~2020-09-04 18:22] MED LIST changes: +FERROUS SULFAT325 MG ORAL; +ZOFRAN4 M1 ORAL
--- NOTE | 2020-09-04 18:51 | Emergency Room Report ---
History of Present Illness General Chief Complaint: Abdominal Pain Source: Patient Present Illness HPI Disclaimer: Please note that this report is being documented using [employer] technology. This can lead to erroneous entry secondary to incorrect interpretation by the dictating instrument. HPI: 65-year-old female with a history of hypertension, hepatitis C status post treatment, gastritis, peptic ulcer, COPD presents for evaluation of abdominal pain. Symptoms began this morning. She reports sharp epigastric and left upper quadrant abdominal pain that is not associated with eating. Multiple bouts of nonbilious, nonbloody emesis. Denies diarrhea, fever, lower abdominal pain, dysuria, hematuria, flank pain. Denies abdominal trauma. Continues to pass gas. Patient is compliant with omeprazole for treatment of chronic gastritis. Denies eating any greasy, spicy or other aggravating foods. Denies chest pain, shortness of breath, diaphoresis, weakness otherwise. States she is unable to eat. PMH: Gastritis, hepatitis, hypertension, peptic ulcer, COPD PSH: section x7, knee surgeries, hip surgeries Allergies: Lactose Social Hx: Denied alcohol or drug use Allergies: Coded Allergies: LACTOSE (Verified Allergy, Intermediate, Itching, 04/29/19) COVID-19 Screening Contact w/high risk pt: No Recent Travel to affected area: No Experienced COVID-19 symptoms?: No COVID-19 Testing performed CISCO ENGINEER: No Nursing Documentation-PMH Hx Cardiac Problems: Yes Hx Hypertension: Yes Hx Asthma: Yes Hx COPD: Yes Hx Cancer: No Hx Gastrointestinal Problems: Yes - CHOLECYSTITIS, PEPTIC ULCER DISEASE, DUODENAL ULCER DISEASE Hx Neurological Problems: No Hx Weakness: Yes Hx Fatigue: Yes Review of Systems All Other Systems: negative except mentioned in HPI Physical Exam Vital Signs Date Time Temp Pulse Resp B/P (MAP) Pulse Ox O2 Delivery O2 Flow Rate FiO2 09/04/20 18:35 97.3 90 20 190/100 (130) 96 Room Air General: Awake and alert, appears mildly uncomfortable. HEENT: NC/AT. EOMI. Cardiovascular: RRR. S1 and S2 normal. No murmur appreciated Resp: Normal work of breathing. No cough, wheezing or crackles appreciated Abdomen: Abdomen is soft, obese, nondistended. Tender to palpation in the epigastrium and left upper quadrant. Negative Gooden's. No tenderness in the lower quadrants. No rebound. Skin: Intact. No abrasions, laceration or rash over the exposed skin MSK: Normal tone and bulk. Moving all extremities. No obvious deformity. Neuro: Awake and alert. Mentating appropriately. Medical Decision Making Diagnostic Impression: Primary Impression: Abdominal pain Additional Impression: Gastritis ER Course 65-year-old female history of peptic ulcer disease, duodenal ulcer, gastritis presents for evaluation of abdominal pain. Limits extremities, gastroenteritis, worsening ulcer, pancreatitis, cholecystitis, bowel obstruction among others.Patient's presentation is most consistent with gastritis or symptom of her known ulcer disease. She is compliant with her omeprazole. Labs were obtained and returned within normal limits. No evidence of acute pancreatitis, major electrolyte abnormality, renal dysfunction, hepatic dysfunction or urinary tract infection. Patient was treated symptomatically and feels better. Abdomen remains soft, no signs of peritonitis. Do not believe she requires emergent imaging at this time. No further emesis. Stable for outpatient follow-up though did recommend gastroenterology evaluation. Instructed to return with new or worsening symptoms. She understands and agrees with this treatment plan. Laboratory Tests Test 09/04/20 19:00 09/04/20 20:15 White Blood Count 9.9 K/UL (4.8-10.8) Red Blood Count 4.33 M/UL (4.20-5.40) Hemoglobin 12.1 G/DL (12.0-16.0) Hematocrit 38.5 % (37.0-47.0) Mean Corpuscular Volume 89 FL (80-99) Mean Corpuscular Hemoglobin 28.0 PG (27.0-31.0) Mean Corpuscular Hemoglobin Concent 31.5 G/DL (32.0-36.0) L Red Cell Distribution Width 15.3 % (11.6-14.8) H Platelet Count 552 K/UL (150-450) H Mean Platelet Volume 6.4 FL (6.5-10.1) L Neutrophils (%) (Auto) 69.2 % (45.0-75.0) Lymphocytes (%) (Auto) 22.2 % (20.0-45.0) Monocytes (%) (Auto) 5.9 % (1.0-10.0) Eosinophils (%) (Auto) 1.4 % (0.0-3.0) Basophils (%) (Auto) 1.3 % (0.0-2.0) Sodium Level 141 MMOL/L (136-145) Potassium Level 3.3 MMOL/L (3.5-5.1) L Chloride Level 102 MMOL/L (98-107) Carbon Dioxide Level 29 MMOL/L (21-32) Anion Gap 10 mmol/L (5-15) Blood Urea Nitrogen 9 mg/dL (7-18) Creatinine 0.7 MG/DL (0.55-1.30) Estimated Glomerular Filtration Rate > 60 mL/min (>60) Glucose Level 106 MG/DL (74-106) Calcium Level 9.9 MG/DL (8.5-10.1) Total Bilirubin 0.3 MG/DL (0.2-1.0) Aspartate Amino Transferase (AST) 26 U/L (15-37) Alanine Aminotransferase (ALT) 30 U/L (12-78) Alkaline Phosphatase 105 U/L (46-116) Troponin I 0.000 ng/mL (0.000-0.056) Total Protein 8.4 G/DL (6.4-8.2) H Albumin 4.2 G/DL (3.4-5.0) Globulin 4.2 g/dL Albumin/Globulin Ratio 1.0 (1.0-2.7) Lipase 79 U/L (73-393) Urine Color Pale yellow Urine Appearance Clear Urine pH 7 (4.5-8.0) Urine Specific [place] 1.010 (1.005-1.035) Urine Protein 2+ (NEGATIVE) H Urine Glucose (UA) Negative (NEGATIVE) Urine Ketones Negative (NEGATIVE) Urine Blood 2+ (NEGATIVE) H Urine Nitrite Negative (NEGATIVE) Urine Bilirubin Negative (NEGATIVE) Urine Urobilinogen Normal MG/DL (0.0-1.0) Urine Leukocyte Esterase Negative (NEGATIVE) Urine RBC 10-15 /HPF (0 - 2) H Urine WBC 0-2 /HPF (0 - 2) Urine Squamous Epithelial Cells Moderate /LPF (NONE/OCC) H Urine Bacteria Few /HPF (NONE) Urine Mucus Few /LPF (NONE/OCC) H EKG Diagnostic Results Troponin ordered: Yes When was troponin ordered?: Sep 04, 2020 EKG Time: 19:01 Rate: normal Rhythm: NSR ST Segments: no acute changes Other Impression Sinus rhythm, normal axis, normal intervals, no ST segment changes. Rhythm Strip Diag. Results Rhythm Strip Time: 19:01 EP Interpretation: yes Rate: 80s Rhythm: NSR, no PVC's, no ectopy Last Vital Signs Date Time Temp Pulse Resp B/P (MAP) Pulse Ox O2 Delivery O2 Flow Rate FiO2 09/04/20 18:35 97.3 90 20 190/100 (130) 96 Room Air Disposition: HOME, SELF-CARE Condition: Stable Black Perry MD Sep 04, 2020 18:51
--- NOTE | 2020-09-04 18:55 | NUR ---
ED Nurse Note: Pt walked into ED for severe AMEZQUITA, stomachache, and vomiting. Pt is alert and orientedx4, ambulatory. IV established and blood sent to lab. Pt has been seen by ANUEL. Set up on monitor. Will continue to monitor.
[2020-09-04 19:00] VITALS: BP 187/98
[2020-09-04] MEDS ORDERED: Morphine Sulfate 4mg/ml Inj (IV USE ONLY) IVP ONE (19:00)
[2020-09-04 19:25] VITALS: BP 183/92
--- NOTE | 2020-09-04 19:26 | NUR ---
ED Nurse Note: Patient resting in bed, no acute distress noted. Fluids running. Provided blankets for patient, lights turned off for comfort.
[2020-09-04 19:33] LABS: BASOPHILS % (AUTO) 1.3 % (0.0-2.0); EOSINOPHILS % (AUTO) 1.4 % (0.0-3.0); HEMATOCRIT 38.5 % (37.0-47.0); HEMOGLOBIN 12.1 G/DL (12.0-16.0); LYMPHOCYTES % (AUTO) 22.2 % (20.0-45.0); MEAN CORPUSCULAR VOLUME 89 FL (80-99); MONOCYTES % (AUTO) 5.9 % (1.0-10.0); NEUTROPHILS % (AUTO) 69.2 % (45.0-75.0); PLATELET COUNT 552 K/UL (150-450); RED BLOOD COUNT 4.33 M/UL (4.20-5.40); RED CELL DISTRIBUTION WIDTH 15.3 % (11.6-14.8); WHITE BLOOD COUNT 9.9 K/UL (4.8-10.8)
[2020-09-04 19:45] LABS: ANION GAP 10 mmol/L (5-15); BLOOD UREA NITROGEN 9 mg/dL (7-18); CALCIUM 9.9 MG/DL (8.5-10.1); CARBON DIOXIDE 29 MMOL/L (21-32); CHLORIDE 102 MMOL/L (98-107); CREATININE 0.7 MG/DL (0.55-1.30); POTASSIUM 3.3 MMOL/L (3.5-5.1); SODIUM 141 MMOL/L (136-145)
[2020-09-04 19:49] LABS: ALANINE AMINOTRANSFERASE 30 U/L (12-78); ALBUMIN 4.2 G/DL (3.4-5.0); ALKALINE PHOSPHATASE 105 U/L (46-116); ASPARTATE AMINO TRANSFERASE 26 U/L (15-37); BILIRUBIN,TOTAL 0.3 MG/DL (0.2-1.0)
--- NOTE | 2020-09-04 20:06 | NUR ---
ED Nurse Note: Patient ambulating to restroom to provide urine sample
--- NOTE | 2020-09-04 20:21 | NUR ---
ED Nurse Note: Urine collected
[2020-09-04 20:45] LABS: APPEARANCE,URINE CLEAR; BILIRUBIN, URINE NEGATIVE (NEGATIVE); COLOR,URINE PALE YELLOW; GLUCOSE, URINE (UA) NEGATIVE (NEGATIVE); KETONES,URINE NEGATIVE (NEGATIVE); LEUKOCYTE ESTERASE ,URINE NEGATIVE (NEGATIVE); NITRITE,URINE NEGATIVE (NEGATIVE); PH,URINE 7 (4.5-8.0); PROTEIN,URINE 2+ (NEGATIVE); UROBILINOGEN,URINE NORMAL MG/DL (0.0-1.0)
[2020-09-04] MEDS ORDERED: Ketorolac 30mg Inj IV ONE (20:45)
[2020-09-04 21:45] VITALS: BP 162/90
--- NOTE | 2020-09-04 21:45 | NUR ---
ER DISCHARGE NOTE: Patient is cleared to be discharged per ERMD, pt is aox4, on room air, with stable vital signs. pt was given dc instructions, pt was able to verbalize understanding, pt id band and iv site removed intact without complications. pt is able to ambulate with steady gait. pt took all belongings. pt stable upon discharge.
--- NOTE | 2020-09-05 16:12 | Diagnostic Imaging Report ---
Indication: Abdominal pain Technique: Supine view of the abdomen Comparison: 03/17/2019 Findings: Interim spinal fusion surgery. Bowel gas pattern is unremarkable. Interim right hip surgery. Impression: No acute process
== END 2020-09-04 21:45 | disposition home or self-care (01) ==
LOC: EMR 19:12
DX: K29.70 Gastritis, unspecified, without bleeding (principal); I10 Essential (primary) hypertension; J45.909 Unspecified asthma, uncomplicated; Z87.11 Personal history of peptic ulcer disease
CPT/HCPCS: 36415; 74018; 80053; 81003; 83690; 84484; 85025; 93005; 96361; 96374; 96375; 99284; J1885; J2270; J2405; J7030; S0028

== ENCOUNTER 2020-11-04 10:48 | Emergency (ER) | payer OTHER, MEDICAID ==
[~2020-11-04] VITALS: Ht 154.9 cm; Wt 72.6 kg
--- NOTE | 2020-11-04 11:04 | NUR ---
ED Nurse Note: pt presents to ED c/o back of neck pain s/p fall x3 days. pt reports that she was playing with her dog and tried grabbing onto her couch arm rest but slipped and fell onto her bottom. pt denies LOC, describes the px in her neck as "soreness." pt also reports a h/o R hip replacement and is experiencing px with weight bearing and ambulation to R side
[2020-11-04 11:06] VITALS: BP 158/93
[2020-11-04] MEDS ORDERED: oxyCODONE HCL/Acetaminophen 5/325mg ORAL ONE (11:15)
--- NOTE | 2020-11-04 11:16 | Emergency Room Report ---
History of Present Illness General Chief Complaint: Pain Source: Patient, Medical Record Present Illness HPI The patient was playing with her 201, over a futon. She denies hitting her head. She fell on her right hip. This hip has been replaced. This happened 3 days ago. She claims the pain is been severe since that time. She is taking tramadol and Flexeril without any help. The patient has severe gastritis and is unable to take nonsteroidal anti-inflammatories. She rates the pain 9/10 at this time. She denies any numbness in her upper or lower extremities. There is no incontinence. She denies fevers or chills. She is not taking blood thinners at this time. Denies oncologic problems. Patient does have muscle spasms in her upper back and neck. She is able to ambulate in the face of the hip pain. Patient has chronic pain and is seeing pain specialist. She has a Port-A-Cath. The patient has an electric wheelchair at home. She has been using this to get about but is ambulating here in the emergency department. Patient denies exposure to Covid positive contacts. She has been self isolating No sore throat, chest pain, palpitations, nausea, vomiting, diarrhea, dysuria, abdominal pain, shortness of breath, rashes, visual changes, dizziness, headache. 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 COVID-19 Screening: Negative COVID-19 COVID-19 Testing Source: 10/30/20 Patient History Past Medical History: see triage record Past Surgical History: other - Right hip replacement, Port-A-Cath Social History: Denies: smoking Social History Narrative From home Reviewed Nursing Documentation: PMH: Agreed; PSxH: Agreed Nursing Documentation-PMH Past Medical History: No History, Except For Hx Cardiac Problems: Yes Hx Hypertension: Yes Hx Asthma: Yes Hx COPD: Yes Hx Cancer: No Hx Gastrointestinal Problems: Yes - CHOLECYSTITIS, PEPTIC ULCER DISEASE, DUODENAL ULCER DISEASE Hx Neurological Problems: No Hx Weakness: Yes Hx Fatigue: Yes Review of Systems All Other Systems: negative except mentioned in HPI Physical Exam Vital Signs Date Time Temp Pulse Resp B/P (MAP) Pulse Ox O2 Delivery O2 Flow Rate FiO2 11/04/20 10:54 99.3 108 20 158/93 (114) 95 Room Air Sp02 EP Interpretation: reviewed, normal General Appearance: well appearing, no apparent distress, GCS 15, Chronically Ill Head: normocephalic, atraumatic Eyes: bilateral eye normal inspection, bilateral eye PERRL, bilateral eye EOMI ENT: other - Wearing a mask Neck: full range of motion, no bony tend, tender - More on the right side but also somewhat midline. Tender in upper back with significant muscle spasm all groups slightly worse on the right-hand side. Respiratory: chest non-tender, lungs clear, normal breath sounds Cardiovascular #1: regular rate, rhythm Cardiovascular #2: 2+ radial (L) Gastrointestinal: normal inspection, overweight Genitourinary: no CVA tenderness Musculoskeletal: back normal, other - Walks with limp. Range of motion of the left hip and knee normal. Able to sit and stand. Neurologic: alert, motor strength/tone normal, DTRs symmetric, oriented x3, sensory intact, cerebellar normal, speech normal Psychiatric: depressed affect Skin: normal color, no rash - Almost fully dressed but low back and neck showed no abrasions or hematomata, warm/dry Medical Decision Making Diagnostic Impression: Primary Impression: Fall Qualified Codes: W19.XXXA - Unspecified fall, initial encounter Additional Impressions: Neck strain Qualified Codes: S16.1XXA - Strain of muscle, fascia and tendon at neck level, initial encounter Contusion, hip Qualified Codes: S70.01XA - Contusion of right hip, initial encounter ER Course Patient presents 3 days after fall. She has a history of chronic pain. The pain is increased after the fall. She also feels muscle spasms. She has been taking tramadol and Flexeril. Differential includes muscle strain, contusion, muscle spasm, osteoarthritis. There are no red flag signs or symptoms. Based on her physical exam fracture extremely unlikely. Labs and x-ray studies not indicated at this time. Discussed pain control with patient. We are limited based on the fact that she has severe GI pathology. Discussed treatment options. Patient agreed to take Percocet in the emergency department. Also discussed the importance of following up with her private physician and also her pain control doctor. Discussed treatment plan with patient. Patient agreed to take Percocet. Patient stable for outpatient observation and treatment. Last Vital Signs Date Time Temp Pulse Resp B/P (MAP) Pulse Ox O2 Delivery O2 Flow Rate FiO2 11/04/20 11:26 99.3 20 158/93 95 Room Air 11/04/20 10:54 108 Status: improved Disposition: HOME, SELF-CARE Condition: Improved Scripts Acetaminophen (Tylenol) 325 Mg Tablet 650 MG ORAL Q6H PRN for Prn Pain/Headache/Temp > 101, #20 TAB 0 Refills Prov: Yasir Ruff MD 11/04/20 Hydrocodone Bit/Acetaminophen (HYDROCODON-ACETAMINOPHEN 5-300) 1 Each Tablet 1 EACH PO Q6HR PRN for For Pain, #10 TAB Prov: Yasir Ruff MD 11/04/20 Yasir Ruff MD Nov 04, 2020 11:16
[2020-11-04] MEDS ORDERED: HYDROCODON-ACE1 EA18 PO (11:19)
[2020-11-04] MEDS ORDERED: TYLENOL325 MG ORAL (11:20)
[2020-11-04 11:26] VITALS: BP 158/93
--- NOTE | 2020-11-04 11:26 | NUR ---
ER DISCHARGE NOTE: Patient is cleared to be discharged per ERMD, pt is aox4, on room air, with stable vital signs. pt was given dc and prescription instructions, pt was able to verbalize understanding, pt id band removed without complications. pt is able to ambulate with steady gait. pt took all belongings and left via private vehicle, states her son will be driving her home.
== END 2020-11-04 11:26 | disposition home or self-care (01) ==
LOC: EMR 11:06
DX: S70.01XA Contusion of right hip, initial encounter (principal); S16.1XXA Strain of muscle, fascia and tendon at neck level, initial encounter; I11.9 Hypertensive heart disease without heart failure; J44.9 Chronic obstructive pulmonary disease, unspecified; J45.909 Unspecified asthma, uncomplicated; W01.0XXA Fall on same level from slipping, tripping and stumbling without subsequent striking against object, initial encounter; Y93.89 Activity, other specified; Y92.9 Unspecified place or not applicable; Z91.011 Allergy to milk products; Z96.641 Presence of right artificial hip joint; Z79.899 Other long term (current) drug therapy
CPT/HCPCS: 99282